=== PATIENT | male | born 1985 | race Caucasian/White ===

== ENCOUNTER 2018-08-09 16:21 | Inpatient (IN) | payer BC, SELFPAY ==
[~2018-08-09 16:21] MED LIST: Heparin 1,000 UNITS/ML VIAL ONE; ISOVUE-370 76%-LOCM 1 ML ONE; PHENYLEPHRINE-NS 100 MCG/ML 10 ML SYRINGE ONE; Rocuronium Bromide 10 MG/ML (10ML VIAL) ONE
[2018-08-09] MEDS ORDERED: Tranexamic Acid 1,000 MG/10 ML VIAL ONE (16:30)
[2018-08-09 16:33] LABS: #Basophils 0.1 thou/uL (0.0-0.2); #Eosinphils 0.6 thou/uL (0.0-0.7); #Lymphocytes 5.1 thou/uL (1.20-3.40); #Monocytes 0.7 thou/uL (0.11-0.59); #Neutrophils 6.8 thou/uL (1.40-6.50); %Basophils 0.9 % (0.0-1.0); %Eosinophils 4.5 % (0.0-10.0); %Lymphocytes 38.3 % (21.0-51.0); %Neutrophils 51.3 % (42.0-75.0); Hemoglobin 13.8 g/dL (14.0-18.0); Mean Corpuscular HGB CONC 31.4 g/dL (32.0-36.0); Mean Corpuscular Hemoglobin 30.9 pg (27.0-31.0); Mean Corpuscular Volume 98.4 fL (78.0-98.0); Mean Platelet Volume 7.3 fL (7.4-10.4); Platelet Count 401 thou/uL (130-400); RBC Distribution Width 11.9 % (11.5-14.5); Red Blood Cell (RBC) Count 4.46 mill/uL (4.70-6.10); White Blood Cell (WBC) Count 13.2 thou/uL (4.8-10.8)
[2018-08-09 16:37] LABS: Actual Bicarbonate (HCO3a) 11.6 mEq/L (22-28); Analyzer IN Cardio ER; Base Excess (BEa) -19.2 mEq/L (-2.0 to +3.0); CO2 Tension 45.8 mmHg (35.0-45.0); Calcium, Ionized 1.01 mmol/L (1.12-1.30); Carboxyhemoglobin (COHb) 1.5 gm% (0.0-3.0); Hemoglobin (Hb) 14.6 g/dL (14.0-18.0); O2 Tension (PaO2) 473.5 mmHg (80.0-100.0); Potassium - ABG Lab 4.29 mmol/L (3.70-5.30)
[2018-08-09 16:38] LABS: Puncture Site RRA; pH, Arterial 7.02 (7.35-7.45)
[2018-08-09] MEDS ORDERED: Adacel (T-DAP) 0.5 ML SYRINGE ONE (16:39)
[2018-08-09 16:46] LABS: INR-International Normal Ratio 1.3; PTT 34.3 SEC (22.9-36.1); Prothrombin Time 16.7 SEC (12.0-14.7)
[2018-08-09 16:47] LABS: ALT (SGPT) 121 U/L (8-55); AST (SGOT) 251 U/L (5-34); Alkaline Phosphatase 72 U/L (40-150); Anion Gap 22 mmol/L (10-20); BUN (Urea Nitrogen) 18 mg/dL (8.9-20.6); Bilirubin, Total 0.4 mg/dL (0.2-1.2); Calc. Creatinine Clearance 0 mL/min (70-130); Calcium 8.3 mg/dL (7.8-10.44); Carbon Dioxide 14 mmol/L (22-29); Chloride 109 mmol/L (98-107); Estimated GFR-MDRD 65; Globulin 2.3 g/dL (2.4-3.5); Glucose 128 mg/dL (70-105); Lipase 92 U/L (8-78); Potassium 4.2 mmol/L (3.5-5.1); Protein, Total 6.3 g/dL (6.0-8.3); Sodium 141 mmol/L (136-145)
[2018-08-09 16:50] LABS: Bilirubin Negative (Negative); Blood, Urine Negative (Negative); Clarity CLEAR (Clear); Glucose, Urine (Dipstick) Negative (Negative); Leukocyte Negative (Negative); Nitrite Negative (Negative); Protein, Urine (Dipstick) Negative (Neg-Trace); Specific Gravity, Urine 1.005 (1.002-1.036); Urobilinogen 0.2 mg/dL (0.2-1.0); pH, Urine 5.5 (5.0-9.0)
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
[2018-08-09] MEDS ORDERED: Tranexamic Acid 1,000 MG in Sodium Chloride 0.9% 250 ML 250 ML IVPB SCH (17:00)
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
[2018-08-09] MEDS ORDERED: manNITOL 20% 500 ML ONE ×2 (17:19→17:33)
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
[2018-08-09 17:36] LABS: Actual Bicarbonate (HCO3a) 15.7 mEq/L (22-28); Analyzer IN Cardio ER; Base Excess (BEa) -9.3 mEq/L (-2.0 to +3.0); CO2 Tension 31.9 mmHg (35.0-45.0); Calcium, Ionized 1.02 mmol/L (1.12-1.30); Carboxyhemoglobin (COHb) 0.6 gm% (0.0-3.0); Potassium - ABG Lab 4.08 mmol/L (3.70-5.30); pH, Arterial 7.31 (7.35-7.45)
[2018-08-09 17:38] LABS: Puncture Site RRA
[2018-08-09 17:39] LABS: ALV-art Gradient 397.125 (0-20)
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
[2018-08-09] MEDS ORDERED: manNITOL 20% 500 ML IVPB SCH (17:45)
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
[2018-08-09 18:29] LABS: Amphetamine Not Detected (NotDetected); Barbiturates Screen Not Detected (NotDetected); Benzodiazepine Screen Not Detected (NotDetected); Cocaine Metabolite Screen Not Detected (NotDetected); Medtox Control Line Valid? VALID (VALID); Medtox Reader # READER 4; Methadone Not Detected (NotDetected); Methamphetamine Not Detected (NotDetected); Opiate Screen Not Detected (NotDetected); Oxycodone Screen Not Detected (NotDetected); Phencyclidine (PCP) Not Detected (NotDetected); THC/Cannabinoid Screen Detected (NotDetected); Tricyclic Screen Not Detected (NotDetected)
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
[2018-08-09] MEDS ORDERED: PHENYLEPHRINE-NS 100 MCG/ML 10 ML SYRINGE ONE (20:13)
[2018-08-09] MEDS ORDERED: Phenylephrine HCL 10 MG/ML VIAL ONE (20:23)
[2018-08-09] MEDS ORDERED: Rocuronium Bromide 50 MG/5 ML VIAL ONE (20:24)
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
[2018-08-09] MEDS ORDERED: Ventilator Sedation Protocol 1 EACH FS SCH (22:03)
[2018-08-09] MEDS ORDERED: hydrALAZINE 20 MG/ML VIAL SLOW IVP PRN (22:03)
[2018-08-09] MEDS ORDERED: Ondansetron PF 4 MG/2 ML Vial IVP PRN (22:03)
[2018-08-09] MEDS ORDERED: Dextrose 50% Abboject 50 ML SYRINGE SLOW IVP PRN (22:03)
[2018-08-09] MEDS ORDERED: Dextrose 5% in Water 1,000 ML IV PRN (22:03)
[2018-08-09] MEDS ORDERED: Ondansetron ODT 4 MG TAB PO PRN (22:03)
[2018-08-09 22:18] LABS: Actual Bicarbonate (HCO3a) 17.4 mEq/L (22-28); Base Excess (BEa) -6.3 mEq/L (-2.0 to +3.0); CO2 Tension 29.4 mmHg (35.0-45.0); Calcium, Ionized 1.04 mmol/L (1.12-1.30); Carboxyhemoglobin (COHb) 0.8 gm% (0.0-3.0); Hemoglobin (Hb) 13.1 g/dL (14.0-18.0); O2 Tension (PaO2) 150.4 mmHg (80.0-100.0); Potassium - ABG Lab 4.14 mmol/L (3.70-5.30); pH, Arterial 7.39 (7.35-7.45)
--- NOTE | 2018-08-09 22:25 | RAD ---
RIGHT ANKLE ONE VIEW: 08/09/18 HISTORY: Post reduction. This is a single C-arm view which shows reduction of the ankle dislocation on this single lateral vie w. Appears to be a fairly satisfactory reduction. IMPRESSION: Apparent reduction of the ankle dislocation. POS: [facility]
[2018-08-09] MEDS ORDERED: DISCONTINUE PREVIOUS NARCOTIC PAIN MEDICATIONS AND BENZODIAZEPINES FS SCH (22:26)
[2018-08-09] MEDS ORDERED: fentaNYL Citrate/PF 2,000 MCG in Sodium Chloride 0.9% 60 ML IV SCH (22:26)
[2018-08-09] MEDS ORDERED: Lorazepam 2 MG/ML VIAL SLOW IVP PRN (22:26)
[2018-08-09] MEDS ORDERED: Fentanyl BOLUS 250 ML IVPB PRN (22:26)
[2018-08-09] MEDS ORDERED: Propofol BOLUS 1,000 MG/100 ML VIAL IV PRN (22:26)
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
[2018-08-09 22:37] LABS: Puncture Site RBA
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
[2018-08-09 22:44] LABS: Hemoglobin 12.9 g/dL (14.0-18.0)
[2018-08-09] MEDS: Acetaminophen 1,000 MG in Premix Bag 1 BAG IVPB SCH (23:43)
--- NOTE | 2018-08-10 | RAD ---
CERVICAL SPINE ONE VIEW: 08/09/18 HISTORY: C5-6 dislocation. COMPARISON: CT angiogram neck 08/09/18. FINDINGS: Marked improvement in the alignment of the C5-C6 vertebral region when compared to the prior study. IMPRESSION: Marked improvement in position and alignment of the cervical spine at C5-C6 when compared to prior CT angiogram. POS: [facility]
[2018-08-10 00:08] LABS: Anion Gap 13 mmol/L (10-20); BUN (Urea Nitrogen) 16 mg/dL (8.9-20.6); Calc. Creatinine Clearance 112 mL/min (70-130); Calcium 7.6 mg/dL (7.8-10.44); Carbon Dioxide 21 mmol/L (22-29); Chloride 109 mmol/L (98-107); Estimated GFR-MDRD 79; Glucose 147 mg/dL (70-105); Potassium 4.2 mmol/L (3.5-5.1); Sodium 139 mmol/L (136-145)
[2018-08-10] MEDS: Propofol 1,000 MG/100 ML VIAL IV PRN (00:14)
[2018-08-10] MEDS: Lactated Ringer's 1,000 ML IV SCH ×3 (01:00→22:38)
--- NOTE | 2018-08-10 01:29 | OP ---
DATE OF PROCEDURE: 08/09/2018 [employer] OPERATOR: Ro Pizarro PA-C. PREOPERATIVE INDICATION: Monitor intracranial pressure, potential for neurological deterioration. POSTOPERATIVE DIAGNOSIS: Monitor intracranial pressure, potential for neurological deterioration. OPERATIVE PROCEDURE: Placement of right frontal Bethune bolt ICP monitor. PREOPERATIVE MEDICATIONS: Ancef 2 g IV. DRAIN NUMBER: Zero. DRAIN TYPE: None. DESCRIPTION OF PROCEDURE: The patient was in the operating room under general anesthesia for his orthopedic surgery. Electric clippers were used to remove hair from the right side of the scalp. The scalp was sterilely prepped and draped. We made an incision in the midpupillary line anterior to the coronal suture. With a hand drill and the appropriately sized bit, we fashioned a craniotomy. With the drill bit, we pierced the inner cortex of the bone and gently opened the dura. We washed this with saline irrigation. We then brought the Bethune bolt itself into the field. This was threaded into the drill hole we had just created and we tightened it until it could not turn anymore. We connected the pressure transducer to the Bethune monitor and adjusted the pressure radio adjuster until it read zero. We advanced it through the Sarah bolt in a sterile fashion into the intracranial space and tightened down the cap. We had an initial pressure reading of 14-70 mmHg, in the normal range. We tacked down the cap, advanced the outer plastic sheath to engage with a cap and protect a fiberoptic probe, and placed a sterile dressing at the entry point. This was a clean case, no contamination. Job ID: [id number]
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
[2018-08-10 05:02] LABS: Anion Gap 20 mmol/L (10-20); BUN (Urea Nitrogen) 19 mg/dL (8.9-20.6); Calc. Creatinine Clearance 90 mL/min (70-130); Calcium 7.7 mg/dL (7.8-10.44); Carbon Dioxide 16 mmol/L (22-29); Chloride 110 mmol/L (98-107); Estimated GFR-MDRD 62; Glucose 143 mg/dL (70-105); Potassium 4.8 mmol/L (3.5-5.1); Sodium 141 mmol/L (136-145)
[2018-08-10 05:10] LABS: Band 21 % (5-11); Hemoglobin 13.6 g/dL (14.0-18.0); Lymphocytes 3 % (21-51); MDiff Complete? YES; Mean Corpuscular HGB CONC 34.1 g/dL (32.0-36.0); Mean Corpuscular Hemoglobin 32.1 pg (27.0-31.0); Monocytes 11 % (0-10); Neutrophil 65 % (42-75); Platelet Count 225 thou/uL (130-400); RBC Distribution Width 13.4 % (11.5-14.5); Red Blood Cell (RBC) Count 4.25 mill/uL (4.70-6.10); White Blood Cell (WBC) Count 14.1 thou/uL (4.8-10.8)
[2018-08-10] MEDS: CEFAZOLIN 2 GM in Premix Bag 1 BAG IVPB SCH ×3 (05:27→22:38)
[2018-08-10] MEDS: Acetaminophen 1,000 MG in Premix Bag 1 BAG IVPB SCH ×3 (05:28→18:16)
[2018-08-10 07:08] LABS: Actual Bicarbonate (HCO3a) 14.6 mEq/L (22-28); Base Excess (BEa) -8.5 mEq/L (-2.0 to +3.0); Calcium, Ionized 1.01 mmol/L (1.12-1.30); Carboxyhemoglobin (COHb) 0.5 gm% (0.0-3.0); Hemoglobin (Hb) 13.6 g/dL (14.0-18.0); O2 Tension (PaO2) 114.5 mmHg (80.0-100.0); Potassium - ABG Lab 4.54 mmol/L (3.70-5.30); pH, Arterial 7.39 (7.35-7.45)
[2018-08-10 07:10] LABS: CO2 Tension 24.8 mmHg (35.0-45.0); Puncture Site RRA
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
--- NOTE | 2018-08-10 08:43 | CT ---
Exam: CT brain without contrast HISTORY: Intracranial hemorrhage COMPARISON: 08/09/2018 TECHNIQUE: Multiple contiguous axial images were obtained and a CT of the brain without contrast. FINDINGS: There is been interval placement of an intracranial pressure monitor in the right frontal r egion. There is stable diffuse subarachnoid hemorrhage. There is stable subdural hemorrhage along the tentorium. There is stable interventricular hemorrhage without evidence of hydrocephalus. Subtle shift of the midline to the left is seen. No downward herniation is present at this time. Soft tissue swelling is seen in the right scalp. The visualized paranasal sinuses and mastoid air titus ls are well aerated. IMPRESSION: Stable intracranial hemorrhage
--- NOTE | 2018-08-10 08:58 | PRG ---
DATE OF SERVICE: 08/10/2018 Since our operation yesterday for placement of ICP monitor, Mr. Cross went for a CT angiography of the cervical spine. This showed more displacement of the C5-C6 dislocation and some evidence of vertebral artery dissection with a tiny area of potential intimal flap, especially on the left, but also on the right vertebral artery. This may be related to the misalignment at C5-C6, but if it is related to dissection, there is a risk of stroke. I did not see anything distally in those vertebral arteries. Following the CT angiography, we returned, properly positioned the head and realigned C5 and C6 as documented on the cross-bed radiograph. Collar is in position. Overnight, Mr. Cross is febrile. His temperature went up to 103.5. Pulse is tachycardic. His blood pressures have been in the 100s to 130s. He is not on any pressor agents. His propofol is running. I hold his eyes open. I see some very slow roving eye movements. The eyes come to midline or just to his right of midline and then slowly rolled to the left. He is not responsive to stimulus with his eye movements. We tried to gain his attention with voice with threat to the eyes or with noxious stimulus and nothing stops this slow progressive roving eye movement, suggestive of a brain injury. As I pinched high in the trapezius towards the neck, there is one slight grimace and head turn. The only improvement I see on his neurological examination compared yesterday is nailbed pressure in the left hand resulted in him lifting the left arm. The elbows were mobilized in a plaster splint, so I cannot tell if this is abnormal flexion or withdrawal. I do not get much response to stimulus on the other three extremities. I do not see a new CT examination of the brain. I had a long discussion Mr. Cross's mother. She is wondering how we should proceed next. I would like to give her the most information I can about his chances of a meaningful recovery. I would like to see what sort of brain function he has before making decisions. My first order of business would be an ACDF at C5-C6. I do not think this will provide 100% of the spinal stability he needs, but would make it much easier to care for him and give him a few more days of recovery. Eventually, I believe he needs an instrumented fusion at C5-C6 posteriorly as well as from T10 to T12 above and below his Chance fracture. I will communicate with the Trauma Service as to his overall health and tolerance for more surgical intervention. With more information about the status of his brain function and brain anatomy, I will be able to speak with his mother about prognosis. Thankfully, his ICP has remained low and we have not had to use any oncotic agents. Job ID: [id number] [facility]
--- NOTE | 2018-08-10 09:22 | RAD ---
EXAM: XR Cervical Spine 1 View PROVIDED CLINICAL HISTORY: C5 and C6 fracture. COMPARISON: CT angiogram neck on 08/09/2018 FINDINGS: Nasogastric tube and endotracheal tubes are noted in place. Multiple metallic skin clips overlie the skull. C1 to the C6-7 level is seen on this single provided lateral image. There is slight irregularity of the superior endplate of the C5 vertebral body. However, there is normal alignment of the C5 and C6 vertebral bodies with improvement in alignment at this level when compared to study on 08/09/2018. Retrolisthesis of C5 on C6 was seen on the prior exam which is not present on current s tudy. Alignment of the cervical spine is within normal limits on this single lateral projection IMPRESSION: Improved alignment at the C5-6 level. Normal alignment of the cervical spine is present on this singl e lateral view of the cervical spine. There is mild irregularity of the superior endplate of the C5 vertebral body.
[2018-08-10] MEDS: Insulin Regular 300 UNITS/3 ML VIAL SC PRN (09:47)
[2018-08-10 09:57] LABS: Hemoglobin 12.6 g/dL (14.0-18.0)
[2018-08-10] MEDS ORDERED: Thrombin 5000 UNITS/5 ML VIAL ONE (10:14)
[2018-08-10] MEDS ORDERED: Sodium Chloride 0.9% 10 ML ONE (10:14)
[2018-08-10] MEDS ORDERED: Fentanyl 100 MCG/2 ML VIAL ONE (10:19)
[2018-08-10] MEDS ORDERED: Iopamidol 300 61% 100 ML VIAL FS ONE (10:40)
[2018-08-10] MEDS ORDERED: Iopamidol 0 ML ONE (10:59)
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
[2018-08-10] MEDS ORDERED: HYDROmorphone 2 MG/ML VIAL ONE (11:55)
[2018-08-10] MEDS ORDERED: Rocuronium Bromide 50 MG/5 ML VIAL ONE ×2 (12:01→12:46)
[2018-08-10] MEDS ORDERED: Midazolam HCl 2 mg/2 ml Vial ONE (12:33)
--- NOTE | 2018-08-10 12:43 | RAD ---
EXAM: Chest 2 views: HISTORY: Pneumothorax from central line placement. Please ensure that the catheter is not within the lung/pleu ra. COMPARISON: Chest x-ray 08/10/2018 FINDINGS: Limited intraoperative fluoroscopic views were submitted for interpretation. Contrast was injected th rough the subclavian central venous catheter. This contrast extended down the superior vena cava. No contrast is seen within the right thoracic cavity. A right-sided chest tube is partially visualize d. IMPRESSION: The subclavian central venous catheter appears intravascular.
[2018-08-10] MEDS ORDERED: PHENYLEPHRINE-NS 100 MCG/ML 10 ML SYRINGE ONE ×3 (13:00→16:08)
[2018-08-10] MEDS ORDERED: Glycopyrrolate 0.2 MG/ML 5 ML SYRINGE ONE (13:00)
--- NOTE | 2018-08-10 14:19 | RAD ---
EXAM: Single view of the chest HISTORY: Right pneumothorax COMPARISON: 08/10/2018 FINDINGS: Single view of the chest shows a normal sized cardiomediastinal silhouette. A right-sided chest tube has been placed with evacuation of the right apical pneumothorax. However, air is seen just above the right hemidiaphragm which could represent a small anterior pneumothorax. The right sub clavian central venous catheter has been removed. The left subclavian central venous catheter is unchanged in position. Endotracheal tube and NG tube are unchanged in position. There is no evidence of consolidation, mass, or pleural effusion. The bones are unremarkable. IMPRESSION: Status post right chest tube placement with possible residual right anterior pneumothorax
--- NOTE | 2018-08-10 14:48 | RAD ---
EXAM: 3 views of the right foot HISTORY: Status post subtalar dislocation. COMPARISON: None FINDINGS: 3 views of the right foot shows fractures of the necks of the fourth and fifth metatarsals. There is amputation of the second toe through the proximal phalanx. There is a lucency seen on the lateral radiograph overlying the talus which could represent a talar fracture. IMPRESSION: 1. Right fourth and fifth metatarsal fractures 2. Possible talar fracture. Ankle views should be performed for better evaluation. 3. Amputation of the second toe
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
--- NOTE | 2018-08-10 16:03 | OP ---
DATE OF PROCEDURE: 08/10/2018 SHOE FOLDER: None. PREOPERATIVE INDICATION: Prevent neurological deterioration. PREOPERATIVE DIAGNOSIS: C5-C6 dislocation with complete facet and disk disruption. POSTOPERATIVE DIAGNOSIS: C5-C6 dislocation with complete facet and disk disruption. PROCEDURES PERFORMED: Anterior cervical diskectomy, intervertebral arthrodesis, placement of intervertebral biomechanical device, anterior cervical plating C5-C6 and C6-C7, local morselized autograft, morselized allograft, and operating microscope. PREOPERATIVE MEDICATION: Ancef 2 g IV. DRAIN NUMBER: Zero. DRAIN TYPE: None. DESCRIPTION OF PROCEDURE: The patient was brought to the operating room. General anesthesia was induced. The patient was came down, intubated from the ICU. A lateral fluoro radiograph was used to position the spine so that C5 and C6 were in good alignment and was then immobilized by taping into the bed. We planned our incision on the right side of the neck to give us access to C5-C6. Trauma surgery placed a chest tube and then we proceeded with our operation. Right side of the neck was sterilely prepped and draped. We opened with a 10 blade knife and controlled bleeding with bipolar cautery. We dissected sharply to the platysma and cut this muscle in line with our incision. We continued our dissection medial to the sternocleidomastoid and lateral to the trachea and esophagus. We arrived to the prevertebral space. The anterior longitudinal ligament and disk at C5-C6 were violently disrupted and there was ecchymosis and blood that was removed. There was not a significant amount of active bloody egress. We elevated the longus colli muscles carefully and placed self-retaining retractors beneath them. We carefully placed distraction pins at C5 and C6 and distracted across the interspace. There were no posterior ligaments keeping this in place. We placed 2 clicks of distraction. We then removed the intervertebral disk in a piecemeal fashion and prepared the endplates for grafting. We removed anterior osteophytes as well. The osteophytes were cleaned of soft tissue attachments, morcellized and added to demineralized bone matrix as our fusion substrate. The operative microscope was brought in the field. Under microscopic magnification and using microsurgical techniques, we brought a 9 mm PEEK intervertebral graft into the field and loaded this with demineralized bone matrix and morselized autograft. This was placed in the interspace under radiographic guidance. We then removed our distraction pins. the operating microscope was taken out of the field. An 18-mm anterior cervical plate was brought in. We drilled [place] pilot holes through the plate into the vertebral body at C5 and C6. We affixed the plate using 16 mm fixed angle screws, placing two screws at C5 and two screws at C6. We took AP and lateral fluoro radiographs confirming adequate positioning of our instrumentation and reasonable bony anatomic alignment. We engaged the locking mechanism over each of the 4 screws. During the right-sided portion of the diskectomy, we encountered some CSF leak from the dura in the corner just at the root sleeves of the C6 nerve root on the right. We reinforced this small leak with a pledget of Gelfoam and Tisseel. Once the plate was on, we filled the lateral recesses around the intervertebral graft with Tisseel as well. There was no further CSF egress that we could see. We had already irrigated copiously with bacitracin irrigation. We closed the wound in anatomical layers. We applied a sterile dressing. This was a clean case, no contamination. Job ID: [id number]
[2018-08-10 16:05] LABS: Hemoglobin 11.1 g/dL (14.0-18.0); Mean Corpuscular Hemoglobin 31.7 pg (27.0-31.0); Mean Corpuscular Volume 93.4 fL (78.0-98.0); Mean Platelet Volume 7.3 fL (7.4-10.4); Platelet Count 142 thou/uL (130-400); Red Blood Cell (RBC) Count 3.51 mill/uL (4.70-6.10)
[2018-08-10] MEDS ORDERED: Rocuronium Bromide 10 MG/ML (10ML VIAL) ONE (16:08)
[2018-08-10] MEDS ORDERED: ePHEDrine 50 MG/ML VIAL ONE (16:08)
[2018-08-10] MEDS ORDERED: Vecuronium 10 MG VIAL ONE (16:08)
[2018-08-10] MEDS ORDERED: Dexamethasone 20 MG/5 ML VIAL ONE (16:08)
[2018-08-10 16:25] LABS: Anion Gap 16 mmol/L (10-20); BUN (Urea Nitrogen) 19 mg/dL (8.9-20.6); Calc. Creatinine Clearance 118 mL/min (70-130); Calcium 7.4 mg/dL (7.8-10.44); Carbon Dioxide 19 mmol/L (22-29); Chloride 109 mmol/L (98-107); Estimated GFR-MDRD 85; Glucose 139 mg/dL (70-105); Potassium 4.8 mmol/L (3.5-5.1); Sodium 139 mmol/L (136-145)
[2018-08-10 16:36] LABS: Band 20 % (5-11); Lymphocytes 9 % (21-51); MDiff Complete? YES; Monocytes 6 % (0-10); Neutrophil 65 % (42-75); Platelet Morphology Comment Appears Adequate; Polychromasia SLIGHT = 2-3 cells (100X) (0-2/hpf)
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
[2018-08-10 22:43] LABS: Hemoglobin 10.2 g/dL (14.0-18.0)
[2018-08-11] MEDS: Acetaminophen 1,000 MG in Premix Bag 1 BAG IVPB SCH (00:09)
[2018-08-11 05:15] LABS: Anion Gap 11 mmol/L (10-20); BUN (Urea Nitrogen) 20 mg/dL (8.9-20.6); Calc. Creatinine Clearance 149 mL/min (70-130); Calcium 8.4 mg/dL (7.8-10.44); Carbon Dioxide 23 mmol/L (22-29); Chloride 108 mmol/L (98-107); Estimated GFR-MDRD Greater than 90; Glucose 139 mg/dL (70-105); Potassium 4.1 mmol/L (3.5-5.1); Sodium 138 mmol/L (136-145)
[2018-08-11 05:25] LABS: Band 21 % (5-11); Hemoglobin 9.8 g/dL (14.0-18.0); Lymphocytes 9 % (21-51); MDiff Complete? YES; Mean Corpuscular HGB CONC 34.8 g/dL (32.0-36.0); Mean Corpuscular Hemoglobin 32.5 pg (27.0-31.0); Mean Corpuscular Volume 93.3 fL (78.0-98.0); Mean Platelet Volume 7.8 fL (7.4-10.4); Monocytes 4 % (0-10); Neutrophil 66 % (42-75); Platelet Count 157 thou/uL (130-400); RBC Distribution Width 12.8 % (11.5-14.5); Red Blood Cell (RBC) Count 3.02 mill/uL (4.70-6.10); White Blood Cell (WBC) Count 12.8 thou/uL (4.8-10.8)
[2018-08-11] MEDS: Propofol 1,000 MG/100 ML VIAL IV PRN (05:28)
[2018-08-11] MEDS: CEFAZOLIN 2 GM in Premix Bag 1 BAG IVPB SCH ×2 (05:28→16:53)
--- NOTE | 2018-08-11 08:37 | RAD ---
PORTABLE CHEST: History: Right sided pneumothorax. Comparison: Prior day's exam. FINDINGS: Heart size is within normal limits. Endotracheal and NG tubes are in satisfactory position. Left subc lavian line is unchanged. Right chest tube is in place. There appears to be improvement to the right sided pneumothorax. Some increased density in the right base could indicate some right lower lobe ate lectasis. IMPRESSION: Resolving right sided pneumothorax. There may still be some small anteriorly loculated pneumothorax p resent. Atelectatic changes of the right lung base appear improved. POS: MARCELLE
[2018-08-11] MEDS: Famotidine/PF 20 mg/2ml Vial SLOW IVP SCH ×2 (08:54→21:31)
[2018-08-11] MEDS: Acetaminophen 650 MG/20.3 ML UDCUP PO SCH ×3 (08:54→21:31)
[2018-08-11] MEDS ORDERED: Fentanyl 100 MCG/2 ML VIAL SLOW IVP SCH (09:45)
[2018-08-11] MEDS ORDERED: Metoclopramide HCl 10 MG/2 ML VIAL ONE (10:24)
[2018-08-11] MEDS ORDERED: Vecuronium 10 MG VIAL ONE (10:24)
[2018-08-11] MEDS ORDERED: Rocuronium Bromide 10 MG/ML (10ML VIAL) ONE (10:24)
[2018-08-11] MEDS ORDERED: Dexamethasone 20 MG/5 ML VIAL ONE (10:24)
[2018-08-11 10:32] LABS: Hemoglobin 8.6 g/dL (14.0-18.0)
[2018-08-11] MEDS: Insulin Regular 300 UNITS/3 ML VIAL SC PRN ×2 (11:09→16:50)
--- NOTE | 2018-08-11 11:37 | PRG ---
DATE OF SERVICE: 08/11/2018 I saw Mr. Cross in the ICU this morning. He is on propofol. His ICP has never been elevated. Yesterday, we performed ACDF at C5-C6. We are going to further stabilize that dislocated segment of the cervical spine with a posterior operation when it can be done. Nursing reports no events overnight. Vital signs are relatively stable. Off propofol for few minutes. Mr. Cross opens his eyes to stimulus. Without stimulation, he has some roving eye movements from the midline to the left visual field on the back to the midline. These are not conscious movements. With stimulation, he fixates in the midline. He has a skew deviation with the left eye below the right. He moves the left side. Occasionally, I believe he is wiggling his toes to command, but it is intermittent. Plan for Mr. Cross is to have his external fixator removed from his femur today and have the femur rodded. On that side of the way, we can place him prone for surgery tomorrow to address C5-C6 posteriorly as well as T11 Chance fracture. Job ID: [id number] MTDD
[2018-08-11] MEDS ORDERED: Fentanyl 100 MCG/2 ML VIAL ONE ×3 (12:56→15:50)
[2018-08-11] MEDS ORDERED: Famotidine/PF 20 mg/2ml Vial ONE (12:57)
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
--- NOTE | 2018-08-11 16:30 | RAD ---
Left elbow 2 views intraoperative fluoroscopy HISTORY: Elbow injury. FINDINGS: Intraoperative fluoroscopy was provided for orthopedic procedure is performed by Dr. Sanchez os. 2 spot fluoroscopic images from overlying fiberglass splint. Alignment is anatomic. Fluoroscopy time 3.2 seconds.
--- NOTE | 2018-08-11 16:32 | RAD ---
XR Hand Lt 2 View HISTORY:Intraoperative film COMPARISON: None. FINDINGS: 2 C-arm views show pinning of a midshaft fifth metacarpal fracture. Bony alignment appears satisfactory. IMPRESSION: Pinning of fifth metacarpal fracture.
--- NOTE | 2018-08-11 16:33 | RAD ---
Right femur 2 views intraoperative fluoroscopy HISTORY: Femur fracture. FINDINGS: Intraoperative fluoroscopy was provided for internal fixation as performed by Dr. Camejo. Spot fluoroscopic images show long medullary krystyna transfixing the comminuted femoral shaft fracture. Alignment is anatomic. Fluoroscopy time 143 seconds.
--- NOTE | 2018-08-11 16:35 | RAD ---
XR Foot Lt 3 View STANDARD HISTORY:Trauma to foot. COMPARISON: None. FINDINGS: 3 C-arm projections of the forefoot were obtained. These show a fracture through the base o f the distal phalanx of the great toe. There is a probable fracture of the base of the proximal phalanx of the second toe. No additional findings. IMPRESSION: 1. Distal phalanx great toe fracture. Questionable fracture of the proximal phalanx of the second toe .
--- NOTE | 2018-08-11 16:45 | RAD ---
TWO VIEWS RIGHT ANKLE INTRAOPERATIVE: History: Patient with previous multiple right foot fractures. FINDINGS: AP and lateral views obtained. The right ankle joint demonstrates swelling along the lateral aspect. The talar fracture is difficult to visualize on plain film radiograph C-arm images. IMPRESSION: Two intraoperative radiographs of the right ankle. POS: C
[2018-08-11 16:53] LABS: Hemoglobin 8.3 g/dL (14.0-18.0)
[2018-08-11 17:15] LABS: Anion Gap 10 mmol/L (10-20); BUN (Urea Nitrogen) 15 mg/dL (8.9-20.6); Calc. Creatinine Clearance 173 mL/min (70-130); Calcium 7.8 mg/dL (7.8-10.44); Carbon Dioxide 23 mmol/L (22-29); Chloride 109 mmol/L (98-107); Estimated GFR-MDRD Greater than 90; Glucose 161 mg/dL (70-105); Potassium 3.9 mmol/L (3.5-5.1); Sodium 138 mmol/L (136-145)
[2018-08-11] MEDS: Lactated Ringer's 1,000 ML IV SCH ×2 (18:10→20:28)
[2018-08-11] MEDS: Piperacillin/Tazobactam 3.375 GM in Sodium Chloride 0.9% 100 ML IVPB SCH ×2 (20:28→23:53)
[2018-08-11] MEDS ORDERED: CEFAZOLIN 2 GM in Premix Bag 1 BAG IVPB SCH (22:00)
[2018-08-12] MEDS: Acetaminophen 650 MG/20.3 ML UDCUP PO SCH ×4 (03:39→20:20)
[2018-08-12] MEDS: Lactated Ringer's 1,000 ML IV SCH ×2 (03:43→16:00)
[2018-08-12 04:40] LABS: Anion Gap 10 mmol/L (10-20); BUN (Urea Nitrogen) 13 mg/dL (8.9-20.6); Calc. Creatinine Clearance 178 mL/min (70-130); Calcium 8.1 mg/dL (7.8-10.44); Carbon Dioxide 25 mmol/L (22-29); Chloride 107 mmol/L (98-107); Estimated GFR-MDRD Greater than 90; Glucose 119 mg/dL (70-105); Potassium 3.7 mmol/L (3.5-5.1); Sodium 138 mmol/L (136-145)
[2018-08-12 04:42] LABS: Band 8 % (5-11); Hemoglobin 7.3 g/dL (14.0-18.0); Hypochromia SLIGHT = 6-15 cells (100X) (0-5/hpf); Lymphocytes 5 % (21-51); MDiff Complete? YES; Mean Corpuscular HGB CONC 34.3 g/dL (32.0-36.0); Mean Corpuscular Hemoglobin 32.3 pg (27.0-31.0); Mean Corpuscular Volume 94.2 fL (78.0-98.0); Mean Platelet Volume 7.4 fL (7.4-10.4); Monocytes 3 % (0-10); Neutrophil 84 % (42-75); Platelet Count 135 thou/uL (130-400); Platelet Morphology Comment Appears Adequate; RBC Distribution Width 12.6 % (11.5-14.5); Red Blood Cell (RBC) Count 2.26 mill/uL (4.70-6.10); White Blood Cell (WBC) Count 6.4 thou/uL (4.8-10.8)
[2018-08-12] MEDS: Morphine 2 MG/ML SYRINGE SLOW IVP PRN (05:35)
[2018-08-12] MEDS: Piperacillin/Tazobactam 3.375 GM in Sodium Chloride 0.9% 100 ML IVPB SCH ×3 (05:36→17:51)
[2018-08-12] MEDS ORDERED: Bupivacaine HCl 0.5%/Epinephrine 1:200,000/PF 30 ml Vial ONE (06:04)
[2018-08-12] MEDS ORDERED: Sodium Chloride 0.9% 20 ML ONE (06:05)
[2018-08-12] MEDS ORDERED: Bacitracin Zinc Ointment 30 gm TUBE ONE (06:05)
[2018-08-12] MEDS ORDERED: Thrombin 5000 UNITS/5 ML VIAL ONE (06:05)
[2018-08-12 07:19] LABS: Actual Bicarbonate (HCO3a) 22.7 mEq/L (22-28); Base Excess (BEa) -0.2 mEq/L (-2.0 to +3.0); CO2 Tension 29.7 mmHg (35.0-45.0); Calcium, Ionized 1.06 mmol/L (1.12-1.30); Carboxyhemoglobin (COHb) 0.5 gm% (0.0-3.0); Hemoglobin (Hb) 7.6 g/dL (14.0-18.0); O2 Tension (PaO2) 61.1 mmHg (80.0-100.0); Potassium - ABG Lab 3.45 mmol/L (3.70-5.30)
--- NOTE | 2018-08-12 07:57 | PRG ---
DATE OF SERVICE: 08/12/2018 Mr. Cross had the femur rodded yesterday, he has ICP monitor in place and the ICP has never been abnormal. His recorded vital signs show a T-max of 100.2 degrees Fahrenheit, recorded blood pressures ranged in the 140s to 160s and he is tachycardic Mr. Cross remains on propofol to tolerate the ventilator support and his ICPs have been between 3 and 13. Current ICP is 7 mmHg. Our plan is to bring Mr. Cross to the operating room today and stabilize C5-C6 posteriorly. He has an anterior construct, which will be insufficient given the complete disruption of all ligamentous stability at C5-C6. In the same setting, we will stabilize Chance fracture at T11. Our management strategy was explained to his mother earlier in the week and she agreed that the benefits outweigh the risks. We will take him to the operating room today. Job ID: [id number] MTDD
[2018-08-12 08:14] LABS: ALV-art Gradient 115.675 (0-20); Puncture Site RRA
[2018-08-12] MEDS ORDERED: Fentanyl 100 MCG/2 ML VIAL ONE ×2 (08:26→12:30)
[2018-08-12] MEDS ORDERED: Midazolam HCl 2 mg/2 ml Vial ONE (08:26)
--- NOTE | 2018-08-12 09:20 | RAD ---
PORTABLE CHEST: HISTORY: Right chest tube evaluation. COMPARISON: Prior day's study. FINDINGS: The right chest tube is unchanged in position. There is increased opacification in the right base. This could indicate effusion or increasing atelectasis. IMPRESSION: Increasing parenchymal change in the right base; otherwise stable examination. POS: TPC
[2018-08-12] MEDS ORDERED: Rocuronium Bromide 50 MG/5 ML VIAL ONE ×2 (11:02→13:52)
[2018-08-12] MEDS ORDERED: Vecuronium 10 MG VIAL ONE ×2 (11:03→16:24)
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
[2018-08-12] MEDS ORDERED: HYDROmorphone 2 MG/ML VIAL ONE (13:59)
[2018-08-12 15:44] LABS: #Basophils 0.1 thou/uL (0.0-0.2); #Lymphocytes 0.3 thou/uL (1.20-3.40); #Monocytes 0.2 thou/uL (0.11-0.59); #Neutrophils 5.4 thou/uL (1.40-6.50); %Basophils 0.9 % (0.0-1.0); %Eosinophils 0.2 % (0.0-10.0); %Lymphocytes 5.3 % (21.0-51.0); %Neutrophils 89.7 % (42.0-75.0); Hemoglobin 8.7 g/dL (14.0-18.0); Mean Corpuscular HGB CONC 34.8 g/dL (32.0-36.0); Mean Corpuscular Hemoglobin 32.9 pg (27.0-31.0); Mean Corpuscular Volume 94.8 fL (78.0-98.0); Mean Platelet Volume 7.4 fL (7.4-10.4); Platelet Count 132 thou/uL (130-400); RBC Distribution Width 12.1 % (11.5-14.5); Red Blood Cell (RBC) Count 2.63 mill/uL (4.70-6.10); White Blood Cell (WBC) Count 6.1 thou/uL (4.8-10.8)
--- NOTE | 2018-08-12 15:56 | OP ---
DATE OF PROCEDURE: 08/12/2018 MENTAL RETARDATION NURSE: Ro Pizarro PA-C PREOPERATIVE INDICATION: Prevent neurological deterioration. PREOPERATIVE DIAGNOSES: 1. C5-C6 complete ligamentous disruption and dislocation, prior anterior cervical discectomy and fusion, need for stabilization. 2. T11 Chance fracture, unstable. 3. Column injury. POSTOPERATIVE DIAGNOSES: 1. C5-C6 complete ligamentous disruption and dislocation, prior anterior cervical discectomy and fusion, need for stabilization. 2. T11 Chance fracture, unstable. OPERATIVE PROCEDURES: 1. C5-C6 lateral mass screw placement, reduction and internal fixation of C5-6 dislocation, posteriolateral arthrodesis, and traumatic durotomy repair. 2. T10-T12 pedicle screw and krystyna instrumentation with open pedicle screw reduction of T11 Chance fracture, posterolateral arthrodesis T10-T12. PREOPERATIVE MEDICATION: Ancef 2 g IV. DRAIN NUMBER: Zero. DRAIN TYPE: None. DESCRIPTION OF PROCEDURE: The patient was brought to the operating room. He came down from the ICU, intubated. General anesthesia was induced. Carrillo pin and head swamper were attached to the patient's head, and we carefully positioned him prone on chest rolls. We were careful with the left arm due to his elbow dislocation and we had our colleagues in Orthopedic Surgery to help us to mobilize it for this operation. It was taped to the bed. Head was immobilized in a Carrillo attachment for the operating table. Multiple lacerations in the posterior scalp are cleaned. Large laceration with the ears attached to the scalp was noticed and irrigated copiously. The skin from the back of the skull all the way through the lumbar spine was sterilely prepped and draped. We started the operation number one by making a midline incision from C5-C7 posteriorly. We controlled bleeding with gentle bipolar cautery. We dissected to the ligamentum nuchae and incised the ligament in the midline. We reflected the paraspinal muscles off the spinous process and lamina of C5 and C6, as well as the inferior portion of C4 and superior portion of C7. Self-retaining retractors were placed. There was a large amount of CSF egress from the right side of the interlaminar space. The yellow ligament was disrupted enough that we could see the dura was macerated and unrepairable. The end could not be directly repaired. We elected to proceed with posterolateral arthrodesis and then close by adding tissue and DuraSeal tissue sealant at the end of our case. We carried our dissection over the facet joints and the lateral masses at C5 and C6. Using a lateral fluoro radiograph, we chose the entry points for lateral mass screws and we drilled out our entry point using a 12 mm drill. We drilled out our trajectory superiorly and laterally. At the same fashion, we chose entry points and trajectories for the C6 lateral mass screws. A 12 x 14 mm lateral mass screws were placed in the lateral masses at C5-C6 bilaterally. We irrigated copiously with bacitracin irrigation. We decorticated the remainder of the lamina of C5 and C6 and the lateral portion of the lateral masses. Over the decorticated bone, we left demineralized bone matrix as our posterolateral arthrodesis. We then incised the muscle posteriorly and used the pledget to muscle in between the laminae of C5 and C6 on the right side. This plugged all through which CSF egress was noted. We reinforced this closure with DuraSeal tissue sealant. We then brought the rods down into the screw heads and using caps, we tightened down over the rods. We used gentle compressive force to reduce the dislocation deformity and to keep the interbody graft (previously placed) in position anteriorly. Using a torque/counter-torque mechanism, we ensured adequate tightness of our caps. A lateral fluoro radiograph confirmed adequate position of our instrumentation. We treated the wound with vancomycin powder and we closed this wound in anatomical layers. We then turned our attention to operation number two. Operation number two: We made a midline incision from T10-T12. We controlled bleeding with gentle bipolar cautery. We used monopolar cautery to dissect to the thoracodorsal fascia. The fascia was disrupted completely at the level of T11. We reflected the paraspinal muscles off the spinous process and lamina from the top of T10 to the bottom of T12. We exposed the transverse processes from T10-T12 as well. Using bony anatomic landmarks, a lateral fluoro radiograph in the preoperative imaging as a guide, we chose the entry points for pedicle screws at T10, T11, and T12 bilaterally. We used a thoracic size bone awl to advance through the pedicles into the vertebral bodies. We widened this trajectory with a larger awl and then tapped it with a 4.75 mm tap. We placed 5.5 mm screws at the T10, T11 and T12. AP and lateral fluoro radiographs confirmed adequate position of our pedicle screw instrumentation. We irrigated copiously with bacitracin irrigation. We then brought straight rods into the field. We tightened caps over the rods and get some reduction of the kyphosis. We put a gentle lordotic curve in the top portion of each krystyna and then using a krystyna distance learning unit leader, we got even more reduction of the spinal deformity. We tightened caps down over the rods using a torque/counter-torque mechanism. We decorticated the lamina of T10, T11 and T12 and over the decorticated bone, we left demineralized bone matrix as our posterolateral fusion substrate. Fluoro radiographs confirmed adequate position of this instrumentation. We treated this wound with vancomycin powder and we closed in anatomical layers. This was a clean case, no contamination. Job ID: [id number] [facility]
[2018-08-12] MEDS: Famotidine/PF 20 mg/2ml Vial SLOW IVP SCH ×2 (16:01→20:21)
[2018-08-12] MEDS: CEFAZOLIN 2 GM in Premix Bag 1 BAG IVPB SCH ×2 (16:01→22:20)
[2018-08-12 16:04] LABS: Anion Gap 9 mmol/L (10-20); BUN (Urea Nitrogen) 13 mg/dL (8.9-20.6); Calc. Creatinine Clearance 164 mL/min (70-130); Calcium 7.7 mg/dL (7.8-10.44); Carbon Dioxide 26 mmol/L (22-29); Chloride 108 mmol/L (98-107); Estimated GFR-MDRD Greater than 90; Glucose 131 mg/dL (70-105); Potassium 4.1 mmol/L (3.5-5.1); Sodium 139 mmol/L (136-145)
[2018-08-12] MEDS ORDERED: Esmolol 100 MG/10 ML VIAL ONE (16:24)
[2018-08-12] MEDS ORDERED: PHENYLEPHRINE-NS 100 MCG/ML 10 ML SYRINGE ONE (16:24)
[2018-08-12] MEDS ORDERED: Dexamethasone 20 MG/5 ML VIAL ONE (16:24)
[2018-08-12] MEDS ORDERED: Rocuronium Bromide 10 MG/ML (10ML VIAL) ONE (16:24)
[2018-08-12] MEDS ORDERED: Ondansetron PF 4 MG/2 ML Vial ONE (16:24)
[2018-08-12] MEDS ORDERED: PROPOFOL 200 MG/20 ML VIAL ONE (16:24)
[2018-08-12] MEDS: Fentanyl 100 MCG/2 ML VIAL SLOW IVP PRN (16:39)
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
--- NOTE | 2018-08-12 20:58 | HP ---
PREOPERATIVE DIAGNOSIS: Complex ear laceration (5 cm in total length). POSTOPERATIVE DIAGNOSIS: Complex ear laceration (5 cm in total length). PROCEDURE PERFORMED: Complex ear laceration repair (5 cm) (63322). DESCRIPTION OF PROCEDURE: Following induction of adequate anesthesia, the patient was prepped and draped in usual sterile fashion in the prone position. The numerous traumatic flaps were sharply debrided. The remaining lacerations were closed as well as possible using a series of 5-0 chromic sutures. The suture was chosen due to the fact that the wound is several days and has undergone some delayed healing. After the flaps were debrided, the wound was closed in a single layer. The patient tolerated the procedure well. Job ID: [id number]
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
[2018-08-12] MEDS: Insulin Regular 300 UNITS/3 ML VIAL SC PRN (22:27)
[2018-08-13] MEDS: Piperacillin/Tazobactam 3.375 GM in Sodium Chloride 0.9% 100 ML IVPB SCH ×4 (00:49→17:32)
[2018-08-13] MEDS: Lactated Ringer's 1,000 ML IV SCH ×3 (00:49→21:16)
[2018-08-13] MEDS: Fentanyl 100 MCG/2 ML VIAL SLOW IVP PRN ×3 (02:10→08:55)
[2018-08-13] MEDS: Acetaminophen 650 MG/20.3 ML UDCUP PO SCH ×4 (02:22→21:16)
[2018-08-13 05:15] LABS: Anion Gap 9 mmol/L (10-20); BUN (Urea Nitrogen) 17 mg/dL (8.9-20.6); Calc. Creatinine Clearance 176 mL/min (70-130); Calcium 7.8 mg/dL (7.8-10.44); Carbon Dioxide 25 mmol/L (22-29); Chloride 108 mmol/L (98-107); Estimated GFR-MDRD Greater than 90; Glucose 119 mg/dL (70-105); Potassium 3.7 mmol/L (3.5-5.1); Sodium 138 mmol/L (136-145)
[2018-08-13 08:01] LABS: Actual Bicarbonate (HCO3a) 23.9 mEq/L (22-28); Base Excess (BEa) 0.9 mEq/L (-2.0 to +3.0); CO2 Tension 31.4 mmHg (35.0-45.0); Calcium, Ionized 1.06 mmol/L (1.12-1.30); Carboxyhemoglobin (COHb) 1.6 gm% (0.0-3.0); Hemoglobin (Hb) 7.9 g/dL (14.0-18.0); O2 Tension (PaO2) 87.1 mmHg (80.0-100.0); Potassium - ABG Lab 3.41 mmol/L (3.70-5.30)
[2018-08-13 08:04] LABS: Puncture Site RRA
[2018-08-13] MEDS: Famotidine/PF 20 mg/2ml Vial SLOW IVP SCH ×2 (08:11→21:17)
[2018-08-13] MEDS ORDERED: Midazolam HCl 2 mg/2 ml Vial SLOW IVP SCH (08:30)
[2018-08-13 09:31] LABS: #Lymphocytes 0.8 thou/uL (1.20-3.40); #Monocytes 0.4 thou/uL (0.11-0.59); #Neutrophils 4.8 thou/uL (1.40-6.50); %Basophils 0.1 % (0.0-1.0); %Eosinophils 0.4 % (0.0-10.0); %Lymphocytes 12.5 % (21.0-51.0); %Monocytes 7.4 % (0.0-10.0); %Neutrophils 79.6 % (42.0-75.0); Hemoglobin 7.6 g/dL (14.0-18.0); Mean Corpuscular HGB CONC 34.2 g/dL (32.0-36.0); Mean Corpuscular Hemoglobin 32.5 pg (27.0-31.0); Mean Corpuscular Volume 95.1 fL (78.0-98.0); Mean Platelet Volume 6.9 fL (7.4-10.4); Platelet Count 152 thou/uL (130-400); RBC Distribution Width 12.3 % (11.5-14.5); Red Blood Cell (RBC) Count 2.32 mill/uL (4.70-6.10)
--- NOTE | 2018-08-13 09:55 | RAD ---
EXAM: CHEST ONE VIEW HISTORY: Right-sided thoracostomy tube. Follow-up evaluation. COMPARISON: 08/12/2018 FINDINGS: Endotracheal tube, nasogastric tube, left subclavian central venous catheter, and right-sided thoraco stomy tube remain in place and unchanged in position. No pneumothorax is visualized. Increased density is again seen at the right lung base. There are 2 linear densities overlying the right midlun g zone which may represent overlying artifact. Patchy parenchymal density in the right upper lung zone is not seen on this exam. There is mild atelectasis at the medial left lung base. The left lung is otherwise clear. There is been interval postsurgical changes related to posterior fusion of the lower thoracic spine with pedicular screws and posterior rods transfixing the lower thoracic spine. S kin clips also overlie this region. IMPRESSION: 1. Interval postsurgical changes related to posterior fusion lower thoracic spine. 2. Lines and tubes remain in place, including right-sided thoracostomy tube. 3. No evidence of a pneumothorax. There is stable parenchymal density at the right lung base. 4. Linear densities overlying right midlung zone probably due to overlying artifact. Clinical correla tion is suggested.
[2018-08-13 10:05] LABS: Phosphorus 1.5 mg/dL (2.3-4.7)
--- NOTE | 2018-08-13 11:31 | PRG ---
DATE OF SERVICE: 08/13/2018 SUBJECTIVE: Mr. Cross is on the fourth day of his hospital stay. He has had multiple surgeries for spinal fixation, most recently yesterday for posterior cervical fusion and posterior thoracic fusion. His neurologic status has not been great in the entire admission that includes this morning at most, I believe he is withdrawing in the left lower extremity, but he does not open his eyes to deep pain stimulus. He does not open his eyes to voice. He does not open his eyes to really any stimuli whatsoever, noxious or otherwise. Nailbed pressure in all four extremities only he had to withdraw on the left. I am unable to test the right lower extremity given extensive gauze and splint from orthopedic injury central noxious stimuli. The patient does not localize, but does appear to turn or twists some, although very slightly in the bed. I would grade at this time, a GCS of M4 E1 V1T. The patient remains intubated on ventilation. He is not on any sedation in the room at this time. From neurosurgical perspective, there is no additional intervention planned. We will continue to follow and track his neurologic status. Job ID: [id number]
[2018-08-13] MEDS ORDERED: Sodium Phosphate 30 MMOL in Sodium Chloride 0.9% 250 ML 250 ML IVPB SCH (12:00)
[2018-08-13] MEDS ORDERED: Polyethylene Glycol 3350 17 GM Packet PO SCH (12:45)
[2018-08-13] MEDS ORDERED: Senokot S 8.6-50 MG TAB PO SCH (12:45)
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
[2018-08-13] MEDS: Vancomycin HCl 1.5 GM in Sodium Chloride 0.9% 250 ML 300 ML IVPB SCH ×2 (14:07→21:16)
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
[2018-08-13] MEDS: Senokot S 8.6-50 MG TAB PO SCH (21:17)
[2018-08-14] MEDS: Piperacillin/Tazobactam 3.375 GM in Sodium Chloride 0.9% 100 ML IVPB SCH ×5 (00:30→23:58)
[2018-08-14] MEDS: Acetaminophen 650 MG/20.3 ML UDCUP PO SCH ×4 (03:28→21:26)
[2018-08-14 04:27] LABS: #Eosinphils 0.2 thou/uL (0.0-0.7); #Lymphocytes 0.8 thou/uL (1.20-3.40); #Monocytes 0.4 thou/uL (0.11-0.59); %Basophils 0.1 % (0.0-1.0); %Eosinophils 3.1 % (0.0-10.0); %Lymphocytes 12.2 % (21.0-51.0); %Monocytes 6.2 % (0.0-10.0); %Neutrophils 78.3 % (42.0-75.0); Hemoglobin 6.9 g/dL (14.0-18.0); Mean Corpuscular HGB CONC 34.1 g/dL (32.0-36.0); Mean Corpuscular Hemoglobin 32.6 pg (27.0-31.0); Mean Corpuscular Volume 95.6 fL (78.0-98.0); Mean Platelet Volume 6.9 fL (7.4-10.4); Platelet Count 151 thou/uL (130-400); RBC Distribution Width 12.5 % (11.5-14.5); Red Blood Cell (RBC) Count 2.11 mill/uL (4.70-6.10); White Blood Cell (WBC) Count 6.4 thou/uL (4.8-10.8)
[2018-08-14 04:42] LABS: Anion Gap 10 mmol/L (10-20); BUN (Urea Nitrogen) 16 mg/dL (8.9-20.6); Calc. Creatinine Clearance 181 mL/min (70-130); Calcium 7.8 mg/dL (7.8-10.44); Carbon Dioxide 24 mmol/L (22-29); Chloride 110 mmol/L (98-107); Estimated GFR-MDRD Greater than 90; Glucose 117 mg/dL (70-105); Magnesium 1.9 mg/dL (1.6-2.6); Sodium 141 mmol/L (136-145)
[2018-08-14 04:52] LABS: Phosphorus 2.3 mg/dL (2.3-4.7)
[2018-08-14 06:45] LABS: Actual Bicarbonate (HCO3a) 24.1 mEq/L (22-28); Base Excess (BEa) 0.8 mEq/L (-2.0 to +3.0); CO2 Tension 32.3 mmHg (35.0-45.0); Calcium, Ionized 1.08 mmol/L (1.12-1.30); Carboxyhemoglobin (COHb) 1.7 gm% (0.0-3.0); O2 Tension (PaO2) 98.8 mmHg (80.0-100.0); Potassium - ABG Lab 2.87 mmol/L (3.70-5.30); pH, Arterial 7.49 (7.35-7.45)
[2018-08-14] MEDS: Vancomycin HCl 1.5 GM in Sodium Chloride 0.9% 250 ML 300 ML IVPB SCH ×3 (07:02→21:35)
[2018-08-14] MEDS: Lactated Ringer's 1,000 ML IV SCH ×3 (07:03→19:53)
[2018-08-14 07:08] LABS: ALV-art Gradient 74.725 (0-20); Puncture Site RRA
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
--- NOTE | 2018-08-14 09:40 | RAD ---
FRONTAL VIEW CHEST: INDICATION: ICU patient, followup. COMPARISON: Previous day. FINDINGS: Supportive lines and tubes remain. There is persistent hazy density at the inferior right chest. Po sttraumatic deformity of the superior right chest is noted. IMPRESSION: Grossly stable exam. POS: BREEZY
[2018-08-14] MEDS: Famotidine/PF 20 mg/2ml Vial SLOW IVP SCH ×2 (10:33→21:26)
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
[2018-08-14] MEDS: Senokot S 8.6-50 MG TAB PO SCH ×2 (10:36→21:26)
[2018-08-14] MEDS: Polyethylene Glycol 3350 17 GM Packet PO SCH (10:36)
[2018-08-14] MEDS ORDERED: Potassium Chloride 20 MEQ in Premix Bag 1 BAG IVPB SCH (12:30)
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
[2018-08-15] MEDS: Acetaminophen 650 MG/20.3 ML UDCUP PO SCH ×4 (02:51→20:01)
[2018-08-15] MEDS: MEROPENEM 1 GM/50 ML 1 GM in Premix Bag 1 BAG IVPB SCH ×3 (04:17→21:08)
[2018-08-15 05:24] LABS: Anion Gap 10 mmol/L (10-20); BUN (Urea Nitrogen) 14 mg/dL (8.9-20.6); Calc. Creatinine Clearance 193 mL/min (70-130); Calcium 8.1 mg/dL (7.8-10.44); Carbon Dioxide 24 mmol/L (22-29); Chloride 110 mmol/L (98-107); Estimated GFR-MDRD Greater than 90; Glucose 120 mg/dL (70-105); Potassium 3.3 mmol/L (3.5-5.1); Sodium 141 mmol/L (136-145)
--- NOTE | 2018-08-15 07:30 | RAD ---
CHEST 1 VIEW: INDICATION: Right-sided chest tube placement. COMPARISON: Prior exam dated 08/14/2018. IMPRESSION: The patient was intubated with gastric catheter placement. Left-sided subclavian central venous cath eter and right-sided thoracostomy tube are unchanged. Parenchymal opacities of the right lung are st able. No pneumothorax is evident. Subcutaneous emphysema persists. Osseous changes are stable. POS: BH
[2018-08-15] MEDS: Polyethylene Glycol 3350 17 GM Packet PO SCH (08:46)
[2018-08-15] MEDS: Senokot S 8.6-50 MG TAB PO SCH ×2 (08:47→20:01)
[2018-08-15 08:56] LABS: #Eosinphils 0.4 thou/uL (0.0-0.7); #Lymphocytes 0.7 thou/uL (1.20-3.40); #Monocytes 0.5 thou/uL (0.11-0.59); #Neutrophils 5.1 thou/uL (1.40-6.50); %Basophils 0.2 % (0.0-1.0); %Eosinophils 6.1 % (0.0-10.0); %Lymphocytes 10.6 % (21.0-51.0); %Monocytes 6.7 % (0.0-10.0); %Neutrophils 76.4 % (42.0-75.0); Hemoglobin 8.9 g/dL (14.0-18.0); Mean Corpuscular HGB CONC 33.8 g/dL (32.0-36.0); Mean Corpuscular Hemoglobin 31.5 pg (27.0-31.0); Mean Platelet Volume 7.4 fL (7.4-10.4); Platelet Count 221 thou/uL (130-400); RBC Distribution Width 13.5 % (11.5-14.5); Red Blood Cell (RBC) Count 2.81 mill/uL (4.70-6.10); White Blood Cell (WBC) Count 6.7 thou/uL (4.8-10.8)
--- NOTE | 2018-08-15 09:16 | PRG ---
DATE OF SERVICE: 08/15/2018 SUBJECTIVE: I saw Charli Cross in his ICU room this morning. He is off sedation. Nurses do not report any significant events. His cultures from his sputum has grown Staph aureus. OBJECTIVE: VITAL SIGNS: When I saw Mr. Cross, he is still tachycardic and blood pressure is around 130s and a fever overnight up to 100.2 Fahrenheit. On examination, Mr. Cross eventually opens his eyes after significant stimulation. I believe he did wiggle his toes for me to command. I did not see anything in the left arm except withdrawal. The right side does not move. I feel Mr. Cross's exam is the same as it was Wednesday. While he is lying flat in bed, I do not believe he needs a cervical orthosis or thoracic orthosis, but once he sits up for therapy or gets in another chair, he will need a cervical, thoracic spinal orthosis in place. Having those braces off in bed will help with wound healing from numerous abrasions on the back of his head and neck. Job ID: [id number]
[2018-08-15 09:32] LABS: Anion Gap 11 mmol/L (10-20); BUN (Urea Nitrogen) 14 mg/dL (8.9-20.6); Calc. Creatinine Clearance 222 mL/min (70-130); Calcium 8.5 mg/dL (7.8-10.44); Carbon Dioxide 24 mmol/L (22-29); Chloride 108 mmol/L (98-107); Estimated GFR-MDRD Greater than 90; Glucose 103 mg/dL (70-105); Magnesium 1.8 mg/dL (1.6-2.6); Phosphorus 3.5 mg/dL (2.3-4.7); Potassium 3.4 mmol/L (3.5-5.1); Sodium 140 mmol/L (136-145)
[2018-08-15] MEDS: Famotidine/PF 20 mg/2ml Vial SLOW IVP SCH ×2 (10:07→20:01)
[2018-08-15] MEDS: Lactated Ringer's 1,000 ML IV SCH ×2 (10:26→21:08)
[2018-08-15] MEDS: Insulin Regular 300 UNITS/3 ML VIAL SC PRN (10:58)
[2018-08-15] MEDS ORDERED: Magnesium 2 GM/50 ML 2 GM in Premix Bag 1 BAG IVPB SCH (11:00)
[2018-08-15] MEDS ORDERED: Vancomycin HCl 1.5 GM in Sodium Chloride 0.9% 250 ML 300 ML IVPB SCH ×2 (11:00→12:00)
[2018-08-15] MEDS ORDERED: Potassium Chloride 20 MEQ in Premix Bag 1 BAG IVPB SCH (11:00)
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
[2018-08-15] MEDS: Vancomycin HCl 1.5 GM in Sodium Chloride 0.9% 250 ML 300 ML IVPB SCH (19:59)
[2018-08-16] MEDS: Acetaminophen 650 MG/20.3 ML UDCUP PO SCH ×4 (03:16→19:52)
[2018-08-16] MEDS: Vancomycin HCl 1.5 GM in Sodium Chloride 0.9% 250 ML 300 ML IVPB SCH ×3 (03:50→19:51)
[2018-08-16 03:57] LABS: #Eosinphils 0.4 thou/uL (0.0-0.7); #Lymphocytes 0.8 thou/uL (1.20-3.40); #Monocytes 0.5 thou/uL (0.11-0.59); #Neutrophils 4.8 thou/uL (1.40-6.50); %Basophils 0.3 % (0.0-1.0); %Eosinophils 6.8 % (0.0-10.0); %Lymphocytes 11.8 % (21.0-51.0); %Monocytes 7.2 % (0.0-10.0); %Neutrophils 73.9 % (42.0-75.0); Hemoglobin 8.2 g/dL (14.0-18.0); Mean Corpuscular HGB CONC 33.9 g/dL (32.0-36.0); Mean Corpuscular Hemoglobin 32.1 pg (27.0-31.0); Mean Corpuscular Volume 94.6 fL (78.0-98.0); Mean Platelet Volume 7.3 fL (7.4-10.4); Platelet Count 215 thou/uL (130-400); RBC Distribution Width 13.3 % (11.5-14.5); Red Blood Cell (RBC) Count 2.56 mill/uL (4.70-6.10); White Blood Cell (WBC) Count 6.5 thou/uL (4.8-10.8)
[2018-08-16 04:09] LABS: Anion Gap 9 mmol/L (10-20); BUN (Urea Nitrogen) 14 mg/dL (8.9-20.6); Calc. Creatinine Clearance 237 mL/min (70-130); Calcium 8.2 mg/dL (7.8-10.44); Carbon Dioxide 25 mmol/L (22-29); Chloride 108 mmol/L (98-107); Estimated GFR-MDRD Greater than 90; Glucose 106 mg/dL (70-105); Potassium 3.4 mmol/L (3.5-5.1); Sodium 139 mmol/L (136-145)
[2018-08-16] MEDS: MEROPENEM 1 GM/50 ML 1 GM in Premix Bag 1 BAG IVPB SCH ×3 (06:12→22:44)
--- NOTE | 2018-08-16 06:54 | PRG ---
DATE OF SERVICE: I saw Charli Cross in his ICU room this morning. He is up in a MEDIchair. His T-max yesterday was 100 degrees Fahrenheit. His blood pressures have been in the 120s to 140s. He is tachycardic at 106. [place] is not opening his eyes to stimulus for me this morning and not wiggling his toes as he did yesterday. He does withdraw the left lower extremity. I see no motion on the right. Overall, the neurological examination waxes and wanes. This may be one of nadirs of his performance and I expect him to stay in this stage for some time until his metabolic health symptoms improves. Cultures from the lungs now have grown methicillin-resistant Staph aureus. I will speak with the Trauma Surgery Service about his ongoing care needs and placement and disposition. Job ID: [id number]
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
[2018-08-16 08:25] LABS: Magnesium 1.8 mg/dL (1.6-2.6); Phosphorus 3.8 mg/dL (2.3-4.7)
[2018-08-16] MEDS: Famotidine/PF 20 mg/2ml Vial SLOW IVP SCH ×2 (10:13→19:52)
[2018-08-16] MEDS: Aspirin 325 MG TAB PO SCH (10:13)
[2018-08-16] MEDS: Senokot S 8.6-50 MG TAB PO SCH ×2 (10:13→19:52)
[2018-08-16] MEDS: Polyethylene Glycol 3350 17 GM Packet PO SCH (10:14)
[2018-08-16] MEDS: Lactated Ringer's 1,000 ML IV SCH ×2 (10:14→19:51)
[2018-08-16] MEDS ORDERED: ISOVUE-370 76%-LOCM 1 ML ONE (10:30)
[2018-08-16] MEDS ORDERED: Potassium Phosphate 30 MMOL in Sodium Chloride 0.9% 500 ML IVPB SCH (10:45)
[2018-08-16] MEDS ORDERED: Magnesium 2 GM/50 ML 2 GM in Premix Bag 1 BAG IVPB SCH (10:45)
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
--- NOTE | 2018-08-16 16:13 | ULT ---
EXAM: Bilateral lower extremity venous duplex: Deep veins evaluated with color Doppler, spectral analysis, and compression. INDICATIONS: Bilateral lower extremity pain and edema. FINDINGS: Deep veins interrogated include common femoral vein, femoral vein, popliteal vein, and post erior tibial vein. These veins show normal compression and blood flow. No evidence of DVT. There is soft tissue edema. IMPRESSION: Negative Bilateral venous duplex exam.
[2018-08-17] MEDS: Lactated Ringer's 1,000 ML IV SCH ×3 (03:37→20:11)
[2018-08-17] MEDS: Vancomycin HCl 1.5 GM in Sodium Chloride 0.9% 250 ML 300 ML IVPB SCH ×3 (03:37→19:57)
[2018-08-17] MEDS: Acetaminophen 650 MG/20.3 ML UDCUP PO SCH ×4 (03:37→23:04)
[2018-08-17 04:24] LABS: Phosphorus 3.8 mg/dL (2.3-4.7)
[2018-08-17 04:30] LABS: Anion Gap 9 mmol/L (10-20); BUN (Urea Nitrogen) 13 mg/dL (8.9-20.6); Calc. Creatinine Clearance 226 mL/min (70-130); Calcium 8.2 mg/dL (7.8-10.44); Carbon Dioxide 27 mmol/L (22-29); Chloride 109 mmol/L (98-107); Estimated GFR-MDRD Greater than 90; Glucose 106 mg/dL (70-105); Magnesium 1.8 mg/dL (1.6-2.6); Sodium 141 mmol/L (136-145)
[2018-08-17] MEDS: MEROPENEM 1 GM/50 ML 1 GM in Premix Bag 1 BAG IVPB SCH ×3 (05:34→22:15)
[2018-08-17 06:03] LABS: Band 3 % (5-11); Eosinophils 6 % (0-10); Hemoglobin 8.1 g/dL (14.0-18.0); Lymphocytes 15 % (21-51); MDiff Complete? YES; Mean Corpuscular HGB CONC 32.2 g/dL (32.0-36.0); Mean Corpuscular Hemoglobin 30.4 pg (27.0-31.0); Mean Corpuscular Volume 94.4 fL (78.0-98.0); Mean Platelet Volume 7.2 fL (7.4-10.4); Metamyelocyte 1 % (0-0); Monocytes 7 % (0-10); Neutrophil 68 % (42-75); Platelet Count 289 thou/uL (130-400); Platelet Morphology Comment Appears Adequate; RBC Distribution Width 13.1 % (11.5-14.5); Red Blood Cell (RBC) Count 2.65 mill/uL (4.70-6.10); White Blood Cell (WBC) Count 6.6 thou/uL (4.8-10.8)
[2018-08-17] MEDS ORDERED: Sterile Water 10 ML ONE (07:35)
[2018-08-17] MEDS ORDERED: Vecuronium 10 MG VIAL ONE ×2 (07:36→08:20)
[2018-08-17] MEDS ORDERED: Fentanyl 100 MCG/2 ML VIAL ONE ×2 (07:52→08:18)
[2018-08-17] MEDS ORDERED: Magnesium 2 GM/50 ML 2 GM in Premix Bag 1 BAG IVPB SCH (08:00)
[2018-08-17] MEDS: Midazolam HCl 2 mg/2 ml Vial ONE ×2 (08:10→09:00)
[2018-08-17] MEDS ORDERED: Lidocaine 1% w/Epinephrine 1:100K 20 ML VIAL ONE (08:18)
[2018-08-17] MEDS ORDERED: Midazolam HCl 2 mg/2 ml Vial ONE ×3 (08:19→08:48)
[2018-08-17] MEDS: Fentanyl 100 MCG/2 ML VIAL SLOW IVP PRN ×2 (08:35→08:40)
--- NOTE | 2018-08-17 11:49 | RAD ---
SINGLE VIEW CHEST: 08/17/2018 4:20 p.m. HISTORY: Endotracheal tube placement. FINDINGS: A single view of the chest was performed. It was not made available for interpretation until 019, at 11:22 a.m. The heart is normal in size. The endotracheal tube is unchanged in position. There is fullness of t he upper mediastinum. There is no evidence of consolidation, mass, or pleural effusion. IMPRESSION: Stable examination. POS: [facility]
[2018-08-17 12:03] LABS: Vancomycin, Trough 16.5 ug/mL
[2018-08-17] MEDS: Famotidine/PF 20 mg/2ml Vial SLOW IVP SCH ×2 (12:07→20:02)
[2018-08-17] MEDS: Polyethylene Glycol 3350 17 GM Packet PO SCH (12:08)
[2018-08-17] MEDS: Senokot S 8.6-50 MG TAB PO SCH ×2 (12:08→20:02)
[2018-08-17] MEDS: Aspirin 325 MG TAB PO SCH (12:11)
[2018-08-17 16:29] LABS: Anion Gap 9 mmol/L (10-20); BUN (Urea Nitrogen) 12 mg/dL (8.9-20.6); Calc. Creatinine Clearance 212 mL/min (70-130); Calcium 8.5 mg/dL (7.8-10.44); Carbon Dioxide 27 mmol/L (22-29); Chloride 108 mmol/L (98-107); Estimated GFR-MDRD Greater than 90; Glucose 94 mg/dL (70-105); Potassium 4.1 mmol/L (3.5-5.1); Sodium 140 mmol/L (136-145)
[2018-08-17] MEDS: Amantadine HCl 100 mg Capsule PO SCH (20:02)
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
[2018-08-18] MEDS: Lactated Ringer's 1,000 ML IV SCH ×3 (00:31→09:50)
[2018-08-18] MEDS: Vancomycin HCl 1.5 GM in Sodium Chloride 0.9% 250 ML 300 ML IVPB SCH ×3 (03:05→20:17)
[2018-08-18 04:34] LABS: #Eosinphils 0.4 thou/uL (0.0-0.7); #Lymphocytes 0.9 thou/uL (1.20-3.40); #Monocytes 0.7 thou/uL (0.11-0.59); #Neutrophils 5.7 thou/uL (1.40-6.50); %Basophils 0.2 % (0.0-1.0); %Eosinophils 5.3 % (0.0-10.0); %Lymphocytes 11.5 % (21.0-51.0); %Monocytes 8.7 % (0.0-10.0); %Neutrophils 74.3 % (42.0-75.0); Hemoglobin 8.8 g/dL (14.0-18.0); Mean Corpuscular HGB CONC 33.8 g/dL (32.0-36.0); Mean Corpuscular Volume 94.5 fL (78.0-98.0); Mean Platelet Volume 6.7 fL (7.4-10.4); Platelet Count 336 thou/uL (130-400); RBC Distribution Width 13.1 % (11.5-14.5); Red Blood Cell (RBC) Count 2.75 mill/uL (4.70-6.10); White Blood Cell (WBC) Count 7.7 thou/uL (4.8-10.8)
[2018-08-18 04:43] LABS: Phosphorus 3.9 mg/dL (2.3-4.7)
[2018-08-18 04:45] LABS: Anion Gap 11 mmol/L (10-20); BUN (Urea Nitrogen) 12 mg/dL (8.9-20.6); Calc. Creatinine Clearance 205 mL/min (70-130); Calcium 8.7 mg/dL (7.8-10.44); Carbon Dioxide 26 mmol/L (22-29); Chloride 106 mmol/L (98-107); Estimated GFR-MDRD Greater than 90; Glucose 105 mg/dL (70-105); Magnesium 1.8 mg/dL (1.6-2.6); Potassium 4.2 mmol/L (3.5-5.1); Sodium 139 mmol/L (136-145)
[2018-08-18] MEDS: Acetaminophen 650 MG/20.3 ML UDCUP PO SCH ×3 (05:07→17:03)
[2018-08-18] MEDS: MEROPENEM 1 GM/50 ML 1 GM in Premix Bag 1 BAG IVPB SCH ×3 (05:08→22:10)
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
--- NOTE | 2018-08-18 08:03 | RAD ---
Chest AP view INDICATION: Right-sided chest tube removal COMPARISON: August 16, 2018 at 4:53 AM FINDINGS: Tubes and Lines: Right-sided thoracostomy tube has been removed. The patient has had interval placem ent of a tracheostomy tube. Gastric catheter has been removed. Left subclavian central venous catheter is unchanged. Lungs:Hazy bibasilar opacities persist.. Cardiac silhouette pulmonary vasculature:Normal.. Pleural spaces: No pneumothorax. Right chest wall subcutaneous emphysema has improved. Upper abdomen:No abnormality seen. Osseous structures: Instrumentation of the cervical and thoracic spine appear similar. IMPRESSION: 1. Tubes and line changes as above. 2. No pneumothorax 3. Hazy bibasilar opacities persist. This may be related to subsegmental volume loss; however, pneumo bridger is not excluded. Continued radiographic follow-up is recommended.
[2018-08-18] MEDS: Amantadine HCl 100 mg Capsule PO SCH ×2 (09:44→20:19)
[2018-08-18] MEDS: Aspirin 325 MG TAB PO SCH (09:48)
[2018-08-18] MEDS: Senokot S 8.6-50 MG TAB PO SCH ×2 (09:49→20:18)
[2018-08-18] MEDS: Polyethylene Glycol 3350 17 GM Packet PO SCH (09:49)
[2018-08-18] MEDS: Famotidine/PF 20 mg/2ml Vial SLOW IVP SCH ×2 (09:50→20:20)
[2018-08-18] MEDS: FLUoxetine HCl 20 MG/5 ML UDCUP PER TUBE SCH (10:32)
[2018-08-18] MEDS ORDERED: Furosemide 20 MG/2 ML VIAL SLOW IVP SCH (14:45)
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
[2018-08-18 15:54] LABS: Anion Gap 13 mmol/L (10-20); BUN (Urea Nitrogen) 14 mg/dL (8.9-20.6); Calc. Creatinine Clearance 186 mL/min (70-130); Calcium 9.2 mg/dL (7.8-10.44); Carbon Dioxide 27 mmol/L (22-29); Chloride 105 mmol/L (98-107); Estimated GFR-MDRD Greater than 90; Glucose 120 mg/dL (70-105); Potassium 4.3 mmol/L (3.5-5.1); Sodium 141 mmol/L (136-145)
[2018-08-18] MEDS: Morphine 2 MG/ML SYRINGE SLOW IVP PRN (20:18)
[2018-08-19 00:50] LABS: #Eosinphils 0.5 thou/uL (0.0-0.7); #Lymphocytes 0.9 thou/uL (1.20-3.40); #Monocytes 0.7 thou/uL (0.11-0.59); #Neutrophils 7.4 thou/uL (1.40-6.50); %Basophils 0.3 % (0.0-1.0); %Eosinophils 5.1 % (0.0-10.0); %Lymphocytes 9.7 % (21.0-51.0); %Monocytes 7.4 % (0.0-10.0); %Neutrophils 77.5 % (42.0-75.0); Hemoglobin 9.9 g/dL (14.0-18.0); Mean Corpuscular HGB CONC 33.6 g/dL (32.0-36.0); Mean Corpuscular Volume 95.3 fL (78.0-98.0); Mean Platelet Volume 6.7 fL (7.4-10.4); Platelet Count 428 thou/uL (130-400); RBC Distribution Width 13.1 % (11.5-14.5); Red Blood Cell (RBC) Count 3.09 mill/uL (4.70-6.10); White Blood Cell (WBC) Count 9.5 thou/uL (4.8-10.8)
[2018-08-19] MEDS: Acetaminophen 650 MG/20.3 ML UDCUP PO SCH ×4 (01:03→17:21)
[2018-08-19 01:05] LABS: Lactic Acid 1.1 mmol/L (0.5-2.2)
[2018-08-19 01:08] LABS: Bilirubin Negative (Negative); Blood, Urine Negative (Negative); Clarity TURBID (Clear); Glucose, Urine (Dipstick) Negative (Negative); Leukocyte Trace (Negative); Nitrite Negative (Negative); Protein, Urine (Dipstick) Trace mg/dL (Neg-Trace); Specific Gravity, Urine 1.018 (1.002-1.036)
[2018-08-19 01:10] LABS: Bacteria/HPF None Seen HPF (None Seen); Pathc Cast-AUWi Flag 2.44 (0-2.49); Squamous Epithelial 0-3 HPF (0-3)
[2018-08-19 01:11] LABS: Anion Gap 13 mmol/L (10-20); BUN (Urea Nitrogen) 18 mg/dL (8.9-20.6); Calc. Creatinine Clearance 195 mL/min (70-130); Calcium 8.8 mg/dL (7.8-10.44); Carbon Dioxide 27 mmol/L (22-29); Chloride 106 mmol/L (98-107); Estimated GFR-MDRD Greater than 90; Glucose 133 mg/dL (70-105); Magnesium 2.1 mg/dL (1.6-2.6); Phosphorus 4.1 mg/dL (2.3-4.7); Potassium 4.1 mmol/L (3.5-5.1); Sodium 142 mmol/L (136-145)
[2018-08-19 01:22] LABS: Crystals/HPF 3+ AMORPH PHOS HPF (Negative); Hyaline Casts/LPF 4-6 HYALINE CAST LPF (0-3 Hyaline); RBC/HPF 0-3 HPF (0-3)
[2018-08-19 01:23] LABS: Renal Epithelial None Seen HPF (0-3); Transitional Epithelial NONE SEEN HPF (0-3); Urine Culture Reflex Yes Yes
[2018-08-19] MEDS: Vancomycin HCl 1.5 GM in Sodium Chloride 0.9% 250 ML 300 ML IVPB SCH ×3 (04:51→21:35)
[2018-08-19] MEDS: MEROPENEM 1 GM/50 ML 1 GM in Premix Bag 1 BAG IVPB SCH ×3 (05:20→22:38)
--- NOTE | 2018-08-19 07:58 | PRG ---
DATE OF SERVICE: 08/19/2018 Charli Cross is still in our ICU. He is making very slow and minimal neurological recovery. His T-max yesterday was 99.0. Vital signs have been stable and his tachycardia remains. Mr. Cross opens his eyes to stimulation and to voice. Follows commands intermittently with the left toe. He has some intermittent spontaneous movement on the right side of his body, which I have not seen before few days ago. Mr. Cross can have his dressings and enrique removed from his surgical incisions 2 weeks after their respective operations. He will need long-term or inpatient rehabilitation placement. We do not expect a complete recovery from this, but he is young and he should be offered plenty of time. Neurosurgery Team will sign off for now, but will be available for questions. Job ID: [id number]
--- NOTE | 2018-08-19 07:58 | RAD ---
CHEST 1 VIEW: INDICATION: Distress. COMPARISON: Prior exam dated 08/18/2018. FINDINGS: There is some improved aeration of the right lower lobe. Persistent opacity remains within the right lung base. Pneumonia is not excluded. Tubes and lines are stable. Subcutaneous emphysema overlyin g the right chest wall has improved. No definite pneumothorax is noted. IMPRESSION: 1. Improving bibasilar opacities. Right medial lower lobe opacity remains suspicious for pneumonia. Continued followup is recommended. 2. Pneumothorax. POS: [facility]
[2018-08-19] MEDS ORDERED: Furosemide 20 MG/2 ML VIAL SLOW IVP SCH (08:15)
[2018-08-19] MEDS: Aspirin 325 MG TAB PO SCH (09:36)
[2018-08-19] MEDS: Senokot S 8.6-50 MG TAB PO SCH ×2 (09:36→22:38)
[2018-08-19] MEDS: Amantadine HCl 100 mg Capsule PO SCH ×2 (09:36→22:38)
[2018-08-19] MEDS: FLUoxetine HCl 20 MG/5 ML UDCUP PER TUBE SCH (09:36)
[2018-08-19] MEDS: Polyethylene Glycol 3350 17 GM Packet PO SCH (09:36)
[2018-08-19] MEDS: Famotidine/PF 20 mg/2ml Vial SLOW IVP SCH ×2 (09:37→22:38)
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
[2018-08-20] MEDS: Acetaminophen 650 MG/20.3 ML UDCUP PO SCH ×4 (00:05→20:27)
[2018-08-20] MEDS ORDERED: Morphine 2 MG/ML SYRINGE SLOW IVP PRN (05:14)
[2018-08-20] MEDS ORDERED: Sodium Chloride 0.9% 500 ML IVPB SCH (05:15)
[2018-08-20] MEDS: MEROPENEM 1 GM/50 ML 1 GM in Premix Bag 1 BAG IVPB SCH ×3 (05:24→22:27)
[2018-08-20] MEDS: Vancomycin HCl 1.5 GM in Sodium Chloride 0.9% 250 ML 300 ML IVPB SCH ×3 (05:24→20:27)
[2018-08-20] MEDS: Polyethylene Glycol 3350 17 GM Packet PO SCH (08:35)
[2018-08-20] MEDS: Aspirin 325 MG TAB PO SCH (08:35)
[2018-08-20] MEDS: FLUoxetine HCl 20 MG/5 ML UDCUP PER TUBE SCH (08:35)
[2018-08-20] MEDS: Amantadine HCl 100 mg Capsule PO SCH ×2 (08:36→20:29)
[2018-08-20] MEDS: Senokot S 8.6-50 MG TAB PO SCH ×2 (08:36→20:27)
[2018-08-20] MEDS: Famotidine/PF 20 mg/2ml Vial SLOW IVP SCH ×2 (08:36→20:27)
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
[2018-08-21] MEDS: Acetaminophen 650 MG/20.3 ML UDCUP PO SCH ×4 (01:15→19:42)
[2018-08-21] MEDS: Vancomycin HCl 1.5 GM in Sodium Chloride 0.9% 250 ML 300 ML IVPB SCH ×3 (03:19→20:17)
[2018-08-21] MEDS: MEROPENEM 1 GM/50 ML 1 GM in Premix Bag 1 BAG IVPB SCH ×3 (05:34→21:58)
[2018-08-21] MEDS: Aspirin 325 MG TAB PO SCH (08:46)
[2018-08-21] MEDS: Famotidine/PF 20 mg/2ml Vial SLOW IVP SCH ×2 (08:46→20:18)
[2018-08-21] MEDS: Amantadine HCl 100 mg Capsule PO SCH ×2 (08:47→20:18)
[2018-08-21] MEDS: Polyethylene Glycol 3350 17 GM Packet PO SCH (08:47)
[2018-08-21] MEDS: FLUoxetine HCl 20 MG/5 ML UDCUP PER TUBE SCH (08:47)
[2018-08-21] MEDS: Senokot S 8.6-50 MG TAB PO SCH ×2 (08:47→20:15)
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
--- NOTE | 2018-08-21 14:01 | EKG ---
Test Reason : Blood Pressure : / mmHG Vent. Rate : 112 BPM Atrial Rate : 112 BPM P-R Int : 136 ms QRS Dur : 094 ms QT Int : 326 ms P-R-T Axes : 080 084 061 degrees QTc Int : 444 ms Sinus tachycardia Otherwise normal ECG No previous ECGs available Confirmed by VERONICA STAPLES ([id number]) on 08/21/2018 2:01:14 PM Referred By: FARIHA Confirmed By:VERONICA STAPLES
[2018-08-22] MEDS: Acetaminophen 650 MG/20.3 ML UDCUP PO SCH ×4 (00:49→17:23)
[2018-08-22] MEDS: Vancomycin HCl 1.5 GM in Sodium Chloride 0.9% 250 ML 300 ML IVPB SCH ×3 (03:36→12:19)
[2018-08-22 04:09] LABS: #Eosinphils 0.5 thou/uL (0.0-0.7); #Lymphocytes 1.3 thou/uL (1.20-3.40); #Monocytes 0.7 thou/uL (0.11-0.59); #Neutrophils 8.4 thou/uL (1.40-6.50); %Basophils 0.2 % (0.0-1.0); %Eosinophils 4.3 % (0.0-10.0); %Lymphocytes 12.3 % (21.0-51.0); %Monocytes 6.1 % (0.0-10.0); %Neutrophils 77.2 % (42.0-75.0); Mean Corpuscular HGB CONC 33.4 g/dL (32.0-36.0); Mean Corpuscular Hemoglobin 31.8 pg (27.0-31.0); Mean Corpuscular Volume 95.3 fL (78.0-98.0); Mean Platelet Volume 6.8 fL (7.4-10.4); Platelet Count 512 thou/uL (130-400); RBC Distribution Width 12.6 % (11.5-14.5); Red Blood Cell (RBC) Count 3.15 mill/uL (4.70-6.10); White Blood Cell (WBC) Count 10.8 thou/uL (4.8-10.8)
[2018-08-22 04:20] LABS: Anion Gap 10 mmol/L (10-20); BUN (Urea Nitrogen) 22 mg/dL (8.9-20.6); Calc. Creatinine Clearance 174 mL/min (70-130); Calcium 9.4 mg/dL (7.8-10.44); Carbon Dioxide 29 mmol/L (22-29); Chloride 102 mmol/L (98-107); Estimated GFR-MDRD Greater than 90; Glucose 118 mg/dL (70-105); Magnesium 2.1 mg/dL (1.6-2.6); Phosphorus 4.4 mg/dL (2.3-4.7); Sodium 137 mmol/L (136-145)
[2018-08-22] MEDS: MEROPENEM 1 GM/50 ML 1 GM in Premix Bag 1 BAG IVPB SCH ×3 (05:37→21:33)
--- NOTE | 2018-08-22 07:33 | RAD ---
CHEST 1 VIEW: INDICATION: Followup exam. COMPARISON: Prior exam dated 08/19/2018. IMPRESSION: ET tube and left subclavian central venous catheter is stable. Lungs are clear. No pleural effusion or pneumothorax is evident. Instrumentation involving the thoracolumbar spine is stable. POS: BH
[2018-08-22] MEDS ORDERED: Morphine 4 MG/ML VIAL ONE (07:43)
[2018-08-22] MEDS ORDERED: Morphine 4 MG/ML VIAL SLOW IVP PRN (07:47)
[2018-08-22] MEDS ORDERED: Morphine 2 MG/ML SYRINGE SLOW IVP PRN (07:51)
[2018-08-22] MEDS ORDERED: Morphine 4 MG/ML VIAL SLOW IVP SCH (08:00)
[2018-08-22] MEDS: Polyethylene Glycol 3350 17 GM Packet PO SCH (08:02)
[2018-08-22] MEDS: Senokot S 8.6-50 MG TAB PO SCH ×2 (08:03→19:41)
[2018-08-22] MEDS: Aspirin 325 MG TAB PO SCH (08:06)
[2018-08-22] MEDS: Famotidine/PF 20 mg/2ml Vial SLOW IVP SCH (08:06)
[2018-08-22] MEDS: FLUoxetine HCl 20 MG/5 ML UDCUP PER TUBE SCH (08:06)
[2018-08-22] MEDS: Amantadine HCl 100 mg Capsule PO SCH ×2 (09:18→20:02)
[2018-08-22] MEDS ORDERED: Fentanyl 100 MCG/2 ML VIAL ONE (11:38)
[2018-08-22 11:58] LABS: Vancomycin, Trough 23.2 ug/mL
--- NOTE | 2018-08-22 12:07 | RAD ---
LEFT ELBOW 2 VIEWS:: Date: 08/22/18 HISTORY: Follow-up from films of a closed reduction. COMPARISON: Elbow films of 08/11/18. FINDINGS: Fiberglass cast material is present. There is an elbow dislocation noted. The humerus is dislocated a nteriorly. Multiple small bony fragments are seen, both adjacent to the medial and lateral epicondyle s. There is also a defect within the radial head. IMPRESSION: Elbow dislocation with multiple small bony fragments. POS: TPC
[2018-08-22] MEDS: Vancomycin HCl 1.25 GM in Sodium Chloride 0.9% 250 ML 250 ML IVPB SCH ×2 (14:59→21:34)
--- NOTE | 2018-08-22 15:38 | RAD ---
LEFT ELBOW 2 VIEWS: Date: 08/22/18 HISTORY: Intraoperative films. FINDINGS: These films show pin placement through the elbow. There appears to be anatomic alignment as seen on t hese views. IMPRESSION: Reduction of the dislocation with pin placement. POS: TPC
[2018-08-22] MEDS ORDERED: PROPOFOL 200 MG/20 ML VIAL ONE (16:50)
[2018-08-22] MEDS ORDERED: Rocuronium Bromide 10 MG/ML (10ML VIAL) ONE (16:50)
[2018-08-22] MEDS ORDERED: Lidocaine 1% PF 5 ML VIAL ONE (16:50)
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
[2018-08-23] MEDS: Acetaminophen 650 MG/20.3 ML UDCUP PO SCH ×4 (00:31→17:45)
[2018-08-23] MEDS: MEROPENEM 1 GM/50 ML 1 GM in Premix Bag 1 BAG IVPB SCH (05:20)
[2018-08-23] MEDS: Vancomycin HCl 1.25 GM in Sodium Chloride 0.9% 250 ML 250 ML IVPB SCH ×2 (05:34→14:15)
[2018-08-23] MEDS: FLUoxetine HCl 20 MG/5 ML UDCUP PER TUBE SCH (08:16)
[2018-08-23] MEDS: Amantadine HCl 100 mg Capsule PO SCH ×2 (08:16→21:27)
[2018-08-23] MEDS: Aspirin 325 MG TAB PO SCH (08:16)
[2018-08-23] MEDS: Senokot S 8.6-50 MG TAB PO SCH ×2 (08:17→21:22)
[2018-08-23] MEDS: Polyethylene Glycol 3350 17 GM Packet PO SCH (08:17)
[2018-08-23] MEDS: Ciprofloxacin 500 MG TAB PER TUBE SCH ×2 (08:37→21:21)
[2018-08-23 13:01] VITALS: TEMP 98.7
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
[2018-08-23 13:41] LABS: Vancomycin, Trough 16.9 ug/mL
--- NOTE | 2018-08-23 15:12 | SPC ---
SPC CVP LINE PICC INITIAL >5: 08/23/2018 12:00 AM PROCEDURE: Peripherally placed 45 cm dual lumen PICC line. PICC Line Placement: The right arm was prepped and draped in sterile fashion. One percent lidocaine was used for local anesthetic. Under fluoroscopic and ultrasound guidance, the right basilic vein was patent and accessed with a anay ropuncture needle. A guide wire was then advanced into the right basilic vein. A vascular sheath was then advanced over a guide wire, and a dual lumen PICC line was trimmed. The PICC line w as then advanced into the central venous system. A final placement film demonstrates the tip of the catheter terminated in the caval-atrial junction. After confirmation of the catheter position, the catheter was sutured in place at the skin entry site . There was no immediate complication. IMPRESSION: Peripheral placement of a double lumen power PICC line into the PICC line right basilic vein using fl uoroscopic and ultrasound guidance.
[2018-08-23 15:26] VITALS: BMI 22.8
[2018-08-24] MEDS: Acetaminophen 650 MG/20.3 ML UDCUP PO SCH ×3 (01:08→12:01)
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
[2018-08-24] MEDS: Senokot S 8.6-50 MG TAB PO SCH (10:56)
[2018-08-24] MEDS: Polyethylene Glycol 3350 17 GM Packet PO SCH (10:56)
[2018-08-24] MEDS: Ciprofloxacin 500 MG TAB PER TUBE SCH (10:57)
[2018-08-24] MEDS: FLUoxetine HCl 20 MG/5 ML UDCUP PER TUBE SCH (10:57)
[2018-08-24] MEDS: Aspirin 325 MG TAB PO SCH (10:57)
[2018-08-24] MEDS: Amantadine HCl 100 mg Capsule PO SCH (10:57)
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
[2018-08-24 11:17] VITALS: BP 163/95
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
== END 2018-08-24 16:38 | DRG 3 ==
LOC: ERS 16:21 → EDBD 16:21 → SDC/OP 19:09 → CCU 21:45 → IMCU/EMU 08-23 16:44
PROVIDERS: ADMIT Specialist; ATTEND Specialist
PROC: 00H632Z Insertion of Monitoring Device into Cerebral Ventricle, Percutaneous Approach (ICD-10-PCS; principal; 2018-08-09)
PROC: 30243L1 Transfusion of Nonautologous Fresh Plasma into Central Vein, Percutaneous Approach (ICD-10-PCS; 2018-08-09)
PROC: 30243N1 Transfusion of Nonautologous Red Blood Cells into Central Vein, Percutaneous Approach (ICD-10-PCS; 2018-08-09)
PROC: 05H533Z Insertion of Infusion Device into Right Subclavian Vein, Percutaneous Approach (ICD-10-PCS; 2018-08-09)
PROC: 5A1955Z Respiratory Ventilation, Greater than 96 Consecutive Hours (ICD-10-PCS; 2018-08-09)
PROC: 05H633Z Insertion of Infusion Device into Left Subclavian Vein, Percutaneous Approach (ICD-10-PCS; 2018-08-09)
PROC: 0SSFXZZ Reposition Right Ankle Joint, External Approach (ICD-10-PCS; 2018-08-09)
PROC: 0HQ0XZZ Repair Scalp Skin, External Approach (ICD-10-PCS; 2018-08-09)
PROC: 0RSMXZZ Reposition Left Elbow Joint, External Approach (ICD-10-PCS; 2018-08-09)
PROC: 0QS Lower Bones, Reposition (ICD-10-PCS; 2018-08-09)
PROC: 0Y6R0Z0 Detachment at Right 2nd Toe, Complete, Open Approach (ICD-10-PCS; 2018-08-09)
PROC: 0QSL0ZZ Reposition Right Tarsal, Open Approach (ICD-10-PCS; 2018-08-09)
PROC: 0HQEXZZ Repair Left Lower Arm Skin, External Approach (ICD-10-PCS; 2018-08-09)
PROC: 0RG10A0 Fusion of Cervical Vertebral Joint with Interbody Fusion Device, Anterior Approach, Anterior Column, Open Approach (ICD-10-PCS; 2018-08-10)
PROC: 0RB30ZZ Excision of Cervical Vertebral Disc, Open Approach (ICD-10-PCS; 2018-08-10)
PROC: 0W9930Z Drainage of Right Pleural Cavity with Drainage Device, Percutaneous Approach (ICD-10-PCS; 2018-08-10)
PROC: 0QS836Z Reposition Right Femoral Shaft with Intramedullary Internal Fixation Device, Percutaneous Approach (ICD-10-PCS; 2018-08-11)
PROC: 0PSQ34Z Reposition Left Metacarpal with Internal Fixation Device, Percutaneous Approach (ICD-10-PCS; 2018-08-11)
PROC: 0QP8X5Z Removal of External Fixation Device from Right Femoral Shaft, External Approach (ICD-10-PCS; 2018-08-11)
PROC: 0PS404Z Reposition Thoracic Vertebra with Internal Fixation Device, Open Approach (ICD-10-PCS; 2018-08-12)
PROC: 0RS104Z Reposition Cervical Vertebral Joint with Internal Fixation Device, Open Approach (ICD-10-PCS; 2018-08-12)
PROC: 00UT0JZ Supplement Spinal Meninges with Synthetic Substitute, Open Approach (ICD-10-PCS; 2018-08-12)
PROC: 09Q0XZZ Repair Right External Ear, External Approach (ICD-10-PCS; 2018-08-12)
PROC: 0B9M8ZX Drainage of Bilateral Lungs, Via Natural or Artificial Opening Endoscopic, Diagnostic (ICD-10-PCS; 2018-08-13)
PROC: 0B113F4 Bypass Trachea to Cutaneous with Tracheostomy Device, Percutaneous Approach (ICD-10-PCS; 2018-08-17)
PROC: 0DH63UZ Insertion of Feeding Device into Stomach, Percutaneous Approach (ICD-10-PCS; 2018-08-17)
PROC: 0RS Upper Joints, Reposition (ICD-10-PCS; 2018-08-22)
PROC: 02HV33Z Insertion of Infusion Device into Superior Vena Cava, Percutaneous Approach (ICD-10-PCS; 2018-08-23)
DX: S06.5X6A Traumatic subdural hemorrhage with loss of consciousness greater than 24 hours without return to pre-existing conscious level with patient surviving, initial encounter (principal); S72.391A Other fracture of shaft of right femur, initial encounter for closed fracture; T79.4XXA Traumatic shock, initial encounter; I77.79 Dissection of other specified artery; G93.5 Compression of brain; J96.01 Acute respiratory failure with hypoxia; J69.0 Pneumonitis due to inhalation of food and vomit; J15.212 Pneumonia due to Methicillin resistant Staphylococcus aureus; S52.512A Displaced fracture of left radial styloid process, initial encounter for closed fracture; S12.490A Other displaced fracture of fifth cervical vertebra, initial encounter for closed fracture; S13.161A Dislocation of C5/C6 cervical vertebrae, initial encounter; S22.088A Other fracture of T11-T12 vertebra, initial encounter for closed fracture; S22.41XA Multiple fractures of ribs, right side, initial encounter for closed fracture; S27.0XXA Traumatic pneumothorax, initial encounter; S27.329A Contusion of lung, unspecified, initial encounter; D62 Acute posthemorrhagic anemia; G97.41 Accidental puncture or laceration of dura during a procedure; G81.91 Hemiplegia, unspecified affecting right dominant side; R40.2433 Glasgow coma scale score 3-8, at hospital admission; S98.131A Complete traumatic amputation of one right lesser toe, initial encounter; F10.10 Alcohol abuse, uncomplicated; Y90.6 Blood alcohol level of 120-199 mg/100 ml; S92.341A Displaced fracture of fourth metatarsal bone, right foot, initial encounter for closed fracture; V49.49XA Driver injured in collision with other motor vehicles in traffic accident, initial encounter; Y92.410 Unspecified street and highway as the place of occurrence of the external cause; S01.01XA Laceration without foreign body of scalp, initial encounter; S93.04XA Dislocation of right ankle joint, initial encounter; S53.105A Unspecified dislocation of left ulnohumeral joint, initial encounter; S92.191A Other fracture of right talus, initial encounter for closed fracture; E87.6 Hypokalemia; E83.39 Other disorders of phosphorus metabolism; S01.311A Laceration without foreign body of right ear, initial encounter; S92.422A Displaced fracture of distal phalanx of left great toe, initial encounter for closed fracture; S92.251A Displaced fracture of navicular [scaphoid] of right foot, initial encounter for closed fracture; S62.307A Unspecified fracture of fifth metacarpal bone, left hand, initial encounter for closed fracture; S93.314A Dislocation of tarsal joint of right foot, initial encounter; S53.125A Posterior dislocation of left ulnohumeral joint, initial encounter; S63.592A Other specified sprain of left wrist, initial encounter; S61.512A Laceration without foreign body of left wrist, initial encounter
CPT/HCPCS: 12001; 24600; 27502; 27840; 36415; 36416; 36430; 36556; 36569; 51702; 70450; 70486; 70496; 70498; 71045; 71046; 71260; 72020; 72125; 72170; 74177; 76000; 80048; 80053; 80202; 80306; 80307; 81001; 81003; 82805; 83605; 83690; 83735; 84100; 84484; 85007; 85025; 85027; 85610; 85730; 86850; 86900; 86901; 87040; 87070; 87077; 87086; 87186; 87205; 90471; 90715; 93005; 93010; 93970; 94002; 94003; 94640; 94760; 96365; 96366; 96374; 96375; 99292; A4216; C1713; C1751; C1768; C1769; C1776; G0390; J0131; J0670; J0690; J1100; J1170; J1644; J1815; J1940; J2001; J2185; J2250; J2270; J2370; J2405; J2543; J2704; J2765; J3010; J3370; J3475; J3480; J3490; J7050; J7620; J7799; L0200; L0639; P9016; P9048; Q9966; Q9967; S0028

== ENCOUNTER 2019-03-26 20:58 | Inpatient (IN) | payer BC ==
[~2019-03-26 20:58] MED LIST changes: -Heparin 1,000 UNITS/ML VIAL ONE; -ISOVUE-370 76%-LOCM 1 ML ONE; +Iopamidol 370 76% 50 ML VIAL FS ONE; -PHENYLEPHRINE-NS 100 MCG/ML 10 ML SYRINGE ONE; -Rocuronium Bromide 10 MG/ML (10ML VIAL) ONE
[2019-03-26] MEDS ORDERED: Piperacillin/Tazobactam 4.5 GM VIAL ONE (21:24)
[2019-03-26] MEDS ORDERED: Lorazepam 2 MG/ML VIAL ONE (21:26)
--- NOTE | 2019-03-26 21:48 | RAD ---
RADIOGRAPH CHEST 1 VIEW: Supine DATE: 03/26/2019 HISTORY: 31-year-old male with dyspnea and fever FINDINGS: There is no airspace density or pulmonary edema. The lateral costophrenic angles are sharp. Supine po sitioning makes this study insensitive for the detection of pneumothorax. Furthermore, the image is overexposed with regard to the right lung. Tracheostomy tube. Pedicle screws with vertical interlocki ng rods at lower thoracic spine. IMPRESSION: No acute pulmonary findings.
[2019-03-26 22:01] LABS: Hemoglobin 11.3 g/dL (14.0-18.0); Mean Corpuscular HGB CONC 32.9 g/dL (32.0-36.0); Mean Corpuscular Hemoglobin 32.5 pg (27.0-31.0); Mean Corpuscular Volume 98.7 fL (78.0-98.0); Mean Platelet Volume 6.8 fL (7.4-10.4); Platelet Count 365 thou/uL (130-400); Red Blood Cell (RBC) Count 3.48 mill/uL (4.70-6.10); White Blood Cell (WBC) Count 20.9 thou/uL (4.8-10.8)
[2019-03-26 22:12] LABS: Band 3 % (5-11); Eosinophils 2 % (0-10); Lymphocytes 4 % (21-51); MDiff Complete? YES; Monocytes 4 % (0-10); Neutrophil 87 % (42-75); Platelet Morphology Comment Appears Adequate
[2019-03-26 22:20] LABS: ALT (SGPT) 50 U/L (8-55); AST (SGOT) 29 U/L (5-34); Albumin 4.3 g/dL (3.5-5.0); Alkaline Phosphatase 136 U/L (40-110); Anion Gap 19 mmol/L (10-20); BUN (Urea Nitrogen) 8 mg/dL (8.9-20.6); Bilirubin, Total 0.4 mg/dL (0.2-1.2); Calc. Creatinine Clearance 0 mL/min (70-130); Calcium 10.1 mg/dL (7.8-10.44); Carbon Dioxide 23 mmol/L (22-29); Chloride 103 mmol/L (98-107); Estimated GFR-MDRD Greater than 90; Globulin 3.2 g/dL (2.4-3.5); Glucose 103 mg/dL (70-105); Potassium 5.4 mmol/L (3.5-5.1); Protein, Total 7.5 g/dL (6.0-8.3); Sodium 140 mmol/L (136-145)
--- NOTE | 2019-03-26 22:35 | CT ---
CT BRAIN NONCONTRAST: DATE: 03/26/2019 10:06 PM HISTORY: 33-year-old male with altered mental status. Hydrocephalus. COMPARISON: 03/22/2019 from [facility] (formerly " [facility]") FINDINGS: AUCTION CLERK shunt catheter enters through right parietal deon hole, travels horizontally through the parietal lobe and upper trigone and body of right lateral ventricle, with distal tip at the splenium of corpus callosum. Moderate to severe dilation of lateral ventricles. Moderate dilation of third ventricle. Mild to mode rate dilation fourth ventricle. Confluent wide regions of low attenuation in the periventricular white matter abutting the frontal ho rns of the bilateral lateral ventricles, extending anteriorly into the subcortical frontal lobes. Similar low densities in the temporal tips and surrounding the temporal horns of the lateral ventricl es. These could represent old insults, transependymal migration of CSF, or combination of both. Diffusely low attenuation in the bilateral thalami, entire mid brain, and throughout the entire silvia. No acute intra-axial or extra-axial hemorrhage. No extra-axial fluid collection. No midline shift. Se somin partial opacification of left frontal, left anterior ethmoid, and left maxillary, sinuses. No acute calvarial fracture. No interval change overall. IMPRESSION: 1) right-sided ventriculoperitoneal shunt catheter. 2) hydrocephalus, including moderate to severe dilation of lateral ventricles. 3) diffusely confluent low attenuation in the bilateral thalami and the brainstem, more specifically entire mid brain and entire silvia. It is uncertain whether these represent cytotoxic edema of subacute brainstem infarctions, or vasogenic edema such as from infection. There is a smaller possibi lity that these could represent old infarctions, but lack of parenchymal volume loss makes old infarctions less likely than subacute infarctions. 4) confluence regions of white matter low attenuation around the frontal horns and temporal horns. Th thong could represent transependymal migration of cerebrospinal fluid due to obstructive hydrocephalus, old insults such as old trauma or old infarctions, or edema. 5) no significant interval change since 03/22/2019.
[2019-03-26 23:19] LABS: Bilirubin Negative (Negative); Blood, Urine Negative (Negative); Clarity Turbid (Clear); Glucose, Urine (Dipstick) Normal (Negative); Leukocyte Negative Leu/uL (Negative); Nitrite Negative (Negative); Protein, Urine (Dipstick) Negative (Neg-Trace); Urobilinogen Normal mg/dL (Less than 2)
[2019-03-26] MEDS ORDERED: levETIRAcetam In NaCl (Iso-Os) 1,500 MG in Premix Bag 1 BAG IVPB SCH (23:45)
--- NOTE | 2019-03-27 00:14 | CT ---
CT ABDOMEN WITH CONTRAST CT PELVIS WITH CONTRAST: DATE: 03/27/2019 HISTORY: 33-year-old male with fever, abdominal pain. COMPARISON: None FINDINGS: Small bilateral pleural effusions. Small to medium size region of consolidation at the posterior base of left lower lobe broadly abutting the pleural effusion. This could be pneumonia, aspiration, or passive atelectasis. PEG tube. DRUM MAKER shunt catheter pierces right upper quadrant rectus abdominis, and is curled in the right upper christiano drant and right mid peritoneal cavity. No gallbladder mural thickening or pericholecystic fluid. No gross abnormality identified involving k idneys, liver, spleen, pancreas, or abdominal aorta. Diffuse mural thickening of urinary bladder. There is enteric contrast material throughout most of the colon, including the rectum. Lack of visceral fat makes it difficult to identify the appendix. There is a structure in the right l ower quadrant that appears to be the proximal portion of a normal appendix. No small bowel dilation. No ascites or pneumoperitoneum. Intramedullary nail in right proximal femur. Edema in the subcutaneous fat around the pelvis. There is a focal very broad, 2 cm thick collection o f edema fluid posterior to the left upper gluteal muscles in the subcutaneous fat, and traveling medially across midline to the right side, and traveling superiorly to the midthoracic level. No pneu moperitoneum identified. Bilateral pedicle screws and vertical interlocking rods stabilizing old T11 compression fracture. Multiple small foci of subcutaneous emphysema in the subcutaneous fat anterior to the left lower quad rant anterior abdominal wall IMPRESSION: 1) bilateral small pleural effusions. 2) airspace density in left lower lobe abutting the left pleural effusion. Atelectasis versus pneumon ia versus aspiration. 3) percutaneous gastrostomy tube. 4) ventriculoperitoneal shunt catheter. 5) diffuse mural thickening of the urinary bladder suggestive of cystitis, either acute or chronic. 6) broad, wide fluid collection in the subcutaneous adipose tissues posterior to the pelvis and spine , with largest component posterior to the left pelvis. This could be hematoma or severe anasarca. This is unlikely to be an abscess. 7) multiple small foci of subcutaneous emphysema in the subcutaneous fat anterior to the left lower q uadrant anterior abdominal wall, suggestive of recent injections, such as with insulin needles. Recommend clinical correlation..
[2019-03-27] MEDS ORDERED: Ondansetron PF 4 MG/2 ML Vial IVP PRN (00:28)
[2019-03-27] MEDS ORDERED: Senokot S 8.6-50 MG TAB PO PRN (00:28)
[2019-03-27] MEDS ORDERED: Acetaminophen 650 MG Suppository PR PRN (00:28)
[2019-03-27] MEDS ORDERED: Lorazepam 2 MG/ML VIAL SLOW IVP PRN (00:32)
[2019-03-27] MEDS ORDERED: Lorazepam 2 MG/ML VIAL ONE (00:35)
[2019-03-27 01:14] LABS: Anion Gap 17 mmol/L (10-20); BUN (Urea Nitrogen) 8 mg/dL (8.9-20.6); Calc. Creatinine Clearance 0 mL/min (70-130); Calcium 8.9 mg/dL (7.8-10.44); Carbon Dioxide 21 mmol/L (22-29); Chloride 105 mmol/L (98-107); Estimated GFR-MDRD Greater than 90; Glucose 106 mg/dL (70-105); Sodium 139 mmol/L (136-145)
[2019-03-27 01:17] LABS: Lactic Acid 4.3 mmol/L (0.5-2.2)
[2019-03-27] MEDS: Sodium Chloride 0.9% 1,000 ML IV SCH ×3 (01:55→21:14)
[2019-03-27 04:18] LABS: #Eosinphils 0.1 thou/uL (0.0-0.7); #Lymphocytes 0.5 thou/uL (1.20-3.40); #Monocytes 0.5 thou/uL (0.11-0.59); #Neutrophils 8.2 thou/uL (1.40-6.50); %Eosinophils 0.7 % (0.0-10.0); %Lymphocytes 5.3 % (21.0-51.0); %Monocytes 5.1 % (0.0-10.0); %Neutrophils 88.9 % (42.0-75.0); Hemoglobin 9.5 g/dL (14.0-18.0); Mean Corpuscular HGB CONC 33.5 g/dL (32.0-36.0); Mean Corpuscular Hemoglobin 32.9 pg (27.0-31.0); Mean Corpuscular Volume 98.3 fL (78.0-98.0); Mean Platelet Volume 6.9 fL (7.4-10.4); Platelet Count 199 thou/uL (130-400); RBC Distribution Width 13.7 % (11.5-14.5); Red Blood Cell (RBC) Count 2.89 mill/uL (4.70-6.10); White Blood Cell (WBC) Count 9.2 thou/uL (4.8-10.8)
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
[2019-03-27 04:34] LABS: Anion Gap 12 mmol/L (10-20); BUN (Urea Nitrogen) 8 mg/dL (8.9-20.6); Calc. Creatinine Clearance 161 mL/min (70-130); Calcium 9.2 mg/dL (7.8-10.44); Carbon Dioxide 25 mmol/L (22-29); Chloride 106 mmol/L (98-107); Estimated GFR-MDRD Greater than 90; Glucose 80 mg/dL (70-105); Sodium 139 mmol/L (136-145)
[2019-03-27] MEDS: Piperacillin/Tazobactam 3.375 GM in Sodium Chloride 0.9% 100 ML IVPB SCH ×2 (05:38→11:13)
[2019-03-27] MEDS: Vancomycin HCl 1 GM in Premix Bag 1 BAG IVPB SCH ×3 (06:13→22:52)
[2019-03-27] MEDS: Enoxaparin Sodium 40 MG/0.4 ML SYRINGE SC SCH (10:34)
[2019-03-27] MEDS: FLUoxetine HCl 20 MG/5 ML UDCUP PER TUBE SCH (10:34)
[2019-03-27] MEDS: Famotidine/PF 20 mg/2ml Vial SLOW IVP SCH ×2 (10:36→21:19)
[2019-03-27] MEDS: Acetaminophen 325 MG TAB PO PRN ×2 (10:36→22:55)
[2019-03-27] MEDS: Cyanocobalamin (Vitamin B-12) 1,000 MCG TAB PER TUBE SCH (10:37)
[2019-03-27] MEDS: Pantoprazole 40 MG GRANULES PACKET PER TUBE SCH (10:37)
[2019-03-27] MEDS: Gabapentin 300 MG CAP FS SCH ×2 (10:37→21:20)
[2019-03-27] MEDS: Folic Acid 1 MG TAB PER TUBE SCH (10:37)
[2019-03-27] MEDS: Metoprolol Tartrate 25 MG TAB PER TUBE SCH ×2 (10:37→21:19)
[2019-03-27] MEDS: Ascorbic Acid 500 mg Chewable Tablet PER TUBE SCH (10:37)
[2019-03-27] MEDS: Multivitamin W/ Minerals 1 TAB PER TUBE SCH (10:37)
[2019-03-27] MEDS: Amantadine HCl 10 mg/ml Oral Solution PER TUBE SCH ×2 (10:38→21:18)
[2019-03-27] MEDS: Floranex Packet PER TUBE SCH ×2 (12:06→21:15)
[2019-03-27] MEDS: Modafinil 100 MG TAB PER TUBE SCH (12:06)
[2019-03-27] MEDS: Artificial Tear Sol 15 ML BOT EA EYE SCH ×3 (12:06→21:20)
--- NOTE | 2019-03-27 17:25 | CON ---
DATE OF CONSULTATION: 03/27/2019 SERVICE: Pulmonary Medicine. REASON FOR CONSULTATION: IMCU patient. HISTORY OF PRESENT ILLNESS: The patient is a 33-year-old white male with past medical history significant for traumatic brain injury. He is in a permanently debilitated state. At baseline, he does not attend, but is able to poorly respond to his environment. Apparently, he had increasing mentation issues. As such, EMS services were contacted. When they arrive, he was mildly hypoxemic and subsequently brought to the emergency department. Based on what a girlfriend is telling me, he has already returned to his usual state of health. He cannot provide me with any additional elements of the history. Recently, he was at the [facility] on an inpatient basis. He is treated for both urinary tract infection and pneumonia. Apparently, he had return to his usual state of health at the time of discharge. PAST MEDICAL HISTORY: Traumatic brain injury. PAST SURGICAL HISTORY: 1. Tracheostomy placement. 2. PEG tube placement. 3. Neck surgery. 4. Back surgery. 5. Right leg surgery with krystyna placement. 6. Left fifth digit surgery. 7. Left elbow surgery. SOCIAL HISTORY: Negative for alcohol, tobacco, or illicit drug use currently. He formally use methamphetamine. He has no exposure to chemicals, dust, asbestos, or tuberculosis. FAMILY HISTORY: Noncontributory. ALLERGIES: NO KNOWN DRUG ALLERGIES. MEDICATIONS: List of his inpatient medications was reviewed. No specific updates were made at this time. REVIEW OF SYSTEMS: This cannot be obtained because the patient has static encephalopathy. PHYSICAL EXAMINATION: VITAL SIGNS: Afebrile, pulse 90, blood pressure 116/70, respirations 28, and saturation 96% currently on trach collar with 28% FiO2. GENERAL: The patient is awake and alert. He does not attend. HEENT: Normocephalic and atraumatic. Sclerae white. Conjunctivae pink. Oral mucosa is moist without lesions. LUNGS: Decent air entry. Extensive rhonchi are present. No prolonged expiratory phase or wheezing is appreciated. HEART: Normal rate. Regular. ABDOMEN: Soft, nontender, and nondistended. Bowel sounds are positive. MUSCULOSKELETAL: No cyanosis or clubbing. There is no pitting in the bilateral lower extremities. LABORATORY DATA: WBC is improved to 9.2, hemoglobin 9.5, platelets 199,000. Band count was 3% on presentation. Basic metabolic profile is completely unremarkable. Lactate was 8.4, but beautifully downtrending. Anion gap is clear. Prolactin level is 19. Urinalysis is unremarkable. Respiratory cultures are growing extensive gram-positive cocci in pairs and clusters with few other organisms identified. Many white blood cells are noted. IMAGIN. CT of the abdomen and pelvis demonstrates no acute intraabdominal process. The lung has small bilateral pleural effusions present as well as a left lower lobe parenchymal infiltrate. PEG tube is noted, and diffuse thickening of the bladder is appreciated. 2. CT of the brain demonstrates right-sided TRAFFIC OPERATOR shunt with significant hydrocephalus with [id number] dilation of the lateral ventricles. There has been no significant interval change since February,. ASSESSMENT: 1. Acute hypoxic respiratory failure. 2. Healthcare-associated pneumonia in the left lower lobe. 3. Static encephalopathy. 4. Seizure disorder, possibly of new onset. 5. History of traumatic brain injury. 6. Hydrocephalus with TRAFFIC OPERATOR shunt in place. DISCUSSION AND PLAN: Neurosurgery consultation will be placed. I agree with antiepileptic drugs. Empiric antibiotics including vancomycin will be continued. The Zosyn will be discontinued in favor of meropenem as this has better penetration into the CSF. Critical Care will follow along while the patient remains in this location. 70 minutes have been devoted to this patient in various activities. I personally reviewed all imaging studies and laboratory data noted within this document. For fifty percent of this time, I was interacting with the patient at the bedside or coordinating care with the care team. For the remainder of the time I was immediately available to the patient in the hospital unit. Job ID: [id number] MTDD
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
[2019-03-27] MEDS ORDERED: Enoxaparin Sodium 40 MG/0.4 ML SYRINGE SC SCH (21:00)
[2019-03-27] MEDS: Senokot 8.6 MG TAB PER TUBE SCH (21:19)
[2019-03-27] MEDS: Gabapentin 300 MG CAP PO SCH (21:19)
[2019-03-27] MEDS: traZODone HCl 50 MG TAB PER TUBE SCH (21:19)
[2019-03-27] MEDS: Meropenem 2 GM, Admixture Fee 1 EACH in Sodium Chloride 0.9% 100 ML IVPB SCH (21:21)
[2019-03-27 22:01] LABS: Vancomycin, Trough 16.8 ug/mL
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
[2019-03-28 05:22] LABS: Anion Gap 5 mmol/L (10-20); BUN (Urea Nitrogen) 6 mg/dL (8.9-20.6); Calc. Creatinine Clearance 164 mL/min (70-130); Calcium 8.6 mg/dL (7.8-10.44); Carbon Dioxide 29 mmol/L (22-29); Chloride 107 mmol/L (98-107); Estimated GFR-MDRD Greater than 90; Glucose 108 mg/dL (70-105); Potassium 3.2 mmol/L (3.5-5.1); Sodium 138 mmol/L (136-145)
[2019-03-28 05:25] LABS: Band 4 % (5-11); Eosinophils 6 % (0-10); Hemoglobin 9.4 g/dL (14.0-18.0); Hypochromia SLIGHT = 6-15 cells (100X) (0-5/hpf); Lymphocytes 4 % (21-51); MDiff Complete? YES; Mean Corpuscular HGB CONC 33.2 g/dL (32.0-36.0); Mean Corpuscular Hemoglobin 32.6 pg (27.0-31.0); Mean Corpuscular Volume 98.2 fL (78.0-98.0); Mean Platelet Volume 6.8 fL (7.4-10.4); Monocytes 2 % (0-10); Neutrophil 84 % (42-75); Platelet Count 185 thou/uL (130-400); Platelet Morphology Comment Appears Adequate; RBC Distribution Width 13.7 % (11.5-14.5); Red Blood Cell (RBC) Count 2.88 mill/uL (4.70-6.10); White Blood Cell (WBC) Count 4.1 thou/uL (4.8-10.8)
[2019-03-28] MEDS: Meropenem 2 GM, Admixture Fee 1 EACH in Sodium Chloride 0.9% 100 ML IVPB SCH ×2 (06:02→14:57)
[2019-03-28] MEDS: Vancomycin HCl 1 GM in Premix Bag 1 BAG IVPB SCH ×4 (06:29→23:14)
[2019-03-28] MEDS: Famotidine/PF 20 mg/2ml Vial SLOW IVP SCH ×2 (09:10→21:36)
[2019-03-28] MEDS: Amantadine HCl 10 mg/ml Oral Solution PER TUBE SCH ×2 (09:10→21:33)
[2019-03-28] MEDS: FLUoxetine HCl 20 MG/5 ML UDCUP PER TUBE SCH (09:11)
[2019-03-28] MEDS: Floranex Packet PER TUBE SCH ×2 (09:11→21:33)
[2019-03-28] MEDS: Ascorbic Acid 500 mg Chewable Tablet PER TUBE SCH (09:13)
[2019-03-28] MEDS: Multivitamin W/ Minerals 1 TAB PER TUBE SCH (09:13)
[2019-03-28] MEDS: Folic Acid 1 MG TAB PER TUBE SCH (09:13)
[2019-03-28] MEDS: Gabapentin 300 MG CAP FS SCH ×2 (09:13→21:34)
[2019-03-28] MEDS: Enoxaparin Sodium 40 MG/0.4 ML SYRINGE SC SCH (09:14)
[2019-03-28] MEDS: Metoprolol Tartrate 25 MG TAB PER TUBE SCH ×2 (09:14→21:36)
[2019-03-28] MEDS: Pantoprazole 40 MG GRANULES PACKET PER TUBE SCH (09:14)
[2019-03-28] MEDS: Cyanocobalamin (Vitamin B-12) 1,000 MCG TAB PER TUBE SCH (09:15)
[2019-03-28] MEDS: Artificial Tear Sol 15 ML BOT EA EYE SCH ×3 (09:15→21:37)
[2019-03-28] MEDS: Modafinil 100 MG TAB PER TUBE SCH (09:27)
[2019-03-28] MEDS: Sodium Chloride 0.9% 1,000 ML IV SCH ×2 (13:07→14:56)
--- NOTE | 2019-03-28 13:47 | PRG ---
DATE OF SERVICE: 03/28/2019 SERVICE: Pulmonary Medicine. INTERVAL HISTORY: The patient is doing fine from respiratory standpoint. Breathing comfortably. He does not look to be in any distress. Otherwise, there has been no interval change to his condition. PHYSICAL EXAMINATION: VITAL SIGNS: Afebrile with a T-max of 99.3, pulse 87, blood pressure 109/78, respirations 17, and saturation 98% currently on T-collar. GENERAL: The patient is awake. He is alert. He does not attend. HEENT: Normocephalic and atraumatic. Sclerae white. Conjunctivae pink. Oral mucosa is moist without lesions. LUNGS: Rhonchi are present. No prolonged expiratory phase or wheezing is appreciated. HEART: Normal rate and regular. ABDOMEN: Soft, nontender, and nondistended. Bowel sounds are positive. MUSCULOSKELETAL: No cyanosis or clubbing. There is no pitting in the bilateral lower extremities. LABORATORY DATA: WBC 4.1, hemoglobin 9.4, and platelets 185,000. Neutrophil is 84% on top of 4% bands. Basic metabolic profile is unremarkable except for potassium of 3.2. Sputum is growing MRSA. ASSESSMENT: 1. Acute hypoxic respiratory failure. 2. Healthcare-associated pneumonia secondary to methicillin-resistant Staphylococcus aureus. 3. Static encephalopathy. 4. Seizure disorder, possibly of new onset. 5. Hydrocephalus with CENTER MEDICAL DIRECTOR shunt in place. 6. History of traumatic brain injury. DISCUSSION AND PLAN: Potassium will be replaced today. Neurosurgery consultation is currently pending. I will give him a laboratory holiday in the morning. Routine tracheostomy care will be provided. I will get an EEG to make certain he is not having any ongoing seizure activity, which is very unlikely. Empiric antiepileptic drugs have been initiated, which will be continued. Job ID: [id number]
--- NOTE | 2019-03-28 14:18 | EEG ---
Referring Physician: VIC EEG # [id number] TEST TYPE: ROUTINE PORTABLE INPATIENT REPORT: AN EEG USING THE INTERNATIONAL TEN-TWENTY SYSTEM OF ELECTRODE PLACEMENT WAS PERFORMED. The waking background is a low amplitude 12 hertz alpha frequency. The patient remained awake throughout the recording. Photic stimulation was unremarkable. No epileptiform features were present. IMPRESSION: THIS IS A NORMAL AWAKE EEG. Donor Relations Manager: CATHRYN Consulting Psychologist: [email or web address] FUENTES
[2019-03-28 14:58] VITALS: BMI 19.5
--- NOTE | 2019-03-28 17:48 | PDOC.HOSPP ---
- Subjective Encounter Date: 03/28/19 Encounter Time: 17:40 Subjective: f/u for sepsis, HCAP with likely MRSA colonization on current Meropenem/Vanc. Stool + for c. diff antigen/toxin. More awake per family/nursing report. - Objective Vital Signs & Weight: Vital Signs (12 hours) Temp Pulse Ox 03/28/19 16:01 98.2 F 03/28/19 10:59 99.0 F 03/28/19 07:54 99 03/28/19 07:26 98.8 F Weight Admit Weight 137 lb 8 oz Weight 140 lb Most Recent Monitor Data Heart Rate from ECG 84 NIBP 118/78 NIBP BP-Mean 91 Respiration from ECG 25 SpO2 97 I&O: 03/27/19 03/28/19 03/29/19 06:59 06:59 06:59 Intake Total 510 1881 90 Output Total 400 1075 Balance 110 806 90 Result Diagrams: 03/28/19 04:32 03/28/19 04:32 Additional Labs: Microbiology 03/28/19 14:15 Stool C. difficile GDH Antigen & Toxins - Final 03/26/19 21:35 Sputum - Pending Respiratory Culture - Preliminary Methicillin resistant S.aureus Gram Negative [facility] Laboratory Tests 03/26/19 03/26/19 03/26/19 21:48 21:48 21:48 WBC 20.9 H Hgb 11.3 L MCV Neutrophils % Neutrophils % (Manual) 87 H Potassium 5.4 H Lactic Acid 8.4 H* Prolactin Vancomycin Trough 03/26/19 03/27/19 03/27/19 21:51 00:48 00:48 WBC Hgb MCV Neutrophils % Neutrophils % (Manual) Potassium 4.0 Lactic Acid 4.3 H* Prolactin 19.79 H Vancomycin Trough 03/27/19 03/27/19 03/27/19 03:33 03:33 21:25 WBC 9.2 Hgb 9.5 L MCV 98.3 H Neutrophils % 88.9 H Neutrophils % (Manual) Potassium 4.0 Lactic Acid Prolactin Vancomycin Trough 16.8 03/28/19 04:32 WBC Hgb MCV Neutrophils % Neutrophils % (Manual) 84 H Potassium Lactic Acid Prolactin Vancomycin Trough EKG Reviewed by me: Yes (Tele - SR) Hospitalist ROS - Medication Medications: Active Medications Generic Name Dose Route Start Last Admin Trade Name Freq PRN Reason Stop Dose Admin Acetaminophen 650 mg 03/27/19 00:28 03/27/19 22:55 Tylenol PO 650 mg Q4H PRN Administration Headache/Fever/Mild Pain (1-3) Acidophilus 2 gm 03/27/19 09:00 03/28/19 09:11 Floranex PER TUBE 2 gm BID MAGO Administration Amantadine HCl 200 mg 03/27/19 09:00 03/28/19 09:10 Symmetrel PER TUBE 200 mg BID MAGO Administration Artificial Tears 1 drop 03/27/19 09:00 03/28/19 14:57 Liquitears 15ml Bottle EA EYE 1 drop TID MAGO Administration Ascorbic Acid 500 mg 03/27/19 09:00 03/28/19 09:13 Vitamin C PER TUBE 500 mg DAILY MAGO Administration Cholecalciferol 5,000 units 03/27/19 09:00 03/28/19 09:13 Vitamin D3 PER TUBE 5,000 units DAILY MAGO Administration Cyanocobalamin 1,000 mcg 03/27/19 09:00 03/28/19 09:15 Vitamin B-12 PER TUBE 1,000 mcg DAILY MAGO Administration Enoxaparin Sodium 40 mg 03/27/19 09:00 03/28/19 09:14 Lovenox SC 40 mg 0900 MAGO Administration Famotidine 20 mg 03/27/19 09:00 03/28/19 09:10 Pepcid SLOW IVP 20 mg Q12HR MAGO Administration Ferrous Sulfate 300 mg 03/27/19 09:00 03/28/19 09:11 Ferrous Sulfate PER TUBE 300 mg DAILY MAGO Administration Fluoxetine HCl 40 mg 03/27/19 09:00 03/28/19 09:11 Prozac Oral Soln PER TUBE 40 mg DAILY MAGO Administration Folic Acid 1 mg 03/27/19 09:00 03/28/19 09:13 Folvite PER TUBE 1 mg DAILY MAGO Administration Gabapentin 300 mg 03/27/19 09:00 03/28/19 09:13 Neurontin FS 300 mg BID MAGO Administration Gabapentin 600 mg 03/27/19 21:00 03/27/19 21:19 Neurontin PO 600 mg HS MAGO Administration Levetiracetam 500 mg/ Device 100 mls @ 200 mls/hr 03/27/19 09:00 03/28/19 09: 10 IVPB 100 mls BID MAGO Administration Vancomycin HCl 1 gm/ Device 200 mls @ 200 mls/hr 03/27/19 06:00 03/28/19 14: 57 IVPB 200 mls Q8HR MAGO Administration Meropenem 2 gm/ Miscellaneous 100 mls @ 200 mls/hr 03/27/19 22:00 03/28/19 14 :57 Medication 1 each/ Sodium IVPB 100 mls Chloride Q8HR MAGO Administration Sodium Chloride 1,000 mls @ 50 mls/hr 03/28/19 13:04 03/28/19 14:56 Normal Saline 0.9% IV 1,000 mls .Q20H MAGO Administration Iron/Minerals/Multivitamins 1 tab 03/27/19 09:00 03/28/19 09:13 Theragran M PER TUBE 1 tab DAILY MAGO Administration Metoprolol Tartrate 25 mg 03/27/19 09:00 03/28/19 09:14 Lopressor PER TUBE 25 mg BID MAGO Administration Modafinil 200 mg 03/27/19 09:00 03/28/19 09:27 Provigil PER TUBE 200 mg DAILY MAGO Administration Pantoprazole Sodium 40 mg 03/27/19 09:00 03/28/19 09:14 Protonix PER TUBE 40 mg DAILY MAGO Administration Senna 1 tab 03/27/19 21:00 03/27/19 21:19 Senokot PER TUBE 1 tab QPM MAGO Administration Sodium Chloride 10 ml 03/27/19 09:00 03/28/19 09:14 Flush - Normal Saline IVF 10 ml Q12HR MAGO Administration Trazodone HCl 100 mg 03/27/19 21:00 03/27/19 21:19 Desyrel PER TUBE 100 mg HS MAGO Administration - Exam General Appearance: awake alert General - other findings: does not follow commands Eye: PERRL, anicteric sclera ENT: normocephalic atraumatic, no oropharyngeal lesions ENT - other findings: increased mucus at trach site Neck: supple, symmetric, no JVD, no thyromegaly Neck - other findings: Trach in place with T-piece Heart: RRR, no gallops, no rubs, normal peripheral pulses Respiratory - other findings: coarse sounds bilaterall and transmitted from upper airway Gastrointestinal: soft, non-tender, non-distended, normal bowel sounds Gastrointestinal - other findings: PEG site intact Extremities - other findings: contractures of all extremities Skin: normal turgor Neurological: no new deficit Neurological - other findings: aphasic Musculoskeletal: generalized weakness, diffuse muscle atrophy Hosp A/P (1) Sepsis Code(s): A41.9 - SEPSIS, UNSPECIFIED ORGANISM Status: Acute Plan: Secondary to HCAP and MRSA(colonization), continue Meropenem/Vancomycin (2) Hydrocephalus Code(s): G91.9 - HYDROCEPHALUS, UNSPECIFIED Status: Chronic Plan: Await NS evaluation regarding shunt function (3) Healthcare associated bacterial pneumonia Code(s): J15.9 - UNSPECIFIED BACTERIAL PNEUMONIA Status: Acute Plan: Continue Meropenem/Vancomycin (4) Acute metabolic encephalopathy Code(s): G93.41 - METABOLIC ENCEPHALOPATHY Status: Acute Plan: Improved, continue current mgmt (5) Chronic respiratory failure Code(s): J96.10 - CHRONIC RESPIRATORY FAILURE, UNSP W HYPOXIA OR HYPERCAPNIA Status: Chronic Qualifiers: Respiratory failure complication: hypoxia Qualified Code(s): J96.11 - Chronic respiratory failure with hypoxia Plan: Add Scopolamine 1.5mg TD daily, Trach care with frequent suctioning (6) Lactic acidosis Code(s): E87.2 - ACIDOSIS Status: Acute - Plan continue antibiotics, social 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
[2019-03-28] MEDS: Scopolamine 1.5 mg/72 hour Patch TD SCH (18:11)
[2019-03-28] MEDS: traZODone HCl 50 MG TAB PER TUBE SCH (21:36)
[2019-03-28] MEDS: Gabapentin 300 MG CAP PO SCH (21:36)
[2019-03-28] MEDS: Senokot 8.6 MG TAB PER TUBE SCH (21:37)
[2019-03-28 21:43] LABS: Vancomycin, Trough 26.6 ug/mL
[2019-03-29] MEDS: Meropenem 2 GM, Admixture Fee 1 EACH in Sodium Chloride 0.9% 100 ML IVPB SCH ×4 (00:05→23:24)
[2019-03-29] MEDS: Vancomycin HCl 25 MG/ML Oral PER TUBE SCH ×4 (00:05→23:24)
[2019-03-29] MEDS: Floranex Packet PER TUBE SCH (13:11)
[2019-03-29] MEDS: Amantadine HCl 10 mg/ml Oral Solution PER TUBE SCH ×2 (13:11→23:24)
[2019-03-29] MEDS: Cyanocobalamin (Vitamin B-12) 1,000 MCG TAB PER TUBE SCH (13:12)
[2019-03-29] MEDS: Artificial Tear Sol 15 ML BOT EA EYE SCH ×3 (13:12→20:56)
[2019-03-29] MEDS: Enoxaparin Sodium 40 MG/0.4 ML SYRINGE SC SCH (13:12)
[2019-03-29] MEDS: Famotidine/PF 20 mg/2ml Vial SLOW IVP SCH ×2 (13:12→20:31)
[2019-03-29] MEDS: Ascorbic Acid 500 mg Chewable Tablet PER TUBE SCH (13:12)
[2019-03-29] MEDS: FLUoxetine HCl 20 MG/5 ML UDCUP PER TUBE SCH (13:13)
[2019-03-29] MEDS: Folic Acid 1 MG TAB PER TUBE SCH (13:13)
[2019-03-29] MEDS: Multivitamin W/ Minerals 1 TAB PER TUBE SCH (13:13)
[2019-03-29] MEDS: Pantoprazole 40 MG GRANULES PACKET PER TUBE SCH (13:13)
[2019-03-29] MEDS: Gabapentin 300 MG CAP FS SCH ×2 (13:13→20:33)
[2019-03-29] MEDS: Modafinil 100 MG TAB PER TUBE SCH (13:13)
[2019-03-29] MEDS: Metoprolol Tartrate 25 MG TAB PER TUBE SCH ×2 (13:13→20:31)
[2019-03-29] MEDS: Sodium Chloride 0.9% 1,000 ML IV SCH ×2 (13:14→20:52)
[2019-03-29] MEDS: Vancomycin HCl 1 GM in Premix Bag 1 BAG IVPB SCH (14:14)
--- NOTE | 2019-03-29 14:44 | PQF ---
WILLIAM HERRERA CATALINA SIDDIQUI DO [id number] CU- [id number] CLINICAL DOCUMENTATION IMPROVEMENT CLARIFICATION FORM: ICD-10 Updated PLEASE DO AN ADDENDUM TO THE PROGRESS NOTE WITH ANY DOCUMENTATION UPDATES OR ADDITIONS AND CARRY THROUGH TO DC SUMMARY. THANK YOU. DATE: 03/29/19 ATTN: Dr. Siddiqui Please exercise your independent, professional judgment in responding to the clarification form. 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 [ ] Functional Quadriplegia (specify underlying cause) [ ] Weakness (please specify anatomical area) due to [ ] Other diagnosis [ ] Unable to determine In addition, please specify: Present on Admission (POA): [ x ] Yes [ ] No [ ] Unable to determine CLINICAL INDICATORS - SIGNS / SYMPTOMS / LABS/ RESULTS AND LOCATION IN MR Total nursing assist with ADL--> 03/27 Hygiene assessment by BLM: "maximum assistance; total assistance" Weakness loss of function --> 03/28 ([facility]): "contractures all extremities" RISK FACTORS / RESULTS AND LOCATION IN MR 03/28 ([facility] "severe traumatic brain injury" 03/28 RD(): "PEG to LUQ, trach collar, stage II pressure ulcer L ring finger" "continuous tube feeding at home" TREATMENT / RESULTS AND LOCATION IN MR Tube feedings-Jevity 1.2 at 70/hr 03/28 per orders RN to assist with ADLs per hospital protocol 03/26 (This form is maintained as a part of the permanent medical record) 2014 [employer]. All Rights Reserved Nory Loza, RN, BSN, CCDS [email or web address] [phone] [facility]ITAL[facility]
[2019-03-29 14:49] LABS: Anion Gap 12 mmol/L (10-20); BUN (Urea Nitrogen) 6 mg/dL (8.9-20.6); Calc. Creatinine Clearance 156 mL/min (70-130); Calcium 8.9 mg/dL (7.8-10.44); Carbon Dioxide 25 mmol/L (22-29); Chloride 104 mmol/L (98-107); Estimated GFR-MDRD Greater than 90; Glucose 95 mg/dL (70-105); Potassium 4.7 mmol/L (3.5-5.1); Sodium 136 mmol/L (136-145)
--- NOTE | 2019-03-29 16:38 | PRG ---
DATE OF SERVICE: 03/29/2019 SERVICE: Pulmonary Medicine. INTERVAL HISTORY: The patient is doing fine from respiratory standpoint. There has been no interval change to his condition neurologically. He started some having loose stools. He ended up getting a C diff antigen and toxin, which were both abnormal. Otherwise, there has been no interval change to his condition. PHYSICAL EXAMINATION: VITAL SIGNS: Afebrile, pulse 96, blood pressure 130/83, respirations 38, and saturation 97% on 8 L via T-collar. GENERAL: The patient is awake and alert. He does not attend. He spontaneously opens and closes his eyes. HEENT: Normocephalic and atraumatic. Sclerae white. Conjunctivae pink. Oral mucosa is moist without lesions. LUNGS: Decent air entry. Rhonchi are extensive. No prolonged expiratory phase or wheezing is appreciated. HEART: Normal rate and regular. ABDOMEN: Soft, nontender, and nondistended. Bowel sounds are positive. MUSCULOSKELETAL: No cyanosis or clubbing. There is no pitting. LABORATORY DATA: Basic metabolic profile is completely unremarkable. Urinalysis is unremarkable. Vancomycin trough 26.6. MRSA as well as gram-negative krystyna is growing in the sputum aspirate. C diff antigen and toxin are both abnormal. ASSESSMENT: 1. Acute hypoxic respiratory failure. 2. Healthcare-associated pneumonia secondary to methicillin-resistant Staphylococcus aureus and possible gram-negative krystyna. 3. Clostridium difficile colitis. 4. Static encephalopathy. 5. Hydrocephalus with AGING BOX HAND shunt in place. 6. History of traumatic brain injury. DISCUSSION AND PLAN: The patient is doing fine from respiratory standpoint. At this point, he is stable for transition out of the ICU to the medical unit. The family is suggesting at this point it is at baseline. Antibiotics are appropriate directed at our identified organisms. Pulmonary/Critical Care will continue to follow along while the patient remains inhouse for the time being. Job ID: [id number] [facility]
--- NOTE | 2019-03-29 17:47 | PDOC.HOSPP ---
- Subjective Encounter Date: 03/29/19 Encounter Time: 17:45 Subjective: f/u for - Objective Vital Signs & Weight: Vital Signs (12 hours) Temp Pulse Resp BP Pulse Ox 03/29/19 15:23 98.3 F 03/29/19 12:00 99.0 F 86 32 H 112/74 94 L 03/29/19 08:00 98.1 F 76 24 H 120/81 97 03/29/19 07:09 100 Weight Admit Weight 137 lb 8 oz Weight 140 lb Most Recent Monitor Data Heart Rate from ECG 103 NIBP 132/90 NIBP BP-Mean 104 Respiration from ECG 24 SpO2 99 I&O: 03/28/19 03/29/19 03/30/19 06:59 06:59 06:59 Intake Total 1881 2110 30 Output Total 1075 1250 Balance 806 860 30 Result Diagrams: 03/28/19 04:32 03/29/19 03:45 Additional Labs: Microbiology 03/28/19 14:15 Stool C. difficile GDH Antigen & Toxins - Final 03/26/19 21:35 Sputum - Pending Respiratory Culture - Final Methicillin resistant S.aureus Stenotrophomonas maltophilia 03/26/19 21:35 Sputum - Pending Respiratory Culture - Preliminary Methicillin resistant S.aureus Gram Negative [facility] Laboratory Tests 03/26/19 03/26/19 03/26/19 21:48 21:48 21:48 WBC 20.9 H Hgb 11.3 L MCV Neutrophils % Neutrophils % (Manual) 87 H Potassium 5.4 H Lactic Acid 8.4 H* Prolactin Vancomycin Trough 03/26/19 03/27/19 03/27/19 21:51 00:48 00:48 WBC Hgb MCV Neutrophils % Neutrophils % (Manual) Potassium 4.0 Lactic Acid 4.3 H* Prolactin 19.79 H Vancomycin Trough 03/27/19 03/27/19 03/27/19 03:33 03:33 21:25 WBC 9.2 Hgb 9.5 L MCV 98.3 H Neutrophils % 88.9 H Neutrophils % (Manual) Potassium 4.0 Lactic Acid Prolactin Vancomycin Trough 16.8 03/28/19 04:32 WBC Hgb MCV Neutrophils % Neutrophils % (Manual) 84 H Potassium Lactic Acid Prolactin Vancomycin Trough EKG Reviewed by me: Yes (Tele - SR) Hospitalist ROS - Medication Medications: Active Medications Generic Name Dose Route Start Last Admin Trade Name Timo PRN Reason Stop Dose Admin Acetaminophen 650 mg 03/27/19 00:28 03/27/19 22:55 Tylenol PO 650 mg Q4H PRN Administration Headache/Fever/Mild Pain (1-3) Acidophilus 2 gm 03/27/19 09:00 03/29/19 13:11 Floranex PER TUBE Not Given BID [facility] Amantadine HCl 200 mg 03/27/19 09:00 03/29/19 13:11 Symmetrel PER TUBE Not Given BID [facility] Artificial Tears 1 drop 03/27/19 09:00 03/29/19 14:15 Liquitears 15ml Bottle EA EYE 1 drop TID [facility] Administration Ascorbic Acid 500 mg 03/27/19 09:00 03/29/19 13:12 Vitamin C PER TUBE Not Given DAILY [facility] Cholecalciferol 5,000 units 03/27/19 09:00 03/29/19 13:12 Vitamin D3 PER TUBE Not Given DAILY [facility] Cyanocobalamin 1,000 mcg 03/27/19 09:00 03/29/19 13:12 Vitamin B-12 PER TUBE Not Given DAILY [facility] Enoxaparin Sodium 40 mg 03/27/19 09:00 03/29/19 13:12 Lovenox SC Not Given 09 [facility] Famotidine 20 mg 03/27/19 09:00 03/29/19 13:12 Pepcid SLOW IVP Not Given Q12HR [facility] Ferrous Sulfate 300 mg 03/27/19 09:00 03/29/19 13:12 Ferrous Sulfate PER TUBE Not Given DAILY [facility] Fluoxetine HCl 40 mg 03/27/19 09:00 03/29/19 13:13 Prozac Oral Soln PER TUBE Not Given DAILY [facility] Folic Acid 1 mg 03/27/19 09:00 03/29/19 13:13 Folvite PER TUBE Not Given DAILY [facility] Gabapentin 300 mg 03/27/19 09:00 03/29/19 13:13 Neurontin FS Not Given BID [facility] Gabapentin 600 mg 03/27/19 21:00 03/28/19 21:36 Neurontin PO 600 mg HS [facility] Administration Levetiracetam 500 mg/ Device 100 mls @ 200 mls/hr 03/27/19 09:00 03/29/19 13: 13 IVPB Not Given BID [facility] Meropenem 2 gm/ Miscellaneous 100 mls @ 200 mls/hr 03/27/19 22:00 03/29/19 15 :45 Medication 1 each/ Sodium IVPB 100 mls Chloride Q8HR MAGO Administration Sodium Chloride 1,000 mls @ 50 mls/hr 03/28/19 13:04 03/29/19 13:14 Normal Saline 0.9% IV Not Given .Q20H MAGO Vancomycin HCl 1 gm/ Device 200 mls @ 200 mls/hr 03/29/19 14:00 03/29/19 14: 14 IVPB 200 mls 0200,1400 MAGO Administration Iron/Minerals/Multivitamins 1 tab 03/27/19 09:00 03/29/19 13:13 Theragran M PER TUBE Not Given DAILY MAGO Metoprolol Tartrate 25 mg 03/27/19 09:00 03/29/19 13:13 Lopressor PER TUBE Not Given BID MAGO Modafinil 200 mg 03/27/19 09:00 03/29/19 13:13 Provigil PER TUBE Not Given DAILY MAGO Ondansetron HCl 4 mg 03/27/19 00:28 03/29/19 15:45 Zofran IVP 4 mg Q6H PRN Administration Nausea/Vomiting Pantoprazole Sodium 40 mg 03/27/19 09:00 03/29/19 13:13 Protonix PER TUBE Not Given DAILY MAGO Scopolamine 1.5 mg 03/28/19 18:00 03/28/19 18:11 Transderm Scop TD 1.5 mg Q3D MAGO Administration Senna 1 tab 03/27/19 21:00 03/28/19 21:37 Senokot PER TUBE 1 tab QPM MAGO Administration Sodium Chloride 10 ml 03/27/19 09:00 03/29/19 13:14 Flush - Normal Saline IVF Not Given Q12HR MAGO Trazodone HCl 100 mg 03/27/19 21:00 03/28/19 21:36 Desyrel PER TUBE 100 mg HS MAGO Administration - Exam General Appearance: awake alert Eye: PERRL, anicteric sclera ENT: normocephalic atraumatic, no oropharyngeal lesions Neck: supple, no JVD Neck - other findings: Trach in place with T-piece Heart: RRR, no gallops, no rubs, normal peripheral pulses Respiratory - other findings: few scattered coarse sounds, upper airway transmitted sounds Gastrointestinal: soft, non-tender, non-distended, normal bowel sounds, no palpable masses Gastrointestinal - other findings: PEG in place Extremities: no cyanosis, no clubbing Extremities - other findings: contractures in all extremities Skin: normal turgor Neurological: no new deficit Musculoskeletal: diffuse muscle atrophy Psychiatric: not oriented Hosp A/P (1) Sepsis Code(s): A41.9 - SEPSIS, UNSPECIFIED ORGANISM Status: Acute Plan: Secondary to Staph spp, continue Meropenem/Vanc, de-escalate abx coverage in 24h likely Levaquin for d/c (2) Hydrocephalus Code(s): G91.9 - HYDROCEPHALUS, UNSPECIFIED Status: Chronic Plan: Chronic finding, shunt at maximal drainage capacity per Neurosurgery (3) Healthcare associated bacterial pneumonia Code(s): J15.9 - UNSPECIFIED BACTERIAL PNEUMONIA Status: Acute Plan: Continue IV Meropenem/Vanc another 24h then convert to Levaquin (4) Acute metabolic encephalopathy Code(s): G93.41 - METABOLIC ENCEPHALOPATHY Status: Acute Plan: Improved, baseline mental status currently (5) Chronic respiratory failure Code(s): J96.10 - CHRONIC RESPIRATORY FAILURE, UNSP W HYPOXIA OR HYPERCAPNIA Status: Chronic Qualifiers: Respiratory failure complication: hypoxia Qualified Code(s): J96.11 - Chronic respiratory failure with hypoxia (6) Clostridium difficile enteritis Code(s): A04.72 - ENTEROCOLITIS D/T CLOSTRIDIUM DIFFICILE, NOT SPCF RECUR Status: Acute Plan: Continue Vancomycin 125mg PT q6h (7) Lactic acidosis Code(s): E87.2 - ACIDOSIS Status: Acute (8) Functional quadriplegia Code(s): R53.2 - FUNCTIONAL QUADRIPLEGIA Status: Chronic Plan: Secondary to Traumatic Brain Injury - Plan continue antibiotics, social media director, speech therapy, respiratory therapy, DVT proph w/SCDs Continue supportive measures Continue Meropenem/Vancomycin another 24h then de-escalate Neurosurgical consult appreciated Continue Keppra IV Trach care, add Scopolamine patch Resume TF's with Jevity 1.5 continuous @ 70ml/h Continue Vancomycin 125mg PT q6h AM lab: BMP, CBC
[2019-03-29 18:01] LABS: White Blood Cell (WBC) Count 6.2 thou/uL (4.8-10.8)
[2019-03-29 18:02] LABS: %Basophils 0.3 % (0.0-1.0); %Eosinophils 5.1 % (0.0-10.0); %Lymphocytes 7.6 % (21.0-51.0); %Monocytes 9.5 % (0.0-10.0); %Neutrophils 77.5 % (42.0-75.0); Mean Corpuscular HGB CONC 32.8 g/dL (32.0-36.0); Mean Corpuscular Hemoglobin 32.5 pg (27.0-31.0); Mean Corpuscular Volume 99.1 fL (78.0-98.0); Mean Platelet Volume 7.4 fL (7.4-10.4); Platelet Count 206 thou/uL (130-400); RBC Distribution Width 13.5 % (11.5-14.5); Red Blood Cell (RBC) Count 3.13 mill/uL (4.70-6.10)
[2019-03-29 18:03] LABS: #Eosinphils 0.3 thou/uL (0.0-0.7); #Lymphocytes 0.5 thou/uL (1.20-3.40); #Monocytes 0.6 thou/uL (0.11-0.59); #Neutrophils 4.8 thou/uL (1.40-6.50)
[2019-03-29 18:04] LABS: Hemoglobin 10.2 g/dL (14.0-18.0)
[2019-03-29] MEDS: traZODone HCl 50 MG TAB PER TUBE SCH (20:31)
[2019-03-29] MEDS: Gabapentin 300 MG CAP PO SCH (20:32)
[2019-03-29] MEDS: Senokot 8.6 MG TAB PER TUBE SCH (20:33)
[2019-03-30] MEDS: Floranex Packet PER TUBE SCH ×3 (00:57→21:30)
[2019-03-30] MEDS: Vancomycin HCl 1 GM in Premix Bag 1 BAG IVPB SCH ×2 (02:37→14:10)
[2019-03-30] MEDS: Vancomycin HCl 25 MG/ML Oral PER TUBE SCH ×4 (02:37→21:30)
[2019-03-30] MEDS: Meropenem 2 GM, Admixture Fee 1 EACH in Sodium Chloride 0.9% 100 ML IVPB SCH ×2 (06:14→15:20)
[2019-03-30] MEDS: FLUoxetine HCl 20 MG/5 ML UDCUP PER TUBE SCH (09:59)
[2019-03-30] MEDS: Cyanocobalamin (Vitamin B-12) 1,000 MCG TAB PER TUBE SCH (09:59)
[2019-03-30] MEDS: Amantadine HCl 10 mg/ml Oral Solution PER TUBE SCH ×2 (10:00→21:27)
[2019-03-30] MEDS: Enoxaparin Sodium 40 MG/0.4 ML SYRINGE SC SCH (10:00)
[2019-03-30] MEDS: Famotidine/PF 20 mg/2ml Vial SLOW IVP SCH ×2 (10:00→21:30)
[2019-03-30] MEDS: Multivitamin W/ Minerals 1 TAB PER TUBE SCH (10:00)
[2019-03-30] MEDS: Artificial Tear Sol 15 ML BOT EA EYE SCH ×3 (10:01→21:30)
[2019-03-30] MEDS: Gabapentin 300 MG CAP FS SCH ×2 (10:01→21:31)
[2019-03-30] MEDS: Folic Acid 1 MG TAB PER TUBE SCH (10:01)
[2019-03-30] MEDS: Ascorbic Acid 500 mg Chewable Tablet PER TUBE SCH (10:01)
[2019-03-30] MEDS: Metoprolol Tartrate 25 MG TAB PER TUBE SCH ×2 (10:01→21:33)
[2019-03-30] MEDS: Pantoprazole 40 MG GRANULES PACKET PER TUBE SCH (10:01)
[2019-03-30] MEDS: Modafinil 100 MG TAB PER TUBE SCH (10:02)
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
--- NOTE | 2019-03-30 17:20 | PDOC.HOSPP ---
- Subjective Encounter Date: 03/30/19 Encounter Time: 17:20 Subjective: f/u for Sepsis/PNA and C. diff diarrhea. No diarrhea reported per nursing. Receiving Meropenem/Vancomycin for PNA. - Objective Vital Signs & Weight: Vital Signs (12 hours) Temp Pulse Resp BP Pulse Ox 03/30/19 15:10 98.9 F 84 18 114/74 94 L 03/30/19 11:13 98.5 F 87 16 111/74 96 03/30/19 08:05 98.9 F 104 H 20 124/77 93 L Weight Admit Weight 137 lb 8 oz Weight 140 lb Most Recent Monitor Data Heart Rate from ECG 81 NIBP 111/73 NIBP BP-Mean 85 Respiration from ECG 23 SpO2 100 I&O: 03/29/19 03/30/19 03/31/19 06:59 06:59 06:59 Intake Total 2110 2730 Output Total 1250 Balance 860 2730 Result Diagrams: 03/29/19 03:45 03/29/19 03:45 Additional Labs: Microbiology 03/28/19 14:15 Stool C. difficile GDH Antigen & Toxins - Final 03/26/19 21:35 Sputum - Pending Respiratory Culture - Final Methicillin resistant S.aureus Stenotrophomonas maltophilia 03/26/19 21:35 Sputum - Pending Respiratory Culture - Preliminary Methicillin resistant S.aureus Gram Negative [facility] Laboratory Tests 03/26/19 03/26/19 03/26/19 21:48 21:48 21:48 WBC 20.9 H Hgb 11.3 L MCV Neutrophils % Neutrophils % (Manual) 87 H Potassium 5.4 H Lactic Acid 8.4 H* Prolactin Vancomycin Trough 03/26/19 03/27/19 03/27/19 21:51 00:48 00:48 WBC Hgb MCV Neutrophils % Neutrophils % (Manual) Potassium 4.0 Lactic Acid 4.3 H* Prolactin 19.79 H Vancomycin Trough 03/27/19 03/27/19 03/27/19 03:33 03:33 21:25 WBC 9.2 Hgb 9.5 L MCV 98.3 H Neutrophils % 88.9 H Neutrophils % (Manual) Potassium 4.0 Lactic Acid Prolactin Vancomycin Trough 16.8 03/28/19 04:32 WBC Hgb MCV Neutrophils % Neutrophils % (Manual) 84 H Potassium Lactic Acid Prolactin Vancomycin Trough Hospitalist ROS - Medication Medications: Active Medications Generic Name Dose Route Start Last Admin Trade Name Timo PRN Reason Stop Dose Admin Acetaminophen 650 mg 03/27/19 00:28 03/27/19 22:55 Tylenol PO 650 mg Q4H PRN Administration Headache/Fever/Mild Pain (1-3) Acidophilus 2 gm 03/27/19 09:00 03/30/19 09:59 Floranex PER TUBE 2 gm BID MAGO Administration Amantadine HCl 200 mg 03/27/19 09:00 03/30/19 10:00 Symmetrel PER TUBE 200 mg BID MAGO Administration Artificial Tears 1 drop 03/27/19 09:00 03/30/19 15:20 Liquitears 15ml Bottle EA EYE 1 drop TID MAGO Administration Ascorbic Acid 500 mg 03/27/19 09:00 03/30/19 10:01 Vitamin C PER TUBE 500 mg DAILY MAGO Administration Cholecalciferol 5,000 units 03/27/19 09:00 03/30/19 10:00 Vitamin D3 PER TUBE 5,000 units DAILY MAGO Administration Cyanocobalamin 1,000 mcg 03/27/19 09:00 03/30/19 09:59 Vitamin B-12 PER TUBE 1,000 mcg DAILY MAGO Administration Enoxaparin Sodium 40 mg 03/27/19 09:00 03/30/19 10:00 Lovenox SC 40 mg 09 MAGO Administration Famotidine 20 mg 03/27/19 09:00 03/30/19 10:00 Pepcid SLOW IVP 20 mg Q12HR MAGO Administration Ferrous Sulfate 300 mg 03/27/19 09:00 03/30/19 10:00 Ferrous Sulfate PER TUBE 300 mg DAILY [facility]O Administration Fluoxetine HCl 40 mg 03/27/19 09:00 03/30/19 09:59 Prozac Oral Soln PER TUBE 40 mg DAILY MAGO Administration Folic Acid 1 mg 03/27/19 09:00 03/30/19 10:01 Folvite PER TUBE 1 mg DAILY MAGO Administration Gabapentin 300 mg 03/27/19 09:00 03/30/19 10:01 Neurontin FS 300 mg BID MAGO Administration Gabapentin 600 mg 03/27/19 21:00 03/29/19 20:32 Neurontin PO 600 mg HS MAGO Administration Levetiracetam 500 mg/ Device 100 mls @ 200 mls/hr 03/27/19 09:00 03/30/19 10: 02 IVPB 100 mls BID MAGO Administration Iron/Minerals/Multivitamins 1 tab 03/27/19 09:00 03/30/19 10:00 Theragran M PER TUBE 1 tab DAILY [facility]O Administration Lorazepam 1 mg 03/27/19 00:32 03/29/19 20:34 Ativan SLOW IVP 1 mg Q4H PRN Administration Anxiety/Agitation Metoprolol Tartrate 25 mg 03/27/19 09:00 03/30/19 10:01 Lopressor PER TUBE 25 mg BID MAGO Administration Modafinil 200 mg 03/27/19 09:00 03/30/19 10:02 Provigil PER TUBE 200 mg DAILY [facility]O Administration Ondansetron HCl 4 mg 03/27/19 00:28 03/29/19 15:45 Zofran IVP 4 mg Q6H PRN Administration Nausea/Vomiting Pantoprazole Sodium 40 mg 03/27/19 09:00 03/30/19 10:01 Protonix PER TUBE 40 mg DAILY [facility]O Administration Scopolamine 1.5 mg 03/28/19 18:00 03/28/19 18:11 Transderm Scop TD 1.5 mg Q3D MAGO Administration Senna 1 tab 03/27/19 21:00 03/29/19 20:33 Senokot PER TUBE Not Given QPM MAGO Sodium Chloride 10 ml 03/27/19 09:00 03/30/19 10:02 Flush - Normal Saline IVF Not Given Q12HR MAGO Trazodone HCl 100 mg 03/27/19 21:00 03/29/19 20:31 Desyrel PER TUBE 100 mg HS MAGO Administration Vancomycin HCl 125 mg 03/29/19 20:00 03/30/19 14:10 First Vancomycin PER TUBE 125 mg 0200,0800,1400,2000 [facility] Administration - Exam General Appearance: awake alert General - other findings: non-verbal, does not track Eye: PERRL, anicteric sclera ENT: normocephalic atraumatic, no oropharyngeal lesions Neck: supple, symmetric Neck - other findings: trach in place with increased secretions Heart: RRR, no gallops, no rubs Respiratory: rales Respiratory - other findings: coarse sounds bilat, thick secretions around trach site Gastrointestinal: soft, non-tender, non-distended, normal bowel sounds Gastrointestinal - other findings: PEG in place Extremities: no cyanosis Extremities - other findings: contractures noted Skin: normal turgor Neurological: no new deficit Neurological - other findings: aphasic, bed-bound Hosp A/P (1) Sepsis Code(s): A41.9 - SEPSIS, UNSPECIFIED ORGANISM Status: Acute Plan: Resolved, convert to Levaquin 750mg PT daily, d/c Meropenem/Vancomycin (2) Hydrocephalus Code(s): G91.9 - HYDROCEPHALUS, UNSPECIFIED Status: Chronic Plan: Continue VPS, no adjustment needed per NS (3) Healthcare associated bacterial pneumonia Code(s): J15.9 - UNSPECIFIED BACTERIAL PNEUMONIA Status: Acute Plan: See #1 above, frequent suctioning of trach site (4) Acute metabolic encephalopathy Code(s): G93.41 - METABOLIC ENCEPHALOPATHY Status: Acute (5) Chronic respiratory failure Code(s): J96.10 - CHRONIC RESPIRATORY FAILURE, UNSP W HYPOXIA OR HYPERCAPNIA Status: Chronic Qualifiers: Respiratory failure complication: hypoxia Qualified Code(s): J96.11 - Chronic respiratory failure with hypoxia (6) Clostridium difficile enteritis Code(s): A04.72 - ENTEROCOLITIS D/T CLOSTRIDIUM DIFFICILE, NOT SPCF RECUR Status: Acute Plan: Continue Vancomycin 125mg PT q6h (7) Lactic acidosis Code(s): E87.2 - ACIDOSIS Status: Acute (8) Functional quadriplegia Code(s): R53.2 - FUNCTIONAL QUADRIPLEGIA Status: Chronic Plan: SNF options pending - Plan continue antibiotics, PT/OT, social media project manager, speech therapy, respiratory therapy, DVT proph w/SCDs Continue supportive measures D/C Meropenem/Vancomycin Start Levaquin 750mg PT daily Neurosurgical consult appreciated Continue Keppra IV Trach care, add Scopolamine patch Resume TF's with Jevity 1.5 continuous @ 70ml/h Continue Vancomycin 125mg PT q6h CM for SNF options
--- NOTE | 2019-03-30 17:37 | PRG ---
DATE OF SERVICE: 03/30/2019 SERVICE: Pulmonary Medicine. INTERVAL HISTORY: The patient is doing really well from respiratory standpoint. Breathing comfortably. There has been no interval change to his condition. He cannot provide any additional elements of the history given his static encephalopathy. PHYSICAL EXAMINATION: VITAL SIGNS: Afebrile, pulse 84, blood pressure 114/74, respirations 18, and saturation 94% currently on room air. GENERAL: The patient is awake and alert, in no apparent distress. LUNGS: Decent air entry. No prolonged expiratory phase or wheezing is appreciated. There are significant rhonchi present. HEART: Normal rate and regular. ABDOMEN: Soft, nontender, and nondistended. Bowel sounds are positive. MUSCULOSKELETAL: No cyanosis or clubbing. No pitting in the bilateral lower extremities. ASSESSMENT: 1. Acute hypoxic respiratory failure, resolved. 2. Healthcare-associated pneumonia secondary to methicillin-resistant Staphylococcus aureus. 3. Clostridium difficile colitis. 4. Static encephalopathy. 5. Hydrocephalus with ventriculoperitoneal shunt placement. 6. History of traumatic brain injury. DISCUSSION AND PLAN: I will stop his IV fluids. We will increase his free water flushes to 50 mL q.2 hours. At this point, he has no further requirements for inpatient Pulmonary or Critical Care opinion, and I will sign off. Please call if there are any respiratory concerns through time. Job ID: [id number]
[2019-03-30] MEDS: Gabapentin 300 MG CAP PO SCH (21:29)
[2019-03-30] MEDS: Senokot 8.6 MG TAB PER TUBE SCH (21:29)
[2019-03-30] MEDS: traZODone HCl 50 MG TAB PER TUBE SCH (21:29)
[2019-03-31 01:25] LABS: Vancomycin, Trough 16.2 ug/mL
[2019-03-31] MEDS: Vancomycin HCl 25 MG/ML Oral PER TUBE SCH ×4 (02:44→21:21)
[2019-03-31] MEDS: FLUoxetine HCl 20 MG/5 ML UDCUP PER TUBE SCH (08:54)
[2019-03-31] MEDS: Floranex Packet PER TUBE SCH ×2 (08:54→21:21)
[2019-03-31] MEDS: Gabapentin 300 MG CAP FS SCH ×2 (08:55→21:23)
[2019-03-31] MEDS: Amantadine HCl 10 mg/ml Oral Solution PER TUBE SCH ×2 (08:55→21:21)
[2019-03-31] MEDS: Cyanocobalamin (Vitamin B-12) 1,000 MCG TAB PER TUBE SCH (08:55)
[2019-03-31] MEDS: Ascorbic Acid 500 mg Chewable Tablet PER TUBE SCH (08:55)
[2019-03-31] MEDS: Multivitamin W/ Minerals 1 TAB PER TUBE SCH (08:56)
[2019-03-31] MEDS: Famotidine/PF 20 mg/2ml Vial SLOW IVP SCH ×2 (08:56→21:21)
[2019-03-31] MEDS: Artificial Tear Sol 15 ML BOT EA EYE SCH ×3 (08:56→21:21)
[2019-03-31] MEDS: Folic Acid 1 MG TAB PER TUBE SCH (08:56)
[2019-03-31] MEDS: Enoxaparin Sodium 40 MG/0.4 ML SYRINGE SC SCH (08:56)
[2019-03-31] MEDS: Pantoprazole 40 MG GRANULES PACKET PER TUBE SCH (08:57)
[2019-03-31] MEDS: Metoprolol Tartrate 25 MG TAB PER TUBE SCH ×2 (08:57→21:24)
[2019-03-31] MEDS: Modafinil 100 MG TAB PER TUBE SCH ×2 (10:47→11:00)
--- NOTE | 2019-03-31 13:48 | PDOC.HOSPP ---
- Subjective Encounter Date: 03/31/19 Encounter Time: 13:35 Subjective: f/u for sepsis due to PNA and C. diff diarrhea on current Vancomycin PT. Converted to Levaquin after tx with Vanc/Meropenem for PNA. Family declining SNF placement. - Objective Vital Signs & Weight: Vital Signs (12 hours) Temp Pulse Resp BP Pulse Ox 03/31/19 11:55 98.5 F 88 16 109/73 94 L 03/31/19 07:52 98.0 F 92 18 104/72 95 03/31/19 03:39 97.7 F 84 16 109/74 97 03/31/19 03:28 99 Weight Admit Weight 137 lb 8 oz Weight 140 lb Most Recent Monitor Data Heart Rate from ECG 81 NIBP 111/73 NIBP BP-Mean 85 Respiration from ECG 23 SpO2 100 I&O: 03/30/19 03/31/19 04/01/19 06:59 06:59 06:59 Intake Total 2730 990 50 Balance 2730 990 50 Result Diagrams: 03/29/19 03:45 03/29/19 03:45 Additional Labs: Microbiology 03/28/19 14:15 Stool C. difficile GDH Antigen & Toxins - Final 03/26/19 21:35 Sputum - Pending Respiratory Culture - Final Methicillin resistant S.aureus Stenotrophomonas maltophilia 03/26/19 21:35 Sputum - Pending Respiratory Culture - Preliminary Methicillin resistant S.aureus Gram Negative [facility] Laboratory Tests 03/26/19 03/26/19 03/26/19 21:48 21:48 21:48 WBC 20.9 H Hgb 11.3 L MCV Neutrophils % Neutrophils % (Manual) 87 H Potassium 5.4 H Lactic Acid 8.4 H* Prolactin Vancomycin Trough 03/26/19 03/27/19 03/27/19 21:51 00:48 00:48 WBC Hgb MCV Neutrophils % Neutrophils % (Manual) Potassium 4.0 Lactic Acid 4.3 H* Prolactin 19.79 H Vancomycin Trough 03/27/19 03/27/19 03/27/19 03:33 03:33 21:25 WBC 9.2 Hgb 9.5 L MCV 98.3 H Neutrophils % 88.9 H Neutrophils % (Manual) Potassium 4.0 Lactic Acid Prolactin Vancomycin Trough 16.8 03/28/19 04:32 WBC Hgb MCV Neutrophils % Neutrophils % (Manual) 84 H Potassium Lactic Acid Prolactin Vancomycin Trough Hospitalist ROS - Medication Medications: Active Medications Generic Name Dose Route Start Last Admin Trade Name Freq PRN Reason Stop Dose Admin Acetaminophen 650 mg 03/27/19 00:28 03/27/19 22:55 Tylenol PO 650 mg Q4H PRN Administration Headache/Fever/Mild Pain (1-3) Acidophilus 2 gm 03/27/19 09:00 03/31/19 08:54 Floranex PER TUBE 2 gm BID MAGO Administration Amantadine HCl 200 mg 03/27/19 09:00 03/31/19 08:55 Symmetrel PER TUBE 200 mg BID MAGO Administration Artificial Tears 1 drop 03/27/19 09:00 03/31/19 08:56 Liquitears 15ml Bottle EA EYE 1 drop TID MAGO Administration Ascorbic Acid 500 mg 03/27/19 09:00 03/31/19 08:55 Vitamin C PER TUBE 500 mg DAILY MAGO Administration Cholecalciferol 5,000 units 03/27/19 09:00 03/31/19 08:56 Vitamin D3 PER TUBE 5,000 units DAILY MAGO Administration Cyanocobalamin 1,000 mcg 03/27/19 09:00 03/31/19 08:55 Vitamin B-12 PER TUBE 1,000 mcg DAILY MAGO Administration Enoxaparin Sodium 40 mg 03/27/19 09:00 03/31/19 08:56 Lovenox SC 40 mg 0900 MAGO Administration Famotidine 20 mg 03/27/19 09:00 03/31/19 08:56 Pepcid SLOW IVP 20 mg Q12HR MAGO Administration Ferrous Sulfate 300 mg 03/27/19 09:00 03/31/19 08:54 Ferrous Sulfate PER TUBE 300 mg DAILY MAGO Administration Fluoxetine HCl 40 mg 03/27/19 09:00 03/31/19 08:54 Prozac Oral Soln PER TUBE 40 mg DAILY MAGO Administration Folic Acid 1 mg 03/27/19 09:00 03/31/19 08:56 Folvite PER TUBE 1 mg DAILY MAGO Administration Gabapentin 300 mg 03/27/19 09:00 03/31/19 08:55 Neurontin FS 300 mg BID MAGO Administration Gabapentin 600 mg 03/27/19 21:00 03/30/19 21:29 Neurontin PO 600 mg HS MAGO Administration Levetiracetam 500 mg/ Device 100 mls @ 200 mls/hr 03/27/19 09:00 03/31/19 09: 04 IVPB 100 mls BID MAGO Administration Iron/Minerals/Multivitamins 1 tab 03/27/19 09:00 03/31/19 08:56 Theragran M PER TUBE 1 tab DAILY MAGO Administration Levofloxacin 750 mg 03/31/19 06:00 03/31/19 05:08 Levaquin PER TUBE 750 mg 0600 MAGO Administration Lorazepam 1 mg 03/27/19 00:32 03/29/19 20:34 Ativan SLOW IVP 1 mg Q4H PRN Administration Anxiety/Agitation Metoprolol Tartrate 25 mg 03/27/19 09:00 03/31/19 08:57 Lopressor PER TUBE 25 mg BID MAGO Administration Modafinil 200 mg 03/27/19 09:00 03/31/19 10:47 Provigil PER TUBE Not Given DAILY [facility] Ondansetron HCl 4 mg 03/27/19 00:28 03/29/19 15:45 Zofran IVP 4 mg Q6H PRN Administration Nausea/Vomiting Pantoprazole Sodium 40 mg 03/27/19 09:00 03/31/19 08:57 Protonix PER TUBE 40 mg DAILY [facility] Administration Scopolamine 1.5 mg 03/28/19 18:00 03/28/19 18:11 Transderm Scop TD 1.5 mg Q3D MAGO Administration Senna 1 tab 03/27/19 21:00 03/30/19 21:29 Senokot PER TUBE 1 tab QPM MAGO Administration Sodium Chloride 10 ml 03/27/19 09:00 03/31/19 09:05 Flush - Normal Saline IVF 10 ml Q12HR MAGO Administration Trazodone HCl 100 mg 03/27/19 21:00 03/30/19 21:29 Desyrel PER TUBE 100 mg HS MAGO Administration Vancomycin HCl 125 mg 03/29/19 20:00 03/31/19 08:55 First Vancomycin PER TUBE 125 mg 0200,0800,1400,2000 [facility] Administration - Exam General Appearance: awake alert General - other findings: non-verbal, does not track Eye: PERRL, anicteric sclera ENT: normocephalic atraumatic, no oropharyngeal lesions Neck: supple, symmetric, no JVD, no thyromegaly Neck - other findings: trach in place with secretions noted Heart: RRR, no gallops, no rubs, normal peripheral pulses Respiratory - other findings: coarse sounds bilat transmitted from upper airway Gastrointestinal: soft, non-tender, non-distended, normal bowel sounds, no palpable masses Gastrointestinal - other findings: PEG tube in place Extremities: no cyanosis, no clubbing Extremities - other findings: contractures of extremities Neurological: no new deficit Neurological - other findings: non-verbal, bedbound Hosp A/P (1) Sepsis Code(s): A41.9 - SEPSIS, UNSPECIFIED ORGANISM Status: Acute Plan: Resolving, continue Levaquin PT (2) Hydrocephalus Code(s): G91.9 - HYDROCEPHALUS, UNSPECIFIED Status: Chronic Plan: No surgical intervention recommended per Neurosurgery, normal functioning VPS (3) Healthcare associated bacterial pneumonia Code(s): J15.9 - UNSPECIFIED BACTERIAL PNEUMONIA Status: Acute Plan: Continue Levaquin (4) Acute metabolic encephalopathy Code(s): G93.41 - METABOLIC ENCEPHALOPATHY Status: Acute Plan: ? baseline, resolved (5) Chronic respiratory failure Code(s): J96.10 - CHRONIC RESPIRATORY FAILURE, UNSP W HYPOXIA OR HYPERCAPNIA Status: Chronic Qualifiers: Respiratory failure complication: hypoxia Qualified Code(s): J96.11 - Chronic respiratory failure with hypoxia Plan: Regular suctioning of trach, pulm supportive measures, Scopolamine patch (6) Clostridium difficile enteritis Code(s): A04.72 - ENTEROCOLITIS D/T CLOSTRIDIUM DIFFICILE, NOT SPCF RECUR Status: Acute Plan: Continue Vancomycin 125mg PT q6h, complete 10-day course (7) Lactic acidosis Code(s): E87.2 - ACIDOSIS Status: Acute (8) Functional quadriplegia Code(s): R53.2 - FUNCTIONAL QUADRIPLEGIA Status: Chronic - Plan continue antibiotics, PT/OT, social work administrator, speech therapy, respiratory therapy, DVT proph w/SCDs Continue supportive measures D/C Meropenem/Vancomycin Start Levaquin 750mg PT daily Neurosurgical consult appreciated Continue Keppra 500mg PT BID Trach care, add Scopolamine patch Resume TF's with Jevity 1.5 continuous @ 70ml/h Continue Vancomycin 125mg PT q6h to complete 10-day course Family declining SNF, prefer Home with HH Likely home in 24-48h
[2019-03-31] MEDS: Scopolamine 1.5 mg/72 hour Patch TD SCH (17:53)
[2019-03-31] MEDS: levETIRAcetam 500 mg/5 ml Oral Solution PER TUBE SCH (21:21)
[2019-03-31] MEDS: Senokot 8.6 MG TAB PER TUBE SCH (21:22)
[2019-03-31] MEDS: traZODone HCl 50 MG TAB PER TUBE SCH (21:22)
[2019-03-31] MEDS: Gabapentin 300 MG CAP PO SCH (21:22)
[2019-04-01] MEDS: Vancomycin HCl 25 MG/ML Oral PER TUBE SCH ×4 (01:27→21:02)
[2019-04-01] MEDS: Pantoprazole 40 MG GRANULES PACKET PER TUBE SCH (09:13)
[2019-04-01] MEDS: Floranex Packet PER TUBE SCH ×2 (09:13→21:02)
[2019-04-01] MEDS: Ascorbic Acid 500 mg Chewable Tablet PER TUBE SCH (09:15)
[2019-04-01] MEDS: Amantadine HCl 10 mg/ml Oral Solution PER TUBE SCH ×2 (09:15→21:02)
[2019-04-01] MEDS: Famotidine/PF 20 mg/2ml Vial SLOW IVP SCH ×2 (09:16→21:03)
[2019-04-01] MEDS: Metoprolol Tartrate 25 MG TAB PER TUBE SCH ×2 (09:16→21:04)
[2019-04-01] MEDS: Multivitamin W/ Minerals 1 TAB PER TUBE SCH (09:16)
[2019-04-01] MEDS: Cyanocobalamin (Vitamin B-12) 1,000 MCG TAB PER TUBE SCH (09:16)
[2019-04-01] MEDS: Modafinil 100 MG TAB PER TUBE SCH (09:16)
[2019-04-01] MEDS: FLUoxetine HCl 20 MG/5 ML UDCUP PER TUBE SCH (09:16)
[2019-04-01] MEDS: Folic Acid 1 MG TAB PER TUBE SCH (09:16)
[2019-04-01] MEDS: levETIRAcetam 500 mg/5 ml Oral Solution PER TUBE SCH ×2 (09:16→21:04)
[2019-04-01] MEDS: Gabapentin 300 MG CAP FS SCH ×2 (09:16→21:03)
[2019-04-01] MEDS: Enoxaparin Sodium 40 MG/0.4 ML SYRINGE SC SCH (09:17)
[2019-04-01] MEDS: Artificial Tear Sol 15 ML BOT EA EYE SCH ×3 (09:17→21:03)
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
[2019-04-01] MEDS: Gabapentin 300 MG CAP PO SCH (21:03)
[2019-04-01] MEDS: Senokot 8.6 MG TAB PER TUBE SCH (21:04)
[2019-04-01] MEDS: traZODone HCl 50 MG TAB PER TUBE SCH (21:04)
[2019-04-02] MEDS: Vancomycin HCl 25 MG/ML Oral PER TUBE SCH ×4 (02:59→21:17)
[2019-04-02] MEDS: Metoprolol Tartrate 25 MG TAB PER TUBE SCH ×2 (10:00→21:18)
[2019-04-02] MEDS: Cyanocobalamin (Vitamin B-12) 1,000 MCG TAB PER TUBE SCH (10:00)
[2019-04-02] MEDS: levETIRAcetam 500 mg/5 ml Oral Solution PER TUBE SCH ×2 (10:00→21:17)
[2019-04-02] MEDS: Artificial Tear Sol 15 ML BOT EA EYE SCH ×3 (10:00→21:19)
[2019-04-02] MEDS: Modafinil 100 MG TAB PER TUBE SCH (10:00)
[2019-04-02] MEDS: Floranex Packet PER TUBE SCH ×2 (10:00→21:18)
[2019-04-02] MEDS: Folic Acid 1 MG TAB PER TUBE SCH (10:00)
[2019-04-02] MEDS: Amantadine HCl 10 mg/ml Oral Solution PER TUBE SCH ×2 (10:00→21:19)
[2019-04-02] MEDS: Multivitamin W/ Minerals 1 TAB PER TUBE SCH (10:00)
[2019-04-02] MEDS: FLUoxetine HCl 20 MG/5 ML UDCUP PER TUBE SCH (10:00)
[2019-04-02] MEDS: Gabapentin 300 MG CAP FS SCH ×2 (10:00→21:20)
[2019-04-02] MEDS: Enoxaparin Sodium 40 MG/0.4 ML SYRINGE SC SCH (10:00)
[2019-04-02] MEDS: Pantoprazole 40 MG GRANULES PACKET PER TUBE SCH (10:00)
[2019-04-02] MEDS: Ascorbic Acid 500 mg Chewable Tablet PER TUBE SCH (10:00)
[2019-04-02] MEDS: Famotidine/PF 20 mg/2ml Vial SLOW IVP SCH ×2 (10:00→21:17)
--- NOTE | 2019-04-02 10:01 | PDOC.HOSPP ---
- Subjective Subjective: Seen and examined. Clinically unchanged. Laying in bed in no apparent distress. Trach in place with aerosol oxygen via simple mask near trach opening. Eyes open , and follows no commands. Does not track around the room. Flexion contractures in the upper extremities. Patient profoundly thin and cachectic. No family available bedside this a.m. Pending infectious disease consultation. - Objective Vital Signs & Weight: Vital Signs (12 hours) Temp Pulse Resp BP Pulse Ox 04/02/19 08:04 98 04/02/19 05:01 97.9 F 93 16 105/72 96 04/02/19 02:41 98 04/02/19 00:11 98.8 F 91 16 104/68 94 L Weight Admit Weight 137 lb 8 oz Weight 140 lb Most Recent Monitor Data Heart Rate from ECG 81 NIBP 111/73 NIBP BP-Mean 85 Respiration from ECG 23 SpO2 100 I&O: 04/01/19 04/02/19 04/03/19 06:59 06:59 06:59 Intake Total 1040 1660 Output Total 550 Balance 1040 1110 Result Diagrams: 03/29/19 03:45 03/29/19 03:45 Radiology Reviewed by me: Yes Hospitalist ROS - Review of Systems ROS unobtainable: due to mental status - Medication Medications: Active Medications Generic Name Dose Route Start Last Admin Trade Name Freq PRN Reason Stop Dose Admin Acetaminophen 650 mg 03/27/19 00:28 03/27/19 22:55 Tylenol PO 650 mg Q4H PRN Administration Headache/Fever/Mild Pain (1-3) Acidophilus 2 gm 03/27/19 09:00 04/01/19 21:02 Floranex PER TUBE 2 gm BID MAGO Administration Amantadine HCl 200 mg 03/27/19 09:00 04/01/19 21:02 Symmetrel PER TUBE 200 mg BID MAGO Administration Artificial Tears 1 drop 03/27/19 09:00 04/01/19 21:03 Liquitears 15ml Bottle EA EYE 1 drop TID MAGO Administration Ascorbic Acid 500 mg 03/27/19 09:00 04/01/19 09:15 Vitamin C PER TUBE 500 mg DAILY MAGO Administration Cholecalciferol 5,000 units 03/27/19 09:00 04/01/19 09:15 Vitamin D3 PER TUBE 5,000 units DAILY MAGO Administration Cyanocobalamin 1,000 mcg 03/27/19 09:00 04/01/19 09:16 Vitamin B-12 PER TUBE 1,000 mcg DAILY MAGO Administration Enoxaparin Sodium 40 mg 03/27/19 09:00 04/01/19 09:17 Lovenox SC 40 mg 0900 MAGO Administration Famotidine 20 mg 03/27/19 09:00 04/01/19 21:03 Pepcid SLOW IVP 20 mg Q12HR MAGO Administration Ferrous Sulfate 300 mg 03/27/19 09:00 04/01/19 09:21 Ferrous Sulfate PER TUBE 300 mg DAILY MAGO Administration Fluoxetine HCl 40 mg 03/27/19 09:00 04/01/19 09:16 Prozac Oral Soln PER TUBE 40 mg DAILY MAGO Administration Folic Acid 1 mg 03/27/19 09:00 04/01/19 09:16 Folvite PER TUBE 1 mg DAILY MAGO Administration Gabapentin 300 mg 03/27/19 09:00 04/01/19 21:03 Neurontin FS Not Given BID MAGO Gabapentin 600 mg 03/27/19 21:00 04/01/19 21:03 Neurontin PO 600 mg HS MAGO Administration Iron/Minerals/Multivitamins 1 tab 03/27/19 09:00 04/01/19 09:16 Theragran M PER TUBE 1 tab DAILY MAGO Administration Levetiracetam 500 mg 03/31/19 21:00 04/01/19 21:04 Keppra Oral Solution PER TUBE 500 mg BID MAGO Administration Levofloxacin 750 mg 03/31/19 06:00 04/02/19 06:14 Levaquin PER TUBE 750 mg 0600 MAGO Administration Lorazepam 1 mg 03/27/19 00:32 03/29/19 20:34 Ativan SLOW IVP 1 mg Q4H PRN Administration Anxiety/Agitation Metoprolol Tartrate 25 mg 03/27/19 09:00 04/01/19 21:04 Lopressor PER TUBE 25 mg BID MAGO Administration Modafinil 200 mg 03/27/19 09:00 04/01/19 09:16 Provigil PER TUBE 200 mg DAILY MAGO Administration Ondansetron HCl 4 mg 03/27/19 00:28 03/29/19 15:45 Zofran IVP 4 mg Q6H PRN Administration Nausea/Vomiting Pantoprazole Sodium 40 mg 03/27/19 09:00 04/01/19 09:13 Protonix PER TUBE 40 mg DAILY MAGO Administration Scopolamine 1.5 mg 03/28/19 18:00 03/31/19 17:53 Transderm Scop TD 1.5 mg Q3D MAGO Administration Senna 1 tab 03/27/19 21:00 04/01/19 21:04 Senokot PER TUBE 1 tab QPM MAGO Administration Sodium Chloride 10 ml 03/27/19 09:00 04/01/19 21:04 Flush - Normal Saline IVF 10 ml Q12HR MAGO Administration Trazodone HCl 100 mg 03/27/19 21:00 04/01/19 21:04 Desyrel PER TUBE 100 mg HS MAGO Administration Vancomycin HCl 125 mg 03/29/19 20:00 04/02/19 02:59 First Vancomycin PER TUBE 125 mg 0200,0800,1400,2000 MAGO Administration - Exam General Appearance: NAD. negative: awake alert Eye: PERRL ENT: normocephalic atraumatic, moist mucosa Neck: supple, symmetric, no lymphadenopathy Heart: no murmur, no gallops, no rubs Respiratory: no rales, normal chest expansion, no tachypnea, rhonchi (few scattered), wheezes (faint) Gastrointestinal: soft, non-tender, no rigidity Extremities: no edema Skin: no lesions, no rashes Neurological: cranial nerve grossly intact, no new deficit Neurological - other findings: Follows no comands. Eyes open, does not track around the room. Flexion cont Musculoskeletal: diffuse muscle atrophy Psychiatric: not oriented, flat affect Hosp A/P (1) Acute metabolic encephalopathy Code(s): G93.41 - METABOLIC ENCEPHALOPATHY Status: Acute (2) Clostridium difficile enteritis Code(s): A04.72 - ENTEROCOLITIS D/T CLOSTRIDIUM DIFFICILE, NOT SPCF RECUR Status: Acute (3) Healthcare associated bacterial pneumonia Code(s): J15.9 - UNSPECIFIED BACTERIAL PNEUMONIA Status: Acute (4) Lactic acidosis Code(s): E87.2 - ACIDOSIS Status: Acute (5) Sepsis Code(s): A41.9 - SEPSIS, UNSPECIFIED ORGANISM Status: Acute (6) Chronic respiratory failure Code(s): J96.10 - CHRONIC RESPIRATORY FAILURE, UNSP W HYPOXIA OR HYPERCAPNIA Status: Chronic Qualifiers: Respiratory failure complication: hypoxia Qualified Code(s): J96.11 - Chronic respiratory failure with hypoxia (7) Functional quadriplegia Code(s): R53.2 - FUNCTIONAL QUADRIPLEGIA Status: Chronic (8) Hydrocephalus Code(s): G91.9 - HYDROCEPHALUS, UNSPECIFIED Status: Chronic - Plan Plan: medical unit Infectious disease consultation, recommendations appreciated neurology consultation, recommendations appreciated neurosurgery consultation, recommendations appreciated patient has been on antibiotics for MRSA pneumonia and Clostridium difficile infection colitis second episode of Clostridium difficile colitis this year I am concerned that possibly vancomycin alone will not be adequate to treat both of these conditions Cultures noted patient has been evaluated by physical therapy and occupational therapy recommended placement nursing home facility, patient's family would like to take him home if at all possible antiepileptic drug to be continued Seizure precautions Enteral nutrition Pulm hygiene dietary eval and treat Disposition: unfortunately the long-term prognosis for this patient is quite poor. At this point it is unlikely he will ever have a significant improvement of functional status, patient's family remain hopeful and optimistic.
[2019-04-02] MEDS ORDERED: Iopamidol-370 76% 500 ML 1 ML ONE (12:33)
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
--- NOTE | 2019-04-02 15:19 | CT ---
EXAM: CTA of the chest HISTORY: Low oxygen saturation; quadriparesis COMPARISON: None TECHNIQUE: Multiple contiguous axial images were obtained a CTA of the chest with contrast per pulmon krystal embolism protocol. 3-D oblique MIP reformats and direct coronal reformats were performed. FINDINGS: HEART: Normal in size without focal cardiac abnormality. PULMONARY ARTERIES: Normal in caliber without filling defects to suggest pulmonary emboli. MEDIASTINUM: No hilar or mediastinal lymphadenopathy. A tracheostomy is seen in good position with it s tip in the trachea. LUNGS: A large mucous plug is seen in the left mainstem bronchus extending into the bronchus of the l eft lower lobe. No focal infiltrates or masses. Bibasilar atelectasis is seen. PLEURAL SPACE: No pleural effusion or pneumothorax. CHEST WALL SOFT TISSUES: A shunt catheter projects over the right chest wall. VISUALIZED OSSEOUS STRUCTURES: Hardware is seen in the spine. There is a remote anterior right rib fr acture. VISUALIZED SUBDIAPHRAGMATIC STRUCTURES: Unremarkable IMPRESSION: 1. No evidence of pulmonary thromboembolism 2. Large mucous plug in the left mainstem bronchus
[2019-04-02] MEDS: traZODone HCl 50 MG TAB PER TUBE SCH (21:17)
[2019-04-02] MEDS: Senokot 8.6 MG TAB PER TUBE SCH (21:18)
[2019-04-02] MEDS: Gabapentin 300 MG CAP PO SCH (21:18)
[2019-04-03] MEDS: Vancomycin HCl 25 MG/ML Oral PER TUBE SCH ×4 (02:28→21:04)
[2019-04-03] MEDS: Enoxaparin Sodium 40 MG/0.4 ML SYRINGE SC SCH (10:59)
[2019-04-03] MEDS: Floranex Packet PER TUBE SCH ×2 (10:59→21:05)
[2019-04-03] MEDS: levETIRAcetam 500 mg/5 ml Oral Solution PER TUBE SCH ×2 (11:01→21:04)
[2019-04-03] MEDS: FLUoxetine HCl 20 MG/5 ML UDCUP PER TUBE SCH (11:01)
[2019-04-03] MEDS: Amantadine HCl 10 mg/ml Oral Solution PER TUBE SCH ×2 (11:02→21:04)
[2019-04-03] MEDS: Pantoprazole 40 MG GRANULES PACKET PER TUBE SCH (11:03)
[2019-04-03] MEDS: Gabapentin 300 MG CAP FS SCH ×2 (11:03→21:05)
[2019-04-03] MEDS: Modafinil 100 MG TAB PER TUBE SCH (11:04)
[2019-04-03] MEDS: Famotidine/PF 20 mg/2ml Vial SLOW IVP SCH ×2 (11:04→21:05)
[2019-04-03] MEDS: Metoprolol Tartrate 25 MG TAB PER TUBE SCH ×2 (11:04→21:05)
[2019-04-03] MEDS: Ascorbic Acid 500 mg Chewable Tablet PER TUBE SCH (11:04)
[2019-04-03] MEDS: Folic Acid 1 MG TAB PER TUBE SCH (11:04)
[2019-04-03] MEDS: Cyanocobalamin (Vitamin B-12) 1,000 MCG TAB PER TUBE SCH (11:04)
[2019-04-03] MEDS: Multivitamin W/ Minerals 1 TAB PER TUBE SCH (11:04)
[2019-04-03] MEDS: Artificial Tear Sol 15 ML BOT EA EYE SCH ×3 (11:05→21:06)
[2019-04-03] MEDS: Scopolamine 1.5 mg/72 hour Patch TD SCH (17:47)
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
[2019-04-03] MEDS: Gabapentin 300 MG CAP PO SCH (21:04)
[2019-04-03] MEDS: traZODone HCl 50 MG TAB PER TUBE SCH (21:04)
[2019-04-03] MEDS: Senokot 8.6 MG TAB PER TUBE SCH (21:05)
[2019-04-04] MEDS: Vancomycin HCl 25 MG/ML Oral PER TUBE SCH ×4 (02:15→20:48)
[2019-04-04] MEDS: Floranex Packet PER TUBE SCH ×2 (08:52→20:48)
[2019-04-04] MEDS: Amantadine HCl 10 mg/ml Oral Solution PER TUBE SCH ×2 (08:52→20:48)
[2019-04-04] MEDS: FLUoxetine HCl 20 MG/5 ML UDCUP PER TUBE SCH (08:53)
[2019-04-04] MEDS: Enoxaparin Sodium 40 MG/0.4 ML SYRINGE SC SCH (08:53)
[2019-04-04] MEDS: Famotidine/PF 20 mg/2ml Vial SLOW IVP SCH ×2 (08:53→20:48)
[2019-04-04] MEDS: levETIRAcetam 500 mg/5 ml Oral Solution PER TUBE SCH ×2 (08:53→20:50)
[2019-04-04] MEDS: Gabapentin 300 MG CAP FS SCH ×2 (08:55→21:13)
[2019-04-04] MEDS: Pantoprazole 40 MG GRANULES PACKET PER TUBE SCH (08:55)
[2019-04-04] MEDS: Ascorbic Acid 500 mg Chewable Tablet PER TUBE SCH (08:56)
[2019-04-04] MEDS: Multivitamin W/ Minerals 1 TAB PER TUBE SCH (08:57)
[2019-04-04] MEDS: Folic Acid 1 MG TAB PER TUBE SCH (08:57)
[2019-04-04] MEDS: Cyanocobalamin (Vitamin B-12) 1,000 MCG TAB PER TUBE SCH (08:58)
[2019-04-04] MEDS: Modafinil 100 MG TAB PER TUBE SCH (08:58)
[2019-04-04] MEDS: Metoprolol Tartrate 25 MG TAB PER TUBE SCH ×2 (08:58→20:50)
[2019-04-04] MEDS: Artificial Tear Sol 15 ML BOT EA EYE SCH ×3 (09:00→21:14)
--- NOTE | 2019-04-04 12:43 | PDOC.HOSPP ---
- Subjective Subjective: mom reports that he is doing the same as yesterday. RN reports no BM since 2 days. yesterday he did vomit, but today has no residual. - Objective Vital Signs & Weight: Vital Signs (12 hours) Temp Pulse Resp BP Pulse Ox 04/04/19 12:30 99.4 F 93 18 109/77 97 04/04/19 08:00 98.5 F 101 H 20 114/80 95 04/04/19 02:54 98.3 F 85 16 108/77 97 Weight Admit Weight 137 lb 8 oz Weight 140 lb Most Recent Monitor Data Heart Rate from ECG 81 NIBP 111/73 NIBP BP-Mean 85 Respiration from ECG 23 SpO2 100 I&O: 04/03/19 04/04/19 04/05/19 06:59 06:59 06:59 Intake Total 1440 1410 50 Balance 1440 1410 50 Result Diagrams: 03/29/19 03:45 03/29/19 03:45 Hospitalist ROS - Medication Medications: Active Medications Generic Name Dose Route Start Last Admin Trade Name Freq PRN Reason Stop Dose Admin Acetaminophen 650 mg 03/27/19 00:28 03/27/19 22:55 Tylenol PO 650 mg Q4H PRN Administration Headache/Fever/Mild Pain (1-3) Acidophilus 2 gm 03/27/19 09:00 04/04/19 08:52 Floranex PER TUBE 2 gm BID MAGO Administration Amantadine HCl 200 mg 03/27/19 09:00 04/04/19 08:52 Symmetrel PER TUBE 200 mg BID MAGO Administration Artificial Tears 1 drop 03/27/19 09:00 04/04/19 09:00 Liquitears 15ml Bottle EA EYE 1 drop TID MAGO Administration Ascorbic Acid 500 mg 03/27/19 09:00 04/04/19 08:56 Vitamin C PER TUBE 500 mg DAILY MAGO Administration Cholecalciferol 5,000 units 03/27/19 09:00 04/04/19 08:56 Vitamin D3 PER TUBE 5,000 units DAILY MAGO Administration Cyanocobalamin 1,000 mcg 03/27/19 09:00 04/04/19 08:58 Vitamin B-12 PER TUBE 1,000 mcg DAILY AMGO Administration Enoxaparin Sodium 40 mg 03/27/19 09:00 04/04/19 08:53 Lovenox SC 40 mg 0900 MAGO Administration Famotidine 20 mg 03/27/19 09:00 04/04/19 08:53 Pepcid SLOW IVP 20 mg Q12HR MAGO Administration Ferrous Sulfate 300 mg 03/27/19 09:00 04/04/19 08:53 Ferrous Sulfate PER TUBE 300 mg DAILY MAGO Administration Fluoxetine HCl 40 mg 03/27/19 09:00 04/04/19 08:53 Prozac Oral Soln PER TUBE 40 mg DAILY MAGO Administration Folic Acid 1 mg 03/27/19 09:00 04/04/19 08:57 Folvite PER TUBE 1 mg DAILY MAGO Administration Gabapentin 300 mg 03/27/19 09:00 04/04/19 08:55 Neurontin FS 300 mg BID MAGO Administration Gabapentin 600 mg 03/27/19 21:00 04/03/19 21:04 Neurontin PO 600 mg HS MAGO Administration Iron/Minerals/Multivitamins 1 tab 03/27/19 09:00 04/04/19 08:57 Theragran M PER TUBE 1 tab DAILY MAGO Administration Levetiracetam 500 mg 03/31/19 21:00 04/04/19 08:53 Keppra Oral Solution PER TUBE 500 mg BID MAGO Administration Lorazepam 1 mg 03/27/19 00:32 03/29/19 20:34 Ativan SLOW IVP 1 mg Q4H PRN Administration Anxiety/Agitation Metoprolol Tartrate 25 mg 03/27/19 09:00 04/04/19 08:58 Lopressor PER TUBE 25 mg BID MAOG Administration Modafinil 200 mg 03/27/19 09:00 04/04/19 08:58 Provigil PER TUBE 200 mg DAILY MAGO Administration Ondansetron HCl 4 mg 03/27/19 00:28 03/29/19 15:45 Zofran IVP 4 mg Q6H PRN Administration Nausea/Vomiting Pantoprazole Sodium 40 mg 03/27/19 09:00 04/04/19 08:55 Protonix PER TUBE 40 mg DAILY MAGO Administration Scopolamine 1.5 mg 03/28/19 18:00 04/03/19 17:47 Transderm Scop TD 1.5 mg Q3D MAGO Administration Senna 1 tab 03/27/19 21:00 04/03/19 21:05 Senokot PER TUBE 1 tab QPM MAOG Administration Sodium Chloride 10 ml 03/27/19 09:00 04/04/19 09:30 Flush - Normal Saline IVF 10 ml Q12HR MAGO Administration Trazodone HCl 100 mg 03/27/19 21:00 04/03/19 21:04 Desyrel PER TUBE 100 mg HS MAGO Administration Vancomycin HCl 125 mg 03/29/19 20:00 04/04/19 08:52 First Vancomycin PER TUBE 125 mg 0200,0800,1400,2000 MAGO Administration - Exam General Appearance: awake alert Eye: PERRL ENT: normocephalic atraumatic Heart: RRR, no murmur Respiratory: CTAB (poor inspiratory effort) Gastrointestinal: soft, non-tender, non-distended Hosp A/P - Plan (1) Acute on chronic respiratory failure Code(s): J96.20 - ACUTE AND CHR RESP FAILURE, UNSP W HYPOXIA OR HYPERCAPNIA Status: Acute (2) Mucus plugging of bronchi Code(s): J98.09 - OTHER DISEASES OF BRONCHUS, NOT ELSEWHERE CLASSIFIED Status : Acute (3) Quadriplegia and quadriparesis Code(s): G82.50 - QUADRIPLEGIA, UNSPECIFIED Status: Acute (4) Acute metabolic encephalopathy Code(s): G93.41 - METABOLIC ENCEPHALOPATHY Status: Acute (5) Clostridium difficile enteritis Code(s): A04.72 - ENTEROCOLITIS D/T CLOSTRIDIUM DIFFICILE, NOT SPCF RECUR Status: Acute (6) Lactic acidosis Code(s): E87.2 - ACIDOSIS Status: Acute (7) Sepsis Code(s): A41.9 - SEPSIS, UNSPECIFIED ORGANISM Status: Acute (8) Hydrocephalus Code(s): G91.9 - HYDROCEPHALUS, UNSPECIFIED Status: Chronic (9) Clostridioides difficile infection Code(s): A49.8 - OTHER BACTERIAL INFECTIONS OF UNSPECIFIED SITE Status: Acute - Plan for 04/03 Start chest physiotherapy as reommended by Pulmonary. Wean oxygen as tolerated. Consult harvest worker field crop for change tubev feeding from continous to bolus Case mgt to help with discharge planning. Continue oral vancomycin. plan for 04/04 mother had multiple questions about a vest that compress chest and also being discharged with a humidifier. I will check with RT for the vest and with flow trader about wether he is better off with bolus feeds. will recheck labs in am.
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
[2019-04-04] MEDS: Gabapentin 300 MG CAP PO SCH (20:49)
[2019-04-04] MEDS: Senokot 8.6 MG TAB PER TUBE SCH (20:50)
[2019-04-04] MEDS: traZODone HCl 50 MG TAB PER TUBE SCH (20:50)
[2019-04-05] MEDS: Vancomycin HCl 25 MG/ML Oral PER TUBE SCH ×4 (03:45→20:27)
[2019-04-05 06:09] LABS: #Eosinphils 0.3 thou/uL (0.0-0.7); #Lymphocytes 0.7 thou/uL (1.20-3.40); #Monocytes 0.5 thou/uL (0.11-0.59); #Neutrophils 4.6 thou/uL (1.40-6.50); %Basophils 0.5 % (0.0-1.0); %Eosinophils 5.4 % (0.0-10.0); %Lymphocytes 11.2 % (21.0-51.0); %Monocytes 8.5 % (0.0-10.0); %Neutrophils 74.4 % (42.0-75.0); Hemoglobin 12.5 g/dL (14.0-18.0); Mean Corpuscular HGB CONC 32.8 g/dL (32.0-36.0); Mean Corpuscular Hemoglobin 31.9 pg (27.0-31.0); Mean Corpuscular Volume 97.3 fL (78.0-98.0); Mean Platelet Volume 6.9 fL (7.4-10.4); Platelet Count 332 thou/uL (130-400); RBC Distribution Width 12.8 % (11.5-14.5); Red Blood Cell (RBC) Count 3.92 mill/uL (4.70-6.10); White Blood Cell (WBC) Count 6.2 thou/uL (4.8-10.8)
[2019-04-05 06:21] LABS: Anion Gap 13 mmol/L (10-20); BUN (Urea Nitrogen) 15 mg/dL (8.9-20.6); Calc. Creatinine Clearance 137 mL/min (70-130); Calcium 9.8 mg/dL (7.8-10.44); Carbon Dioxide 28 mmol/L (22-29); Chloride 102 mmol/L (98-107); Estimated GFR-MDRD Greater than 90; Glucose 115 mg/dL (70-105); Potassium 3.9 mmol/L (3.5-5.1); Sodium 139 mmol/L (136-145)
[2019-04-05] MEDS: Famotidine/PF 20 mg/2ml Vial SLOW IVP SCH ×2 (08:48→20:30)
[2019-04-05] MEDS: levETIRAcetam 500 mg/5 ml Oral Solution PER TUBE SCH ×2 (08:48→20:50)
[2019-04-05] MEDS: Amantadine HCl 10 mg/ml Oral Solution PER TUBE SCH ×2 (08:48→20:50)
[2019-04-05] MEDS: Enoxaparin Sodium 40 MG/0.4 ML SYRINGE SC SCH (08:48)
[2019-04-05] MEDS: FLUoxetine HCl 20 MG/5 ML UDCUP PER TUBE SCH (08:48)
[2019-04-05] MEDS: Floranex Packet PER TUBE SCH ×2 (08:48→20:33)
[2019-04-05] MEDS: Multivitamin W/ Minerals 1 TAB PER TUBE SCH (08:49)
[2019-04-05] MEDS: Gabapentin 300 MG CAP FS SCH ×2 (08:49→20:37)
[2019-04-05] MEDS: Pantoprazole 40 MG GRANULES PACKET PER TUBE SCH (08:49)
[2019-04-05] MEDS: Ascorbic Acid 500 mg Chewable Tablet PER TUBE SCH (08:49)
[2019-04-05] MEDS: Folic Acid 1 MG TAB PER TUBE SCH (08:49)
[2019-04-05] MEDS: Metoprolol Tartrate 25 MG TAB PER TUBE SCH ×2 (08:49→20:48)
[2019-04-05] MEDS: Cyanocobalamin (Vitamin B-12) 1,000 MCG TAB PER TUBE SCH (08:50)
[2019-04-05] MEDS: Artificial Tear Sol 15 ML BOT EA EYE SCH ×3 (09:01→20:44)
[2019-04-05] MEDS: Modafinil 100 MG TAB PER TUBE SCH (09:08)
[2019-04-05] MEDS ORDERED: Docusate 100 MG CAP PO PRN (13:52)
[2019-04-05] MEDS ORDERED: Polyethylene Glycol 3350 17 GM Packet PO PRN (14:47)
[2019-04-05] MEDS ORDERED: Docusate Sodium 100 MG/10 ML UDCUP PO PRN (14:47)
[2019-04-05] MEDS ORDERED: Fleet Enema 133 ML BOT PR SCH (15:00)
--- NOTE | 2019-04-05 15:00 | PDOC.HOSPP ---
- Subjective Subjective: still did not move his bowels. - Objective Vital Signs & Weight: Vital Signs (12 hours) Temp Pulse Resp BP Pulse Ox 04/05/19 10:54 98.8 F 90 16 105/64 98 04/05/19 07:27 98.7 F 87 16 104/73 98 04/05/19 03:11 98.9 F 85 16 108/69 95 Weight Admit Weight 137 lb 8 oz Weight 140 lb Most Recent Monitor Data Heart Rate from ECG 81 NIBP 111/73 NIBP BP-Mean 85 Respiration from ECG 23 SpO2 100 I&O: 04/04/19 04/05/19 04/06/19 06:59 06:59 06:59 Intake Total 1410 2364 1990 Balance 1410 2364 1990 Result Diagrams: 04/05/19 05:23 04/05/19 05:23 Hospitalist ROS - Medication Medications: Active Medications Generic Name Dose Route Start Last Admin Trade Name Freq PRN Reason Stop Dose Admin Acetaminophen 650 mg 03/27/19 00:28 03/27/19 22:55 Tylenol PO 650 mg Q4H PRN Administration Headache/Fever/Mild Pain (1-3) Acidophilus 2 gm 03/27/19 09:00 04/05/19 08:48 Floranex PER TUBE 2 gm BID MAGO Administration Amantadine HCl 200 mg 03/27/19 09:00 04/05/19 08:48 Symmetrel PER TUBE 200 mg BID MAGO Administration Artificial Tears 1 drop 03/27/19 09:00 04/05/19 13:26 Liquitears 15ml Bottle EA EYE 1 drop TID MAGO Administration Ascorbic Acid 500 mg 03/27/19 09:00 04/05/19 08:49 Vitamin C PER TUBE 500 mg DAILY MAGO Administration Cholecalciferol 5,000 units 03/27/19 09:00 04/05/19 08:49 Vitamin D3 PER TUBE 5,000 units DAILY MAGO Administration Cyanocobalamin 1,000 mcg 03/27/19 09:00 04/05/19 08:50 Vitamin B-12 PER TUBE 1,000 mcg DAILY MAGO Administration Enoxaparin Sodium 40 mg 03/27/19 09:00 04/05/19 08:48 Lovenox SC 40 mg 0900 MAGO Administration Famotidine 20 mg 03/27/19 09:00 04/05/19 08:48 Pepcid SLOW IVP 20 mg Q12HR MAGO Administration Ferrous Sulfate 300 mg 03/27/19 09:00 04/05/19 08:48 Ferrous Sulfate PER TUBE 300 mg DAILY MAGO Administration Fluoxetine HCl 40 mg 03/27/19 09:00 04/05/19 08:48 Prozac Oral Soln PER TUBE 40 mg DAILY MAGO Administration Folic Acid 1 mg 03/27/19 09:00 04/05/19 08:49 Folvite PER TUBE 1 mg DAILY MAGO Administration Gabapentin 300 mg 03/27/19 09:00 04/05/19 08:49 Neurontin FS 300 mg BID MAGO Administration Gabapentin 600 mg 03/27/19 21:00 04/04/19 20:49 Neurontin PO 600 mg HS MAGO Administration Iron/Minerals/Multivitamins 1 tab 03/27/19 09:00 04/05/19 08:49 Theragran M PER TUBE 1 tab DAILY MAGO Administration Levetiracetam 500 mg 03/31/19 21:00 04/05/19 08:48 Keppra Oral Solution PER TUBE 500 mg BID MAGO Administration Lorazepam 1 mg 03/27/19 00:32 03/29/19 20:34 Ativan SLOW IVP 1 mg Q4H PRN Administration Anxiety/Agitation Metoprolol Tartrate 25 mg 03/27/19 09:00 04/05/19 08:49 Lopressor PER TUBE 25 mg BID MAGO Administration Modafinil 200 mg 03/27/19 09:00 04/05/19 09:08 Provigil PER TUBE 200 mg DAILY MAGO Administration Ondansetron HCl 4 mg 03/27/19 00:28 03/29/19 15:45 Zofran IVP 4 mg Q6H PRN Administration Nausea/Vomiting Pantoprazole Sodium 40 mg 03/27/19 09:00 04/05/19 08:49 Protonix PER TUBE 40 mg DAILY MAGO Administration Scopolamine 1.5 mg 03/28/19 18:00 04/03/19 17:47 Transderm Scop TD 1.5 mg Q3D MAGO Administration Senna 1 tab 03/27/19 21:00 04/04/19 20:50 Senokot PER TUBE 1 tab QPM MAGO Administration Sodium Chloride 10 ml 03/27/19 09:00 04/05/19 09:00 Flush - Normal Saline IVF 10 ml Q12HR MAGO Administration Trazodone HCl 100 mg 03/27/19 21:00 04/04/19 20:50 Desyrel PER TUBE 100 mg HS MAGO Administration Vancomycin HCl 125 mg 03/29/19 20:00 04/05/19 13:26 First Vancomycin PER TUBE 125 mg 0200,0800,1400,2000 MAGO Administration - Exam Eye: PERRL ENT: normocephalic atraumatic Neck: supple Heart: RRR Respiratory: CTAB Gastrointestinal: soft Hosp A/P - Plan (1) Acute on chronic respiratory failure Code(s): J96.20 - ACUTE AND CHR RESP FAILURE, UNSP W HYPOXIA OR HYPERCAPNIA Status: Acute (2) Mucus plugging of bronchi Code(s): J98.09 - OTHER DISEASES OF BRONCHUS, NOT ELSEWHERE CLASSIFIED Status : Acute (3) Quadriplegia and quadriparesis Code(s): G82.50 - QUADRIPLEGIA, UNSPECIFIED Status: Acute (4) Acute metabolic encephalopathy Code(s): G93.41 - METABOLIC ENCEPHALOPATHY Status: Acute (5) Clostridium difficile enteritis Code(s): A04.72 - ENTEROCOLITIS D/T CLOSTRIDIUM DIFFICILE, NOT SPCF RECUR Status: Acute (6) Lactic acidosis Code(s): E87.2 - ACIDOSIS Status: Acute (7) Sepsis Code(s): A41.9 - SEPSIS, UNSPECIFIED ORGANISM Status: Acute (8) Hydrocephalus Code(s): G91.9 - HYDROCEPHALUS, UNSPECIFIED Status: Chronic (9) Clostridioides difficile infection Code(s): A49.8 - OTHER BACTERIAL INFECTIONS OF UNSPECIFIED SITE Status: Acute - Plan for 04/03 Start chest physiotherapy as reommended by Pulmonary. Wean oxygen as tolerated. Consult legal summer intern for change tubev feeding from continous to bolus Case mgt to help with discharge planning. Continue oral vancomycin. plan for 04/04 mother had multiple questions about a vest that compress chest and also being discharged with a humidifier. I will check with RT for the vest and with training and development director about wether he is better off with bolus feeds. will recheck labs in am. plan for 04/05 He still did not move his bowels, as per his family members this was an issue on his last admission and he had to be given an enema I will start him on laxatives and add an enema. will do a UA as family did notice darker urine. we are arranging to set him up with his home oxygen.
[2019-04-05 17:30] LABS: Bacteria/HPF 2+ HPF (None Seen); Bilirubin Negative (Negative); Blood, Urine Negative (Negative); Clarity Turbid (Clear); Glucose, Urine (Dipstick) Normal (Negative); Leukocyte Negative Leu/uL (Negative); Nitrite Negative (Negative); Protein, Urine (Dipstick) 20 mg/dL (Neg-Trace); RBC/HPF 0-3 HPF (0-3); Squamous Epithelial None Seen HPF (0-3); Urobilinogen Normal mg/dL (Less than 2)
[2019-04-05 17:38] LABS: Urine Culture Reflex Yes Yes
[2019-04-05] MEDS: Scopolamine 1.5 mg/72 hour Patch TD SCH (18:05)
[2019-04-05] MEDS: Gabapentin 300 MG CAP PO SCH (20:32)
[2019-04-05] MEDS: traZODone HCl 50 MG TAB PER TUBE SCH (20:34)
[2019-04-05] MEDS: Senokot 8.6 MG TAB PER TUBE SCH (20:42)
[2019-04-06] MEDS: Vancomycin HCl 25 MG/ML Oral PER TUBE SCH ×4 (03:37→20:35)
[2019-04-06] MEDS: Enoxaparin Sodium 40 MG/0.4 ML SYRINGE SC SCH (08:37)
[2019-04-06] MEDS: Famotidine/PF 20 mg/2ml Vial SLOW IVP SCH ×2 (08:38→20:34)
[2019-04-06] MEDS: Gabapentin 300 MG CAP FS SCH ×2 (08:38→20:42)
[2019-04-06] MEDS: FLUoxetine HCl 20 MG/5 ML UDCUP PER TUBE SCH (08:38)
[2019-04-06] MEDS: levETIRAcetam 500 mg/5 ml Oral Solution PER TUBE SCH ×2 (08:38→20:35)
[2019-04-06] MEDS: Amantadine HCl 10 mg/ml Oral Solution PER TUBE SCH ×2 (08:38→20:35)
[2019-04-06] MEDS: Floranex Packet PER TUBE SCH ×2 (08:38→20:34)
[2019-04-06] MEDS: Artificial Tear Sol 15 ML BOT EA EYE SCH ×3 (08:39→20:35)
[2019-04-06] MEDS: Pantoprazole 40 MG GRANULES PACKET PER TUBE SCH (09:01)
[2019-04-06] MEDS: Folic Acid 1 MG TAB PER TUBE SCH (09:01)
[2019-04-06] MEDS: Metoprolol Tartrate 25 MG TAB PER TUBE SCH ×2 (09:01→20:35)
[2019-04-06] MEDS: Polyethylene Glycol 3350 17 GM Packet PER TUBE SCH (10:06)
[2019-04-06] MEDS: Cyanocobalamin (Vitamin B-12) 1,000 MCG TAB PER TUBE SCH (10:06)
[2019-04-06] MEDS: Multivitamin W/ Minerals 1 TAB PER TUBE SCH (10:06)
[2019-04-06] MEDS: Ascorbic Acid 500 mg Chewable Tablet PER TUBE SCH (10:17)
[2019-04-06] MEDS: Modafinil 100 MG TAB PER TUBE SCH ×2 (11:11→12:30)
--- NOTE | 2019-04-06 13:21 | PDOC.HOSPP ---
- Subjective Subjective: appears to be doing well. he had a bowel movement yesterday. - Objective Vital Signs & Weight: Vital Signs (12 hours) Temp Pulse Resp BP Pulse Ox 04/06/19 11:26 98.9 F 84 16 99/65 98 04/06/19 08:33 100 20 97 04/06/19 07:52 99.1 F 97 16 105/72 97 04/06/19 03:51 97.8 F 82 16 99/69 98 Weight Admit Weight 137 lb 8 oz Weight 140 lb Most Recent Monitor Data Heart Rate from ECG 81 NIBP 111/73 NIBP BP-Mean 85 Respiration from ECG 23 SpO2 100 I&O: 04/05/19 04/06/19 04/07/19 06:59 06:59 06:59 Intake Total 2450 5411 Balance 2450 5411 Result Diagrams: 04/05/19 05:23 04/05/19 05:23 Hospitalist ROS - Medication Medications: Active Medications Generic Name Dose Route Start Last Admin Trade Name Freq PRN Reason Stop Dose Admin Acetaminophen 650 mg 03/27/19 00:28 03/27/19 22:55 Tylenol PO 650 mg Q4H PRN Administration Headache/Fever/Mild Pain (1-3) Acidophilus 2 gm 03/27/19 09:00 04/06/19 08:38 Floranex PER TUBE 2 gm BID MAGO Administration Amantadine HCl 200 mg 03/27/19 09:00 04/06/19 08:38 Symmetrel PER TUBE 200 mg BID MAGO Administration Artificial Tears 1 drop 03/27/19 09:00 04/06/19 08:39 Liquitears 15ml Bottle EA EYE 1 drop TID MAGO Administration Ascorbic Acid 500 mg 03/27/19 09:00 04/06/19 10:17 Vitamin C PER TUBE 500 mg DAILY MAGO Administration Cholecalciferol 5,000 units 03/27/19 09:00 04/06/19 10:05 Vitamin D3 PER TUBE 5,000 units DAILY MAGO Administration Cyanocobalamin 1,000 mcg 03/27/19 09:00 04/06/19 10:06 Vitamin B-12 PER TUBE 1,000 mcg DAILY MAGO Administration Enoxaparin Sodium 40 mg 03/27/19 09:00 04/06/19 08:37 Lovenox SC 40 mg 09 MAGO Administration Famotidine 20 mg 03/27/19 09:00 04/06/19 08:38 Pepcid SLOW IVP 20 mg Q12HR MAGO Administration Ferrous Sulfate 300 mg 03/27/19 09:00 04/06/19 08:38 Ferrous Sulfate PER TUBE 300 mg DAILY MAGO Administration Fluoxetine HCl 40 mg 03/27/19 09:00 04/06/19 08:38 Prozac Oral Soln PER TUBE 40 mg DAILY MAGO Administration Folic Acid 1 mg 03/27/19 09:00 04/06/19 09:01 Folvite PER TUBE 1 mg DAILY MAGO Administration Gabapentin 300 mg 03/27/19 09:00 04/06/19 08:38 Neurontin FS 300 mg BID MAGO Administration Gabapentin 600 mg 03/27/19 21:00 04/05/19 20:32 Neurontin PO 600 mg HS MAGO Administration Iron/Minerals/Multivitamins 1 tab 03/27/19 09:00 04/06/19 10:06 Theragran M PER TUBE 1 tab DAILY MAGO Administration Levetiracetam 500 mg 03/31/19 21:00 04/06/19 08:38 Keppra Oral Solution PER TUBE 500 mg BID MAGO Administration Metoprolol Tartrate 25 mg 03/27/19 09:00 04/06/19 09:01 Lopressor PER TUBE 25 mg BID MAGO Administration Modafinil 200 mg 03/27/19 09:00 04/06/19 12:30 Provigil PER TUBE 200 mg DAILY MAGO Administration Ondansetron HCl 4 mg 03/27/19 00:28 03/29/19 15:45 Zofran IVP 4 mg Q6H PRN Administration Nausea/Vomiting Pantoprazole Sodium 40 mg 03/27/19 09:00 04/06/19 09:01 Protonix PER TUBE 40 mg DAILY MAGO Administration Polyethylene Glycol 17 gm 04/06/19 09:00 04/06/19 10:06 Miralax PER TUBE Not Given DAILY MAGO Scopolamine 1.5 mg 03/28/19 18:00 04/05/19 18:05 Transderm Scop TD 1.5 mg Q3D MAGO Administration Senna 1 tab 03/27/19 21:00 04/05/19 20:42 Senokot PER TUBE 1 tab QPM MAGO Administration Sodium Chloride 10 ml 03/27/19 09:00 04/06/19 10:06 Flush - Normal Saline IVF 10 ml Q12HR MAGO Administration Trazodone HCl 100 mg 03/27/19 21:00 04/05/19 20:34 Desyrel PER TUBE 100 mg HS MAGO Administration Vancomycin HCl 125 mg 03/29/19 20:00 04/06/19 10:05 First Vancomycin PER TUBE 125 mg 0200,0800,1400,2000 MAGO Administration - Exam General Appearance: NAD Eye: PERRL ENT: normocephalic atraumatic Neck: supple, symmetric Heart: RRR, no murmur, no gallops, no rubs Respiratory: no wheezes, no rales, no ronchi Gastrointestinal: soft, non-tender, non-distended, normal bowel sounds Extremities: no cyanosis, no clubbing, no edema Hosp A/P - Plan (1) Acute on chronic respiratory failure Code(s): J96.20 - ACUTE AND CHR RESP FAILURE, UNSP W HYPOXIA OR HYPERCAPNIA Status: Acute (2) Mucus plugging of bronchi Code(s): J98.09 - OTHER DISEASES OF BRONCHUS, NOT ELSEWHERE CLASSIFIED Status : Acute (3) Quadriplegia and quadriparesis Code(s): G82.50 - QUADRIPLEGIA, UNSPECIFIED Status: Acute (4) Acute metabolic encephalopathy Code(s): G93.41 - METABOLIC ENCEPHALOPATHY Status: Acute (5) Clostridium difficile enteritis Code(s): A04.72 - ENTEROCOLITIS D/T CLOSTRIDIUM DIFFICILE, NOT SPCF RECUR Status: Acute (6) Lactic acidosis Code(s): E87.2 - ACIDOSIS Status: Acute (7) Sepsis Code(s): A41.9 - SEPSIS, UNSPECIFIED ORGANISM Status: Acute (8) Hydrocephalus Code(s): G91.9 - HYDROCEPHALUS, UNSPECIFIED Status: Chronic (9) Clostridioides difficile infection Code(s): A49.8 - OTHER BACTERIAL INFECTIONS OF UNSPECIFIED SITE Status: Acute - Plan for 04/03 Start chest physiotherapy as reommended by Pulmonary. Wean oxygen as tolerated. Consult scruff worker for change tubev feeding from continous to bolus Case mgt to help with discharge planning. Continue oral vancomycin. plan for 04/04 mother had multiple questions about a vest that compress chest and also being discharged with a humidifier. I will check with RT for the vest and with plastics fabricator about wether he is better off with bolus feeds. will recheck labs in am. plan for 04/05 He still did not move his bowels, as per his family members this was an issue on his last admission and he had to be given an enema I will start him on laxatives and add an enema. will do a UA as family did notice darker urine. we are arranging to set him up with his home oxygen. plan for today 04/06 some issues arranging for his oxygen at home, we will wean him off oxygen here and see if he really needs it. His UA showed possible UTI, I will start ancef IV awaiting sensitivity. potential discharge tomorrow.
[2019-04-06] MEDS: CEFAZOLIN 1 GM in Sodium Chloride 0.9% 100 ML IVPB SCH ×2 (14:57→20:34)
[2019-04-06] MEDS: Senokot 8.6 MG TAB PER TUBE SCH (20:34)
[2019-04-06] MEDS: traZODone HCl 50 MG TAB PER TUBE SCH (20:34)
[2019-04-06] MEDS: Gabapentin 300 MG CAP PO SCH (20:34)
[2019-04-07] MEDS: Vancomycin HCl 25 MG/ML Oral PER TUBE SCH ×3 (02:31→13:48)
[2019-04-07] MEDS: CEFAZOLIN 1 GM in Sodium Chloride 0.9% 100 ML IVPB SCH ×2 (05:32→13:48)
[2019-04-07 05:52] LABS: #Eosinphils 0.4 thou/uL (0.0-0.7); #Lymphocytes 0.7 thou/uL (1.20-3.40); #Monocytes 0.6 thou/uL (0.11-0.59); #Neutrophils 5.2 thou/uL (1.40-6.50); %Basophils 0.3 % (0.0-1.0); %Eosinophils 5.2 % (0.0-10.0); %Lymphocytes 10.7 % (21.0-51.0); %Monocytes 8.7 % (0.0-10.0); Hemoglobin 11.8 g/dL (14.0-18.0); Mean Corpuscular HGB CONC 32.9 g/dL (32.0-36.0); Mean Corpuscular Hemoglobin 31.9 pg (27.0-31.0); Platelet Count 269 thou/uL (130-400); RBC Distribution Width 12.5 % (11.5-14.5); Red Blood Cell (RBC) Count 3.68 mill/uL (4.70-6.10); White Blood Cell (WBC) Count 6.9 thou/uL (4.8-10.8)
[2019-04-07 06:17] LABS: Anion Gap 11 mmol/L (10-20); BUN (Urea Nitrogen) 14 mg/dL (8.9-20.6); Calc. Creatinine Clearance 142 mL/min (70-130); Calcium 10.1 mg/dL (7.8-10.44); Carbon Dioxide 32 mmol/L (22-29); Chloride 101 mmol/L (98-107); Estimated GFR-MDRD Greater than 90; Glucose 92 mg/dL (70-105); Potassium 3.9 mmol/L (3.5-5.1); Sodium 140 mmol/L (136-145)
[2019-04-07] MEDS: Multivitamin W/ Minerals 1 TAB PER TUBE SCH (09:54)
[2019-04-07] MEDS: Cyanocobalamin (Vitamin B-12) 1,000 MCG TAB PER TUBE SCH (09:54)
[2019-04-07] MEDS: Ascorbic Acid 500 mg Chewable Tablet PER TUBE SCH (09:54)
[2019-04-07] MEDS: Metoprolol Tartrate 25 MG TAB PER TUBE SCH (09:55)
[2019-04-07] MEDS: levETIRAcetam 500 mg/5 ml Oral Solution PER TUBE SCH (09:55)
[2019-04-07] MEDS: Gabapentin 300 MG CAP FS SCH (09:55)
[2019-04-07] MEDS: FLUoxetine HCl 20 MG/5 ML UDCUP PER TUBE SCH (09:56)
[2019-04-07] MEDS: Folic Acid 1 MG TAB PER TUBE SCH (09:56)
[2019-04-07] MEDS: Modafinil 100 MG TAB PER TUBE SCH (09:57)
[2019-04-07] MEDS: Pantoprazole 40 MG GRANULES PACKET PER TUBE SCH (09:57)
[2019-04-07] MEDS: Floranex Packet PER TUBE SCH (09:57)
[2019-04-07] MEDS: Enoxaparin Sodium 40 MG/0.4 ML SYRINGE SC SCH (09:58)
[2019-04-07] MEDS: Famotidine/PF 20 mg/2ml Vial SLOW IVP SCH (09:59)
[2019-04-07] MEDS: Amantadine HCl 10 mg/ml Oral Solution PER TUBE SCH (09:59)
[2019-04-07] MEDS: Artificial Tear Sol 15 ML BOT EA EYE SCH ×2 (09:59→14:00)
[2019-04-07] MEDS: Polyethylene Glycol 3350 17 GM Packet PER TUBE SCH (10:00)
[2019-04-07 11:23] VITALS: TEMP 98.5
[2019-04-07 13:19] VITALS: BP 121/71
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
== END 2019-04-07 17:45 | disposition home health service (06) | DRG 871 ==
LOC: ERS 20:58 → IMCU/EMU 03-27 01:09 → SURG A 03-30 00:26
PROVIDERS: ADMIT Internal Medicine; ATTEND Internal Medicine
DX: A41.02 Sepsis due to Methicillin resistant Staphylococcus aureus (principal); G93.41 Metabolic encephalopathy; J96.21 Acute and chronic respiratory failure with hypoxia; J15.212 Pneumonia due to Methicillin resistant Staphylococcus aureus; R53.2 Functional quadriplegia; A04.72 Enterocolitis due to Clostridium difficile, not specified as recurrent; E87.2 Acidosis; G91.9 Hydrocephalus, unspecified; Y95 Nosocomial condition; G40.909 Epilepsy, unspecified, not intractable, without status epilepticus; Z87.891 Personal history of nicotine dependence; Z79.899 Other long term (current) drug therapy; Z74.01 Bed confinement status; Z87.820 Personal history of traumatic brain injury; Z93.1 Gastrostomy status
CPT/HCPCS: 36415; 36416; 51701; 70450; 71045; 71275; 74177; 80048; 80053; 80202; 81001; 81003; 83605; 83880; 84146; 84484; 85007; 85025; 85027; 87070; 87077; 87086; 87186; 87205; 87324; 87449; 93005; 94640; 94668; 94760; 95816; 95819; 96365; 96367; 96375; 96376; 99292; J0690; J1650; J1953; J2060; J2185; J2405; J2543; J3370; J3490; Q9967; S0028

== ENCOUNTER 2019-04-12 20:22 | Inpatient (IN) | payer BC ==
[~2019-04-12 20:22] MED LIST changes: -Iopamidol 370 76% 50 ML VIAL FS ONE; +Iopamidol-370 76% 500 ML 1 ML ONE
[2019-04-12] MEDS ORDERED: Morphine 4 MG/ML VIAL ONE (21:05)
[2019-04-12] MEDS ORDERED: Ondansetron PF 4 MG/2 ML Vial ONE (21:05)
[2019-04-12] MEDS ORDERED: Morphine 2 MG/ML SYRINGE ONE (21:06)
[2019-04-12 21:24] LABS: #Eosinphils 0.3 thou/uL (0.0-0.7); #Lymphocytes 0.6 thou/uL (1.20-3.40); #Monocytes 0.5 thou/uL (0.11-0.59); #Neutrophils 7.8 thou/uL (1.40-6.50); %Basophils 0.1 % (0.0-1.0); %Eosinophils 3.1 % (0.0-10.0); %Lymphocytes 6.8 % (21.0-51.0); %Monocytes 5.1 % (0.0-10.0); Hemoglobin 11.2 g/dL (14.0-18.0); Mean Corpuscular HGB CONC 33.6 g/dL (32.0-36.0); Mean Corpuscular Hemoglobin 32.6 pg (27.0-31.0); Mean Corpuscular Volume 97.2 fL (78.0-98.0); Mean Platelet Volume 7.7 fL (7.4-10.4); Platelet Count 196 thou/uL (130-400); RBC Distribution Width 12.2 % (11.5-14.5); Red Blood Cell (RBC) Count 3.43 mill/uL (4.70-6.10); White Blood Cell (WBC) Count 9.2 thou/uL (4.8-10.8)
--- NOTE | 2019-04-12 21:34 | RAD ---
PORTABLE CHEST: 04/12/19 HISTORY: Dyspnea. COMPARISON: 03/26/19. There is new focal infiltrate in the right mid lung field when compared to the prior exam. Tracheostomy device is noted. CLIENT SERVICES ADMINISTRATOR shunt catheter is again noted. IMPRESSION: New focal infiltrate in the right mid lung. POS: OFF
[2019-04-12 21:38] LABS: ALT (SGPT) 44 U/L (8-55); AST (SGOT) 20 U/L (5-34); Albumin 4.1 g/dL (3.5-5.0); Alkaline Phosphatase 132 U/L (40-110); Anion Gap 13 mmol/L (10-20); BUN (Urea Nitrogen) 17 mg/dL (8.9-20.6); Bilirubin, Total 0.3 mg/dL (0.2-1.2); Calc. Creatinine Clearance 0 mL/min (70-130); Carbon Dioxide 32 mmol/L (22-29); Chloride 100 mmol/L (98-107); Estimated GFR-MDRD Greater than 90; Globulin 3.1 g/dL (2.4-3.5); Glucose 80 mg/dL (70-105); Lipase 19 U/L (8-78); Potassium 4.8 mmol/L (3.5-5.1); Protein, Total 7.2 g/dL (6.0-8.3); Sodium 140 mmol/L (136-145)
[2019-04-12 21:49] LABS: Bilirubin Negative (Negative); Blood, Urine Negative (Negative); Clarity Extra Turbid (Clear); Glucose, Urine (Dipstick) Normal (Negative); Leukocyte Negative Leu/uL (Negative); Nitrite Negative (Negative); Protein, Urine (Dipstick) 30 mg/dL (Neg-Trace); RBC/HPF 0-3 HPF (0-3); WBC/HPF 0-3 HPF (0-3)
[2019-04-12 21:51] LABS: Bacteria/HPF 1+ HPF (None Seen)
[2019-04-12] MEDS ORDERED: cefTRIAXone\\ROCEPHIN 2 GM VIAL ONE (21:55)
[2019-04-12 21:59] LABS: Yeast-Budding 1+ HPF (None Seen)
[2019-04-12 22:00] LABS: Triple Phosphate Crystal Rare HPF (None Seen); Yeast-Hyphae 1+ HPF (None Seen)
--- NOTE | 2019-04-12 22:57 | CT ---
CT ABDOMEN AND PELVIS WITH IV CONTRAST: 04/12/19 Oral contrast was not given. INDICATIONS: Abdominal pain. Comparison made to recent CT abdomen and pelvis 03/26/19. Images through the lung bases show resolution of the small effusions noted previously. Atelectasis an d/or infiltrate in the region of the lingula and mild streaky atelectasis in the posterior lower lobe s. Liver, spleen and pancreas unremarkable. Kidneys unremarkable. Small bowel loops normal caliber. Babb n unremarkable. Peritoneal dialysis catheter enters via the right upper quadrant courses into the lef t abdomen and is coiled within the pelvis. Urinary bladder unremarkable. The subcutaneous fluid/edema seen posterior left flank region on prior exam is no longer present. IMPRESSION: No evidence of acute intra-abdominal process. No significant interval change in the abdomen or pelvis . POS: OFF
[2019-04-13] MEDS ORDERED: Morphine 2 MG/ML SYRINGE ONE (01:54)
[2019-04-13] MEDS: Acetaminophen 650 MG Suppository PR PRN ×2 (03:54→08:30)
[2019-04-13] MEDS: Lorazepam 2 MG/ML VIAL SLOW IVP PRN ×3 (03:54→21:21)
[2019-04-13 04:19] LABS: #Eosinphils 0.3 thou/uL (0.0-0.7); #Lymphocytes 0.7 thou/uL (1.20-3.40); #Monocytes 0.6 thou/uL (0.11-0.59); #Neutrophils 9.3 thou/uL (1.40-6.50); %Basophils 0.1 % (0.0-1.0); %Eosinophils 2.4 % (0.0-10.0); %Lymphocytes 6.4 % (21.0-51.0); %Monocytes 5.2 % (0.0-10.0); %Neutrophils 85.8 % (42.0-75.0); Hemoglobin 10.3 g/dL (14.0-18.0); Mean Corpuscular HGB CONC 32.5 g/dL (32.0-36.0); Mean Corpuscular Hemoglobin 31.6 pg (27.0-31.0); Mean Corpuscular Volume 97.3 fL (78.0-98.0); Platelet Count 210 thou/uL (130-400); RBC Distribution Width 12.2 % (11.5-14.5); Red Blood Cell (RBC) Count 3.25 mill/uL (4.70-6.10); White Blood Cell (WBC) Count 10.8 thou/uL (4.8-10.8)
[2019-04-13 04:21] LABS: Hemoglobin 10.3 g/dL (14.0-18.0); Mean Corpuscular HGB CONC 33.4 g/dL (32.0-36.0); Mean Corpuscular Hemoglobin 32.4 pg (27.0-31.0); Mean Corpuscular Volume 97.2 fL (78.0-98.0); Platelet Count 207 thou/uL (130-400); RBC Distribution Width 12.2 % (11.5-14.5); Red Blood Cell (RBC) Count 3.17 mill/uL (4.70-6.10); White Blood Cell (WBC) Count 10.6 thou/uL (4.8-10.8)
[2019-04-13 04:32] LABS: Band 3 % (5-11); Eosinophils 4 % (0-10); Lymphocytes 6 % (21-51); MDiff Complete? YES; Monocytes 6 % (0-10); Neutrophil 81 % (42-75); Platelet Morphology Comment Appears Adequate
[2019-04-13] MEDS: Vancomycin HCl 1 GM in Premix Bag 1 BAG IVPB SCH ×2 (05:42→14:40)
[2019-04-13] MEDS: Morphine 2 MG/ML SYRINGE SLOW IVP PRN (05:42)
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
--- NOTE | 2019-04-13 10:05 | PDOC.HOSPP ---
- Subjective Encounter Date: 04/13/19 Encounter Time: 09:40 Subjective: Called per nursing due to resp distress and ? seizure activity in context of chronic seizure disorder and concern for PNA/UTI/Sepsis. Initially admitted receiving IVF's/Rocephin/Vancomycin. Chronic trach/PEG and bedbound status admitted from home where family is primary care provider. - Objective Vital Signs & Weight: Vital Signs (12 hours) Temp Pulse Resp BP Pulse Ox 04/13/19 08:00 102.5 F H 142 H 20 129/73 92 L 04/13/19 05:55 97 04/13/19 03:14 98.7 F 104 H 22 H 105/53 L 100 04/13/19 03:13 98.7 F 104 H 22 H 105/53 L 100 Weight Weight 145 lb 9.6 oz Most Recent Monitor Data Heart Rate from ECG 131 NIBP 109/78 NIBP BP-Mean 88 Respiration from ECG 18 SpO2 99 Result Diagrams: 04/13/19 04:01 04/12/19 21:11 Additional Labs: Microbiology 03/28/19 14:15 Stool C. difficile GDH Antigen & Toxins - Final 03/26/19 21:35 Sputum - Pending Respiratory Culture - Final Methicillin resistant S.aureus Stenotrophomonas maltophilia 04/12/19 21:38 Venous blood - Right Hand Blood Culture - Preliminary Specimen has been received and culture in progress. No Growth to date. 04/12/19 21:29 Venous blood - Right Arm Blood Culture - Preliminary Specimen has been received and culture in progress. No Growth to date. 03/26/19 21:35 Sputum - Pending Respiratory Culture - Preliminary Methicillin resistant S.aureus Gram Negative [facility]ui Laboratory Tests 03/26/19 03/26/19 03/26/19 21:48 21:48 21:48 WBC 20.9 H Hgb 11.3 L MCV Neutrophils % (Manual) 87 H Neutrophils % Potassium 5.4 H Lactic Acid 8.4 H* Prolactin Vancomycin Trough 03/26/19 03/27/19 03/27/19 21:51 00:48 00:48 WBC Hgb MCV Neutrophils % (Manual) Neutrophils % Potassium 4.0 Lactic Acid 4.3 H* Prolactin 19.79 H Vancomycin Trough 03/27/19 03/27/19 03/27/19 03:33 03:33 21:25 WBC 9.2 Hgb 9.5 L MCV 98.3 H Neutrophils % (Manual) Neutrophils % 88.9 H Potassium 4.0 Lactic Acid Prolactin Vancomycin Trough 16.8 03/28/19 04/12/19 04/13/19 04:32 21:11 04:01 WBC Hgb MCV Neutrophils % (Manual) 84 H Neutrophils % 85.0 H 85.8 H Potassium Lactic Acid Prolactin Vancomycin Trough 04/13/19 04:01 WBC Hgb MCV Neutrophils % (Manual) 81 H Neutrophils % Potassium Lactic Acid Prolactin Vancomycin Trough Radiology Reviewed by me: Yes (PCXR - RML infiltrate) EKG Reviewed by me: Yes (Tele -Sinus tachycardia in 120's) Hospitalist ROS - Medication Medications: Active Medications Generic Name Dose Route Start Last Admin Trade Name Freq PRN Reason Stop Dose Admin Acetaminophen 650 mg 04/13/19 02:10 04/13/19 08:30 Tylenol MN 650 mg Q4H PRN Administration Headache/Fever/Mild Pain (1-3) Vancomycin HCl 1 gm/ Device 200 mls @ 200 mls/hr 04/13/19 06:00 04/13/19 05: 42 IVPB 200 mls Q8HR MAGO Administration Levofloxacin 750 mg 04/13/19 06:00 04/13/19 05:42 Levaquin PER TUBE 750 mg 0600 MAGO Administration Lorazepam 1 mg 04/13/19 01:54 04/13/19 08:30 Ativan SLOW IVP 1 mg Q4H PRN Administration Anxiety/Agitation Morphine Sulfate 1 mg 04/13/19 05:36 04/13/19 05:42 Morphine SLOW IVP 1 mg Q4H PRN Administration Severe Pain (7-10) - Exam General - other findings: agitated, thrashing in bed Eye: PERRL Eye - other findings: does not track ENT: normocephalic atraumatic, dry oral mucosa Neck: supple, symmetric, no JVD, no thyromegaly Neck - other findings: trach in place Heart: no murmur, no gallops, no rubs, normal peripheral pulses Heart - other findings: tachycardic Respiratory - other findings: diminished and coarse sounds bilat Gastrointestinal: soft, non-tender, normal bowel sounds, no palpable masses Gastrointestinal - other findings: PEG in place without drainage, Painter with cloudy urine Extremities: no cyanosis, no clubbing, no edema Extremities - other findings: contractures in all extremities Skin: normal turgor Neurological - other findings: non-verbal, bedbound, dysphagia Hosp A/P (1) Acute on chronic respiratory failure Code(s): J96.20 - ACUTE AND CHR RESP FAILURE, UNSP W HYPOXIA OR HYPERCAPNIA Status: Acute Qualifiers: Respiratory failure complication: hypoxia Qualified Code(s): J96.21 - Acute and chronic respiratory failure with hypoxia Plan: Suspected mucus plugging with component of RML PNA, continue O2 via Trach collar , suction prn, see mgmt below, consult Pulmonology service (2) Healthcare associated bacterial pneumonia Code(s): J15.9 - UNSPECIFIED BACTERIAL PNEUMONIA Status: Acute Plan: RML infiltrate, continue Vancomycin/Levaquin, add Clindamycin for suspicion of aspiration component, O2 (3) Acute metabolic encephalopathy Code(s): G93.41 - METABOLIC ENCEPHALOPATHY Status: Acute Plan: Secondary to infectious process and hypoxia, see above for mgmt (4) Sepsis Code(s): A41.9 - SEPSIS, UNSPECIFIED ORGANISM Status: Acute Plan: Suspected given multiple co-morbid status, continue IV abx, monitor cx results, sepsis protocol (5) Quadriplegia and quadriparesis Code(s): G82.50 - QUADRIPLEGIA, UNSPECIFIED Status: Chronic Plan: Chronic, turning protocol, low air-loss mattress (6) Hydrocephalus Code(s): G91.9 - HYDROCEPHALUS, UNSPECIFIED Status: Chronic Plan: Normal functioning shunt per NS - Plan continue antibiotics, vp digital marketing social media and crm, speech therapy, respiratory therapy, DVT proph w/SCDs Add Diflucan after concern for Candiduria Continue Levaquin/Vancomycin Add NS @ 125ml/h Resume home Keppra Protonix 40mg PT Daily Consult Pulmonary/Neurology service Ativan IV prn seizure activity Toradol 30mg IV q6h AM lab: CMP, CBC PCXR in am Total critical care time: 35min
[2019-04-13] MEDS ORDERED: Fluconazole In NaCl,Iso-Osm 200 MG in Premix Bag 1 BAG IVPB SCH (10:30)
[2019-04-13] MEDS: Sodium Chloride 0.9% 1,000 ML IV SCH ×2 (10:35→17:55)
[2019-04-13] MEDS: Saccharomyces boulardii 250 MG CAP PER TUBE SCH (10:44)
[2019-04-13] MEDS: Famotidine/PF 20 mg/2ml Vial SLOW IVP SCH ×2 (10:44→20:58)
[2019-04-13] MEDS ORDERED: methylPREDNISolone Sod Succ 40 MG VIAL IVP SCH (11:00)
[2019-04-13] MEDS ORDERED: Ketorolac Tromethamine 30 MG/ML VIAL IVP SCH (11:00)
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
[2019-04-13] MEDS: Scopolamine 1.5 mg/72 hour Patch TD SCH (11:36)
[2019-04-13] MEDS ORDERED: Clindamycin/D5W 600 MG in Premix Bag 1 BAG IVPB SCH (14:00)
[2019-04-13] MEDS ORDERED: Lorazepam 2 MG/ML VIAL SLOW IVP SCH ×2 (14:45)
--- NOTE | 2019-04-13 15:32 | CT ---
CT PULMONARY ANGIOGRAM WITH IV CONTRAST AND 3D POST PROCESSING: HISTORY: Hypoxia. Low saturations. COMPARISON: 04/02/2019 FINDINGS: No filling defects are seen in the contrast opacified pulmonary arterial vasculature to suggest pulmo nary embolism. The thoracic aorta is well opacified without aneurysm or dissection. No pleural or per icardial effusions are seen. There are patchy infiltrates in the lung jackson bilaterally, right greater than left. The tracheobron chial tree is patent. There are postop changes in the lower thoracic spine. IMPRESSION: 1. No CT evidence of pulmonary embolism. 2. Findings suspicious for pneumonia. POS: [facility]
[2019-04-13] MEDS: Polyethylene Glycol OPTH DROP 15 ML BOT EA EYE SCH ×2 (15:54→20:58)
[2019-04-13] MEDS: Ketorolac Tromethamine 30 MG/ML VIAL IVP SCH (17:55)
[2019-04-13] MEDS: Enoxaparin Sodium 40 MG/0.4 ML SYRINGE SC SCH (20:57)
[2019-04-13] MEDS: Metoprolol Tartrate 25 MG TAB PER TUBE SCH ×2 (20:57→21:20)
[2019-04-13] MEDS: traZODone HCl 50 MG TAB PER TUBE SCH (20:57)
[2019-04-13] MEDS: Floranex Packet PER TUBE SCH (20:57)
[2019-04-13] MEDS: Gabapentin 300 MG CAP PO SCH (20:57)
[2019-04-13] MEDS: levETIRAcetam 500 mg/5 ml Oral Solution PER TUBE SCH (20:57)
[2019-04-13] MEDS: methylPREDNISolone Sod Succ 40 MG VIAL IVP SCH (20:58)
[2019-04-13] MEDS: MEROPENEM 1 GM/50 ML 1 GM in Premix Bag 1 BAG IVPB SCH (20:59)
[2019-04-14] MEDS: Vancomycin HCl 1 GM in Premix Bag 1 BAG IVPB SCH ×2 (00:09→08:23)
[2019-04-14] MEDS: Ketorolac Tromethamine 30 MG/ML VIAL IVP SCH ×4 (00:09→18:23)
[2019-04-14] MEDS: Senokot 8.6 MG TAB PER TUBE SCH ×2 (00:10→21:02)
--- NOTE | 2019-04-14 00:39 | PRG ---
DATE OF SERVICE: 04/13/2019 Mr. Cross was admitted with a history of a questionable seizure based on the fact that he had some blood around his mouth. Since admission, he has run a fever and showed signs of an ongoing infection. He had a routine lab work done, which was unremarkable. He was discharged on Keppra last month. His EEG on readmission showed some generalized slowing, but no epileptiform features. At this time, exam is fairly stable compared to what I had seen on the past evaluation. He responds to touch. His eyes are conjugate. His pupils are equal and reactive. There are no abnormal movements present. He is quadriplegic. Given very questionable history of another seizure, I would just continue his current Keppra dose at 500 mg twice a day. His infectious process will be addressed. I will be available if there are any further questions. Job ID: [id number]
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
[2019-04-14 05:28] LABS: ALT (SGPT) 47 U/L (8-55); AST (SGOT) 32 U/L (5-34); Albumin 3.4 g/dL (3.5-5.0); Alkaline Phosphatase 100 U/L (40-110); Anion Gap 13 mmol/L (10-20); BUN (Urea Nitrogen) 26 mg/dL (8.9-20.6); Bilirubin, Total 0.3 mg/dL (0.2-1.2); Calc. Creatinine Clearance 147 mL/min (70-130); Calcium 9.7 mg/dL (7.8-10.44); Carbon Dioxide 25 mmol/L (22-29); Chloride 112 mmol/L (98-107); Estimated GFR-MDRD Greater than 90; Globulin 2.9 g/dL (2.4-3.5); Glucose 102 mg/dL (70-105); Potassium 4.2 mmol/L (3.5-5.1); Protein, Total 6.3 g/dL (6.0-8.3); Sodium 146 mmol/L (136-145)
[2019-04-14] MEDS: MEROPENEM 1 GM/50 ML 1 GM in Premix Bag 1 BAG IVPB SCH ×3 (06:23→21:07)
[2019-04-14] MEDS: Sodium Chloride 0.9% 1,000 ML IV SCH (06:26)
[2019-04-14] MEDS: Amantadine HCl 10 mg/ml Oral Solution PER TUBE SCH ×2 (06:27→12:57)
[2019-04-14 06:39] LABS: Band 5 % (5-11); Hemoglobin 9.8 g/dL (14.0-18.0); Lymphocytes 14 % (21-51); MDiff Complete? YES; Mean Corpuscular HGB CONC 32.6 g/dL (32.0-36.0); Mean Corpuscular Volume 98.1 fL (78.0-98.0); Mean Platelet Volume 8.4 fL (7.4-10.4); Monocytes 3 % (0-10); Neutrophil 78 % (42-75); Platelet Count 132 thou/uL (130-400); RBC Distribution Width 12.1 % (11.5-14.5); Red Blood Cell (RBC) Count 3.07 mill/uL (4.70-6.10); White Blood Cell (WBC) Count 3.1 thou/uL (4.8-10.8)
[2019-04-14] MEDS ORDERED: Dextrose 5% in Water 1,000 ML IV SCH (08:00)
--- NOTE | 2019-04-14 08:19 | PRG ---
DATE OF SERVICE: 04/14/2019 SUBJECTIVE: The patient is seen and examined at the bedside. There were no any unexpected events overnight. He was seen by Dr. Bowman yesterday and his antibiotic regimen was switched to meropenem and vancomycin. He did not have any fever. OBJECTIVE: VITAL SIGNS: His temperature is 98.1, pulse is 84, blood pressure is 99/68, respirations 19, and O2 saturation is 100%. He has tracheostomy tube in place. He is receiving O2 through T-collar. HEENT: His pupils are big and very mildly response to the light. He keeps his eyes opened. LUNGS: Clear. HEART: S1 and S2, normal. No S3. No S4. ABDOMEN: Soft, nondistended. PEG tube in place. Bowel sounds are present. EXTREMITIES: Contracted upper extremities. NEUROLOGIC: He does not follow my commands. LABORATORY DATA: White count of 3.1, hemoglobin 9.8, hematocrit 30.1, and platelet count is 132,000. Sodium of 146, potassium 4.2, chloride 112, creatinine 0.66, BUN 26, and glucose 102. Lactic acid 2.0. The rest of chemistry within normal limits except for albumin which is 3.4. Microbiology; 1/2 blood cultures came back positive for gram-positive cocci, sensitivity to follow, this could be contamination. Urine culture preliminary report shows 50,000 to 75,000 colonies of mixed skin kalen including yeast, which is most likely chronic colonization. Chest x-ray was done this morning, which showed some mild bilateral infiltrates, most likely pneumonia. IMPRESSION: 1. Acute on chronic respiratory failure. 2. Healthcare-associated bacterial pneumonia. 3. Acute metabolic encephalopathy. 4. Sepsis. 5. Quadriplegia. 6. Hydrocephalus, chronic. PLAN: The patient is switched to meropenem and vancomycin by Dr. Bowman, who saw the patient for ID evaluation last night. We are going to switch his fluids from normal saline to D5 water. Also, the patient was seen by Dr. Chadwick, who recommends to continue his Keppra 500 mg twice a day. We will continue DVT prophylaxis, tube feeding, and O2 supplementation. Job ID: [id number]
--- NOTE | 2019-04-14 08:51 | RAD ---
CHEST ONE VIEW: HISTORY: Pneumonia. COMPARISON: 04/12/2019 FINDINGS: The cardiac silhouette is magnified by projection. The patient is slightly rotated leftward. Infiltrate within the right upper lobe is less pronounced than on the prior study. Multiple vertical skin folds overly the right chest. Lung markings extend beyond the skin folds. Tracheostomy appliance and postoperative changes of the thoracolumbar spine again demonstrated. Cardi ac monitor leads overly the chest. IMPRESSION: 1. Partial clearing of right upper lobe infiltrate. 2. No new abnormalities. POS: [facility]
[2019-04-14 08:58] LABS: Base Excess-Venous 5.5 mmol/L (-2.0 to 3.0); Bicarbonate (HCO3v) 32.6 mmol/L (22.0-28.0); CO2 Tension (PvCO2) 59.1 mmHg (40.0-50.0); Hemoglobin - Calc 12.1 g/dL (14.0-18.0); vO2 Saturation-calc 94.1 % (60.0-85.0)
[2019-04-14 08:59] LABS: Calcium, Ionized 1.21 mmol/L (See Comments:); Chloride 101 mmol/L (98-107); Potassium 4.6 mmol/L (3.5-5.1); Sodium 155 mmol/L (138-145); T. Carbon Dioxide 34.5 mmol/L (22.0-28.0)
--- NOTE | 2019-04-14 10:00 | EEG ---
Referring Physician: Charo NUNEZ EEG # [id number] TEST TYPE: URGENT PORTABLE INPATIENT REPORT: AN EEG USING THE INTERNATIONAL TEN-TWENTY SYSTEM OF ELECTRODE PLACEMENT WAS PERFORMED. The background activity appears generally slow and suppressed. There is quite a bit of muscle and movement artifact present. No epileptiform activity was noted. Photic stimulation was unremarkable. IMPRESSION: THIS STUDY IS ONLY NOTABLE FOR SOME DIFFUSE SLOWING WITHOUT ANY EVIDENCE OF EPILEPTIFORM ACTIVITY. CLINICAL CORRELATION IS INDICATED. Ham Facer: CATHRYN Industrial Maintenance Repairer Helper: EEG.LETTY FUENTES
[2019-04-14] MEDS: Folic Acid 1 MG TAB PER TUBE SCH (10:41)
[2019-04-14] MEDS: FLUoxetine HCl 20 MG CAP PER TUBE SCH (10:41)
[2019-04-14] MEDS: Gabapentin 300 MG CAP PO SCH ×2 (10:41→21:02)
[2019-04-14] MEDS: Ascorbic Acid 500 mg Chewable Tablet PER TUBE SCH (10:41)
[2019-04-14] MEDS: Saccharomyces boulardii 250 MG CAP PER TUBE SCH (10:41)
[2019-04-14] MEDS: Cyanocobalamin (Vitamin B-12) 1,000 MCG TAB PER TUBE SCH (10:41)
[2019-04-14] MEDS: Floranex Packet PER TUBE SCH ×2 (10:42→21:02)
[2019-04-14] MEDS: Pantoprazole 40 MG GRANULES PACKET PER TUBE SCH (10:42)
[2019-04-14] MEDS: Metoprolol Tartrate 25 MG TAB PER TUBE SCH ×2 (10:42→21:03)
[2019-04-14] MEDS: Multivitamin W/ Minerals 1 TAB PER TUBE SCH (10:42)
[2019-04-14] MEDS: Famotidine/PF 20 mg/2ml Vial SLOW IVP SCH ×2 (10:43→20:59)
[2019-04-14] MEDS: levETIRAcetam 500 mg/5 ml Oral Solution PER TUBE SCH ×2 (10:43→21:55)
[2019-04-14] MEDS: Fluconazole In NaCl,Iso-Osm 100 MG in Admixture Fee 2 EACH IVPB SCH (10:43)
[2019-04-14] MEDS: Polyethylene Glycol OPTH DROP 15 ML BOT EA EYE SCH ×3 (10:44→21:04)
[2019-04-14] MEDS: methylPREDNISolone Sod Succ 40 MG VIAL IVP SCH ×2 (10:44→20:56)
[2019-04-14] MEDS: Modafinil 100 MG TAB PER TUBE SCH (10:56)
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
[2019-04-14] MEDS: Vancomycin HCl 750 MG in Sodium Chloride 0.9% 250 ML 250 ML IVPB SCH ×2 (15:07→21:17)
[2019-04-14] MEDS: Dextrose 5% in Water 1,000 ML IV SCH (15:30)
[2019-04-14] MEDS: Enoxaparin Sodium 40 MG/0.4 ML SYRINGE SC SCH (21:02)
[2019-04-14] MEDS: traZODone HCl 50 MG TAB PER TUBE SCH (21:03)
[2019-04-15] MEDS: Ketorolac Tromethamine 30 MG/ML VIAL IVP SCH ×5 (00:13→23:19)
[2019-04-15 03:47] LABS: #Lymphocytes 0.3 thou/uL (1.20-3.40); #Monocytes 0.2 thou/uL (0.11-0.59); #Neutrophils 2.8 thou/uL (1.40-6.50); %Basophils 0.2 % (0.0-1.0); %Eosinophils 0.5 % (0.0-10.0); %Lymphocytes 8.5 % (21.0-51.0); %Monocytes 5.8 % (0.0-10.0); Hemoglobin 10.2 g/dL (14.0-18.0); Mean Corpuscular HGB CONC 33.9 g/dL (32.0-36.0); Mean Corpuscular Hemoglobin 33.6 pg (27.0-31.0); Mean Corpuscular Volume 98.9 fL (78.0-98.0); Mean Platelet Volume 7.8 fL (7.4-10.4); Platelet Count 152 thou/uL (130-400); RBC Distribution Width 11.8 % (11.5-14.5); Red Blood Cell (RBC) Count 3.04 mill/uL (4.70-6.10); White Blood Cell (WBC) Count 3.2 thou/uL (4.8-10.8)
[2019-04-15 04:03] LABS: Anion Gap 12 mmol/L (10-20); BUN (Urea Nitrogen) 26 mg/dL (8.9-20.6); Calc. Creatinine Clearance 154 mL/min (70-130); Carbon Dioxide 27 mmol/L (22-29); Chloride 108 mmol/L (98-107); Estimated GFR-MDRD Greater than 90; Glucose 152 mg/dL (70-105); Potassium 4.2 mmol/L (3.5-5.1); Sodium 143 mmol/L (136-145)
[2019-04-15] MEDS: MEROPENEM 1 GM/50 ML 1 GM in Premix Bag 1 BAG IVPB SCH ×3 (05:15→21:59)
[2019-04-15] MEDS: Amantadine HCl 10 mg/ml Oral Solution PER TUBE SCH ×2 (05:15→13:47)
[2019-04-15] MEDS: Vancomycin HCl 750 MG in Sodium Chloride 0.9% 250 ML 250 ML IVPB SCH ×3 (05:15→21:59)
[2019-04-15] MEDS: FLUoxetine HCl 20 MG CAP PER TUBE SCH (09:40)
[2019-04-15] MEDS: Ascorbic Acid 500 mg Chewable Tablet PER TUBE SCH (09:40)
[2019-04-15] MEDS: Pantoprazole 40 MG GRANULES PACKET PER TUBE SCH (09:40)
[2019-04-15] MEDS: Multivitamin W/ Minerals 1 TAB PER TUBE SCH (09:41)
[2019-04-15] MEDS: Saccharomyces boulardii 250 MG CAP PER TUBE SCH (09:41)
[2019-04-15] MEDS: Folic Acid 1 MG TAB PER TUBE SCH (09:41)
[2019-04-15] MEDS: Modafinil 100 MG TAB PER TUBE SCH (09:41)
[2019-04-15] MEDS: Gabapentin 300 MG CAP PO SCH ×2 (09:41→20:26)
[2019-04-15] MEDS: Cyanocobalamin (Vitamin B-12) 1,000 MCG TAB PER TUBE SCH (09:41)
[2019-04-15] MEDS: Famotidine/PF 20 mg/2ml Vial SLOW IVP SCH ×2 (09:41→20:25)
[2019-04-15] MEDS: Floranex Packet PER TUBE SCH ×2 (09:42→20:25)
[2019-04-15] MEDS: Fluconazole In NaCl,Iso-Osm 100 MG in Admixture Fee 2 EACH IVPB SCH (09:43)
[2019-04-15] MEDS: levETIRAcetam 500 mg/5 ml Oral Solution PER TUBE SCH ×2 (09:43→20:26)
[2019-04-15] MEDS: methylPREDNISolone Sod Succ 40 MG VIAL IVP SCH ×2 (09:45→20:26)
[2019-04-15] MEDS: Metoprolol Tartrate 25 MG TAB PER TUBE SCH ×2 (09:46→20:26)
[2019-04-15] MEDS: Polyethylene Glycol OPTH DROP 15 ML BOT EA EYE SCH ×3 (09:47→20:26)
[2019-04-15] MEDS: Dextrose 5% in Water 1,000 ML IV SCH (09:47)
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
[2019-04-15] MEDS: Morphine 2 MG/ML SYRINGE SLOW IVP PRN (13:48)
--- NOTE | 2019-04-15 20:02 | PRG ---
DATE OF SERVICE: 04/15/2019 SUBJECTIVE: Charli Cross is in no distress. OBJECTIVE: GENERAL: His eyes are open. He is nonverbal. VITAL SIGNS: O2 saturations 99%. He is on trach collar. FiO2 is 28%. Heart rate is 98, blood pressure 126/57, respiratory rate is 19. LUNGS: Clear. HEART: Regular rhythm. ABDOMEN: Soft. IMPRESSION: 1. Traumatic brain injury, chronically bedridden and recessed at low functional state. 2. Pneumonia, likely aspiration mediated. 3. Probable noncardiogenic pulmonary edema. 4. History of Clostridium difficile colitis. 5. History of hydrocephalus with ventriculoperitoneal shunt placement. I cannot really see how family could in any conceivable way take care of him adequately unless they have significant financial resources and could pay for it one or two full-time care assistance at home. I saw him when he was at [facility] earlier after being discharged from long-term acute care and he looks exactly like he was then. I would not anticipate any meaningful improvement given that he is many months out from his injury. His Diflucan could be switched to his feeding tube. Dr. Bowman ordered meropenem, so I will defer to him regarding transition into p.o. antimicrobial therapy, but at this point. We will see him as needed in the future. Job ID: [id number]
[2019-04-15] MEDS: Enoxaparin Sodium 40 MG/0.4 ML SYRINGE SC SCH (20:25)
[2019-04-15] MEDS: Senokot 8.6 MG TAB PER TUBE SCH (20:27)
[2019-04-15] MEDS: traZODone HCl 50 MG TAB PER TUBE SCH (20:27)
[2019-04-15] MEDS: ALGAL OIL PER TUBE SCH (22:01)
[2019-04-15] MEDS: LEVOMEFOLATE PER TUBE SCH (22:01)
[2019-04-16] MEDS: MEROPENEM 1 GM/50 ML 1 GM in Premix Bag 1 BAG IVPB SCH ×3 (05:20→21:33)
[2019-04-16] MEDS: Ketorolac Tromethamine 30 MG/ML VIAL IVP SCH ×4 (05:20→23:22)
[2019-04-16] MEDS: Vancomycin HCl 750 MG in Sodium Chloride 0.9% 250 ML 250 ML IVPB SCH ×2 (05:20→15:16)
[2019-04-16] MEDS: Amantadine HCl 10 mg/ml Oral Solution PER TUBE SCH ×2 (05:21→10:00)
[2019-04-16] MEDS: Dextrose 5% in Water 1,000 ML IV SCH ×2 (05:23→20:52)
[2019-04-16] MEDS: levETIRAcetam 500 mg/5 ml Oral Solution PER TUBE SCH ×2 (09:04→21:33)
[2019-04-16] MEDS: Fluconazole In NaCl,Iso-Osm 100 MG in Admixture Fee 2 EACH IVPB SCH (09:04)
[2019-04-16] MEDS: Saccharomyces boulardii 250 MG CAP PER TUBE SCH (09:04)
[2019-04-16] MEDS: Folic Acid 1 MG TAB PER TUBE SCH (09:04)
[2019-04-16] MEDS: Famotidine/PF 20 mg/2ml Vial SLOW IVP SCH ×2 (09:04→20:50)
[2019-04-16] MEDS: Ascorbic Acid 500 mg Chewable Tablet PER TUBE SCH (09:05)
[2019-04-16] MEDS: Pantoprazole 40 MG GRANULES PACKET PER TUBE SCH (09:05)
[2019-04-16] MEDS: Multivitamin W/ Minerals 1 TAB PER TUBE SCH (09:05)
[2019-04-16] MEDS: Gabapentin 300 MG CAP PO SCH ×2 (09:05→20:51)
[2019-04-16] MEDS: Scopolamine 1.5 mg/72 hour Patch TD SCH (09:05)
[2019-04-16] MEDS: FLUoxetine HCl 20 MG CAP PER TUBE SCH (09:05)
[2019-04-16] MEDS: methylPREDNISolone Sod Succ 40 MG VIAL IVP SCH (09:06)
[2019-04-16] MEDS: Floranex Packet PER TUBE SCH ×2 (09:06→20:51)
[2019-04-16] MEDS: Metoprolol Tartrate 25 MG TAB PER TUBE SCH ×2 (09:06→20:53)
[2019-04-16] MEDS: Polyethylene Glycol OPTH DROP 15 ML BOT EA EYE SCH ×3 (09:06→20:53)
[2019-04-16] MEDS: Cyanocobalamin (Vitamin B-12) 1,000 MCG TAB PER TUBE SCH (09:06)
[2019-04-16] MEDS: Modafinil 100 MG TAB PER TUBE SCH (09:15)
--- NOTE | 2019-04-16 19:18 | PRG ---
DATE OF SERVICE: 04/16/2019 SUBJECTIVE: Mr. Cross's eyes are open. He is in no distress, breathing without difficulty. He is nonverbal. OBJECTIVE: VITAL SIGNS: He is afebrile. Heart rate is in the 70s, blood for pressure 123/77, respiratory rate in the 20s. LUNGS: Clear. HEART: Regular rhythm. ABDOMEN: Soft. LABORATORY DATA: He has no new lab. One blood culture was one. Blood culture grew vancomycin-resistant Enterococcus. His urinary catheter grew vancomycin-resistant Enterococcus and Kaity. IMPRESSION AND PLAN: Traumatic brain injury, now in a persistent vegetative state. The organisms in his urine normally would be considered colonizers, but with one positive blood culture, this is a concern. Infectious Disease should be consulted since one culture is positive and one is negative. The coag-negative Staph is likely a contaminant, but the vancomycin-resistant enterococcus I suppose could be a skin contaminant given his chronic indwelling catheter, but it is also worrisome for possibly being a pathogen. Probably needs to be isolated with this. I would suggest a consult with Infectious Disease to get an opinion on this. Hemodynamically, he is stable. He clinically certainly does not appear to have Enterococcus bacteremia or Enterococcus sepsis. Job ID: [id number]
--- NOTE | 2019-04-16 19:59 | PDOC.HOSPP ---
- Subjective Encounter Date: 04/16/19 Encounter Time: 19:40 Subjective: f/u for sepsis, aspiration PNA, VRE in 2/2 blood cx in context of TBI with trach /PEG and essentially vegetative state. Overall stable per nursing. - Objective Vital Signs & Weight: Vital Signs (12 hours) Temp 04/16/19 19:34 98.4 F 04/16/19 16:01 98.2 F 04/16/19 10:22 97.9 F Weight Admit Weight 145 lb 9.6 oz Weight 145 lb 9.6 oz Most Recent Monitor Data Heart Rate from ECG 85 NIBP 110/76 NIBP BP-Mean 87 Respiration from ECG 38 SpO2 100 I&O: 04/15/19 04/16/19 04/17/19 06:59 06:59 06:59 Intake Total 5107 4757 3063 Output Total 990 1050 750 Balance 4117 8867 4773 Result Diagrams: 04/15/19 03:17 04/15/19 03:17 Additional Labs: Microbiology 04/12/19 21:38 Venous blood - Right Hand Blood Culture - Final Coagulase Neg Staphylococcus Vanc-resistant Enterococcus 04/12/19 21:30 Urine hayes catheter Urine Culture - Final Vanc-resistant Enterococcus Presumptive Kaity albicans 03/28/19 14:15 Stool C. difficile GDH Antigen & Toxins - Final 03/26/19 21:35 Sputum - Pending Respiratory Culture - Final Methicillin resistant S.aureus Stenotrophomonas maltophilia 04/12/19 21:38 Venous blood - Right Hand Blood Culture - Preliminary Specimen has been received and culture in progress. No Growth to date. 04/12/19 21:29 Venous blood - Right Arm Blood Culture - Preliminary Specimen has been received and culture in progress. No Growth to date. 04/12/19 21:29 Venous blood - Right Arm Blood Culture - Preliminary NO GROWTH AT 48 HOURS 03/26/19 21:35 Sputum - Pending Respiratory Culture - Preliminary Methicillin resistant S.aureus Gram Negative Rui Laboratory Tests 03/26/19 03/26/19 03/26/19 21:48 21:48 21:48 WBC 20.9 H Hgb 11.3 L MCV Neutrophils % (Manual) 87 H Neutrophils % Potassium 5.4 H Lactic Acid 8.4 H* Prolactin Vancomycin Trough 03/26/19 03/27/19 03/27/19 21:51 00:48 00:48 WBC Hgb MCV Neutrophils % (Manual) Neutrophils % Potassium 4.0 Lactic Acid 4.3 H* Prolactin 19.79 H Vancomycin Trough 03/27/19 03/27/19 03/27/19 03:33 03:33 21:25 WBC 9.2 Hgb 9.5 L MCV 98.3 H Neutrophils % (Manual) Neutrophils % 88.9 H Potassium 4.0 Lactic Acid Prolactin Vancomycin Trough 16.8 03/28/19 04/12/19 04/13/19 04:32 21:11 04:01 WBC Hgb MCV Neutrophils % (Manual) 84 H Neutrophils % 85.0 H 85.8 H Potassium Lactic Acid Prolactin Vancomycin Trough 04/13/19 04/16/19 04:01 14:22 WBC Hgb MCV Neutrophils % (Manual) 81 H Neutrophils % Potassium Lactic Acid Prolactin Vancomycin Trough 17.0 EKG Reviewed by me: Yes (Tele - SR) Hospitalist ROS - Medication Medications: Active Medications Generic Name Dose Route Start Last Admin Trade Name Freq PRN Reason Stop Dose Admin Acetaminophen 650 mg 04/13/19 02:10 04/13/19 08:30 Tylenol ND 650 mg Q4H PRN Administration Headache/Fever/Mild Pain (1-3) Acidophilus 1 gm 04/13/19 21:00 04/16/19 09:06 Floranex PER TUBE 1 gm BID MAGO Administration Amantadine HCl 200 mg 04/14/19 06:00 04/16/19 10:00 Symmetrel PER TUBE 200 mg BID@0600,1100 MAGO Administration Ascorbic Acid 500 mg 04/14/19 09:00 04/16/19 09:05 Vitamin C PER TUBE 500 mg DAILY MAGO Administration Cholecalciferol 5,000 units 04/14/19 09:00 04/16/19 09:04 Vitamin D3 PER TUBE 5,000 units DAILY MAGO Administration Cyanocobalamin 1,000 mcg 04/14/19 09:00 04/16/19 09:06 Vitamin B-12 PER TUBE 1,000 mcg DAILY MAGO Administration Enoxaparin Sodium 40 mg 04/13/19 21:00 04/15/19 20:25 Lovenox SC 40 mg QPM MAGO Administration Famotidine 20 mg 04/13/19 09:00 04/16/19 09:04 Pepcid SLOW IVP 20 mg Q12HR MAGO Administration Ferrous Sulfate 300 mg 04/14/19 09:00 04/16/19 09:05 Ferrous Sulfate PER TUBE 300 mg DAILY MAGO Administration Fluoxetine HCl 40 mg 04/14/19 09:00 04/16/19 09:05 Prozac PER TUBE 40 mg DAILY MAGO Administration Folic Acid 1 mg 04/14/19 09:00 04/16/19 09:04 Folvite PER TUBE 1 mg DAILY MAGO Administration Gabapentin 300 mg 04/13/19 21:00 04/16/19 09:05 Neurontin PO 300 mg BID MAGO Administration Fluconazole/Sodium Chloride 50 mls @ 100 mls/hr 04/14/19 09:00 04/16/19 09:04 100 mg/ Miscellaneous IVPB 50 mls Medication DAILY MAGO Administration Meropenem 1 gm/ Device 50 mls @ 100 mls/hr 04/13/19 22:00 04/16/19 15:16 IVPB 50 mls Q8HR MAGO Administration Dextrose/Water 1,000 mls @ 50 mls/hr 04/14/19 14:32 04/16/19 05:23 D5w IV Not Given .Q20H [facility] Iron/Minerals/Multivitamins 1 tab 04/14/19 09:00 04/16/19 09:05 Theragran M PER TUBE 1 tab DAILY [facility] Administration Ketorolac Tromethamine 30 mg 04/13/19 18:00 04/16/19 18:57 Toradol IVP 04/18/19 18:01 30 mg Q6HR MAGO Administration Levetiracetam 500 mg 04/13/19 21:00 04/16/19 09:04 Keppra Oral Solution PER TUBE 500 mg BID [facility] Administration Lorazepam 1 mg 04/13/19 01:54 04/13/19 21:21 Ativan SLOW IVP 1 mg Q4H PRN Administration Anxiety/Agitation Metoprolol Tartrate 25 mg 04/13/19 21:00 04/16/19 09:06 Lopressor PER TUBE 25 mg BID MAGO Administration Modafinil 200 mg 04/14/19 09:00 04/16/19 09:15 Provigil PER TUBE 200 mg DAILY MAGO Administration Morphine Sulfate 1 mg 04/13/19 05:36 04/15/19 13:48 Morphine SLOW IVP 1 mg Q4H PRN Administration Severe Pain (7-10) Pantoprazole Sodium 40 mg 04/14/19 09:00 04/16/19 09:05 Protonix PER TUBE 40 mg DAILY MAGO Administration Propylene Glycol 1 drop 04/13/19 15:00 04/16/19 15:17 Systane Opth Drop 15ml Bot EA EYE 1 drop TID AMGO Administration Saccharomyces Bomaryanndii 250 mg 04/13/19 09:00 04/16/19 09:04 Florastor PER TUBE 250 mg DAILY MAGO Administration Scopolamine 1.5 mg 04/13/19 10:00 04/16/19 09:05 Transderm Scop TD 1.5 mg Q3D MAGO Administration Senna 1 tab 04/13/19 21:00 04/15/19 20:27 Senokot PER TUBE 1 tab QPM MAGO Administration Trazodone HCl 100 mg 04/13/19 21:00 04/15/19 20:27 Desyrel PER TUBE 100 mg HS MAGO Administration - Exam General Appearance: awake alert, ill appearing General - other findings: non-verbal Eye: PERRL, anicteric sclera ENT: normocephalic atraumatic, no oropharyngeal lesions Neck: supple, symmetric, no JVD, no thyromegaly Neck - other findings: trach in place Heart: RRR, no murmur, no gallops, no rubs, normal peripheral pulses Respiratory - other findings: coarse sounds bilat Gastrointestinal: soft, non-tender, non-distended, normal bowel sounds Gastrointestinal - other findings: PEG in place Extremities: no cyanosis, no clubbing Extremities - other findings: contractures in all extremities Skin: normal turgor, no lesions Neurological - other findings: vegetative state Musculoskeletal: generalized weakness Musculoskeletal - other findings: bed bound, non-verbal Psychiatric: flat affect Hosp A/P (1) Acute on chronic respiratory failure Code(s): J96.20 - ACUTE AND CHR RESP FAILURE, UNSP W HYPOXIA OR HYPERCAPNIA Status: Acute Qualifiers: Respiratory failure complication: hypoxia Qualified Code(s): J96.21 - Acute and chronic respiratory failure with hypoxia Plan: Continue pulmonary supportive mgmt, suctioning airway PRN, T-collar O2 supplementation (2) Healthcare associated bacterial pneumonia Code(s): J15.9 - UNSPECIFIED BACTERIAL PNEUMONIA Status: Acute Plan: Continue Meropenem, Fluconazole (3) Acute metabolic encephalopathy Code(s): G93.41 - METABOLIC ENCEPHALOPATHY Status: Acute (4) Sepsis Code(s): A41.9 - SEPSIS, UNSPECIFIED ORGANISM Status: Acute Plan: Resolving with abx tx (5) Quadriplegia and quadriparesis Code(s): G82.50 - QUADRIPLEGIA, UNSPECIFIED Status: Chronic Plan: chronic bed bound status, vegetative state (6) Hydrocephalus Code(s): G91.9 - HYDROCEPHALUS, UNSPECIFIED Status: Chronic Plan: s/p SENIOR ELECTRICAL ESTIMATOR shunt - Plan continue antibiotics, aids social worker, speech therapy, respiratory therapy, DVT proph w/SCDs Add Diflucan after concern for Kaity in urine/blood Continue Meropenem Resume home Keppra Protonix 40mg PT Daily Consult Pulmonary/Neurology service Ativan IV prn seizure activity Continue Keppra Toradol IV PRN
[2019-04-16] MEDS: Enoxaparin Sodium 40 MG/0.4 ML SYRINGE SC SCH (20:50)
[2019-04-16] MEDS: traZODone HCl 50 MG TAB PER TUBE SCH (20:51)
[2019-04-16] MEDS: Senokot 8.6 MG TAB PER TUBE SCH (20:51)
[2019-04-16] MEDS: Lorazepam 2 MG/ML VIAL SLOW IVP PRN (21:32)
[2019-04-17] MEDS: Ketorolac Tromethamine 30 MG/ML VIAL IVP SCH ×3 (06:23→18:14)
[2019-04-17] MEDS: MEROPENEM 1 GM/50 ML 1 GM in Premix Bag 1 BAG IVPB SCH ×3 (06:24→22:53)
[2019-04-17] MEDS: Amantadine HCl 10 mg/ml Oral Solution PER TUBE SCH ×2 (06:24→12:01)
--- NOTE | 2019-04-17 09:10 | PRG ---
DATE OF SERVICE: 04/17/2019 SUBJECTIVE: The patient is doing reasonably well, all things considered. OBJECTIVE: VITAL SIGNS: On exam, temperature 97.5, pulse 79, blood pressure 109/74, and saturations 100%. GENERAL: He will open his eyes to stimulation. HEENT: Pupils react. Oropharynx clear. NECK: Trach clean. LUNGS: Clear anteriorly. CARDIAC: S1 and S2. Regular. ABDOMEN: Soft. EXTREMITIES: Contracted. LABORATORY DATA: No labs were done today. ASSESSMENT: 1. Sepsis syndrome. 2. Traumatic brain injury. 3. Chronic indwelling tracheostomy. PLAN: The patient is probably near his baseline. Decisions need to be made about how long to treat him with the antibiotics. No further Pulmonary recommendations at this time. Job ID: [id number]
[2019-04-17] MEDS: Ascorbic Acid 500 mg Chewable Tablet PER TUBE SCH (09:37)
[2019-04-17] MEDS: Floranex Packet PER TUBE SCH ×2 (09:37→21:12)
[2019-04-17] MEDS: FLUoxetine HCl 20 MG CAP PER TUBE SCH (09:38)
[2019-04-17] MEDS: Gabapentin 300 MG CAP PO SCH ×2 (09:38→21:12)
[2019-04-17] MEDS: Multivitamin W/ Minerals 1 TAB PER TUBE SCH (09:38)
[2019-04-17] MEDS: levETIRAcetam 500 mg/5 ml Oral Solution PER TUBE SCH ×2 (09:38→21:11)
[2019-04-17] MEDS: Pantoprazole 40 MG GRANULES PACKET PER TUBE SCH (09:38)
[2019-04-17] MEDS: Cyanocobalamin (Vitamin B-12) 1,000 MCG TAB PER TUBE SCH (09:38)
[2019-04-17] MEDS: Saccharomyces boulardii 250 MG CAP PER TUBE SCH (09:39)
[2019-04-17] MEDS: Metoprolol Tartrate 25 MG TAB PER TUBE SCH ×2 (09:39→21:11)
[2019-04-17] MEDS: Folic Acid 1 MG TAB PER TUBE SCH (09:39)
[2019-04-17] MEDS: Modafinil 100 MG TAB PER TUBE SCH (09:39)
[2019-04-17] MEDS: Fluconazole In NaCl,Iso-Osm 100 MG in Admixture Fee 2 EACH IVPB SCH (09:40)
[2019-04-17] MEDS: Polyethylene Glycol OPTH DROP 15 ML BOT EA EYE SCH ×3 (09:40→21:10)
[2019-04-17] MEDS: Famotidine/PF 20 mg/2ml Vial SLOW IVP SCH ×2 (09:40→21:11)
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
--- NOTE | 2019-04-17 16:13 | PDOC.HOSPP ---
- Subjective Encounter Date: 04/17/19 Encounter Time: 16:00 Subjective: f/u for sepsis, aspiration PNA and ? UTI with bacteremia. Receiving Linezolid/ Meropenem/Fluconazole. Overall labs improved. Nursing reports no new events. - Objective Vital Signs & Weight: Vital Signs (12 hours) Temp Pulse Ox 04/17/19 15:20 98.0 F 04/17/19 11:06 98.0 F 04/17/19 08:18 100 04/17/19 08:00 98 04/17/19 07:12 97.5 F L Weight Admit Weight 145 lb 9.6 oz Weight 145 lb 9.6 oz Most Recent Monitor Data Heart Rate from ECG 74 NIBP 105/75 NIBP BP-Mean 85 Respiration from ECG 27 SpO2 99 I&O: 04/16/19 04/17/19 04/18/19 06:59 06:59 06:59 Intake Total 4757 3959 574 Output Total 1050 1700 Balance 3707 2259 574 Result Diagrams: 04/15/19 03:17 04/15/19 03:17 Additional Labs: Microbiology 04/12/19 21:38 Venous blood - Right Hand Blood Culture - Final Coagulase Neg Staphylococcus Vanc-resistant Enterococcus 04/12/19 21:30 Urine hayes catheter Urine Culture - Final Vanc-resistant Enterococcus Presumptive Kaity albicans 03/28/19 14:15 Stool C. difficile GDH Antigen & Toxins - Final 03/26/19 21:35 Sputum - Pending Respiratory Culture - Final Methicillin resistant S.aureus Stenotrophomonas maltophilia 04/12/19 21:38 Venous blood - Right Hand Blood Culture - Preliminary Specimen has been received and culture in progress. No Growth to date. 04/12/19 21:29 Venous blood - Right Arm Blood Culture - Preliminary Specimen has been received and culture in progress. No Growth to date. 04/12/19 21:29 Venous blood - Right Arm Blood Culture - Preliminary NO GROWTH AT 48 HOURS 03/26/19 21:35 Sputum - Pending Respiratory Culture - Preliminary Methicillin resistant S.aureus Gram Negative [facility] Laboratory Tests 03/26/19 03/26/19 03/26/19 21:48 21:48 21:48 WBC 20.9 H Hgb 11.3 L MCV Neutrophils % (Manual) 87 H Neutrophils % Potassium 5.4 H Lactic Acid 8.4 H* Prolactin Vancomycin Trough 03/26/19 03/27/19 03/27/19 21:51 00:48 00:48 WBC Hgb MCV Neutrophils % (Manual) Neutrophils % Potassium 4.0 Lactic Acid 4.3 H* Prolactin 19.79 H Vancomycin Trough 03/27/19 03/27/19 03/27/19 03:33 03:33 21:25 WBC 9.2 Hgb 9.5 L MCV 98.3 H Neutrophils % (Manual) Neutrophils % 88.9 H Potassium 4.0 Lactic Acid Prolactin Vancomycin Trough 16.8 03/28/19 04/12/19 04/13/19 04:32 21:11 04:01 WBC Hgb MCV Neutrophils % (Manual) 84 H Neutrophils % 85.0 H 85.8 H Potassium Lactic Acid Prolactin Vancomycin Trough 04/13/19 04/16/19 04:01 14:22 WBC Hgb MCV Neutrophils % (Manual) 81 H Neutrophils % Potassium Lactic Acid Prolactin Vancomycin Trough 17.0 EKG Reviewed by me: Yes (Tele - SR) Hospitalist ROS - Medication Medications: Active Medications Generic Name Dose Route Start Last Admin Trade Name Freq PRN Reason Stop Dose Admin Acetaminophen 650 mg 04/13/19 02:10 04/13/19 08:30 Tylenol NV 650 mg Q4H PRN Administration Headache/Fever/Mild Pain (1-3) Acidophilus 1 gm 04/13/19 21:00 04/17/19 09:37 Floranex PER TUBE 1 gm BID MAGO Administration Amantadine HCl 200 mg 04/14/19 06:00 04/17/19 12:01 Symmetrel PER TUBE 200 mg BID@0600,1100 MAGO Administration Ascorbic Acid 500 mg 04/14/19 09:00 04/17/19 09:37 Vitamin C PER TUBE 500 mg DAILY MAGO Administration Cholecalciferol 5,000 units 04/14/19 09:00 04/17/19 09:37 Vitamin D3 PER TUBE 5,000 units DAILY MAGO Administration Cyanocobalamin 1,000 mcg 04/14/19 09:00 04/17/19 09:38 Vitamin B-12 PER TUBE 1,000 mcg DAILY MAGO Administration Enoxaparin Sodium 40 mg 04/13/19 21:00 04/16/19 20:50 Lovenox SC 40 mg QPM MAGO Administration Famotidine 20 mg 04/13/19 09:00 04/17/19 09:40 Pepcid SLOW IVP 20 mg Q12HR MAGO Administration Ferrous Sulfate 300 mg 04/14/19 09:00 04/17/19 09:38 Ferrous Sulfate PER TUBE 300 mg DAILY MAGO Administration Fluoxetine HCl 40 mg 04/14/19 09:00 04/17/19 09:38 Prozac PER TUBE 40 mg DAILY MAGO Administration Folic Acid 1 mg 04/14/19 09:00 04/17/19 09:39 Folvite PER TUBE 1 mg DAILY MAGO Administration Gabapentin 300 mg 04/13/19 21:00 04/17/19 09:38 Neurontin PO 300 mg BID MAGO Administration Fluconazole/Sodium Chloride 50 mls @ 100 mls/hr 04/14/19 09:00 04/17/19 09:40 100 mg/ Miscellaneous IVPB 50 mls Medication DAILY MAGO Administration Meropenem 1 gm/ Device 50 mls @ 100 mls/hr 04/13/19 22:00 04/17/19 14:42 IVPB 50 mls Q8HR MAGO Administration Dextrose/Water 1,000 mls @ 50 mls/hr 04/14/19 14:32 04/16/19 20:52 D5w IV 1,000 mls .Q20H MAGO Administration Iron/Minerals/Multivitamins 1 tab 04/14/19 09:00 04/17/19 09:38 Theragran M PER TUBE 1 tab DAILY MAGO Administration Ketorolac Tromethamine 30 mg 04/13/19 18:00 04/17/19 12:01 Toradol IVP 04/18/19 18:01 30 mg Q6HR MAGO Administration Levetiracetam 500 mg 04/13/19 21:00 04/17/19 09:38 Keppra Oral Solution PER TUBE 500 mg BID MAGO Administration Lorazepam 1 mg 04/13/19 01:54 04/16/19 21:32 Ativan SLOW IVP 1 mg Q4H PRN Administration Anxiety/Agitation Metoprolol Tartrate 25 mg 04/13/19 21:00 04/17/19 09:39 Lopressor PER TUBE 25 mg BID MAGO Administration Modafinil 200 mg 04/14/19 09:00 04/17/19 09:39 Provigil PER TUBE 200 mg DAILY MAGO Administration Morphine Sulfate 1 mg 04/13/19 05:36 04/15/19 13:48 Morphine SLOW IVP 1 mg Q4H PRN Administration Severe Pain (7-10) Pantoprazole Sodium 40 mg 04/14/19 09:00 04/17/19 09:38 Protonix PER TUBE 40 mg DAILY MAGO Administration Propylene Glycol 1 drop 04/13/19 15:00 04/17/19 14:42 Systane Opth Drop 15ml Bot EA EYE 1 drop TID MAGO Administration Saccharomyces Boulardii 250 mg 04/13/19 09:00 04/17/19 09:39 Florastor PER TUBE 250 mg DAILY MAGO Administration Scopolamine 1.5 mg 04/13/19 10:00 04/16/19 09:05 Transderm Scop TD 1.5 mg Q3D MAGO Administration Senna 1 tab 04/13/19 21:00 04/16/19 20:51 Senokot PER TUBE 1 tab QPM MAGO Administration Trazodone HCl 100 mg 04/13/19 21:00 04/16/19 20:51 Desyrel PER TUBE 100 mg HS MAGO Administration - Exam General - other findings: non-verbal, awake, does not track or follow ENT: normocephalic atraumatic, no oropharyngeal lesions Neck: supple, symmetric, no JVD, no thyromegaly Neck - other findings: trach in place Heart: RRR, no murmur, no gallops, no rubs, normal peripheral pulses Respiratory - other findings: coarse sounds in bilat jackson Gastrointestinal: soft, non-tender, non-distended, normal bowel sounds Gastrointestinal - other findings: PEG in place Extremities: no cyanosis, no edema Extremities - other findings: contractures bilat Skin: normal turgor Neurological - other findings: non-verbal, bedbound Hosp A/P (1) Acute on chronic respiratory failure Code(s): J96.20 - ACUTE AND CHR RESP FAILURE, UNSP W HYPOXIA OR HYPERCAPNIA Status: Acute Qualifiers: Respiratory failure complication: hypoxia Qualified Code(s): J96.21 - Acute and chronic respiratory failure with hypoxia Plan: Continue pulmonary support, T-collar (2) Healthcare associated bacterial pneumonia Code(s): J15.9 - UNSPECIFIED BACTERIAL PNEUMONIA Status: Acute Plan: Likely recurrent aspiration, continue Meropenem/Linezolid/Fluconazole (3) Acute metabolic encephalopathy Code(s): G93.41 - METABOLIC ENCEPHALOPATHY Status: Acute Plan: Baseline (4) Sepsis Code(s): A41.9 - SEPSIS, UNSPECIFIED ORGANISM Status: Acute Plan: Resolved (5) Quadriplegia and quadriparesis Code(s): G82.50 - QUADRIPLEGIA, UNSPECIFIED Status: Chronic Plan: Turning protocol (6) Hydrocephalus Code(s): G91.9 - HYDROCEPHALUS, UNSPECIFIED Status: Chronic Plan: VPS in place - Plan continue antibiotics, director social service, respiratory therapy, DVT proph w/SCDs Add Diflucan after concern for Kaity in urine/blood Continue Meropenem/Linezolid Resume home Keppra Protonix 40mg PT Daily Consult Pulmonary/Neurology service Ativan IV prn seizure activity Toradol IV PRN
[2019-04-17] MEDS: Linezolid 600 MG in Premix Bag 1 BAG IVPB SCH (20:46)
[2019-04-17] MEDS: Enoxaparin Sodium 40 MG/0.4 ML SYRINGE SC SCH (21:11)
[2019-04-17] MEDS: traZODone HCl 50 MG TAB PER TUBE SCH (21:11)
[2019-04-17] MEDS: Senokot 8.6 MG TAB PER TUBE SCH (21:12)
[2019-04-17] MEDS: Dextrose 5% in Water 1,000 ML IV SCH (21:40)
[2019-04-18] MEDS: Ketorolac Tromethamine 30 MG/ML VIAL IVP SCH ×4 (00:19→18:42)
[2019-04-18] MEDS: MEROPENEM 1 GM/50 ML 1 GM in Premix Bag 1 BAG IVPB SCH ×3 (05:46→23:47)
[2019-04-18] MEDS: Amantadine HCl 10 mg/ml Oral Solution PER TUBE SCH ×2 (05:47→10:21)
[2019-04-18] MEDS: Saccharomyces boulardii 250 MG CAP PER TUBE SCH (10:17)
[2019-04-18] MEDS: Pantoprazole 40 MG GRANULES PACKET PER TUBE SCH (10:17)
[2019-04-18] MEDS: Gabapentin 300 MG CAP PO SCH ×2 (10:18→21:22)
[2019-04-18] MEDS: FLUoxetine HCl 20 MG CAP PER TUBE SCH (10:18)
[2019-04-18] MEDS: Metoprolol Tartrate 25 MG TAB PER TUBE SCH ×2 (10:18→21:22)
[2019-04-18] MEDS: Modafinil 100 MG TAB PER TUBE SCH (10:18)
[2019-04-18] MEDS: Folic Acid 1 MG TAB PER TUBE SCH (10:18)
[2019-04-18] MEDS: Ascorbic Acid 500 mg Chewable Tablet PER TUBE SCH (10:19)
[2019-04-18] MEDS: Cyanocobalamin (Vitamin B-12) 1,000 MCG TAB PER TUBE SCH (10:19)
[2019-04-18] MEDS: Multivitamin W/ Minerals 1 TAB PER TUBE SCH (10:19)
[2019-04-18] MEDS: levETIRAcetam 500 mg/5 ml Oral Solution PER TUBE SCH ×2 (10:20→21:21)
[2019-04-18] MEDS: Floranex Packet PER TUBE SCH ×2 (10:20→21:22)
[2019-04-18] MEDS: Linezolid 600 MG in Premix Bag 1 BAG IVPB SCH ×2 (10:20→21:16)
[2019-04-18] MEDS: Fluconazole In NaCl,Iso-Osm 100 MG in Admixture Fee 2 EACH IVPB SCH (10:21)
[2019-04-18] MEDS: Polyethylene Glycol OPTH DROP 15 ML BOT EA EYE SCH ×3 (10:21→21:20)
[2019-04-18] MEDS: Famotidine/PF 20 mg/2ml Vial SLOW IVP SCH ×2 (10:21→21:21)
--- NOTE | 2019-04-18 11:47 | PRG ---
DATE OF SERVICE: 04/18/2019 SUBJECTIVE: Mr. Cross is at his baseline clinically. OBJECTIVE: VITAL SIGNS: He is afebrile, heart rate is 71, blood pressure 110/77, his oximetry is 99% on trach collar. LUNGS: Remarkable for mild rhonchi. HEART: Regular rhythm. ABDOMEN: Soft. 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 Recommend placement is the next step. No acute pulmonary issues. PLAN: He had VRE grown out of his urine. In my opinion, he would probably be best served with a suprapubic catheter, but I would not consult Urology on [facility] for this procedure. This should be considered. We will see as needed. Job ID: [id number]
--- NOTE | 2019-04-18 15:42 | PDOC.HOSPP ---
- Subjective Encounter Date: 04/18/19 Encounter Time: 10:30 Subjective: f/u for sepsis, UTI with bacteremia on Linezolid/Meropenem/Fluconazole. Near baseline clinical status. - Objective Vital Signs & Weight: Vital Signs (12 hours) Temp Pulse Ox 04/18/19 15:30 98.2 F 04/18/19 07:40 99 04/18/19 07:18 97.7 F Weight Admit Weight 145 lb 9.6 oz Weight 145 lb 9.6 oz Most Recent Monitor Data Heart Rate from ECG 81 NIBP 111/75 NIBP BP-Mean 87 Respiration from ECG 28 SpO2 97 I&O: 04/17/19 04/18/19 04/19/19 06:59 06:59 06:59 Intake Total 3959 3056 629 Output Total 0110 4150 Balance 2259 -2817 629 Result Diagrams: 04/15/19 03:17 04/15/19 03:17 EKG Reviewed by me: Yes (Tele - SR) Hospitalist ROS - Medication Medications: Active Medications Generic Name Dose Route Start Last Admin Trade Name Freq PRN Reason Stop Dose Admin Acetaminophen 650 mg 04/13/19 02:10 04/13/19 08:30 Tylenol [place] 650 mg Q4H PRN Administration Headache/Fever/Mild Pain (1-3) Acidophilus 1 gm 04/13/19 21:00 04/18/19 10:20 Floranex PER TUBE 1 gm BID MAGO Administration Amantadine HCl 200 mg 04/14/19 06:00 04/18/19 10:21 Symmetrel PER TUBE 200 mg BID@0600,1100 MAGO Administration Ascorbic Acid 500 mg 04/14/19 09:00 04/18/19 10:19 Vitamin C PER TUBE 500 mg DAILY MAGO Administration Cholecalciferol 5,000 units 04/14/19 09:00 04/18/19 10:17 Vitamin D3 PER TUBE 5,000 units DAILY MAGO Administration Cyanocobalamin 1,000 mcg 04/14/19 09:00 04/18/19 10:19 Vitamin B-12 PER TUBE 1,000 mcg DAILY MAGO Administration Enoxaparin Sodium 40 mg 04/13/19 21:00 04/17/19 21:11 Lovenox SC 40 mg QPM MAGO Administration Famotidine 20 mg 04/13/19 09:00 04/18/19 10:21 Pepcid SLOW IVP 20 mg Q12HR MAGO Administration Ferrous Sulfate 300 mg 04/14/19 09:00 04/18/19 10:21 Ferrous Sulfate PER TUBE 300 mg DAILY MAGO Administration Fluoxetine HCl 40 mg 04/14/19 09:00 04/18/19 10:18 Prozac PER TUBE 40 mg DAILY MAGO Administration Folic Acid 1 mg 04/14/19 09:00 04/18/19 10:18 Folvite PER TUBE 1 mg DAILY MAGO Administration Gabapentin 300 mg 04/13/19 21:00 04/18/19 10:18 Neurontin PO 300 mg BID MAGO Administration Fluconazole/Sodium Chloride 50 mls @ 100 mls/hr 04/14/19 09:00 04/18/19 10:21 100 mg/ Miscellaneous IVPB 50 mls Medication DAILY MAGO Administration Meropenem 1 gm/ Device 50 mls @ 100 mls/hr 04/13/19 22:00 04/18/19 15:26 IVPB 50 mls Q8HR MAGO Administration Dextrose/Water 1,000 mls @ 50 mls/hr 04/14/19 14:32 04/17/19 21:40 D5w IV 1,000 mls .Q20H MAGO Administration Linezolid 600 mg/ Device 300 mls @ 150 mls/hr 04/17/19 21:00 04/18/19 10:20 IVPB 300 mls Q12HR MAGO Administration Iron/Minerals/Multivitamins 1 tab 04/14/19 09:00 04/18/19 10:19 Theragran M PER TUBE 1 tab DAILY MAGO Administration Ketorolac Tromethamine 30 mg 04/13/19 18:00 04/18/19 14:45 Toradol IVP 04/18/19 18:01 30 mg Q6HR MAGO Administration Levetiracetam 500 mg 04/13/19 21:00 04/18/19 10:20 Keppra Oral Solution PER TUBE 500 mg BID MAGO Administration Lorazepam 1 mg 04/13/19 01:54 04/16/19 21:32 Ativan SLOW IVP 1 mg Q4H PRN Administration Anxiety/Agitation Metoprolol Tartrate 25 mg 04/13/19 21:00 04/18/19 10:18 Lopressor PER TUBE Not Given BID MAGO Modafinil 200 mg 04/14/19 09:00 04/18/19 10:18 Provigil PER TUBE 200 mg DAILY MAGO Administration Morphine Sulfate 1 mg 04/13/19 05:36 04/15/19 13:48 Morphine SLOW IVP 1 mg Q4H PRN Administration Severe Pain (7-10) Pantoprazole Sodium 40 mg 04/14/19 09:00 04/18/19 10:17 Protonix PER TUBE 40 mg DAILY MAGO Administration Propylene Glycol 1 drop 04/13/19 15:00 04/18/19 15:26 Systane Opth Drop 15ml Bot EA EYE 1 drop TID MAGO Administration Saccharomyces Boulardii 250 mg 04/13/19 09:00 04/18/19 10:17 Florastor PER TUBE 250 mg DAILY MAGO Administration Scopolamine 1.5 mg 04/13/19 10:00 04/16/19 09:05 Transderm Scop TD 1.5 mg Q3D MAGO Administration Senna 1 tab 04/13/19 21:00 04/17/19 21:12 Senokot PER TUBE 1 tab QPM MAGO Administration Trazodone HCl 100 mg 04/13/19 21:00 04/17/19 21:11 Desyrel PER TUBE 100 mg HS MAGO Administration - Exam General - other findings: awake, stares at ceiling, does not track Eye: PERRL, anicteric sclera ENT: normocephalic atraumatic, no oropharyngeal lesions, dry oral mucosa Neck: supple, symmetric, no JVD, no thyromegaly Neck - other findings: Trach in place Heart: RRR, no gallops, no rubs, normal peripheral pulses Respiratory - other findings: scattered coarse sounds transmitted from upper airway Gastrointestinal: soft, non-tender, non-distended, normal bowel sounds, no palpable masses Gastrointestinal - other findings: PEG tube in place Extremities: no edema Extremities - other findings: Contractures in all extremities Skin: normal turgor, no lesions Neurological: no new deficit Neurological - other findings: bed bound, non-verbal Musculoskeletal: diffuse muscle atrophy Hosp A/P (1) Acute on chronic respiratory failure Code(s): J96.20 - ACUTE AND CHR RESP FAILURE, UNSP W HYPOXIA OR HYPERCAPNIA Status: Acute Qualifiers: Respiratory failure complication: hypoxia Qualified Code(s): J96.21 - Acute and chronic respiratory failure with hypoxia Plan: Continue O2 via T-collar, baseline currently (2) Healthcare associated bacterial pneumonia Code(s): J15.9 - UNSPECIFIED BACTERIAL PNEUMONIA Status: Acute Plan: Suspected, continue current Meropenem (3) Sepsis Code(s): A41.9 - SEPSIS, UNSPECIFIED ORGANISM Status: Acute Plan: Resolving, continue current abx regimen, high risk/likelihood for recurrence (4) Quadriplegia and quadriparesis Code(s): G82.50 - QUADRIPLEGIA, UNSPECIFIED Status: Chronic (5) Hydrocephalus Code(s): G91.9 - HYDROCEPHALUS, UNSPECIFIED Status: Chronic (6) Acute metabolic encephalopathy Code(s): G93.41 - METABOLIC ENCEPHALOPATHY Status: Acute - Plan continue antibiotics, social service worker, speech therapy, respiratory therapy, DVT proph w/SCDs Add Diflucan after concern for Kaity Continue Meropenem/Linezolid Resume home Keppra Protonix 40mg PT Daily Ativan IV prn seizure activity Toradol IV PRN Nutritional support with TF's CM for placement/HH options
[2019-04-18] MEDS: Dextrose 5% in Water 1,000 ML IV SCH (19:21)
[2019-04-18] MEDS: Enoxaparin Sodium 40 MG/0.4 ML SYRINGE SC SCH (21:20)
[2019-04-18] MEDS: traZODone HCl 50 MG TAB PER TUBE SCH (21:22)
[2019-04-18] MEDS: Senokot 8.6 MG TAB PER TUBE SCH (23:47)
[2019-04-19] MEDS: MEROPENEM 1 GM/50 ML 1 GM in Premix Bag 1 BAG IVPB SCH ×3 (05:51→22:36)
[2019-04-19] MEDS: Amantadine HCl 10 mg/ml Oral Solution PER TUBE SCH ×2 (05:51→09:42)
[2019-04-19] MEDS: Fluconazole In NaCl,Iso-Osm 100 MG in Admixture Fee 2 EACH IVPB SCH (09:10)
[2019-04-19] MEDS: Saccharomyces boulardii 250 MG CAP PER TUBE SCH (09:11)
[2019-04-19] MEDS: Linezolid 600 MG in Premix Bag 1 BAG IVPB SCH ×2 (09:11→20:29)
[2019-04-19] MEDS: Pantoprazole 40 MG GRANULES PACKET PER TUBE SCH (09:11)
[2019-04-19] MEDS: Modafinil 100 MG TAB PER TUBE SCH (09:11)
[2019-04-19] MEDS: FLUoxetine HCl 20 MG CAP PER TUBE SCH (09:11)
[2019-04-19] MEDS: Scopolamine 1.5 mg/72 hour Patch TD SCH (09:12)
[2019-04-19] MEDS: Multivitamin W/ Minerals 1 TAB PER TUBE SCH (09:12)
[2019-04-19] MEDS: Cyanocobalamin (Vitamin B-12) 1,000 MCG TAB PER TUBE SCH (09:13)
[2019-04-19] MEDS: Floranex Packet PER TUBE SCH ×2 (09:13→20:28)
[2019-04-19] MEDS: levETIRAcetam 500 mg/5 ml Oral Solution PER TUBE SCH ×2 (09:13→20:27)
[2019-04-19] MEDS: Metoprolol Tartrate 25 MG TAB PER TUBE SCH ×2 (09:13→20:29)
[2019-04-19] MEDS: Ascorbic Acid 500 mg Chewable Tablet PER TUBE SCH (09:13)
[2019-04-19] MEDS: Polyethylene Glycol OPTH DROP 15 ML BOT EA EYE SCH ×3 (09:13→20:28)
[2019-04-19] MEDS: Famotidine/PF 20 mg/2ml Vial SLOW IVP SCH ×2 (09:13→20:27)
[2019-04-19] MEDS: Folic Acid 1 MG TAB PER TUBE SCH (09:14)
[2019-04-19] MEDS: Gabapentin 300 MG CAP PO SCH ×2 (09:14→20:28)
[2019-04-19] MEDS: Dextrose 5% in Water 1,000 ML IV SCH (14:21)
--- NOTE | 2019-04-19 18:56 | PDOC.HOSPP ---
- Subjective Encounter Date: 04/19/19 Encounter Time: 12:00 Subjective: f/u for sepsis, UTI on Meropenem/Linezolid/Fluconazole. No new issues reported. - Objective Vital Signs & Weight: Vital Signs (12 hours) Temp Pulse Ox 04/19/19 15:00 98.6 F 04/19/19 11:07 98.2 F 04/19/19 07:44 100 04/19/19 07:13 98.2 F Weight Admit Weight 145 lb 9.6 oz Weight 145 lb 9.6 oz Most Recent Monitor Data Heart Rate from ECG 85 NIBP 109/74 NIBP BP-Mean 85 Respiration from ECG 16 SpO2 96 I&O: 04/18/19 04/19/19 04/20/19 06:59 06:59 06:59 Intake Total 3056 4832 2142 Output Total 4159 3825 2550 Balance -1094 1072 -408 Result Diagrams: 04/15/19 03:17 04/15/19 03:17 Additional Labs: Accuchecks 04/19/19 00:03 POC Glucose 140 H Microbiology 04/12/19 21:38 Venous blood - Right Hand Blood Culture - Final Coagulase Neg Staphylococcus Vanc-resistant Enterococcus 04/12/19 21:30 Urine hayes catheter Urine Culture - Final Vanc-resistant Enterococcus Presumptive Kaity albicans 03/28/19 14:15 Stool C. difficile GDH Antigen & Toxins - Final 03/26/19 21:35 Sputum - Pending Respiratory Culture - Final Methicillin resistant S.aureus Stenotrophomonas maltophilia 04/12/19 21:38 Venous blood - Right Hand Blood Culture - Preliminary Specimen has been received and culture in progress. No Growth to date. 04/12/19 21:29 Venous blood - Right Arm Blood Culture - Preliminary Specimen has been received and culture in progress. No Growth to date. 04/12/19 21:29 Venous blood - Right Arm Blood Culture - Preliminary NO GROWTH AT 48 HOURS 03/26/19 21:35 Sputum - Pending Respiratory Culture - Preliminary Methicillin resistant S.aureus Gram Negative [facility] Laboratory Tests 03/26/19 03/26/19 03/26/19 21:48 21:48 21:48 WBC 20.9 H Hgb 11.3 L MCV Neutrophils % (Manual) 87 H Neutrophils % Potassium 5.4 H Lactic Acid 8.4 H* Prolactin Vancomycin Trough 03/26/19 03/27/19 03/27/19 21:51 00:48 00:48 WBC Hgb MCV Neutrophils % (Manual) Neutrophils % Potassium 4.0 Lactic Acid 4.3 H* Prolactin 19.79 H Vancomycin Trough 03/27/19 03/27/19 03/27/19 03:33 03:33 21:25 WBC 9.2 Hgb 9.5 L MCV 98.3 H Neutrophils % (Manual) Neutrophils % 88.9 H Potassium 4.0 Lactic Acid Prolactin Vancomycin Trough 16.8 03/28/19 04/12/19 04/13/19 04:32 21:11 04:01 WBC Hgb MCV Neutrophils % (Manual) 84 H Neutrophils % 85.0 H 85.8 H Potassium Lactic Acid Prolactin Vancomycin Trough 04/13/19 04/16/19 04:01 14:22 WBC Hgb MCV Neutrophils % (Manual) 81 H Neutrophils % Potassium Lactic Acid Prolactin Vancomycin Trough 17.0 EKG Reviewed by me: Yes (Tele -SR) Hospitalist ROS - Medication Medications: Active Medications Generic Name Dose Route Start Last Admin Trade Name Freq PRN Reason Stop Dose Admin Acetaminophen 650 mg 04/13/19 02:10 04/13/19 08:30 Tylenol SC 650 mg Q4H PRN Administration Headache/Fever/Mild Pain (1-3) Acidophilus 1 gm 04/13/19 21:00 04/19/19 09:13 Floranex PER TUBE 1 gm BID MAGO Administration Amantadine HCl 200 mg 04/14/19 06:00 04/19/19 09:42 Symmetrel PER TUBE 200 mg BID@0600,1100 MAGO Administration Ascorbic Acid 500 mg 04/14/19 09:00 04/19/19 09:13 Vitamin C PER TUBE 500 mg DAILY MAGO Administration Cholecalciferol 5,000 units 04/14/19 09:00 04/19/19 09:12 Vitamin D3 PER TUBE 5,000 units DAILY MAGO Administration Cyanocobalamin 1,000 mcg 04/14/19 09:00 04/19/19 09:13 Vitamin B-12 PER TUBE 1,000 mcg DAILY MAGO Administration Enoxaparin Sodium 40 mg 04/13/19 21:00 04/18/19 21:20 Lovenox SC 40 mg QPM MAGO Administration Famotidine 20 mg 04/13/19 09:00 04/19/19 09:13 Pepcid SLOW IVP 20 mg Q12HR MAGO Administration Ferrous Sulfate 300 mg 04/14/19 09:00 04/19/19 09:13 Ferrous Sulfate PER TUBE 300 mg DAILY MAGO Administration Fluoxetine HCl 40 mg 04/14/19 09:00 04/19/19 09:11 Prozac PER TUBE 40 mg DAILY MAGO Administration Folic Acid 1 mg 04/14/19 09:00 04/19/19 09:14 Folvite PER TUBE 1 mg DAILY MAGO Administration Gabapentin 300 mg 04/13/19 21:00 04/19/19 09:14 Neurontin PO 300 mg BID MAGO Administration Fluconazole/Sodium Chloride 50 mls @ 100 mls/hr 04/14/19 09:00 04/19/19 09:10 100 mg/ Miscellaneous IVPB 50 mls Medication DAILY MAGO Administration Meropenem 1 gm/ Device 50 mls @ 100 mls/hr 04/13/19 22:00 04/19/19 14:21 IVPB 50 mls Q8HR MAGO Administration Dextrose/Water 1,000 mls @ 50 mls/hr 04/14/19 14:32 04/19/19 14:21 D5w IV 1,000 mls .Q20H MAGO Administration Linezolid 600 mg/ Device 300 mls @ 150 mls/hr 04/17/19 21:00 04/19/19 09:11 IVPB 300 mls Q12HR MAGO Administration Iron/Minerals/Multivitamins 1 tab 04/14/19 09:00 04/19/19 09:12 Theragran M PER TUBE 1 tab DAILY MAGO Administration Levetiracetam 500 mg 04/13/19 21:00 04/19/19 09:13 Keppra Oral Solution PER TUBE 500 mg BID MAGO Administration Lorazepam 1 mg 04/13/19 01:54 04/16/19 21:32 Ativan SLOW IVP 1 mg Q4H PRN Administration Anxiety/Agitation Metoprolol Tartrate 25 mg 04/13/19 21:00 04/19/19 09:13 Lopressor PER TUBE 25 mg BID MAGO Administration Modafinil 200 mg 04/14/19 09:00 04/19/19 09:11 Provigil PER TUBE 200 mg DAILY MAGO Administration Morphine Sulfate 1 mg 04/13/19 05:36 04/15/19 13:48 Morphine SLOW IVP 1 mg Q4H PRN Administration Severe Pain (7-10) Pantoprazole Sodium 40 mg 04/14/19 09:00 04/19/19 09:11 Protonix PER TUBE 40 mg DAILY MAGO Administration Propylene Glycol 1 drop 04/13/19 15:00 04/19/19 14:21 Systane Opth Drop 15ml Bot EA EYE 1 drop TID MAGO Administration Saccharomyces Boulardii 250 mg 04/13/19 09:00 04/19/19 09:11 Florastor PER TUBE 250 mg DAILY MAGO Administration Scopolamine 1.5 mg 04/13/19 10:00 04/19/19 09:12 Transderm Scop TD 1.5 mg Q3D MAGO Administration Senna 1 tab 04/13/19 21:00 04/18/19 23:47 Senokot PER TUBE 1 tab QPM MAGO Administration Trazodone HCl 100 mg 04/13/19 21:00 04/18/19 21:22 Desyrel PER TUBE 100 mg HS MAGO Administration - Exam General - other findings: sleeping, minimal response to name Eye: PERRL, anicteric sclera ENT: normocephalic atraumatic, no oropharyngeal lesions Neck: supple, symmetric, no JVD, no thyromegaly Neck - other findings: Trach in place Heart: RRR, no murmur, no gallops, no rubs Respiratory: no wheezes Respiratory - other findings: scattered rhonchi Gastrointestinal: soft, non-tender, non-distended, normal bowel sounds, no palpable masses Gastrointestinal - other findings: PEG in place Extremities: no cyanosis, no clubbing, no edema Extremities - other findings: Contractures of all extremities Skin: normal turgor Neurological - other findings: aphasic, bedbound Musculoskeletal: generalized weakness Hosp A/P (1) Acute on chronic respiratory failure Code(s): J96.20 - ACUTE AND CHR RESP FAILURE, UNSP W HYPOXIA OR HYPERCAPNIA Status: Acute Qualifiers: Respiratory failure complication: hypoxia Qualified Code(s): J96.21 - Acute and chronic respiratory failure with hypoxia Plan: T-collar for O2 supplementation, wean as clinically tolerated (2) Healthcare associated bacterial pneumonia Code(s): J15.9 - UNSPECIFIED BACTERIAL PNEUMONIA Status: Acute Plan: Continue Meropenem/Linezolid/Fluconazole (3) Sepsis Code(s): A41.9 - SEPSIS, UNSPECIFIED ORGANISM Status: Acute Plan: Resolved (4) Quadriplegia and quadriparesis Code(s): G82.50 - QUADRIPLEGIA, UNSPECIFIED Status: Chronic (5) Hydrocephalus Code(s): G91.9 - HYDROCEPHALUS, UNSPECIFIED Status: Chronic (6) Acute metabolic encephalopathy Code(s): G93.41 - METABOLIC ENCEPHALOPATHY Status: Acute - Plan continue antibiotics, psychiatric social worker supervisor, speech therapy, respiratory therapy, DVT proph w/SCDs Continue Diflucan after concern for Kaity Continue Meropenem/Linezolid Resume home Keppra Protonix 40mg PT Daily Ativan IV prn seizure activity Toradol IV PRN Nutritional support with TF's CM for placement/HH options
[2019-04-19] MEDS: Enoxaparin Sodium 40 MG/0.4 ML SYRINGE SC SCH (20:27)
[2019-04-19] MEDS: traZODone HCl 50 MG TAB PER TUBE SCH (20:28)
[2019-04-19] MEDS: Senokot 8.6 MG TAB PER TUBE SCH (20:28)
[2019-04-20] MEDS: MEROPENEM 1 GM/50 ML 1 GM in Premix Bag 1 BAG IVPB SCH ×3 (05:24→21:47)
[2019-04-20] MEDS: Amantadine HCl 10 mg/ml Oral Solution PER TUBE SCH ×2 (05:24→11:33)
[2019-04-20] MEDS: Linezolid 600 MG in Premix Bag 1 BAG IVPB SCH ×2 (08:30→21:47)
[2019-04-20] MEDS: Polyethylene Glycol OPTH DROP 15 ML BOT EA EYE SCH ×3 (08:31→21:49)
[2019-04-20] MEDS: Dextrose 5% in Water 1,000 ML IV SCH (08:31)
[2019-04-20] MEDS: Floranex Packet PER TUBE SCH ×2 (08:32→21:47)
[2019-04-20] MEDS: Famotidine/PF 20 mg/2ml Vial SLOW IVP SCH ×2 (08:32→21:48)
[2019-04-20] MEDS: Multivitamin W/ Minerals 1 TAB PER TUBE SCH (08:33)
[2019-04-20] MEDS: Saccharomyces boulardii 250 MG CAP PER TUBE SCH (08:33)
[2019-04-20] MEDS: Metoprolol Tartrate 25 MG TAB PER TUBE SCH ×2 (08:33→21:48)
[2019-04-20] MEDS: Gabapentin 300 MG CAP PO SCH ×2 (08:33→21:48)
[2019-04-20] MEDS: FLUoxetine HCl 20 MG CAP PER TUBE SCH (08:33)
[2019-04-20] MEDS: Ascorbic Acid 500 mg Chewable Tablet PER TUBE SCH (08:34)
[2019-04-20] MEDS: Cyanocobalamin (Vitamin B-12) 1,000 MCG TAB PER TUBE SCH (08:34)
[2019-04-20] MEDS: Folic Acid 1 MG TAB PER TUBE SCH (08:34)
[2019-04-20] MEDS: Fluconazole In NaCl,Iso-Osm 100 MG in Admixture Fee 2 EACH IVPB SCH (08:37)
[2019-04-20] MEDS: Modafinil 100 MG TAB PER TUBE SCH (08:38)
[2019-04-20] MEDS: levETIRAcetam 500 mg/5 ml Oral Solution PER TUBE SCH ×2 (08:38→21:47)
[2019-04-20] MEDS: Pantoprazole 40 MG GRANULES PACKET PER TUBE SCH (08:38)
--- NOTE | 2019-04-20 17:58 | PDOC.HOSPP ---
- Subjective Encounter Date: 04/20/19 Encounter Time: 17:15 Subjective: f/u for sepsis on Meropenem/Linezolid/Fluconazole. Tolerating TF's currently. Nursing noted increased urine output. - Objective Vital Signs & Weight: Vital Signs (12 hours) Temp Pulse Ox 04/20/19 15:08 97.6 F 04/20/19 10:23 98.2 F 04/20/19 08:56 99 04/20/19 07:57 97 04/20/19 07:16 98.3 F Weight Admit Weight 145 lb 9.6 oz Weight 145 lb 1.6 oz Most Recent Monitor Data Heart Rate from ECG 87 NIBP 111/79 NIBP BP-Mean 89 Respiration from ECG 17 SpO2 99 I&O: 04/19/19 04/20/19 04/21/19 06:59 06:59 06:59 Intake Total 4897 4176 1080 Output Total 3825 6125 Balance 1622 -7747 1080 Result Diagrams: 04/15/19 03:17 04/15/19 03:17 EKG Reviewed by me: Yes (Tele - SR) Hospitalist ROS - Medication Medications: Active Medications Generic Name Dose Route Start Last Admin Trade Name Freq PRN Reason Stop Dose Admin Acetaminophen 650 mg 04/13/19 02:10 04/13/19 08:30 Tylenol [place] 650 mg Q4H PRN Administration Headache/Fever/Mild Pain (1-3) Acidophilus 1 gm 04/13/19 21:00 04/20/19 08:32 Floranex PER TUBE 1 gm BID MAGO Administration Amantadine HCl 200 mg 04/14/19 06:00 04/20/19 11:33 Symmetrel PER TUBE 200 mg BID@0600,1100 MAGO Administration Ascorbic Acid 500 mg 04/14/19 09:00 04/20/19 08:34 Vitamin C PER TUBE 500 mg DAILY MAGO Administration Cholecalciferol 5,000 units 04/14/19 09:00 04/20/19 08:33 Vitamin D3 PER TUBE 5,000 units DAILY MAGO Administration Cyanocobalamin 1,000 mcg 04/14/19 09:00 04/20/19 08:34 Vitamin B-12 PER TUBE 1,000 mcg DAILY MAGO Administration Enoxaparin Sodium 40 mg 04/13/19 21:00 04/19/19 20:27 Lovenox SC 40 mg QPM MAGO Administration Famotidine 20 mg 04/13/19 09:00 04/20/19 08:32 Pepcid SLOW IVP 20 mg Q12HR MAGO Administration Ferrous Sulfate 300 mg 04/14/19 09:00 04/20/19 08:32 Ferrous Sulfate PER TUBE 300 mg DAILY MAGO Administration Fluoxetine HCl 40 mg 04/14/19 09:00 04/20/19 08:33 Prozac PER TUBE 40 mg DAILY MAGO Administration Folic Acid 1 mg 04/14/19 09:00 04/20/19 08:34 Folvite PER TUBE 1 mg DAILY MAGO Administration Gabapentin 300 mg 04/13/19 21:00 04/20/19 08:33 Neurontin PO 300 mg BID MAGO Administration Fluconazole/Sodium Chloride 50 mls @ 100 mls/hr 04/14/19 09:00 04/20/19 08:37 100 mg/ Miscellaneous IVPB 50 mls Medication DAILY MAGO Administration Meropenem 1 gm/ Device 50 mls @ 100 mls/hr 04/13/19 22:00 04/20/19 14:34 IVPB 50 mls Q8HR MAGO Administration Dextrose/Water 1,000 mls @ 50 mls/hr 04/14/19 14:32 04/20/19 08:31 D5w IV 1,000 mls .Q20H MAGO Administration Linezolid 600 mg/ Device 300 mls @ 150 mls/hr 04/17/19 21:00 04/20/19 08:30 IVPB 300 mls Q12HR MAGO Administration Iron/Minerals/Multivitamins 1 tab 04/14/19 09:00 04/20/19 08:33 Theragran M PER TUBE 1 tab DAILY MAGO Administration Levetiracetam 500 mg 04/13/19 21:00 04/20/19 08:38 Keppra Oral Solution PER TUBE 500 mg BID MAGO Administration Lorazepam 1 mg 04/13/19 01:54 04/16/19 21:32 Ativan SLOW IVP 1 mg Q4H PRN Administration Anxiety/Agitation Metoprolol Tartrate 25 mg 04/13/19 21:00 04/20/19 08:33 Lopressor PER TUBE 25 mg BID MAGO Administration Modafinil 200 mg 04/14/19 09:00 04/20/19 08:38 Provigil PER TUBE 200 mg DAILY MAGO Administration Morphine Sulfate 1 mg 04/13/19 05:36 04/15/19 13:48 Morphine SLOW IVP 1 mg Q4H PRN Administration Severe Pain (7-10) Pantoprazole Sodium 40 mg 04/14/19 09:00 04/20/19 08:38 Protonix PER TUBE 40 mg DAILY MAGO Administration Propylene Glycol 1 drop 04/13/19 15:00 04/20/19 15:34 Systane Opth Drop 15ml Bot EA EYE 1 drop TID MAGO Administration Saccharomyces Boulardii 250 mg 04/13/19 09:00 04/20/19 08:33 Florastor PER TUBE 250 mg DAILY MAGO Administration Scopolamine 1.5 mg 04/13/19 10:00 04/19/19 09:12 Transderm Scop TD 1.5 mg Q3D MAGO Administration Senna 1 tab 04/13/19 21:00 04/19/19 20:28 Senokot PER TUBE 1 tab QPM MAGO Administration Trazodone HCl 100 mg 04/13/19 21:00 04/19/19 20:28 Desyrel PER TUBE 100 mg HS MAGO Administration - Exam General Appearance: NAD, ill appearing General - other findings: stares at ceiling Eye: PERRL, anicteric sclera ENT: normocephalic atraumatic, no oropharyngeal lesions Neck: supple, symmetric, no JVD, no thyromegaly Neck - other findings: trach in place Heart: RRR, no gallops, no rubs, normal peripheral pulses Respiratory - other findings: scattered coarse sounds transmitted Gastrointestinal: soft, non-tender, non-distended, normal bowel sounds Gastrointestinal - other findings: PEG in place Extremities: no cyanosis, no clubbing, no edema Skin: normal turgor, no lesions Neurological - other findings: bedbound, aphasic Musculoskeletal - other findings: contractures of all extremities Hosp A/P (1) Acute on chronic respiratory failure Code(s): J96.20 - ACUTE AND CHR RESP FAILURE, UNSP W HYPOXIA OR HYPERCAPNIA Status: Acute Qualifiers: Respiratory failure complication: hypoxia Qualified Code(s): J96.21 - Acute and chronic respiratory failure with hypoxia Plan: Continue T-collar, suction trach PRN (2) Healthcare associated bacterial pneumonia Code(s): J15.9 - UNSPECIFIED BACTERIAL PNEUMONIA Status: Acute Plan: Continue Meropenem (3) Sepsis Code(s): A41.9 - SEPSIS, UNSPECIFIED ORGANISM Status: Acute Plan: Resolved (4) Quadriplegia and quadriparesis Code(s): G82.50 - QUADRIPLEGIA, UNSPECIFIED Status: Chronic (5) Hydrocephalus Code(s): G91.9 - HYDROCEPHALUS, UNSPECIFIED Status: Chronic Plan: chronic with VPS (6) Acute metabolic encephalopathy Code(s): G93.41 - METABOLIC ENCEPHALOPATHY Status: Acute - Plan continue antibiotics, PT/OT, social services coordinator, respiratory therapy, DVT proph w/ SCDs Continue Diflucan after concern for Kaity, likely d/c in 24h Continue Meropenem/Linezolid Resume home Keppra Protonix 40mg PT Daily Ativan IV prn seizure activity Toradol IV PRN Nutritional support with TF's, 6 cans bolus with 120ml H20 flushes/can CM for placement/HH options
[2019-04-20] MEDS: Senokot 8.6 MG TAB PER TUBE SCH (21:48)
[2019-04-20] MEDS: traZODone HCl 50 MG TAB PER TUBE SCH (21:48)
[2019-04-20] MEDS: Enoxaparin Sodium 40 MG/0.4 ML SYRINGE SC SCH (21:49)
[2019-04-21] MEDS: MEROPENEM 1 GM/50 ML 1 GM in Premix Bag 1 BAG IVPB SCH ×3 (05:36→21:42)
[2019-04-21] MEDS: Amantadine HCl 10 mg/ml Oral Solution PER TUBE SCH ×2 (05:36→11:12)
[2019-04-21] MEDS: Dextrose 5% in Water 1,000 ML IV SCH (05:37)
[2019-04-21] MEDS: Polyethylene Glycol OPTH DROP 15 ML BOT EA EYE SCH ×3 (09:13→21:41)
[2019-04-21] MEDS: Modafinil 100 MG TAB PER TUBE SCH (09:13)
[2019-04-21] MEDS: levETIRAcetam 500 mg/5 ml Oral Solution PER TUBE SCH ×2 (09:14→21:40)
[2019-04-21] MEDS: Fluconazole In NaCl,Iso-Osm 100 MG in Admixture Fee 2 EACH IVPB SCH (09:14)
[2019-04-21] MEDS: Linezolid 600 MG in Premix Bag 1 BAG IVPB SCH ×2 (09:14→22:54)
[2019-04-21] MEDS: Famotidine/PF 20 mg/2ml Vial SLOW IVP SCH ×2 (09:15→21:40)
[2019-04-21] MEDS: Folic Acid 1 MG TAB PER TUBE SCH (09:15)
[2019-04-21] MEDS: Pantoprazole 40 MG GRANULES PACKET PER TUBE SCH (09:15)
[2019-04-21] MEDS: Floranex Packet PER TUBE SCH ×2 (09:15→21:41)
[2019-04-21] MEDS: FLUoxetine HCl 20 MG CAP PER TUBE SCH (09:16)
[2019-04-21] MEDS: Cyanocobalamin (Vitamin B-12) 1,000 MCG TAB PER TUBE SCH (09:16)
[2019-04-21] MEDS: Gabapentin 300 MG CAP PO SCH ×2 (09:16→21:41)
[2019-04-21] MEDS: Multivitamin W/ Minerals 1 TAB PER TUBE SCH (09:16)
[2019-04-21] MEDS: Saccharomyces boulardii 250 MG CAP PER TUBE SCH (09:16)
[2019-04-21] MEDS: Ascorbic Acid 500 mg Chewable Tablet PER TUBE SCH (09:16)
[2019-04-21] MEDS: Metoprolol Tartrate 25 MG TAB PER TUBE SCH ×2 (09:16→21:41)
--- NOTE | 2019-04-21 13:05 | PDOC.HOSPP ---
- Subjective Encounter Date: 04/21/19 Encounter Time: 12:00 Subjective: Eyes open..Blinks to threats.. - Objective Vital Signs & Weight: Vital Signs (12 hours) Temp Pulse Ox 04/21/19 11:16 98.1 F 04/21/19 07:14 97.9 F 04/21/19 07:00 99 Weight Admit Weight 145 lb 9.6 oz Weight 140 lb 4.8 oz Most Recent Monitor Data Heart Rate from ECG 88 NIBP 108/66 NIBP BP-Mean 80 Respiration from ECG 29 SpO2 98 I&O: 04/20/19 04/21/19 04/22/19 06:59 06:59 06:59 Intake Total 4174 4607 360 Output Total 4280 1680 Balance -9902 -8988 360 Result Diagrams: 04/15/19 03:17 04/15/19 03:17 Hospitalist ROS - Medication Medications: Active Medications Generic Name Dose Route Start Last Admin Trade Name Freq PRN Reason Stop Dose Admin Acetaminophen 650 mg 04/13/19 02:10 04/13/19 08:30 Tylenol [place] 650 mg Q4H PRN Administration Headache/Fever/Mild Pain (1-3) Acidophilus 1 gm 04/13/19 21:00 04/21/19 09:15 Floranex PER TUBE 1 gm BID MAGO Administration Amantadine HCl 200 mg 04/14/19 06:00 04/21/19 05:36 Symmetrel PER TUBE 200 mg BID@0600,1100 MAGO Administration Ascorbic Acid 500 mg 04/14/19 09:00 04/21/19 09:16 Vitamin C PER TUBE 500 mg DAILY MAGO Administration Cholecalciferol 5,000 units 04/14/19 09:00 04/21/19 09:15 Vitamin D3 PER TUBE 5,000 units DAILY MAGO Administration Cyanocobalamin 1,000 mcg 04/14/19 09:00 04/21/19 09:16 Vitamin B-12 PER TUBE 1,000 mcg DAILY MAGO Administration Enoxaparin Sodium 40 mg 04/13/19 21:00 04/20/19 21:49 Lovenox SC 40 mg QPM MAGO Administration Famotidine 20 mg 04/13/19 09:00 04/21/19 09:15 Pepcid SLOW IVP 20 mg Q12HR MAGO Administration Ferrous Sulfate 300 mg 04/14/19 09:00 04/21/19 09:14 Ferrous Sulfate PER TUBE 300 mg DAILY MAGO Administration Fluoxetine HCl 40 mg 04/14/19 09:00 04/21/19 09:16 Prozac PER TUBE 40 mg DAILY MAGO Administration Folic Acid 1 mg 04/14/19 09:00 04/21/19 09:15 Folvite PER TUBE 1 mg DAILY MAGO Administration Gabapentin 300 mg 04/13/19 21:00 04/21/19 09:16 Neurontin PO 300 mg BID MAGO Administration Fluconazole/Sodium Chloride 50 mls @ 100 mls/hr 04/14/19 09:00 04/21/19 09:14 100 mg/ Miscellaneous IVPB 50 mls Medication DAILY MAGO Administration Meropenem 1 gm/ Device 50 mls @ 100 mls/hr 04/13/19 22:00 04/21/19 05:36 IVPB 50 mls Q8HR MAGO Administration Dextrose/Water 1,000 mls @ 50 mls/hr 04/14/19 14:32 04/21/19 05:37 D5w IV 1,000 mls .Q20H MAGO Administration Linezolid 600 mg/ Device 300 mls @ 150 mls/hr 04/17/19 21:00 04/21/19 09:14 IVPB 300 mls Q12HR MAGO Administration Iron/Minerals/Multivitamins 1 tab 04/14/19 09:00 04/21/19 09:16 Theragran M PER TUBE 1 tab DAILY MAGO Administration Levetiracetam 500 mg 04/13/19 21:00 04/21/19 09:14 Keppra Oral Solution PER TUBE 500 mg BID MAGO Administration Lorazepam 1 mg 04/13/19 01:54 04/16/19 21:32 Ativan SLOW IVP 1 mg Q4H PRN Administration Anxiety/Agitation Metoprolol Tartrate 25 mg 04/13/19 21:00 04/21/19 09:16 Lopressor PER TUBE 25 mg BID MAGO Administration Modafinil 200 mg 04/14/19 09:00 04/20/19 08:38 Provigil PER TUBE 200 mg DAILY MAGO Administration Morphine Sulfate 1 mg 04/13/19 05:36 04/15/19 13:48 Morphine SLOW IVP 1 mg Q4H PRN Administration Severe Pain (7-10) Pantoprazole Sodium 40 mg 04/14/19 09:00 04/21/19 09:15 Protonix PER TUBE 40 mg DAILY MAGO Administration Propylene Glycol 1 drop 04/13/19 15:00 04/21/19 09:13 Systane Opth Drop 15ml Bot EA EYE 1 drop TID MAGO Administration Saccharomyces Boulardii 250 mg 04/13/19 09:00 04/21/19 09:16 Florastor PER TUBE 250 mg DAILY MAGO Administration Scopolamine 1.5 mg 04/13/19 10:00 04/19/19 09:12 Transderm Scop TD 1.5 mg Q3D MAGO Administration Senna 1 tab 04/13/19 21:00 04/20/19 21:48 Senokot PER TUBE 1 tab QPM MAGO Administration Trazodone HCl 100 mg 04/13/19 21:00 04/20/19 21:48 Desyrel PER TUBE 100 mg HS MAGO Administration - Exam General Appearance: NAD Eye: anicteric sclera Neck: no JVD Heart: RRR Respiratory: CTAB Gastrointestinal: soft Extremities: no edema Neurological - other findings: +Quadriplegia Hosp A/P (1) Acute on chronic respiratory failure Code(s): J96.20 - ACUTE AND CHR RESP FAILURE, UNSP W HYPOXIA OR HYPERCAPNIA Status: Acute Qualifiers: Respiratory failure complication: hypoxia Qualified Code(s): J96.21 - Acute and chronic respiratory failure with hypoxia (2) Healthcare associated bacterial pneumonia Code(s): J15.9 - UNSPECIFIED BACTERIAL PNEUMONIA Status: Acute (3) Sepsis Code(s): A41.9 - SEPSIS, UNSPECIFIED ORGANISM Status: Acute (4) Hydrocephalus Code(s): G91.9 - HYDROCEPHALUS, UNSPECIFIED Status: Chronic (5) Quadriplegia and quadriparesis Code(s): G82.50 - QUADRIPLEGIA, UNSPECIFIED Status: Chronic - Plan Continue endotracheal succion, Meropenen..
[2019-04-21] MEDS: traZODone HCl 50 MG TAB PER TUBE SCH (21:40)
[2019-04-21] MEDS: Senokot 8.6 MG TAB PER TUBE SCH (21:41)
[2019-04-21] MEDS: Enoxaparin Sodium 40 MG/0.4 ML SYRINGE SC SCH (21:41)
[2019-04-21] MEDS: Lorazepam 2 MG/ML VIAL SLOW IVP PRN (22:54)
[2019-04-22] MEDS: Dextrose 5% in Water 1,000 ML IV SCH ×2 (02:28→21:14)
[2019-04-22] MEDS: MEROPENEM 1 GM/50 ML 1 GM in Premix Bag 1 BAG IVPB SCH ×3 (06:18→21:13)
[2019-04-22] MEDS: Amantadine HCl 10 mg/ml Oral Solution PER TUBE SCH ×2 (06:18→11:07)
[2019-04-22] MEDS: Linezolid 600 MG in Premix Bag 1 BAG IVPB SCH ×2 (08:51→22:20)
[2019-04-22] MEDS: Famotidine/PF 20 mg/2ml Vial SLOW IVP SCH ×2 (08:52→21:12)
[2019-04-22] MEDS: Saccharomyces boulardii 250 MG CAP PER TUBE SCH (08:52)
[2019-04-22] MEDS: Floranex Packet PER TUBE SCH ×2 (08:52→21:12)
[2019-04-22] MEDS: levETIRAcetam 500 mg/5 ml Oral Solution PER TUBE SCH ×2 (08:52→21:12)
[2019-04-22] MEDS: Pantoprazole 40 MG GRANULES PACKET PER TUBE SCH (08:53)
[2019-04-22] MEDS: Metoprolol Tartrate 25 MG TAB PER TUBE SCH ×2 (08:53→21:13)
[2019-04-22] MEDS: Cyanocobalamin (Vitamin B-12) 1,000 MCG TAB PER TUBE SCH (08:53)
[2019-04-22] MEDS: FLUoxetine HCl 20 MG CAP PER TUBE SCH (08:53)
[2019-04-22] MEDS: Folic Acid 1 MG TAB PER TUBE SCH (08:53)
[2019-04-22] MEDS: Multivitamin W/ Minerals 1 TAB PER TUBE SCH (08:53)
[2019-04-22] MEDS: Ascorbic Acid 500 mg Chewable Tablet PER TUBE SCH (08:53)
[2019-04-22] MEDS: Gabapentin 300 MG CAP PO SCH ×2 (08:54→21:12)
[2019-04-22] MEDS: Modafinil 100 MG TAB PER TUBE SCH (09:58)
[2019-04-22] MEDS: Fluconazole In NaCl,Iso-Osm 100 MG in Admixture Fee 2 EACH IVPB SCH (09:58)
[2019-04-22] MEDS: Polyethylene Glycol OPTH DROP 15 ML BOT EA EYE SCH ×3 (09:59→21:14)
[2019-04-22] MEDS: Scopolamine 1.5 mg/72 hour Patch TD SCH (10:00)
--- NOTE | 2019-04-22 13:01 | PDOC.HOSPP ---
- Subjective Encounter Date: 04/22/19 Encounter Time: 12:15 Subjective: Comfortable. Alert. - Objective Vital Signs & Weight: Vital Signs (12 hours) Temp Pulse Ox 04/22/19 10:21 97.7 F 04/22/19 07:55 100 04/22/19 07:43 99 04/22/19 07:15 97.8 F 04/22/19 04:01 98.0 F Weight Admit Weight 145 lb 9.6 oz Weight 140 lb 4.8 oz Most Recent Monitor Data Heart Rate from ECG 80 NIBP 106/72 NIBP BP-Mean 83 Respiration from ECG 25 SpO2 99 I&O: 04/21/19 04/22/19 04/23/19 06:59 06:59 06:59 Intake Total 4632 6474 720 Output Total 2910 2629 Balance -1660 -54 720 Result Diagrams: 04/15/19 03:17 04/15/19 03:17 Hospitalist ROS - Medication Medications: Active Medications Generic Name Dose Route Start Last Admin Trade Name Freq PRN Reason Stop Dose Admin Acetaminophen 650 mg 04/13/19 02:10 04/13/19 08:30 Tylenol [place] 650 mg Q4H PRN Administration Headache/Fever/Mild Pain (1-3) Acidophilus 1 gm 04/13/19 21:00 04/22/19 08:52 Floranex PER TUBE 1 gm BID MAGO Administration Amantadine HCl 200 mg 04/14/19 06:00 04/22/19 06:18 Symmetrel PER TUBE 200 mg BID@0600,1100 MAGO Administration Ascorbic Acid 500 mg 04/14/19 09:00 04/22/19 08:53 Vitamin C PER TUBE 500 mg DAILY MAGO Administration Cholecalciferol 5,000 units 04/14/19 09:00 04/22/19 08:53 Vitamin D3 PER TUBE 5,000 units DAILY MAGO Administration Cyanocobalamin 1,000 mcg 04/14/19 09:00 04/22/19 08:53 Vitamin B-12 PER TUBE 1,000 mcg DAILY MAGO Administration Enoxaparin Sodium 40 mg 04/13/19 21:00 04/21/19 21:41 Lovenox SC 40 mg QPM MAGO Administration Famotidine 20 mg 04/13/19 09:00 04/22/19 08:52 Pepcid SLOW IVP 20 mg Q12HR MAGO Administration Ferrous Sulfate 300 mg 04/14/19 09:00 04/22/19 08:52 Ferrous Sulfate PER TUBE 300 mg DAILY MAGO Administration Fluoxetine HCl 40 mg 04/14/19 09:00 04/22/19 08:53 Prozac PER TUBE 40 mg DAILY MAGO Administration Folic Acid 1 mg 04/14/19 09:00 04/22/19 08:53 Folvite PER TUBE 1 mg DAILY MAGO Administration Gabapentin 300 mg 04/13/19 21:00 04/22/19 08:54 Neurontin PO 300 mg BID MAGO Administration Fluconazole/Sodium Chloride 50 mls @ 100 mls/hr 04/14/19 09:00 04/22/19 09:58 100 mg/ Miscellaneous IVPB 50 mls Medication DAILY MAGO Administration Meropenem 1 gm/ Device 50 mls @ 100 mls/hr 04/13/19 22:00 04/22/19 06:18 IVPB 50 mls Q8HR MAGO Administration Dextrose/Water 1,000 mls @ 50 mls/hr 04/14/19 14:32 04/22/19 02:28 D5w IV 1,000 mls .Q20H MAGO Administration Linezolid 600 mg/ Device 300 mls @ 150 mls/hr 04/17/19 21:00 04/22/19 08:51 IVPB 300 mls Q12HR MAGO Administration Iron/Minerals/Multivitamins 1 tab 04/14/19 09:00 04/22/19 08:53 Theragran M PER TUBE 1 tab DAILY MAGO Administration Levetiracetam 500 mg 04/13/19 21:00 04/22/19 08:52 Keppra Oral Solution PER TUBE 500 mg BID MAGO Administration Lorazepam 1 mg 04/13/19 01:54 04/21/19 22:54 Ativan SLOW IVP 1 mg Q4H PRN Administration Anxiety/Agitation Metoprolol Tartrate 25 mg 04/13/19 21:00 04/22/19 08:53 Lopressor PER TUBE 25 mg BID MAGO Administration Modafinil 200 mg 04/14/19 09:00 04/22/19 09:58 Provigil PER TUBE 200 mg DAILY MAGO Administration Morphine Sulfate 1 mg 04/13/19 05:36 04/15/19 13:48 Morphine SLOW IVP 1 mg Q4H PRN Administration Severe Pain (7-10) Pantoprazole Sodium 40 mg 04/14/19 09:00 04/22/19 08:53 Protonix PER TUBE 40 mg DAILY MAGO Administration Propylene Glycol 1 drop 04/13/19 15:00 04/22/19 09:59 Systane Opth Drop 15ml Bot EA EYE 1 drop TID MAGO Administration Saccharomyces Boulardii 250 mg 04/13/19 09:00 04/22/19 08:52 Florastor PER TUBE 250 mg DAILY MAGO Administration Scopolamine 1.5 mg 04/13/19 10:00 04/22/19 10:00 Transderm Scop TD 1.5 mg Q3D MAGO Administration Senna 1 tab 04/13/19 21:00 04/21/19 21:41 Senokot PER TUBE 1 tab QPM MAGO Administration Trazodone HCl 100 mg 04/13/19 21:00 04/21/19 21:40 Desyrel PER TUBE 100 mg HS MAGO Administration - Exam General Appearance: NAD Neck: no JVD Heart: RRR Respiratory: CTAB Gastrointestinal: soft Extremities: no edema Neurological - other findings: +quadriplegia.. Hosp A/P (1) Acute on chronic respiratory failure Code(s): J96.20 - ACUTE AND CHR RESP FAILURE, UNSP W HYPOXIA OR HYPERCAPNIA Status: Acute Qualifiers: Respiratory failure complication: hypoxia Qualified Code(s): J96.21 - Acute and chronic respiratory failure with hypoxia (2) Healthcare associated bacterial pneumonia Code(s): J15.9 - UNSPECIFIED BACTERIAL PNEUMONIA Status: Acute (3) Sepsis Code(s): A41.9 - SEPSIS, UNSPECIFIED ORGANISM Status: Acute (4) Hydrocephalus Code(s): G91.9 - HYDROCEPHALUS, UNSPECIFIED Status: Chronic (5) Quadriplegia and quadriparesis Code(s): G82.50 - QUADRIPLEGIA, UNSPECIFIED Status: Chronic - Plan Continue endotracheal succion, Meropenen.. f/u with consultants...
[2019-04-22] MEDS: traZODone HCl 50 MG TAB PER TUBE SCH (21:12)
[2019-04-22] MEDS: Senokot 8.6 MG TAB PER TUBE SCH (21:12)
[2019-04-22] MEDS: Enoxaparin Sodium 40 MG/0.4 ML SYRINGE SC SCH (21:12)
[2019-04-23] MEDS: MEROPENEM 1 GM/50 ML 1 GM in Premix Bag 1 BAG IVPB SCH ×3 (06:00→22:15)
[2019-04-23] MEDS: Amantadine HCl 10 mg/ml Oral Solution PER TUBE SCH ×2 (06:00→10:51)
--- NOTE | 2019-04-23 10:38 | PDOC.HOSPP ---
- Subjective Encounter Date: 04/23/19 Encounter Time: 10:00 Subjective: Alert. - Objective Vital Signs & Weight: Vital Signs (12 hours) Temp Pulse Ox 04/23/19 08:00 98 04/23/19 07:28 97.6 F 04/23/19 03:39 97.7 F 04/22/19 23:39 98.8 F Weight Admit Weight 145 lb 9.6 oz Weight 140 lb 4.8 oz Most Recent Monitor Data Heart Rate from ECG 85 NIBP 118/79 NIBP BP-Mean 92 Respiration from ECG 21 SpO2 99 I&O: 04/22/19 04/23/19 04/24/19 06:59 06:59 06:59 Intake Total 2571 5293 Output Total 2628 5100 Balance -54 193 Result Diagrams: 04/15/19 03:17 04/15/19 03:17 Hospitalist ROS - Medication Medications: Active Medications Generic Name Dose Route Start Last Admin Trade Name Freq PRN Reason Stop Dose Admin Acetaminophen 650 mg 04/13/19 02:10 04/13/19 08:30 Tylenol [place] 650 mg Q4H PRN Administration Headache/Fever/Mild Pain (1-3) Acidophilus 1 gm 04/13/19 21:00 04/22/19 21:12 Floranex PER TUBE 1 gm BID MAGO Administration Amantadine HCl 200 mg 04/14/19 06:00 04/23/19 06:00 Symmetrel PER TUBE 200 mg BID@0600,1100 MAGO Administration Ascorbic Acid 500 mg 04/14/19 09:00 04/22/19 08:53 Vitamin C PER TUBE 500 mg DAILY MAGO Administration Cholecalciferol 5,000 units 04/14/19 09:00 04/22/19 08:53 Vitamin D3 PER TUBE 5,000 units DAILY MAGO Administration Cyanocobalamin 1,000 mcg 04/14/19 09:00 04/22/19 08:53 Vitamin B-12 PER TUBE 1,000 mcg DAILY MAGO Administration Enoxaparin Sodium 40 mg 04/13/19 21:00 04/22/19 21:12 Lovenox SC 40 mg QPM MAGO Administration Famotidine 20 mg 04/13/19 09:00 04/22/19 21:12 Pepcid SLOW IVP 20 mg Q12HR MAGO Administration Ferrous Sulfate 300 mg 04/14/19 09:00 04/22/19 08:52 Ferrous Sulfate PER TUBE 300 mg DAILY MAGO Administration Fluoxetine HCl 40 mg 04/14/19 09:00 04/22/19 08:53 Prozac PER TUBE 40 mg DAILY MAGO Administration Folic Acid 1 mg 04/14/19 09:00 04/22/19 08:53 Folvite PER TUBE 1 mg DAILY MAGO Administration Gabapentin 300 mg 04/13/19 21:00 04/22/19 21:12 Neurontin PO 300 mg BID MAGO Administration Fluconazole/Sodium Chloride 50 mls @ 100 mls/hr 04/14/19 09:00 04/22/19 09:58 100 mg/ Miscellaneous IVPB 50 mls Medication DAILY MAGO Administration Meropenem 1 gm/ Device 50 mls @ 100 mls/hr 04/13/19 22:00 04/23/19 06:00 IVPB 50 mls Q8HR MAGO Administration Dextrose/Water 1,000 mls @ 50 mls/hr 04/14/19 14:32 04/22/19 21:14 D5w IV 1,000 mls .Q20H MAGO Administration Linezolid 600 mg/ Device 300 mls @ 150 mls/hr 04/17/19 21:00 04/22/19 22:20 IVPB 300 mls Q12HR MAGO Administration Iron/Minerals/Multivitamins 1 tab 04/14/19 09:00 04/22/19 08:53 Theragran M PER TUBE 1 tab DAILY MAGO Administration Levetiracetam 500 mg 04/13/19 21:00 04/22/19 21:12 Keppra Oral Solution PER TUBE 500 mg BID MAGO Administration Metoprolol Tartrate 25 mg 04/13/19 21:00 04/22/19 21:13 Lopressor PER TUBE 25 mg BID MAGO Administration Modafinil 200 mg 04/14/19 09:00 04/22/19 09:58 Provigil PER TUBE 200 mg DAILY MAGO Administration Pantoprazole Sodium 40 mg 04/14/19 09:00 04/22/19 08:53 Protonix PER TUBE 40 mg DAILY MAGO Administration Propylene Glycol 1 drop 04/13/19 15:00 04/22/19 21:14 Systane Opth Drop 15ml Bot EA EYE 1 drop TID MAGO Administration Saccharomyces Boulardii 250 mg 04/13/19 09:00 04/22/19 08:52 Florastor PER TUBE 250 mg DAILY MAGO Administration Scopolamine 1.5 mg 04/13/19 10:00 04/22/19 10:00 Transderm Scop TD 1.5 mg Q3D MAGO Administration Senna 1 tab 04/13/19 21:00 04/22/19 21:12 Senokot PER TUBE 1 tab QPM MAGO Administration Trazodone HCl 100 mg 04/13/19 21:00 04/22/19 21:12 Desyrel PER TUBE 100 mg HS MAGO Administration - Exam General Appearance: NAD Neck: no JVD Heart: RRR Respiratory: rhonchi Gastrointestinal: soft Extremities: no edema Musculoskeletal - other findings: Quadriplegia Hosp A/P (1) Acute on chronic respiratory failure Code(s): J96.20 - ACUTE AND CHR RESP FAILURE, UNSP W HYPOXIA OR HYPERCAPNIA Status: Acute Qualifiers: Respiratory failure complication: hypoxia Qualified Code(s): J96.21 - Acute and chronic respiratory failure with hypoxia (2) Healthcare associated bacterial pneumonia Code(s): J15.9 - UNSPECIFIED BACTERIAL PNEUMONIA Status: Acute (3) Sepsis Code(s): A41.9 - SEPSIS, UNSPECIFIED ORGANISM Status: Acute (4) Hydrocephalus Code(s): G91.9 - HYDROCEPHALUS, UNSPECIFIED Status: Chronic (5) Quadriplegia and quadriparesis Code(s): G82.50 - QUADRIPLEGIA, UNSPECIFIED Status: Chronic - Plan Same management.. Continue endotracheal succion, Meropenen.. f/u with consultants...
[2019-04-23] MEDS: Floranex Packet PER TUBE SCH ×2 (10:52→22:13)
[2019-04-23] MEDS: Ascorbic Acid 500 mg Chewable Tablet PER TUBE SCH (10:53)
[2019-04-23] MEDS: Saccharomyces boulardii 250 MG CAP PER TUBE SCH (10:53)
[2019-04-23] MEDS: FLUoxetine HCl 20 MG CAP PER TUBE SCH (10:53)
[2019-04-23] MEDS: Pantoprazole 40 MG GRANULES PACKET PER TUBE SCH (10:54)
[2019-04-23] MEDS: Folic Acid 1 MG TAB PER TUBE SCH (10:54)
[2019-04-23] MEDS: Metoprolol Tartrate 25 MG TAB PER TUBE SCH ×2 (10:54→22:14)
[2019-04-23] MEDS: Cyanocobalamin (Vitamin B-12) 1,000 MCG TAB PER TUBE SCH (10:54)
[2019-04-23] MEDS: Famotidine/PF 20 mg/2ml Vial SLOW IVP SCH ×2 (10:54→22:14)
[2019-04-23] MEDS: Gabapentin 300 MG CAP PO SCH ×2 (10:54→22:14)
[2019-04-23] MEDS: Multivitamin W/ Minerals 1 TAB PER TUBE SCH (10:54)
[2019-04-23] MEDS: levETIRAcetam 500 mg/5 ml Oral Solution PER TUBE SCH ×2 (10:56→22:15)
[2019-04-23] MEDS: Linezolid 600 MG in Premix Bag 1 BAG IVPB SCH ×2 (10:56→22:10)
[2019-04-23] MEDS: Polyethylene Glycol OPTH DROP 15 ML BOT EA EYE SCH ×3 (10:58→22:15)
[2019-04-23] MEDS: Fluconazole In NaCl,Iso-Osm 100 MG in Admixture Fee 2 EACH IVPB SCH (11:09)
[2019-04-23] MEDS: Modafinil 100 MG TAB PER TUBE SCH (11:13)
[2019-04-23] MEDS: Dextrose 5% in Water 1,000 ML IV SCH (15:01)
[2019-04-23] MEDS: Enoxaparin Sodium 40 MG/0.4 ML SYRINGE SC SCH (22:13)
[2019-04-23] MEDS: traZODone HCl 50 MG TAB PER TUBE SCH (22:13)
[2019-04-23] MEDS: Senokot 8.6 MG TAB PER TUBE SCH (22:15)
[2019-04-24] MEDS: MEROPENEM 1 GM/50 ML 1 GM in Premix Bag 1 BAG IVPB SCH (05:09)
[2019-04-24] MEDS: Amantadine HCl 10 mg/ml Oral Solution PER TUBE SCH ×2 (05:09→10:00)
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
[2019-04-24 09:32] LABS: #Eosinphils 0.3 thou/uL (0.0-0.7); #Monocytes 0.8 thou/uL (0.11-0.59); #Neutrophils 5.6 thou/uL (1.40-6.50); %Basophils 0.1 % (0.0-1.0); %Eosinophils 4.4 % (0.0-10.0); %Lymphocytes 13.1 % (21.0-51.0); %Monocytes 10.7 % (0.0-10.0); %Neutrophils 71.7 % (42.0-75.0); Hemoglobin 13.4 g/dL (14.0-18.0); Mean Corpuscular HGB CONC 32.9 g/dL (32.0-36.0); Mean Corpuscular Hemoglobin 31.2 pg (27.0-31.0); Mean Corpuscular Volume 94.9 fL (78.0-98.0); Mean Platelet Volume 7.6 fL (7.4-10.4); Platelet Count 235 thou/uL (130-400); RBC Distribution Width 12.7 % (11.5-14.5); Red Blood Cell (RBC) Count 4.31 mill/uL (4.70-6.10); White Blood Cell (WBC) Count 7.8 thou/uL (4.8-10.8)
[2019-04-24 09:33] LABS: Anion Gap 14 mmol/L (10-20); BUN (Urea Nitrogen) 11 mg/dL (8.9-20.6); Calc. Creatinine Clearance 148 mL/min (70-130); Carbon Dioxide 29 mmol/L (22-29); Chloride 99 mmol/L (98-107); Estimated GFR-MDRD Greater than 90; Glucose 104 mg/dL (70-105); Potassium 4.8 mmol/L (3.5-5.1); Sodium 137 mmol/L (136-145)
[2019-04-24] MEDS: Saccharomyces boulardii 250 MG CAP PER TUBE SCH (09:58)
[2019-04-24] MEDS: Modafinil 100 MG TAB PER TUBE SCH (09:58)
[2019-04-24] MEDS: Cyanocobalamin (Vitamin B-12) 1,000 MCG TAB PER TUBE SCH (09:58)
[2019-04-24] MEDS: Folic Acid 1 MG TAB PER TUBE SCH (09:59)
[2019-04-24] MEDS: Multivitamin W/ Minerals 1 TAB PER TUBE SCH (09:59)
[2019-04-24] MEDS: Gabapentin 300 MG CAP PO SCH ×2 (09:59→21:23)
[2019-04-24] MEDS: levETIRAcetam 500 mg/5 ml Oral Solution PER TUBE SCH ×2 (09:59→21:23)
[2019-04-24] MEDS: Ascorbic Acid 500 mg Chewable Tablet PER TUBE SCH (09:59)
[2019-04-24] MEDS: Metoprolol Tartrate 25 MG TAB PER TUBE SCH ×2 (09:59→21:23)
[2019-04-24] MEDS: Floranex Packet PER TUBE SCH ×2 (09:59→21:23)
[2019-04-24] MEDS: FLUoxetine HCl 20 MG CAP PER TUBE SCH (09:59)
[2019-04-24] MEDS: Pantoprazole 40 MG GRANULES PACKET PER TUBE SCH (10:00)
[2019-04-24] MEDS: Polyethylene Glycol OPTH DROP 15 ML BOT EA EYE SCH ×3 (10:00→21:23)
[2019-04-24] MEDS: Famotidine/PF 20 mg/2ml Vial SLOW IVP SCH (10:01)
[2019-04-24 13:03] VITALS: BMI 19.1
[2019-04-24] MEDS: Dextrose 5% in Water 1,000 ML IV SCH (13:54)
[2019-04-24] MEDS ORDERED: Famotidine 40 MG/5 ML Oral Suspension PER TUBE SCH (21:00)
[2019-04-24] MEDS: Enoxaparin Sodium 40 MG/0.4 ML SYRINGE SC SCH (21:23)
[2019-04-24] MEDS: Senokot 8.6 MG TAB PER TUBE SCH (21:24)
[2019-04-24] MEDS: traZODone HCl 50 MG TAB PER TUBE SCH (21:24)
[2019-04-25] MEDS: Amantadine HCl 10 mg/ml Oral Solution PER TUBE SCH ×2 (05:31→10:03)
--- NOTE | 2019-04-25 09:07 | PDOC.HOSPP ---
- Subjective Encounter Date: 04/25/19 Encounter Time: 09:06 Subjective: Mr. Cross was seen today in follow-up of Pneumonia with sepsis. He seems a bit more alert this monring. He is looking through the room. He does not follow commands. - Objective Vital Signs & Weight: Vital Signs (12 hours) Temp Pulse Ox 04/25/19 08:00 98 04/25/19 07:30 97.8 F 04/25/19 03:26 97.6 F 04/25/19 00:02 97.8 F Weight Admit Weight 145 lb 9.6 oz Weight 137 lb 3 oz Most Recent Monitor Data Heart Rate from ECG 111 NIBP 113/75 NIBP BP-Mean 87 Respiration from ECG 26 SpO2 100 I&O: 04/24/19 04/25/19 04/26/19 06:59 06:59 06:59 Intake Total 4257 4813 357 Output Total 4075 3325 Balance 182 1488 357 Result Diagrams: 04/24/19 09:03 04/24/19 09:03 Hospitalist ROS - Medication Medications: Active Medications Generic Name Dose Route Start Last Admin Trade Name Freq PRN Reason Stop Dose Admin Acetaminophen 650 mg 04/13/19 02:10 04/13/19 08:30 Tylenol [place] 650 mg Q4H PRN Administration Headache/Fever/Mild Pain (1-3) Acidophilus 1 gm 04/13/19 21:00 04/24/19 21:23 Floranex PER TUBE 1 gm BID MAGO Administration Amantadine HCl 200 mg 04/14/19 06:00 04/25/19 05:31 Symmetrel PER TUBE 200 mg BID@0600,1100 MAGO Administration Ascorbic Acid 500 mg 04/14/19 09:00 04/24/19 09:59 Vitamin C PER TUBE 500 mg DAILY MAGO Administration Cholecalciferol 5,000 units 04/14/19 09:00 04/24/19 09:58 Vitamin D3 PER TUBE 5,000 units DAILY MAGO Administration Cyanocobalamin 1,000 mcg 04/14/19 09:00 04/24/19 09:58 Vitamin B-12 PER TUBE 1,000 mcg DAILY MAGO Administration Enoxaparin Sodium 40 mg 04/13/19 21:00 04/24/19 21:23 Lovenox SC 40 mg QPM MAGO Administration Ferrous Sulfate 300 mg 04/14/19 09:00 04/24/19 09:59 Ferrous Sulfate PER TUBE 300 mg DAILY MAGO Administration Fluoxetine HCl 40 mg 04/14/19 09:00 04/24/19 09:59 Prozac PER TUBE 40 mg DAILY MAGO Administration Folic Acid 1 mg 04/14/19 09:00 04/24/19 09:59 Folvite PER TUBE 1 mg DAILY MAGO Administration Gabapentin 300 mg 04/13/19 21:00 04/24/19 21:23 Neurontin PO 300 mg BID MAGO Administration Dextrose/Water 1,000 mls @ 50 mls/hr 04/14/19 14:32 04/24/19 13:54 D5w IV 1,000 mls .Q20H MAGO Administration Iron/Minerals/Multivitamins 1 tab 04/14/19 09:00 04/24/19 09:59 Theragran M PER TUBE 1 tab DAILY MAGO Administration Levetiracetam 500 mg 04/13/19 21:00 04/24/19 21:23 Keppra Oral Solution PER TUBE 500 mg BID MAGO Administration Metoprolol Tartrate 25 mg 04/13/19 21:00 04/24/19 21:23 Lopressor PER TUBE 25 mg BID MAGO Administration Modafinil 200 mg 04/14/19 09:00 04/24/19 09:58 Provigil PER TUBE 200 mg DAILY MAGO Administration Pantoprazole Sodium 40 mg 04/14/19 09:00 04/24/19 10:00 Protonix PER TUBE 40 mg DAILY MAGO Administration Propylene Glycol 1 drop 04/13/19 15:00 04/24/19 21:23 Systane Opth Drop 15ml Bot EA EYE 1 drop TID MAGO Administration Saccharomyces Boulardii 250 mg 04/13/19 09:00 04/24/19 09:58 Florastor PER TUBE 250 mg DAILY MAGO Administration Scopolamine 1.5 mg 04/13/19 10:00 04/22/19 10:00 Transderm Scop TD 1.5 mg Q3D MAGO Administration Senna 1 tab 04/13/19 21:00 04/24/19 21:24 Senokot PER TUBE 1 tab QPM MAGO Administration Sodium Chloride 10 ml 04/13/19 02:10 04/24/19 10:03 Flush - Normal Saline IVF 10 ml Q12HR PRN Administration Saline Flush Trazodone HCl 100 mg 04/13/19 21:00 04/24/19 21:24 Desyrel PER TUBE 100 mg HS MAGO Administration - Exam Eye: PERRL Heart: RRR, no murmur, no gallops, no rubs, normal peripheral pulses Respiratory: CTAB, no wheezes, no rales, no ronchi Gastrointestinal: soft, non-tender, non-distended, normal bowel sounds, no palpable masses, no hepatomegaly Extremities: no cyanosis, no clubbing, no edema Musculoskeletal: no muscle wasting Hosp A/P (1) Quadriplegic spinal paralysis Code(s): G82.50 - QUADRIPLEGIA, UNSPECIFIED Status: Acute (2) Healthcare associated bacterial pneumonia Code(s): J15.9 - UNSPECIFIED BACTERIAL PNEUMONIA Status: Acute (3) Hydrocephalus Code(s): G91.9 - HYDROCEPHALUS, UNSPECIFIED Status: Chronic - Plan * Pneumonia- resolved * UTI resolved * Quadreplegia s/p trach and PEG- continue supportive care * Awaiting Home Health arrangements
[2019-04-25] MEDS: Polyethylene Glycol OPTH DROP 15 ML BOT EA EYE SCH ×3 (09:58→22:38)
[2019-04-25] MEDS: Modafinil 100 MG TAB PER TUBE SCH (10:00)
[2019-04-25] MEDS: Gabapentin 300 MG CAP PO SCH ×2 (10:01→22:38)
[2019-04-25] MEDS: FLUoxetine HCl 20 MG CAP PER TUBE SCH (10:01)
[2019-04-25] MEDS: Pantoprazole 40 MG GRANULES PACKET PER TUBE SCH (10:01)
[2019-04-25] MEDS: levETIRAcetam 500 mg/5 ml Oral Solution PER TUBE SCH ×2 (10:01→22:39)
[2019-04-25] MEDS: Cyanocobalamin (Vitamin B-12) 1,000 MCG TAB PER TUBE SCH (10:02)
[2019-04-25] MEDS: Folic Acid 1 MG TAB PER TUBE SCH (10:02)
[2019-04-25] MEDS: Multivitamin W/ Minerals 1 TAB PER TUBE SCH (10:02)
[2019-04-25] MEDS: Ascorbic Acid 500 mg Chewable Tablet PER TUBE SCH (10:02)
[2019-04-25] MEDS: Saccharomyces boulardii 250 MG CAP PER TUBE SCH (10:02)
[2019-04-25] MEDS: Floranex Packet PER TUBE SCH ×2 (10:02→22:39)
[2019-04-25] MEDS: Metoprolol Tartrate 25 MG TAB PER TUBE SCH ×2 (10:03→22:38)
[2019-04-25] MEDS: Scopolamine 1.5 mg/72 hour Patch TD SCH (10:03)
[2019-04-25] MEDS: Dextrose 5% in Water 1,000 ML IV SCH (13:49)
[2019-04-25] MEDS: Enoxaparin Sodium 40 MG/0.4 ML SYRINGE SC SCH (22:37)
[2019-04-25] MEDS: Senokot 8.6 MG TAB PER TUBE SCH (22:38)
[2019-04-25] MEDS: traZODone HCl 50 MG TAB PER TUBE SCH (22:41)
[2019-04-26] MEDS: Amantadine HCl 10 mg/ml Oral Solution PER TUBE SCH ×2 (05:10→11:48)
[2019-04-26] MEDS: FLUoxetine HCl 20 MG CAP PER TUBE SCH (08:55)
[2019-04-26] MEDS: Ascorbic Acid 500 mg Chewable Tablet PER TUBE SCH (08:55)
[2019-04-26] MEDS: Multivitamin W/ Minerals 1 TAB PER TUBE SCH (08:55)
[2019-04-26] MEDS: Saccharomyces boulardii 250 MG CAP PER TUBE SCH (08:55)
[2019-04-26] MEDS: Metoprolol Tartrate 25 MG TAB PER TUBE SCH ×2 (08:55→21:20)
[2019-04-26] MEDS: Folic Acid 1 MG TAB PER TUBE SCH (08:56)
[2019-04-26] MEDS: levETIRAcetam 500 mg/5 ml Oral Solution PER TUBE SCH ×2 (08:56→21:21)
[2019-04-26] MEDS: Pantoprazole 40 MG GRANULES PACKET PER TUBE SCH (08:56)
[2019-04-26] MEDS: Modafinil 100 MG TAB PER TUBE SCH (08:56)
[2019-04-26] MEDS: Cyanocobalamin (Vitamin B-12) 1,000 MCG TAB PER TUBE SCH (08:56)
[2019-04-26] MEDS: Gabapentin 300 MG CAP PO SCH ×2 (08:56→21:20)
[2019-04-26] MEDS: Polyethylene Glycol OPTH DROP 15 ML BOT EA EYE SCH ×3 (08:57→21:21)
[2019-04-26] MEDS: Floranex Packet PER TUBE SCH ×2 (08:57→21:21)
[2019-04-26] MEDS: Dextrose 5% in Water 1,000 ML IV SCH (14:00)
--- NOTE | 2019-04-26 16:48 | PDOC.HOSPP ---
- Subjective Encounter Date: 04/26/19 Encounter Time: 16:47 Subjective: Mr. Cross was seen today in follow-up of sepsis. He appears comfortable. - Objective Vital Signs & Weight: Vital Signs (12 hours) Temp Pulse Resp BP Pulse Ox 04/26/19 15:46 98.2 F 101 H 18 108/66 92 L 04/26/19 12:12 98.4 F 98 18 102/68 99 04/26/19 08:03 98.5 F 111 H 20 110/76 98 04/26/19 05:09 98.6 F 105 H 20 96/63 97 Weight Admit Weight 145 lb 9.6 oz Weight 137 lb 3 oz Most Recent Monitor Data Heart Rate from ECG 99 NIBP 114/77 NIBP BP-Mean 89 Respiration from ECG 25 SpO2 97 I&O: 04/25/19 04/26/19 04/27/19 06:59 06:59 06:59 Intake Total 4813 3198 230 Output Total 3325 2825 Balance 1488 373 230 Result Diagrams: 04/24/19 09:03 04/24/19 09:03 Hospitalist ROS - Medication Medications: Active Medications Generic Name Dose Route Start Last Admin Trade Name Freq PRN Reason Stop Dose Admin Acetaminophen 650 mg 04/13/19 02:10 04/13/19 08:30 Tylenol [place] 650 mg Q4H PRN Administration Headache/Fever/Mild Pain (1-3) Acidophilus 1 gm 04/13/19 21:00 04/26/19 08:57 Floranex PER TUBE 1 gm BID MAGO Administration Amantadine HCl 200 mg 04/14/19 06:00 04/26/19 11:48 Symmetrel PER TUBE 200 mg BID@0600,1100 MAGO Administration Ascorbic Acid 500 mg 04/14/19 09:00 04/26/19 08:55 Vitamin C PER TUBE 500 mg DAILY MAGO Administration Cholecalciferol 5,000 units 04/14/19 09:00 04/26/19 08:55 Vitamin D3 PER TUBE 5,000 units DAILY MAGO Administration Cyanocobalamin 1,000 mcg 04/14/19 09:00 04/26/19 08:56 Vitamin B-12 PER TUBE 1,000 mcg DAILY MAGO Administration Enoxaparin Sodium 40 mg 04/13/19 21:00 04/25/19 22:37 Lovenox SC 40 mg QPM MAGO Administration Ferrous Sulfate 300 mg 04/14/19 09:00 04/26/19 08:56 Ferrous Sulfate PER TUBE 300 mg DAILY MAGO Administration Fluoxetine HCl 40 mg 04/14/19 09:00 04/26/19 08:55 Prozac PER TUBE 40 mg DAILY MAGO Administration Folic Acid 1 mg 04/14/19 09:00 04/26/19 08:56 Folvite PER TUBE 1 mg DAILY MAGO Administration Gabapentin 300 mg 04/13/19 21:00 04/26/19 08:56 Neurontin PO 300 mg BID MAGO Administration Dextrose/Water 1,000 mls @ 50 mls/hr 04/14/19 14:32 04/25/19 13:49 D5w IV 1,000 mls .Q20H MAGO Administration Iron/Minerals/Multivitamins 1 tab 04/14/19 09:00 04/26/19 08:55 Theragran M PER TUBE 1 tab DAILY MAGO Administration Levetiracetam 500 mg 04/13/19 21:00 04/26/19 08:56 Keppra Oral Solution PER TUBE 500 mg BID MAGO Administration Metoprolol Tartrate 25 mg 04/13/19 21:00 04/26/19 08:55 Lopressor PER TUBE 25 mg BID MAGO Administration Modafinil 200 mg 04/14/19 09:00 04/26/19 08:56 Provigil PER TUBE 200 mg DAILY MAGO Administration Pantoprazole Sodium 40 mg 04/14/19 09:00 04/26/19 08:56 Protonix PER TUBE 40 mg DAILY MAGO Administration Propylene Glycol 1 drop 04/13/19 15:00 04/26/19 08:57 Systane Opth Drop 15ml Bot EA EYE 1 drop TID MAGO Administration Saccharomyces Boulardii 250 mg 04/13/19 09:00 04/26/19 08:55 Florastor PER TUBE 250 mg DAILY MAGO Administration Scopolamine 1.5 mg 04/13/19 10:00 04/25/19 10:03 Transderm Scop TD 1.5 mg Q3D MAGO Administration Senna 1 tab 04/13/19 21:00 04/25/19 22:38 Senokot PER TUBE 1 tab QPM MAGO Administration Sodium Chloride 10 ml 04/13/19 02:10 04/24/19 10:03 Flush - Normal Saline IVF 10 ml Q12HR PRN Administration Saline Flush Trazodone HCl 100 mg 04/13/19 21:00 04/25/19 22:41 Desyrel PER TUBE 100 mg HS MAGO Administration - Exam Eye: PERRL Heart: RRR, no murmur, no gallops, no rubs, normal peripheral pulses Respiratory: CTAB, no wheezes, no rales, no ronchi, normal chest expansion, no tachypnea, normal percussion Gastrointestinal: soft, non-tender, non-distended, normal bowel sounds, no palpable masses, no hepatomegaly Extremities: no cyanosis, no edema Musculoskeletal: diffuse muscle atrophy (+ quadreplegia) Hosp A/P (1) Quadriplegic spinal paralysis Code(s): G82.50 - QUADRIPLEGIA, UNSPECIFIED Status: Acute (2) Healthcare associated bacterial pneumonia Code(s): J15.9 - UNSPECIFIED BACTERIAL PNEUMONIA Status: Acute (3) Hydrocephalus Code(s): G91.9 - HYDROCEPHALUS, UNSPECIFIED Status: Chronic - Plan * Patient admitted with sepsis from Pneumonia and UTI. These have resolved * Quadreplegia s/p trach and PEG- continue supportive care * Anticipate home on Wednesday with Home Health
[2019-04-26] MEDS: Enoxaparin Sodium 40 MG/0.4 ML SYRINGE SC SCH (21:20)
[2019-04-26] MEDS: traZODone HCl 50 MG TAB PER TUBE SCH (21:20)
[2019-04-26] MEDS: Senokot 8.6 MG TAB PER TUBE SCH (21:20)
[2019-04-27] MEDS: Amantadine HCl 10 mg/ml Oral Solution PER TUBE SCH ×2 (05:21→11:30)
[2019-04-27] MEDS: Dextrose 5% in Water 1,000 ML IV SCH (07:16)
[2019-04-27] MEDS: Multivitamin W/ Minerals 1 TAB PER TUBE SCH (09:32)
[2019-04-27] MEDS: Floranex Packet PER TUBE SCH ×2 (09:32→20:21)
[2019-04-27] MEDS: Saccharomyces boulardii 250 MG CAP PER TUBE SCH (09:32)
[2019-04-27] MEDS: Pantoprazole 40 MG GRANULES PACKET PER TUBE SCH (09:32)
[2019-04-27] MEDS: Cyanocobalamin (Vitamin B-12) 1,000 MCG TAB PER TUBE SCH (09:33)
[2019-04-27] MEDS: levETIRAcetam 500 mg/5 ml Oral Solution PER TUBE SCH ×2 (09:33→20:21)
[2019-04-27] MEDS: Folic Acid 1 MG TAB PER TUBE SCH (09:33)
[2019-04-27] MEDS: FLUoxetine HCl 20 MG CAP PER TUBE SCH (09:33)
[2019-04-27] MEDS: Gabapentin 300 MG CAP PO SCH ×2 (09:33→20:21)
[2019-04-27] MEDS: Ascorbic Acid 500 mg Chewable Tablet PER TUBE SCH (09:33)
[2019-04-27] MEDS: Metoprolol Tartrate 25 MG TAB PER TUBE SCH ×2 (09:34→20:21)
[2019-04-27] MEDS: Polyethylene Glycol OPTH DROP 15 ML BOT EA EYE SCH ×3 (09:34→20:20)
[2019-04-27] MEDS: Modafinil 100 MG TAB PER TUBE SCH (09:34)
--- NOTE | 2019-04-27 12:15 | PDOC.HOSPP ---
- Subjective Encounter Date: 04/27/19 Encounter Time: 12:14 Subjective: Mr. Cross was seen today in follow-up of pneumonia, uti, and sepsis. His mother is at the bedside, and he is responding well to her with gestures, and facial expressions. - Objective Vital Signs & Weight: Vital Signs (12 hours) Temp Pulse Resp BP Pulse Ox 04/27/19 08:15 98.1 F 89 20 99/65 100 04/27/19 03:38 97.7 F 90 18 110/71 100 Weight Admit Weight 145 lb 9.6 oz Weight 137 lb 3 oz Most Recent Monitor Data Heart Rate from ECG 99 NIBP 114/77 NIBP BP-Mean 89 Respiration from ECG 25 SpO2 97 I&O: 04/26/19 04/27/19 04/28/19 06:59 06:59 06:59 Intake Total 3198 3531 Output Total 2825 1875 Balance 373 1656 Result Diagrams: 04/24/19 09:03 04/24/19 09:03 Hospitalist ROS - Medication Medications: Active Medications Generic Name Dose Route Start Last Admin Trade Name Freq PRN Reason Stop Dose Admin Acetaminophen 650 mg 04/13/19 02:10 04/13/19 08:30 Tylenol [place] 650 mg Q4H PRN Administration Headache/Fever/Mild Pain (1-3) Acidophilus 1 gm 04/13/19 21:00 04/27/19 09:32 Floranex PER TUBE 1 gm BID MAGO Administration Amantadine HCl 200 mg 04/14/19 06:00 04/27/19 05:21 Symmetrel PER TUBE 200 mg BID@0600,1100 MAGO Administration Ascorbic Acid 500 mg 04/14/19 09:00 04/27/19 09:33 Vitamin C PER TUBE 500 mg DAILY MAGO Administration Cholecalciferol 5,000 units 04/14/19 09:00 04/27/19 09:33 Vitamin D3 PER TUBE 5,000 units DAILY MAGO Administration Cyanocobalamin 1,000 mcg 04/14/19 09:00 04/27/19 09:33 Vitamin B-12 PER TUBE 1,000 mcg DAILY MAGO Administration Enoxaparin Sodium 40 mg 04/13/19 21:00 04/26/19 21:20 Lovenox SC 40 mg QPM MAGO Administration Ferrous Sulfate 300 mg 04/14/19 09:00 04/27/19 09:33 Ferrous Sulfate PER TUBE 300 mg DAILY MAGO Administration Fluoxetine HCl 40 mg 04/14/19 09:00 04/27/19 09:33 Prozac PER TUBE 40 mg DAILY MAGO Administration Folic Acid 1 mg 04/14/19 09:00 04/27/19 09:33 Folvite PER TUBE 1 mg DAILY MAGO Administration Gabapentin 300 mg 04/13/19 21:00 04/27/19 09:33 Neurontin PO 300 mg BID MAGO Administration Dextrose/Water 1,000 mls @ 50 mls/hr 04/14/19 14:32 04/27/19 07:16 D5w IV Not Given .Q20H MAGO Iron/Minerals/Multivitamins 1 tab 04/14/19 09:00 04/27/19 09:32 Theragran M PER TUBE 1 tab DAILY MAGO Administration Levetiracetam 500 mg 04/13/19 21:00 04/27/19 09:33 Keppra Oral Solution PER TUBE 500 mg BID MAGO Administration Metoprolol Tartrate 25 mg 04/13/19 21:00 04/27/19 09:34 Lopressor PER TUBE 25 mg BID MAGO Administration Modafinil 200 mg 04/14/19 09:00 04/27/19 09:34 Provigil PER TUBE 200 mg DAILY MAGO Administration Pantoprazole Sodium 40 mg 04/14/19 09:00 04/27/19 09:32 Protonix PER TUBE 40 mg DAILY MAGO Administration Propylene Glycol 1 drop 04/13/19 15:00 04/27/19 09:34 Systane Opth Drop 15ml Bot EA EYE 1 drop TID MAGO Administration Saccharomyces Boulardii 250 mg 04/13/19 09:00 04/27/19 09:32 Florastor PER TUBE 250 mg DAILY MAGO Administration Scopolamine 1.5 mg 04/13/19 10:00 04/25/19 10:03 Transderm Scop TD 1.5 mg Q3D MAGO Administration Senna 1 tab 04/13/19 21:00 04/26/19 21:20 Senokot PER TUBE 1 tab QPM MAGO Administration Sodium Chloride 10 ml 04/13/19 02:10 04/24/19 10:03 Flush - Normal Saline IVF 10 ml Q12HR PRN Administration Saline Flush Trazodone HCl 100 mg 04/13/19 21:00 01/01/20 21:20 Desyrel PER TUBE 100 mg HS MAGO Administration - Exam Eye: PERRL Heart: RRR, no murmur, no gallops, no rubs, normal peripheral pulses Respiratory: CTAB (with the exception of course breath sounds), no wheezes, no rales, no ronchi, normal chest expansion Gastrointestinal: soft, non-tender, non-distended, normal bowel sounds Extremities: no cyanosis, no edema Neurological - other findings: + quadreplegia Musculoskeletal: diffuse muscle atrophy Hosp A/P (1) Quadriplegic spinal paralysis Code(s): G82.50 - QUADRIPLEGIA, UNSPECIFIED Status: Acute (2) Healthcare associated bacterial pneumonia Code(s): J15.9 - UNSPECIFIED BACTERIAL PNEUMONIA Status: Acute (3) Hydrocephalus Code(s): G91.9 - HYDROCEPHALUS, UNSPECIFIED Status: Chronic - Plan * Patient admitted with sepsis from Pneumonia and UTI. resolved * Quadreplegia s/p trach and PEG- continue supportive care * Anticipate home with Home Health Tomorrow
[2019-04-27] MEDS: Senokot 8.6 MG TAB PER TUBE SCH (20:19)
[2019-04-27] MEDS: Enoxaparin Sodium 40 MG/0.4 ML SYRINGE SC SCH (20:21)
[2019-04-27] MEDS: traZODone HCl 50 MG TAB PER TUBE SCH (20:21)
[2019-04-28] MEDS: Amantadine HCl 10 mg/ml Oral Solution PER TUBE SCH ×2 (05:36→11:22)
[2019-04-28] MEDS: Dextrose 5% in Water 1,000 ML IV SCH (05:36)
[2019-04-28] MEDS: levETIRAcetam 500 mg/5 ml Oral Solution PER TUBE SCH ×2 (09:14→20:52)
[2019-04-28] MEDS: Floranex Packet PER TUBE SCH ×2 (09:14→20:52)
[2019-04-28] MEDS: Modafinil 100 MG TAB PER TUBE SCH (09:14)
[2019-04-28] MEDS: Pantoprazole 40 MG GRANULES PACKET PER TUBE SCH (09:15)
[2019-04-28] MEDS: Metoprolol Tartrate 25 MG TAB PER TUBE SCH ×2 (09:15→20:52)
[2019-04-28] MEDS: Gabapentin 300 MG CAP PO SCH ×2 (09:15→20:52)
[2019-04-28] MEDS: Cyanocobalamin (Vitamin B-12) 1,000 MCG TAB PER TUBE SCH (09:15)
[2019-04-28] MEDS: Ascorbic Acid 500 mg Chewable Tablet PER TUBE SCH (09:15)
[2019-04-28] MEDS: Saccharomyces boulardii 250 MG CAP PER TUBE SCH (09:15)
[2019-04-28] MEDS: FLUoxetine HCl 20 MG CAP PER TUBE SCH (09:16)
[2019-04-28] MEDS: Multivitamin W/ Minerals 1 TAB PER TUBE SCH (09:16)
[2019-04-28] MEDS: Folic Acid 1 MG TAB PER TUBE SCH (09:16)
[2019-04-28] MEDS: Scopolamine 1.5 mg/72 hour Patch TD SCH (09:30)
[2019-04-28] MEDS: Polyethylene Glycol OPTH DROP 15 ML BOT EA EYE SCH ×3 (09:30→20:52)
--- NOTE | 2019-04-28 12:38 | PDOC.HOSPP ---
- Subjective Encounter Date: 04/28/19 Encounter Time: 12:36 Subjective: Mr. Cross was seen today in follow-up of pneumonia and UTI with sepsis. He appears comfortable. No complaints voiced by staff. - Objective Vital Signs & Weight: Vital Signs (12 hours) Temp Pulse Resp BP Pulse Ox 04/28/19 10:50 98.1 F 94 18 100/68 98 04/28/19 07:48 97.9 F 88 18 114/77 99 04/28/19 07:30 99 04/28/19 03:32 97.6 F 78 18 107/71 99 Weight Admit Weight 145 lb 9.6 oz Weight 137 lb 3 oz Most Recent Monitor Data Heart Rate from ECG 99 NIBP 114/77 NIBP BP-Mean 89 Respiration from ECG 25 SpO2 97 I&O: 04/27/19 04/28/19 04/29/19 06:59 06:59 06:59 Intake Total 3531 4293 Output Total 1875 Balance 1656 4293 Result Diagrams: 04/24/19 09:03 04/24/19 09:03 Hospitalist ROS - Medication Medications: Active Medications Generic Name Dose Route Start Last Admin Trade Name Freq PRN Reason Stop Dose Admin Acetaminophen 650 mg 04/13/19 02:10 04/13/19 08:30 Tylenol [place] 650 mg Q4H PRN Administration Headache/Fever/Mild Pain (1-3) Acidophilus 1 gm 04/13/19 21:00 04/28/19 09:14 Floranex PER TUBE 1 gm BID MAGO Administration Amantadine HCl 200 mg 04/14/19 06:00 04/28/19 11:22 Symmetrel PER TUBE 200 mg BID@0600,1100 MAGO Administration Ascorbic Acid 500 mg 04/14/19 09:00 04/28/19 09:15 Vitamin C PER TUBE 500 mg DAILY MAGO Administration Cholecalciferol 5,000 units 04/14/19 09:00 04/28/19 09:15 Vitamin D3 PER TUBE 5,000 units DAILY MAGO Administration Cyanocobalamin 1,000 mcg 04/14/19 09:00 04/28/19 09:15 Vitamin B-12 PER TUBE 1,000 mcg DAILY MAGO Administration Enoxaparin Sodium 40 mg 04/13/19 21:00 04/27/19 20:21 Lovenox SC 40 mg QPM MAGO Administration Ferrous Sulfate 300 mg 04/14/19 09:00 04/28/19 09:14 Ferrous Sulfate PER TUBE 300 mg DAILY MAGO Administration Fluoxetine HCl 40 mg 04/14/19 09:00 04/28/19 09:16 Prozac PER TUBE 40 mg DAILY MAGO Administration Folic Acid 1 mg 04/14/19 09:00 04/28/19 09:16 Folvite PER TUBE 1 mg DAILY MAGO Administration Gabapentin 300 mg 04/13/19 21:00 04/28/19 09:15 Neurontin PO 300 mg BID MAGO Administration Dextrose/Water 1,000 mls @ 50 mls/hr 04/14/19 14:32 04/28/19 05:36 D5w IV 1,000 mls .Q20H MAGO Administration Iron/Minerals/Multivitamins 1 tab 04/14/19 09:00 04/28/19 09:16 Theragran M PER TUBE 1 tab DAILY MAGO Administration Levetiracetam 500 mg 04/13/19 21:00 04/28/19 09:14 Keppra Oral Solution PER TUBE 500 mg BID MAGO Administration Metoprolol Tartrate 25 mg 04/13/19 21:00 04/28/19 09:15 Lopressor PER TUBE 25 mg BID MAGO Administration Modafinil 200 mg 04/14/19 09:00 04/28/19 09:14 Provigil PER TUBE 200 mg DAILY MAGO Administration Pantoprazole Sodium 40 mg 04/14/19 09:00 04/28/19 09:15 Protonix PER TUBE 40 mg DAILY MAGO Administration Propylene Glycol 1 drop 04/13/19 15:00 04/28/19 09:30 Systane Opth Drop 15ml Bot EA EYE 1 drop TID MAGO Administration Saccharomyces Boulardii 250 mg 04/13/19 09:00 04/28/19 09:15 Florastor PER TUBE 250 mg DAILY MAGO Administration Scopolamine 1.5 mg 04/13/19 10:00 04/28/19 09:30 Transderm Scop TD 1.5 mg Q3D MAGO Administration Senna 1 tab 04/13/19 21:00 04/27/19 20:19 Senokot PER TUBE Not Given QPM MAGO Sodium Chloride 10 ml 04/13/19 02:10 04/24/19 10:03 Flush - Normal Saline IVF 10 ml Q12HR PRN Administration Saline Flush Trazodone HCl 100 mg 04/13/19 21:00 04/27/19 20:21 Desyrel PER TUBE 100 mg HS MAGO Administration - Exam Eye: PERRL Heart: RRR, no murmur, no gallops, no rubs, normal peripheral pulses Respiratory: CTAB, no wheezes, no rales, no ronchi, normal chest expansion Gastrointestinal: soft Extremities: no cyanosis, no edema Neurological: no new deficit Musculoskeletal: diffuse muscle atrophy Hosp A/P (1) Quadriplegic spinal paralysis Code(s): G82.50 - QUADRIPLEGIA, UNSPECIFIED Status: Acute (2) Healthcare associated bacterial pneumonia Code(s): J15.9 - UNSPECIFIED BACTERIAL PNEUMONIA Status: Acute (3) Hydrocephalus Code(s): G91.9 - HYDROCEPHALUS, UNSPECIFIED Status: Chronic - Plan * Patient admitted with sepsis from Pneumonia and UTI. resolved * Quadreplegia s/p trach and PEG- continue supportive care * Awaiting outpatient arrangements
[2019-04-28] MEDS: Enoxaparin Sodium 40 MG/0.4 ML SYRINGE SC SCH (20:52)
[2019-04-28] MEDS: Senokot 8.6 MG TAB PER TUBE SCH (20:52)
[2019-04-28] MEDS: traZODone HCl 50 MG TAB PER TUBE SCH (20:52)
[2019-04-29] MEDS: Amantadine HCl 10 mg/ml Oral Solution PER TUBE SCH ×2 (06:08→10:56)
[2019-04-29] MEDS: Polyethylene Glycol OPTH DROP 15 ML BOT EA EYE SCH ×3 (08:05→20:38)
[2019-04-29] MEDS: Floranex Packet PER TUBE SCH ×2 (08:06→20:35)
[2019-04-29] MEDS: FLUoxetine HCl 20 MG CAP PER TUBE SCH (08:06)
[2019-04-29] MEDS: levETIRAcetam 500 mg/5 ml Oral Solution PER TUBE SCH ×2 (08:06→20:35)
[2019-04-29] MEDS: Ascorbic Acid 500 mg Chewable Tablet PER TUBE SCH (08:06)
[2019-04-29] MEDS: Multivitamin W/ Minerals 1 TAB PER TUBE SCH (08:07)
[2019-04-29] MEDS: Metoprolol Tartrate 25 MG TAB PER TUBE SCH ×2 (08:07→21:24)
[2019-04-29] MEDS: Saccharomyces boulardii 250 MG CAP PER TUBE SCH (08:07)
[2019-04-29] MEDS: Gabapentin 300 MG CAP PO SCH ×2 (08:07→20:38)
[2019-04-29] MEDS: Folic Acid 1 MG TAB PER TUBE SCH (08:07)
[2019-04-29] MEDS: Pantoprazole 40 MG GRANULES PACKET PER TUBE SCH (08:07)
[2019-04-29] MEDS: Cyanocobalamin (Vitamin B-12) 1,000 MCG TAB PER TUBE SCH (08:08)
[2019-04-29] MEDS: Modafinil 100 MG TAB PER TUBE SCH (09:04)
[2019-04-29] MEDS: Dextrose 5% in Water 1,000 ML IV SCH ×2 (20:33)
[2019-04-29] MEDS: traZODone HCl 50 MG TAB PER TUBE SCH (20:35)
[2019-04-29] MEDS: Senokot 8.6 MG TAB PER TUBE SCH (20:36)
[2019-04-29] MEDS: Enoxaparin Sodium 40 MG/0.4 ML SYRINGE SC SCH (20:38)
[2019-04-29] MEDS: Acetaminophen 650 MG/20.3 ML UDCUP PO PRN (20:45)
[2019-04-30] MEDS: Acetaminophen 650 MG/20.3 ML UDCUP PO PRN (05:22)
[2019-04-30] MEDS: Amantadine HCl 10 mg/ml Oral Solution PER TUBE SCH ×2 (05:30→12:17)
[2019-04-30] MEDS ORDERED: Lorazepam 2 MG/ML VIAL SLOW IVP SCH (05:45)
[2019-04-30] MEDS: Polyethylene Glycol OPTH DROP 15 ML BOT EA EYE SCH ×3 (09:05→19:57)
[2019-04-30] MEDS: Floranex Packet PER TUBE SCH ×2 (09:08→19:57)
[2019-04-30] MEDS: levETIRAcetam 500 mg/5 ml Oral Solution PER TUBE SCH ×2 (09:09→19:56)
[2019-04-30] MEDS: Metoprolol Tartrate 25 MG TAB PER TUBE SCH ×2 (09:10→21:54)
[2019-04-30] MEDS: Ascorbic Acid 500 mg Chewable Tablet PER TUBE SCH (09:10)
[2019-04-30] MEDS: FLUoxetine HCl 20 MG CAP PER TUBE SCH (09:10)
[2019-04-30] MEDS: Folic Acid 1 MG TAB PER TUBE SCH (09:10)
[2019-04-30] MEDS: Gabapentin 300 MG CAP PO SCH ×2 (09:10→19:56)
[2019-04-30] MEDS: Pantoprazole 40 MG GRANULES PACKET PER TUBE SCH (09:10)
[2019-04-30] MEDS: Multivitamin W/ Minerals 1 TAB PER TUBE SCH (09:10)
[2019-04-30] MEDS: Cyanocobalamin (Vitamin B-12) 1,000 MCG TAB PER TUBE SCH (09:11)
[2019-04-30] MEDS: Saccharomyces boulardii 250 MG CAP PER TUBE SCH (09:11)
--- NOTE | 2019-04-30 09:45 | PDOC.HOSPP ---
- Subjective Encounter Date: 04/30/19 Encounter Time: 09:30 Subjective: Alert, keeps his eyes open. - Objective Vital Signs & Weight: Vital Signs (12 hours) Temp Pulse Resp BP Pulse Ox 04/30/19 08:19 97.7 F 89 18 101/72 98 04/30/19 03:46 97.9 F 88 18 108/67 97 04/30/19 00:14 97.5 F L 91 18 101/70 96 Weight Admit Weight 145 lb 9.6 oz Weight 137 lb 3 oz Most Recent Monitor Data Heart Rate from ECG 99 NIBP 114/77 NIBP BP-Mean 89 Respiration from ECG 25 SpO2 97 I&O: 04/29/19 04/30/19 05/01/19 06:59 06:59 06:59 Intake Total 5622 3000 Output Total 1350 Balance 5622 1650 Result Diagrams: 04/24/19 09:03 04/24/19 09:03 Hospitalist ROS - Medication Medications: Active Medications Generic Name Dose Route Start Last Admin Trade Name Freq PRN Reason Stop Dose Admin Acetaminophen 650 mg 04/13/19 02:10 04/13/19 08:30 Tylenol OR 650 mg Q4H PRN Administration Headache/Fever/Mild Pain (1-3) Acetaminophen 650 mg 04/13/19 09:48 04/30/19 05:22 Tylenol Elixir PO 650 mg Q4HR PRN Administration Pain Acidophilus 1 gm 04/13/19 21:00 04/30/19 09:08 Floranex PER TUBE 1 gm BID MAGO Administration Amantadine HCl 200 mg 04/14/19 06:00 04/30/19 05:30 Symmetrel PER TUBE 200 mg BID@0600,1100 MAGO Administration Ascorbic Acid 500 mg 04/14/19 09:00 04/30/19 09:10 Vitamin C PER TUBE 500 mg DAILY MAGO Administration Cholecalciferol 5,000 units 04/14/19 09:00 04/30/19 09:09 Vitamin D3 PER TUBE 5,000 units DAILY MAGO Administration Cyanocobalamin 1,000 mcg 04/14/19 09:00 04/30/19 09:11 Vitamin B-12 PER TUBE 1,000 mcg DAILY MAGO Administration Enoxaparin Sodium 40 mg 04/13/19 21:00 04/29/19 20:38 Lovenox SC 40 mg QPM MAGO Administration Ferrous Sulfate 300 mg 04/14/19 09:00 04/30/19 09:09 Ferrous Sulfate PER TUBE 300 mg DAILY MAGO Administration Fluoxetine HCl 40 mg 04/14/19 09:00 04/30/19 09:10 Prozac PER TUBE 40 mg DAILY MAGO Administration Folic Acid 1 mg 04/14/19 09:00 04/30/19 09:10 Folvite PER TUBE 1 mg DAILY MAGO Administration Gabapentin 300 mg 04/13/19 21:00 04/30/19 09:10 Neurontin PO 300 mg BID MAGO Administration Dextrose/Water 1,000 mls @ 50 mls/hr 04/14/19 14:32 04/29/19 20:33 D5w IV 1,000 mls .Q20H MAGO Administration Iron/Minerals/Multivitamins 1 tab 04/14/19 09:00 04/30/19 09:10 Theragran M PER TUBE 1 tab DAILY MAGO Administration Levetiracetam 500 mg 04/13/19 21:00 04/30/19 09:09 Keppra Oral Solution PER TUBE 500 mg BID MAGO Administration Metoprolol Tartrate 25 mg 04/13/19 21:00 04/30/19 09:10 Lopressor PER TUBE 25 mg BID MAGO Administration Modafinil 200 mg 04/14/19 09:00 04/29/19 09:04 Provigil PER TUBE 200 mg DAILY MAGO Administration Pantoprazole Sodium 40 mg 04/14/19 09:00 04/30/19 09:10 Protonix PER TUBE 40 mg DAILY MAGO Administration Propylene Glycol 1 drop 04/13/19 15:00 04/30/19 09:05 Systane Opth Drop 15ml Bot EA EYE 1 drop TID MAGO Administration Saccharomyces Boulardii 250 mg 04/13/19 09:00 04/30/19 09:11 Florastor PER TUBE 250 mg DAILY MAGO Administration Scopolamine 1.5 mg 04/13/19 10:00 04/28/19 09:30 Transderm Scop TD 1.5 mg Q3D MAGO Administration Senna 1 tab 04/13/19 21:00 04/29/19 20:36 Senokot PER TUBE Not Given QPM MAGO Sodium Chloride 10 ml 04/13/19 02:10 04/28/19 20:56 Flush - Normal Saline IVF 10 ml Q12HR PRN Administration Saline Flush Trazodone HCl 100 mg 04/13/19 21:00 04/29/19 20:35 Desyrel PER TUBE 100 mg HS MAGO Administration - Exam Neck: no JVD (Tracheal mask in place.) Heart: RRR Respiratory: CTAB Gastrointestinal: soft Musculoskeletal: diffuse muscle atrophy (Quadriplegia.) Hosp A/P (1) Acute on chronic respiratory failure Code(s): J96.20 - ACUTE AND CHR RESP FAILURE, UNSP W HYPOXIA OR HYPERCAPNIA Status: Acute Qualifiers: Respiratory failure complication: hypoxia Qualified Code(s): J96.21 - Acute and chronic respiratory failure with hypoxia (2) Healthcare associated bacterial pneumonia Code(s): J15.9 - UNSPECIFIED BACTERIAL PNEUMONIA Status: Acute (3) Sepsis Code(s): A41.9 - SEPSIS, UNSPECIFIED ORGANISM Status: Acute (4) Hydrocephalus Code(s): G91.9 - HYDROCEPHALUS, UNSPECIFIED Status: Chronic (5) Quadriplegia and quadriparesis Code(s): G82.50 - QUADRIPLEGIA, UNSPECIFIED Status: Chronic - Plan Same supportive management.. Awaiting disposition..
[2019-04-30] MEDS: Modafinil 100 MG TAB PER TUBE SCH (12:17)
[2019-04-30] MEDS: Dextrose 5% in Water 1,000 ML IV SCH (16:32)
[2019-04-30] MEDS: Senokot 8.6 MG TAB PER TUBE SCH (19:56)
[2019-04-30] MEDS: traZODone HCl 50 MG TAB PER TUBE SCH (19:56)
[2019-04-30] MEDS: Enoxaparin Sodium 40 MG/0.4 ML SYRINGE SC SCH (20:15)
[2019-05-01] MEDS: Amantadine HCl 10 mg/ml Oral Solution PER TUBE SCH ×2 (04:55→10:54)
[2019-05-01] MEDS: Saccharomyces boulardii 250 MG CAP PER TUBE SCH (09:32)
[2019-05-01] MEDS: Pantoprazole 40 MG GRANULES PACKET PER TUBE SCH (09:32)
[2019-05-01] MEDS: Cyanocobalamin (Vitamin B-12) 1,000 MCG TAB PER TUBE SCH (09:33)
[2019-05-01] MEDS: FLUoxetine HCl 20 MG CAP PER TUBE SCH (09:33)
[2019-05-01] MEDS: Ascorbic Acid 500 mg Chewable Tablet PER TUBE SCH (09:33)
[2019-05-01] MEDS: Metoprolol Tartrate 25 MG TAB PER TUBE SCH ×2 (09:33→20:04)
[2019-05-01] MEDS: Folic Acid 1 MG TAB PER TUBE SCH (09:34)
[2019-05-01] MEDS: Multivitamin W/ Minerals 1 TAB PER TUBE SCH (09:34)
[2019-05-01] MEDS: Scopolamine 1.5 mg/72 hour Patch TD SCH (09:34)
[2019-05-01] MEDS: Gabapentin 300 MG CAP PO SCH ×2 (09:34→20:04)
[2019-05-01] MEDS: levETIRAcetam 500 mg/5 ml Oral Solution PER TUBE SCH ×2 (09:34→20:04)
[2019-05-01] MEDS: Floranex Packet PER TUBE SCH ×2 (09:35→20:04)
[2019-05-01] MEDS: Polyethylene Glycol OPTH DROP 15 ML BOT EA EYE SCH ×3 (09:36→20:05)
[2019-05-01] MEDS: Dextrose 5% in Water 1,000 ML IV SCH (11:02)
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
[2019-05-01] MEDS: Modafinil 100 MG TAB PER TUBE SCH (12:52)
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
[2019-05-01] MEDS: Enoxaparin Sodium 40 MG/0.4 ML SYRINGE SC SCH (20:04)
[2019-05-01] MEDS: Senokot 8.6 MG TAB PER TUBE SCH (20:04)
[2019-05-01] MEDS: traZODone HCl 50 MG TAB PER TUBE SCH (20:04)
[2019-05-02 05:21] LABS: Hemoglobin 11.3 g/dL (14.0-18.0); Mean Corpuscular HGB CONC 34.3 g/dL (32.0-36.0); Mean Corpuscular Hemoglobin 32.4 pg (27.0-31.0); Mean Corpuscular Volume 94.3 fL (78.0-98.0); Mean Platelet Volume 7.8 fL (7.4-10.4); Platelet Count 165 thou/uL (130-400); RBC Distribution Width 12.3 % (11.5-14.5); Red Blood Cell (RBC) Count 3.48 mill/uL (4.70-6.10); White Blood Cell (WBC) Count 4.5 thou/uL (4.8-10.8)
[2019-05-02] MEDS: Amantadine HCl 10 mg/ml Oral Solution PER TUBE SCH ×2 (05:29→10:22)
[2019-05-02 05:46] LABS: Anion Gap 13 mmol/L (10-20); BUN (Urea Nitrogen) 12 mg/dL (8.9-20.6); Calc. Creatinine Clearance 153 mL/min (70-130); Calcium 9.6 mg/dL (7.8-10.44); Carbon Dioxide 30 mmol/L (22-29); Chloride 99 mmol/L (98-107); Estimated GFR-MDRD Greater than 90; Glucose 121 mg/dL (70-105); Potassium 3.8 mmol/L (3.5-5.1); Sodium 138 mmol/L (136-145)
[2019-05-02] MEDS: Dextrose 5% in Water 1,000 ML IV SCH (06:42)
[2019-05-02] MEDS: Saccharomyces boulardii 250 MG CAP PER TUBE SCH (09:29)
[2019-05-02] MEDS: Multivitamin W/ Minerals 1 TAB PER TUBE SCH (09:29)
[2019-05-02] MEDS: FLUoxetine HCl 20 MG CAP PER TUBE SCH (09:29)
[2019-05-02] MEDS: Metoprolol Tartrate 25 MG TAB PER TUBE SCH (09:29)
[2019-05-02] MEDS: Ascorbic Acid 500 mg Chewable Tablet PER TUBE SCH (09:29)
[2019-05-02] MEDS: Cyanocobalamin (Vitamin B-12) 1,000 MCG TAB PER TUBE SCH (09:29)
[2019-05-02] MEDS: Folic Acid 1 MG TAB PER TUBE SCH (09:30)
[2019-05-02] MEDS: Gabapentin 300 MG CAP PO SCH (09:30)
[2019-05-02] MEDS: Floranex Packet PER TUBE SCH (09:31)
[2019-05-02] MEDS: Pantoprazole 40 MG GRANULES PACKET PER TUBE SCH (09:31)
[2019-05-02] MEDS: levETIRAcetam 500 mg/5 ml Oral Solution PER TUBE SCH (09:33)
[2019-05-02] MEDS: Polyethylene Glycol OPTH DROP 15 ML BOT EA EYE SCH ×2 (09:33→14:31)
[2019-05-02] MEDS: Modafinil 100 MG TAB PER TUBE SCH (14:31)
[2019-05-02 15:15] VITALS: BP 102/68; TEMP 97.6
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
== END 2019-05-02 16:15 | disposition home or self-care (01) | DRG 871 ==
LOC: ERS 20:22 → 2SE 23:50 → CCU 04-13 09:05 → IMCU/EMU 04-13 16:25 → SURG B 04-25 22:30
PROVIDERS: ADMIT Internal Medicine; ATTEND Internal Medicine
DX: A41.01 Sepsis due to Methicillin susceptible Staphylococcus aureus (principal); G82.50 Quadriplegia, unspecified; J96.21 Acute and chronic respiratory failure with hypoxia; G93.41 Metabolic encephalopathy; J69.0 Pneumonitis due to inhalation of food and vomit; G91.9 Hydrocephalus, unspecified; Z16.21 Resistance to vancomycin; E46 Unspecified protein-calorie malnutrition; Z68.1 Body mass index [BMI] 19.9 or less, adult; B37.49 Other urogenital candidiasis; E87.0 Hyperosmolality and hypernatremia; F32.9 Major depressive disorder, single episode, unspecified; G40.909 Epilepsy, unspecified, not intractable, without status epilepticus; B95.2 Enterococcus as the cause of diseases classified elsewhere; D72.819 Decreased white blood cell count, unspecified; F07.81 Postconcussional syndrome; Z79.899 Other long term (current) drug therapy; Z87.820 Personal history of traumatic brain injury; Z93.0 Tracheostomy status; Z98.890 Other specified postprocedural states; Z79.890 Hormone replacement therapy; Z87.891 Personal history of nicotine dependence; D64.9 Anemia, unspecified
CPT/HCPCS: 36415; 36416; 71045; 71275; 74177; 80048; 80053; 80202; 81003; 81015; 82330; 82803; 83605; 83690; 84484; 85007; 85025; 85027; 87040; 87077; 87086; 87149; 87186; 93005; 94640; 95816; 95819; 96361; 96365; 96367; 96375; J0696; J1450; J1650; J1885; J2020; J2060; J2185; J2270; J2405; J2920; J3370; J3490; J7050; Q2009; Q9967; S0028

== ENCOUNTER 2019-05-11 16:55 | Emergency (ER) | payer BC ==
[~2019-05-11 16:55] MED LIST changes: +GASTROGRAFIN 30 ML BOT ONE; -Iopamidol-370 76% 500 ML 1 ML ONE
--- NOTE | 2019-05-11 17:39 | RAD ---
Exam: Chest one view HISTORY:Cough Comparison: 04/14/2019 FINDINGS: Cardiac silhouette:Normal cardiac silhouette Lines and tubes: Stable partially visualized ventriculoperitoneal shunt catheter and tracheostomy. In completely evaluated cervical fusion hardware. Aorta: Unremarkable Pulmonary vessels: Normal Costophrenic angles: Clear LUNGS: Patchy interstitial and alveolar opacities predominantly in the right midlung. Additional inte rstitial opacities noted in the left lung. Correlate for edema or infiltrate. Pneumothorax: None Osseous abnormalities: Chronic deformity of the right ribs is noted. IMPRESSION: Patchy interstitial opacities of the lung parenchyma with more focal alveolar infiltrate in the right midlung. Correlate for edema or infiltrate. Continued surveillance. Transcribed Date/Time: 05/11/2019 5:40 PM
[2019-05-11 17:49] LABS: #Eosinphils 0.2 thou/uL (0.0-0.7); #Lymphocytes 0.5 thou/uL (1.20-3.40); #Monocytes 0.5 thou/uL (0.11-0.59); #Neutrophils 4.1 thou/uL (1.40-6.50); %Eosinophils 4.3 % (0.0-10.0); %Monocytes 9.2 % (0.0-10.0); %Neutrophils 77.5 % (42.0-75.0); Hemoglobin 10.5 g/dL (14.0-18.0); Mean Corpuscular HGB CONC 33.7 g/dL (32.0-36.0); Mean Corpuscular Hemoglobin 31.8 pg (27.0-31.0); Mean Corpuscular Volume 94.3 fL (78.0-98.0); Mean Platelet Volume 7.4 fL (7.4-10.4); Platelet Count 204 thou/uL (130-400); RBC Distribution Width 12.2 % (11.5-14.5); White Blood Cell (WBC) Count 5.3 thou/uL (4.8-10.8)
[2019-05-11 18:24] LABS: ALT (SGPT) 67 U/L (8-55); AST (SGOT) 35 U/L (5-34); Albumin 3.7 g/dL (3.5-5.0); Alkaline Phosphatase 125 U/L (40-110); Anion Gap 13 mmol/L (10-20); BUN (Urea Nitrogen) 16 mg/dL (8.9-20.6); Bilirubin, Total 0.3 mg/dL (0.2-1.2); Calc. Creatinine Clearance 0 mL/min (70-130); Calcium 9.6 mg/dL (7.8-10.44); Carbon Dioxide 31 mmol/L (22-29); Chloride 99 mmol/L (98-107); Estimated GFR-MDRD Greater than 90; Globulin 3.2 g/dL (2.4-3.5); Glucose 79 mg/dL (70-105); Potassium 4.5 mmol/L (3.5-5.1); Protein, Total 6.9 g/dL (6.0-8.3); Sodium 138 mmol/L (136-145)
[2019-05-11 18:53] LABS: Bilirubin Negative (Negative); Blood, Urine Negative (Negative); Clarity Turbid (Clear); Glucose, Urine (Dipstick) Normal (Negative); Leukocyte Negative Leu/uL (Negative); Nitrite Negative (Negative); Protein, Urine (Dipstick) 10 mg/dL (Neg-Trace)
[2019-05-11] MEDS ORDERED: Lorazepam 2 MG/ML VIAL ONE (20:14)
--- NOTE | 2019-05-11 20:43 | RAD ---
Abdomen one view HISTORY: PEG tube check. FINDINGS: Gas and stool throughout the bowel. Nonspecific pattern. Radiopaque tubing along the right side of the chest and abdomen having the appearance of ventriculoperitoneal shunt. Rounded lucency over the left upper quadrant likely represents the feeding catheter. There is contras t material within the duodenum. Faint contrast within the stomach and distal esophagus. No evidence of extraluminal contrast.
== END 2019-05-11 21:31 | disposition home or self-care (01) ==
LOC: ERS 16:55
DX: J18.9 Pneumonia, unspecified organism (principal); F32.9 Major depressive disorder, single episode, unspecified; Z87.891 Personal history of nicotine dependence; Z79.899 Other long term (current) drug therapy
CPT/HCPCS: 36415; 71045; 74018; 80053; 81003; 85025; 96372; J2060; Q9963

== ENCOUNTER 2019-05-12 15:46 | Inpatient (IN) | payer BC ==
[2019-05-12 16:28] LABS: #Eosinphils 0.3 thou/uL (0.0-0.7); #Lymphocytes 0.6 thou/uL (1.20-3.40); #Monocytes 0.6 thou/uL (0.11-0.59); #Neutrophils 4.4 thou/uL (1.40-6.50); %Basophils 0.4 % (0.0-1.0); %Eosinophils 4.9 % (0.0-10.0); %Lymphocytes 9.6 % (21.0-51.0); %Monocytes 9.9 % (0.0-10.0); %Neutrophils 75.3 % (42.0-75.0); Hemoglobin 10.5 g/dL (14.0-18.0); Mean Corpuscular Hemoglobin 32.4 pg (27.0-31.0); Mean Corpuscular Volume 95.1 fL (78.0-98.0); Mean Platelet Volume 8.1 fL (7.4-10.4); Platelet Count 241 thou/uL (130-400); RBC Distribution Width 12.3 % (11.5-14.5); Red Blood Cell (RBC) Count 3.24 mill/uL (4.70-6.10); White Blood Cell (WBC) Count 5.8 thou/uL (4.8-10.8)
[2019-05-12 16:33] LABS: ALT (SGPT) 74 U/L (8-55); AST (SGOT) 33 U/L (5-34); Albumin 3.9 g/dL (3.5-5.0); Alkaline Phosphatase 134 U/L (40-110); Anion Gap 16 mmol/L (10-20); BUN (Urea Nitrogen) 16 mg/dL (8.9-20.6); Bilirubin, Total 0.4 mg/dL (0.2-1.2); Calc. Creatinine Clearance 0 mL/min (70-130); Calcium 9.5 mg/dL (7.8-10.44); Carbon Dioxide 29 mmol/L (22-29); Chloride 101 mmol/L (98-107); Estimated GFR-MDRD Greater than 90; Glucose 78 mg/dL (70-105); Potassium 5.4 mmol/L (3.5-5.1); Protein, Total 6.9 g/dL (6.0-8.3); Sodium 141 mmol/L (136-145)
[2019-05-12 17:04] LABS: Base Excess-Venous 5.4 mmol/L (-2.0 to 3.0); Bicarbonate (HCO3v) 29.7 mmol/L (22.0-28.0); CO2 Tension (PvCO2) 41.5 mmHg (40.0-50.0); Calcium, Ionized 1.13 mmol/L (See Comments:); Chloride 100 mmol/L (98-107); Hemoglobin - Calc 11.2 g/dL (14.0-18.0); Potassium 4.4 mmol/L (3.5-5.1); Sodium 148 mmol/L (138-145); vO2 Saturation-calc 99.7 % (60.0-85.0)
--- NOTE | 2019-05-12 17:55 | RAD ---
PORTABLE CHEST 05/12/19 PROVIDED CLINICAL HISTORY: Altered mental status. FINDINGS: Comparison 05/11/2019. Cardiac and mediastinal silhouette is unchanged in appearance. Tracheostomy appliance is again seen. Partially visualized catheter tubing presumably [employer] shunting. Spinal postoperative changes are seen. T here are patchy parenchymal opacities again noted most conspicuously on the right perihilar region. A ssessment for pleural fluid and pneumothorax is limited given the supine nature of this study. IMPRESSION: Bilateral perihilar air space disease right greater than left, compatible with pneumonia in the appro priate clinical context. Follow-up is recommended. POS: MANJEET
[2019-05-12] MEDS ORDERED: Levofloxacin 500 mg/D5W 100 ml Premix Bag ONE (18:54)
[2019-05-12] MEDS ORDERED: Ketorolac Tromethamine 30 MG/ML VIAL ONE (18:54)
[2019-05-12] MEDS ORDERED: Lorazepam 2 MG/ML VIAL ONE (19:58)
[2019-05-12] MEDS ORDERED: Acetaminophen 650 MG Suppository ONE (20:34)
[2019-05-12 21:49] VITALS: BMI 18.9
[2019-05-13] MEDS ORDERED: Ondansetron ODT 4 MG TAB PER TUBE PRN (11:10)
[2019-05-13] MEDS ORDERED: Diabetic Tussin 200 MG/10 ML UDCUP PER TUBE PRN (11:10)
[2019-05-13] MEDS ORDERED: Ondansetron PF 4 MG/2 ML Vial IVP PRN (11:10)
[2019-05-13] MEDS ORDERED: Acetaminophen 650 MG/20.3 ML UDCUP PO PRN (11:10)
[2019-05-13] MEDS ORDERED: Labetalol HCl 100 MG/20 ML VIAL SLOW IVP PRN (11:10)
[2019-05-13] MEDS: Sodium Chloride 0.9% 1,000 ML IV SCH ×2 (11:38→22:10)
[2019-05-13] MEDS: Cefepime 2 GM in Sodium Chloride 0.9% 100 ML IVPB SCH (11:41)
[2019-05-13] MEDS: Acetaminophen 500 MG TAB PER TUBE PRN ×2 (11:44→20:16)
[2019-05-13] MEDS: Scopolamine 1.5 mg/72 hour Patch TD SCH (11:58)
--- NOTE | 2019-05-13 12:13 | HP ---
PRIMARY CARE PROVIDER: Dr. Dago Blakely. CHIEF COMPLAINT: Fever, agitation, and vomiting. HISTORY OF PRESENT ILLNESS: This is a 33-year-old male, who presents to [facility] Emergency Department from home with a history of fever, agitation, and vomiting in the last 24 hours. 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 The patient with a tracheostomy and PEG tube, receiving tube feeds at home. The history is obtained after review of electronic medical records as well as the ER reports as the patient is nonverbal and no family are present during the exam. The patient's girlfriend had reported fever, agitation, and vomiting that occurred in the pre planning advisor hours on 05/13/2019. The patient on chronic oxygen supplementation at home with a trach collar, apparently becoming increasingly agitated. The patient was recently admitted to [facility] from 04/12/2019 through 05/12/2019 for hypoxic respiratory failure due to suspected aspiration pneumonia. The patient was also noted with vancomycin-resistant Enterococcus urinary tract infection. The patient received antibiotic therapy to include linezolid and meropenem and was eventually stabilized and released back home after discussing possible longterm care with the family. Family wish to pursue ongoing home care and not placement in a skilled facility. In the emergency room, the patient underwent general evaluation including chest imaging showing evidence of bilateral perihilar infiltrates, right greater than left. The patient received Levaquin 500 mg IV x1 in addition to intravenous normal saline, Tylenol, DuoNeb, Ativan, and Toradol in the emergency room. The patient was treated for suspected pneumonia with associated hypoxic respiratory failure and transferred to the medical floor for further evaluation. PAST MEDICAL HISTORY: 1. Chronic hypoxic respiratory failure with tracheostomy and trach collar. 2. History of aspiration pneumonia. 3. Vancomycin-resistant enterococcal urinary tract infection. 4. Chronic vegetative state, status post traumatic brain injury in July 2018. 5. Seizure disorder. 6. Chronic malnutrition, on PEG tube feeds. 7. Chronic normocytic anemia. PAST SURGICAL HISTORY: 1. Status post tracheostomy. 2. Status post PEG tube placement. 3. Status post cervical spine surgery. 4. Status post back surgery. 5. Status post right leg surgery with krystyna placement. 6. Status post left elbow repair. 7. Status post shunt in the brain. CURRENT MEDICATIONS: 1. Tylenol Elixir 650 mg per PEG tube q.4 hours p.r.n. 2. Amantadine 200 mg per PEG tube b.i.d. 3. Vitamin C 500 mg per PEG tube daily. 4. Vitamin D3 of 500 units per PEG tube daily. 5. Vitamin D3 of 5000 units per PEG tube daily. 6. Vitamin B12 of 1000 mcg per PEG tube daily. 7. Lovenox 40 mg subcutaneously at bedtime. 8. Fluoxetine 40 mg per PEG tube daily. 9. Folic acid 1 mg per PEG tube daily. 10. Gabapentin 300 mg per PEG tube b.i.d. 11. Lactobacillus two tablets per PEG tube b.i.d. 12. Levomefolate/algal oil 7.5 mg per PEG tube daily. 13. Metoprolol tartrate 25 mg per PEG tube b.i.d. 14. Provigil 200 mg per PEG tube daily. 15. Protonix 40 mg per PEG tube daily. 16. Senna 8.8 mg per tube at bedtime. 17. Trazodone 100 mg per PEG tube at bedtime. 18. Keppra 500 mg per PEG tube b.i.d. 19. Scopolamine transdermal patch 1.5 mg transdermally q.72 hours. ALLERGIES: TO VANCOMYCIN. FAMILY HISTORY: No inheritable diseases per family report. SOCIAL HISTORY: Resides in [place], [place] with his mother. Complete care provided by the family. Nonambulatory and nonverbal at baseline. No current alcohol, tobacco, or illicit drug use. Previous alcohol and tobacco use. REVIEW OF SYSTEMS: Unobtainable as the patient is nonverbal. PHYSICAL EXAMINATION: VITAL SIGNS: On admission, blood pressure 120/54, pulse 100, respiratory rate 20, temperature is 100 degrees Fahrenheit, and O2 saturation 97% on trach collar at 5 L/minute. GENERAL APPEARANCE: This is a 33-year-old male, bed-bound, agitated, flailing left upper extremity randomly and not following commands. HEENT: Pupils are equal, round, and reactive to light and accommodation. Extraocular muscles are intact. Does not track to name or voice. No scleral icterus. No conjunctival injection. Nares patent. OP is clear. Oral mucosa dry. NECK: Supple. No cervical adenopathy. No thyromegaly. No carotid bruits. Positive trach in place with trach collar. No meningeal signs noted. CHEST: Coarse breath sounds bilaterally. CARDIOVASCULAR: S1 and S2 without noted murmur, rub, or gallop. ABDOMEN: Flat, soft, nontender, and nondistended. PEG tube in place. Bowel sounds are positive in all 4 quadrants. EXTREMITIES: Warm and dry with fair turgor. Generalized muscle atrophy noted. Pulses palpable distally at the dorsalis pedis, posterior tibial, and popliteal arteries bilaterally. Capillary refill less than 2 seconds. NEUROLOGIC: Persistent vegetative state with traumatic brain injury. Stares at the ceiling and does not track or follow commands. Flails extremities randomly. Nonambulatory and bed-bound status. GENITOURINARY: Painter catheter in place with clear denny urine. PERTINENT LABORATORY AND X-RAY FINDINGS: Sodium 141, potassium 5.4, chloride 101, CO2 of 29, BUN 16, creatinine 0.74, estimated GFR greater than 90, calcium 9.5, AST 33, ALT of 74, alkaline phosphatase 134, and albumin 3.9. CBC showed a white blood cell count of 5.8, hemoglobin 10.5, hematocrit 31, and platelet count 241 with 75% neutrophils. Venous blood gas dated 05/12/2019, showed pH of 7.46, pCO2 of 41.5, pO2 of 189, bicarb 29.7, and O2 saturation 99.7%. EKG dated 05/12/2019 by my interpretation shows sinus mechanism with heart rates in the 90s. Normal R-wave progression noted in the precordial leads. Normal axis. No acute ST-T wave changes appreciated. ASSESSMENT AND PLAN: 1. Acute on chronic hypoxic respiratory failure. We will continue general pulmonary supportive management. General trach care. Suspect multifactorial process including pneumonia with suspicion for aspiration component. Continue DuoNeb q.4 hours p.r.n. Oxygen by trach collar to maintain O2 saturations greater than or equal to 90%. See #2 below. 2. Bacterial pneumonia with suspected aspiration and gram-negative rods. Continue cefepime 2 g IV q.12 hours with additional Levaquin 750 mg IV q.24 hours. Respiratory culture pending. Initial blood cultures negative. Continue general aspiration risk assessment. 3. Traumatic brain injury with persistent vegetative state. Continue general supportive management. Family support at the bedside. 4. Moderate protein-calorie malnutrition. Resume tube feeds with Jevity 1.2 with continuous goal rate of 75 mL/h. Monitor for gastric residuals and aspiration. 5. Dehydration. Continue intravenous normal saline at 125 mL/h. Continue percutaneous endoscopic gastrostomy tube feed water flushes with 90 mL q.4 hours when IV fluids completed. 6. Seizures. Continue Keppra 500 mg b.i.d. General seizure precautions. 7. Prophylaxis. SCDs while in bed. Protonix 40 mg per percutaneous endoscopic gastrostomy tube daily. 8. Code status is full. Surrogate medical decision maker is the patient's mother. Job ID: [id number]
[2019-05-13] MEDS: Lorazepam 2 MG/ML VIAL SLOW IVP PRN (12:51)
[2019-05-13] MEDS: Polyethylene Glycol OPTH DROP 15 ML BOT EA EYE SCH ×2 (14:12→20:17)
[2019-05-13] MEDS: levETIRAcetam 500 mg/5 ml Oral Solution PER TUBE SCH (20:15)
[2019-05-13] MEDS: Amantadine HCl 10 mg/ml Oral Solution PER TUBE SCH (20:15)
[2019-05-13] MEDS: traZODone HCl 50 MG TAB PO SCH (20:16)
[2019-05-13] MEDS: Gabapentin 300 MG CAP PO SCH (20:16)
[2019-05-13] MEDS: Metoprolol Tartrate 25 MG TAB PER TUBE SCH (20:16)
[2019-05-13] MEDS: Senokot 8.6 MG TAB PER TUBE SCH (20:16)
[2019-05-13] MEDS: Lactinex Tablet PO SCH (20:16)
[2019-05-13] MEDS: Mupirocin 2% Ointment 22 GM Tube TOP SCH (20:17)
[2019-05-13] MEDS: Enoxaparin Sodium 40 MG/0.4 ML SYRINGE SC SCH (20:17)
[2019-05-13] MEDS ORDERED: Famotidine/PF 20 mg/2ml Vial SLOW IVP SCH (21:00)
[2019-05-14] MEDS: Cefepime 2 GM in Sodium Chloride 0.9% 100 ML IVPB SCH ×2 (00:05→11:04)
[2019-05-14] MEDS: Sodium Chloride 0.9% 1,000 ML IV SCH ×3 (05:00→21:05)
[2019-05-14 06:03] LABS: ALT (SGPT) 56 U/L (8-55); AST (SGOT) 21 U/L (5-34); Albumin 3.6 g/dL (3.5-5.0); Alkaline Phosphatase 108 U/L (40-110); Anion Gap 12 mmol/L (10-20); BUN (Urea Nitrogen) 21 mg/dL (8.9-20.6); Bilirubin, Total 0.3 mg/dL (0.2-1.2); Calc. Creatinine Clearance 131 mL/min (70-130); Calcium 9.4 mg/dL (7.8-10.44); Carbon Dioxide 26 mmol/L (22-29); Chloride 111 mmol/L (98-107); Estimated GFR-MDRD Greater than 90; Globulin 2.9 g/dL (2.4-3.5); Glucose 105 mg/dL (70-105); Potassium 4.3 mmol/L (3.5-5.1); Protein, Total 6.5 g/dL (6.0-8.3); Sodium 145 mmol/L (136-145)
[2019-05-14 06:36] LABS: Band 2 % (5-11); Eosinophils 3 % (0-10); Hemoglobin 9.3 g/dL (14.0-18.0); Lymphocytes 15 % (21-51); MDiff Complete? YES; Mean Corpuscular HGB CONC 32.2 g/dL (32.0-36.0); Mean Corpuscular Hemoglobin 30.7 pg (27.0-31.0); Mean Corpuscular Volume 95.3 fL (78.0-98.0); Mean Platelet Volume 7.7 fL (7.4-10.4); Monocytes 11 % (0-10); Neutrophil 68 % (42-75); Platelet Count 208 thou/uL (130-400); RBC Distribution Width 12.2 % (11.5-14.5); Red Blood Cell (RBC) Count 3.02 mill/uL (4.70-6.10); White Blood Cell (WBC) Count 3.1 thou/uL (4.8-10.8)
[2019-05-14] MEDS: Acetaminophen 500 MG TAB PER TUBE PRN ×3 (08:03→22:04)
[2019-05-14] MEDS: Pantoprazole 40 MG GRANULES PACKET PER TUBE SCH (08:04)
[2019-05-14] MEDS: Gabapentin 300 MG CAP PO SCH ×2 (08:05→22:05)
[2019-05-14] MEDS: Folic Acid 1 MG TAB PER TUBE SCH (08:07)
[2019-05-14] MEDS: FLUoxetine HCl 20 MG CAP PER TUBE SCH (08:08)
[2019-05-14] MEDS: Ascorbic Acid 500 mg Chewable Tablet PER TUBE SCH (08:09)
[2019-05-14] MEDS: Cyanocobalamin (Vitamin B-12) 1,000 MCG TAB PER TUBE SCH (08:10)
[2019-05-14] MEDS: Multivit, Therapeutic 1 TAB PER TUBE SCH (08:11)
[2019-05-14] MEDS: Lactinex Tablet PO SCH ×2 (08:12→22:04)
[2019-05-14] MEDS: Metoprolol Tartrate 25 MG TAB PER TUBE SCH ×2 (08:12→22:04)
[2019-05-14] MEDS: levETIRAcetam 500 mg/5 ml Oral Solution PER TUBE SCH ×2 (08:13→22:04)
[2019-05-14] MEDS: Mupirocin 2% Ointment 22 GM Tube TOP SCH ×3 (08:13→22:05)
[2019-05-14] MEDS: Polyethylene Glycol OPTH DROP 15 ML BOT EA EYE SCH ×3 (08:14→22:06)
[2019-05-14] MEDS: Amantadine HCl 10 mg/ml Oral Solution PER TUBE SCH ×2 (09:17→22:04)
[2019-05-14] MEDS: Modafinil 100 MG TAB PER TUBE SCH (09:18)
--- NOTE | 2019-05-14 13:11 | PDOC.HOSPP ---
- Subjective Encounter Date: 05/14/19 Encounter Time: 13:05 Subjective: f/u for resp failure, tracheostomy with suspected aspiration PNA on Cefepime/ Levaquin. Mother reports some recurrent fever but pt tolerating current TF's. Less agitated this am. - Objective Vital Signs & Weight: Vital Signs (12 hours) Temp Pulse Resp BP BP Pulse Ox 05/14/19 08:00 99 05/14/19 07:05 99.6 F 103 H 20 111/69 99 05/14/19 04:12 98.4 F 93 18 125/72 100 Weight Admit Weight 135 lb 12.8 oz Weight 135 lb 12.8 oz I&O: 05/13/19 05/14/19 05/15/19 06:59 06:59 06:59 Intake Total 2511 Output Total 400 Balance 2111 Result Diagrams: 05/14/19 05:22 05/14/19 05:22 Additional Labs: Microbiology 05/08/19 12:15 Abdomen Bacterial Culture - Final Methicillin resistant S.aureus Laboratory Tests 05/12/19 05/12/19 05/12/19 16:08 16:08 16:49 WBC 5.8 Neutrophils % 75.3 H Neutrophils % (Manual) POC Venous Sodium 148 H Sodium 141 05/14/19 05:22 WBC Neutrophils % Neutrophils % (Manual) 68 POC Venous Sodium Sodium Hospitalist ROS - Medication Medications: Active Medications Generic Name Dose Route Start Last Admin Trade Name Freq PRN Reason Stop Dose Admin Acetaminophen 1,000 mg 05/13/19 11:10 05/14/19 08:03 Tylenol PER TUBE 1,000 mg Q6H PRN Administration Mild Pain (1-3) Acidophilus 1 tab 05/13/19 21:00 05/14/19 08:12 Floranex PO 1 tab BID MAGO Administration Amantadine HCl 200 mg 05/13/19 21:00 05/14/19 09:17 Symmetrel PER TUBE 200 mg BID MAGO Administration Ascorbic Acid 500 mg 05/14/19 09:00 05/14/19 08:09 Vitamin C PER TUBE 500 mg DAILY MAGO Administration Cholecalciferol 5,000 units 05/14/19 09:00 05/14/19 08:00 Vitamin D3 PER TUBE 5,000 units DAILY MAGO Administration Cyanocobalamin 1,000 mcg 05/14/19 09:00 05/14/19 08:10 Vitamin B-12 PER TUBE 1,000 mcg DAILY MAGO Administration Enoxaparin Sodium 40 mg 05/13/19 21:00 05/13/19 20:17 Lovenox SC 40 mg QPM MAGO Administration Fluoxetine HCl 40 mg 05/14/19 09:00 05/14/19 08:08 Prozac PER TUBE 40 mg DAILY MAGO Administration Folic Acid 1 mg 05/14/19 09:00 05/14/19 08:07 Folvite PER TUBE 1 mg DAILY MAGO Administration Gabapentin 300 mg 05/13/19 21:00 05/14/19 08:05 Neurontin PO 300 mg BID MAGO Administration Cefepime HCl 2 gm/ Sodium 100 mls @ 200 mls/hr 05/13/19 12:00 05/14/19 11:04 Chloride IVPB 100 mls 1200,2359 MAGO Administration Levofloxacin 750 mg/ Device 150 mls @ 100 mls/hr 05/13/19 18:00 05/13/19 16: 16 IVPB 150 mls 1800 MAGO Administration Sodium Chloride 1,000 mls @ 125 mls/hr 05/13/19 11:10 05/14/19 07:59 Normal Saline 0.9% IV 1,000 mls .Q8H MAGO Administration Levetiracetam 500 mg 05/13/19 21:00 05/14/19 08:13 Keppra Oral Solution PER TUBE 500 mg BID MAGO Administration Lorazepam 1 mg 05/13/19 11:54 05/13/19 12:51 Ativan SLOW IVP 1 mg Q6H PRN Administration Anxiety/Agitation Metoprolol Tartrate 25 mg 05/13/19 21:00 05/14/19 08:12 Lopressor PER TUBE 25 mg BID MAGO Administration Modafinil 200 mg 05/14/19 09:00 05/14/19 09:18 Provigil PER TUBE 200 mg DAILY MAGO Administration Multivitamins 1 tab 05/14/19 09:00 05/14/19 08:11 Theragran PER TUBE 1 tab DAILY MAGO Administration Mupirocin 0 gm 05/13/19 21:00 05/14/19 08:13 Bactroban 2% Ointment TOP 1 applic TID MAGO Administration Pantoprazole Sodium 40 mg 05/14/19 09:00 05/14/19 08:04 Protonix PER TUBE 40 mg DAILY MAGO Administration Propylene Glycol 1 drop 05/13/19 15:00 05/14/19 08:14 Systane Opth Drop 15ml Bot EA EYE 1 drop TID MAGO Administration Scopolamine 1.5 mg 05/13/19 12:00 05/13/19 11:58 Transderm Scop TD 1.5 mg Q3D MAGO Administration Senna 1 tab 05/13/19 21:00 05/13/19 20:16 Senokot PER TUBE 1 tab HS MAGO Administration Trazodone HCl 100 mg 05/13/19 21:00 05/13/19 20:16 Desyrel PO 100 mg HS MAGO Administration - Exam General Appearance: awake alert, ill appearing Eye: PERRL Eye - other findings: does not track ENT: normocephalic atraumatic, no oropharyngeal lesions Neck: supple, symmetric, no JVD, no thyromegaly Neck - other findings: trach in place with T-collar Heart: RRR, no gallops, no rubs, normal peripheral pulses Respiratory - other findings: diminished in bases, occasional coarse sounds Gastrointestinal: soft, non-tender, non-distended, normal bowel sounds Gastrointestinal - other findings: PEG tube in place Extremities: no cyanosis, no clubbing, no edema Skin: normal turgor, no lesions Neurological - other findings: aphasic, chronic vegetative state, bed bound Musculoskeletal: generalized weakness Hosp A/P (1) Acute on chronic respiratory failure Code(s): J96.20 - ACUTE AND CHR RESP FAILURE, UNSP W HYPOXIA OR HYPERCAPNIA Status: Acute Qualifiers: Respiratory failure complication: hypoxia Qualified Code(s): J96.21 - Acute and chronic respiratory failure with hypoxia Plan: Continue T-collar and titrate to clinical response, may need home 02 supplementation (2) Healthcare associated bacterial pneumonia Code(s): J15.9 - UNSPECIFIED BACTERIAL PNEUMONIA Status: Acute Plan: ? Aspiration component, Add Linezolid 600mg IV BID, continue Cefepime/Levaquin, Duonebs (3) TBI (traumatic brain injury) Code(s): S06.9X9A - UNSP INTRACRANIAL INJURY W LOC OF UNSP DURATION, INIT Status: Chronic Plan: Supportive mgmt, total care pt (4) Moderate protein-calorie malnutrition Code(s): E44.0 - MODERATE PROTEIN-CALORIE MALNUTRITION Status: Chronic Plan: Continue TF's with Jevity 1.5 (5) Dehydration Code(s): E86.0 - DEHYDRATION Status: Acute Plan: Continue IVF's, monitor I/O's, free H2O replacement via PEG tube (6) Seizure Code(s): R56.9 - UNSPECIFIED CONVULSIONS Status: Acute Plan: Continue Keppra 500mg BID, Ativan IV prn (7) Functional quadriplegia Code(s): R53.2 - FUNCTIONAL QUADRIPLEGIA Status: Chronic Plan: Bed bound at baseline, total care patient - Plan old records reviewed/req, plan discussed w/ family, continue antibiotics, clinical social work aide, respiratory therapy, DVT proph w/SCDs Continue supportive mgmt Add Linezolid 600mg IV BID Continue Cefepime/Levaquin Add Toradol 30mg IV q6h TF's with Jevity 1.5 AM lab: BMP, CBC
[2019-05-14] MEDS ORDERED: Ketorolac Tromethamine 30 MG/ML VIAL IVP SCH (13:15)
[2019-05-14] MEDS: Linezolid 600 MG in Premix Bag 1 BAG IVPB SCH (14:20)
[2019-05-14] MEDS: Ketorolac Tromethamine 30 MG/ML VIAL IVP SCH (17:51)
[2019-05-14] MEDS: Lorazepam 2 MG/ML VIAL SLOW IVP PRN (20:29)
[2019-05-14] MEDS: traZODone HCl 50 MG TAB PO SCH (22:04)
[2019-05-14] MEDS: Senokot 8.6 MG TAB PER TUBE SCH (22:05)
[2019-05-14] MEDS: Enoxaparin Sodium 40 MG/0.4 ML SYRINGE SC SCH (22:05)
[2019-05-15] MEDS: Ketorolac Tromethamine 30 MG/ML VIAL IVP SCH ×4 (01:06→17:26)
[2019-05-15] MEDS: Cefepime 2 GM in Sodium Chloride 0.9% 100 ML IVPB SCH ×2 (01:07→13:01)
[2019-05-15] MEDS: Linezolid 600 MG in Premix Bag 1 BAG IVPB SCH ×2 (02:45→14:09)
[2019-05-15] MEDS: Sodium Chloride 0.9% 1,000 ML IV SCH ×4 (02:49→14:27)
[2019-05-15 05:40] LABS: Eosinophils 7 % (0-10); Hemoglobin 9.8 g/dL (14.0-18.0); Lymphocytes 12 % (21-51); MDiff Complete? YES; Mean Corpuscular HGB CONC 31.9 g/dL (32.0-36.0); Mean Corpuscular Hemoglobin 30.6 pg (27.0-31.0); Mean Platelet Volume 7.4 fL (7.4-10.4); Monocytes 8 % (0-10); Neutrophil 73 % (42-75); Platelet Count 194 thou/uL (130-400); RBC Distribution Width 12.3 % (11.5-14.5); Red Blood Cell (RBC) Count 3.19 mill/uL (4.70-6.10); White Blood Cell (WBC) Count 2.9 thou/uL (4.8-10.8)
[2019-05-15 05:41] LABS: Anion Gap 12 mmol/L (10-20); BUN (Urea Nitrogen) 24 mg/dL (8.9-20.6); Calc. Creatinine Clearance 135 mL/min (70-130); Calcium 9.3 mg/dL (7.8-10.44); Carbon Dioxide 24 mmol/L (22-29); Chloride 110 mmol/L (98-107); Estimated GFR-MDRD Greater than 90; Glucose 100 mg/dL (70-105); Potassium 3.7 mmol/L (3.5-5.1); Sodium 142 mmol/L (136-145)
[2019-05-15] MEDS: Folic Acid 1 MG TAB PER TUBE SCH (09:48)
[2019-05-15] MEDS: Pantoprazole 40 MG GRANULES PACKET PER TUBE SCH (09:48)
[2019-05-15] MEDS: Metoprolol Tartrate 25 MG TAB PER TUBE SCH ×2 (09:48→21:11)
[2019-05-15] MEDS: Lactinex Tablet PO SCH ×2 (09:48→21:11)
[2019-05-15] MEDS: Cyanocobalamin (Vitamin B-12) 1,000 MCG TAB PER TUBE SCH (09:48)
[2019-05-15] MEDS: Ascorbic Acid 500 mg Chewable Tablet PER TUBE SCH (09:48)
[2019-05-15] MEDS: FLUoxetine HCl 20 MG CAP PER TUBE SCH (09:48)
[2019-05-15] MEDS: Multivit, Therapeutic 1 TAB PER TUBE SCH (09:48)
[2019-05-15] MEDS: Gabapentin 300 MG CAP PO SCH ×2 (09:48→21:11)
[2019-05-15] MEDS: levETIRAcetam 500 mg/5 ml Oral Solution PER TUBE SCH ×2 (09:49→21:09)
[2019-05-15] MEDS: Amantadine HCl 10 mg/ml Oral Solution PER TUBE SCH ×2 (09:49→21:29)
[2019-05-15] MEDS: Polyethylene Glycol OPTH DROP 15 ML BOT EA EYE SCH ×3 (09:50→21:10)
[2019-05-15] MEDS: Mupirocin 2% Ointment 22 GM Tube TOP SCH ×3 (09:50→21:11)
[2019-05-15] MEDS: Modafinil 100 MG TAB PER TUBE SCH (10:43)
--- NOTE | 2019-05-15 14:10 | PDOC.HOSPP ---
- Subjective Encounter Date: 05/15/19 Encounter Time: 14:10 Subjective: f/u for resp failure, tracheostomy and HCAP with component of aspiration. No fever reported and pt near baseline functional status. Tolerating current TF's. - Objective Vital Signs & Weight: Vital Signs (12 hours) Temp Pulse Resp BP Pulse Ox 05/15/19 12:08 99.3 F 92 18 130/68 92 L 05/15/19 09:50 98 05/15/19 07:30 98.2 F 81 20 130/68 98 05/15/19 07:01 98 05/15/19 06:00 98.5 F 05/15/19 04:03 98.5 F 76 18 124/82 99 Weight Admit Weight 135 lb 12.8 oz Weight 135 lb 12.8 oz I&O: 05/14/19 05/15/19 05/16/19 06:59 06:59 06:59 Intake Total 2511 2114 Output Total 400 400 Balance 2111 1714 Result Diagrams: 05/15/19 05:01 05/15/19 05:01 Additional Labs: Microbiology 05/08/19 12:15 Abdomen Bacterial Culture - Final Methicillin resistant S.aureus Laboratory Tests 05/12/19 05/12/19 05/12/19 16:08 16:08 16:49 WBC 5.8 Neutrophils % 75.3 H Neutrophils % (Manual) POC Venous Sodium 148 H Sodium 141 05/14/19 05:22 WBC Neutrophils % Neutrophils % (Manual) 68 POC Venous Sodium Sodium Hospitalist ROS - Medication Medications: Active Medications Generic Name Dose Route Start Last Admin Trade Name Freq PRN Reason Stop Dose Admin Acetaminophen 1,000 mg 05/13/19 11:10 05/14/19 22:04 Tylenol PER TUBE 1,000 mg Q6H PRN Administration Mild Pain (1-3) Acidophilus 1 tab 05/13/19 21:00 05/15/19 09:48 Floranex PO 1 tab BID MAGO Administration Amantadine HCl 200 mg 05/13/19 21:00 05/15/19 09:49 Symmetrel PER TUBE 200 mg BID MAGO Administration Ascorbic Acid 500 mg 05/14/19 09:00 05/15/19 09:48 Vitamin C PER TUBE 500 mg DAILY MAGO Administration Cholecalciferol 5,000 units 05/14/19 09:00 05/15/19 09:47 Vitamin D3 PER TUBE 5,000 units DAILY MAGO Administration Cyanocobalamin 1,000 mcg 05/14/19 09:00 05/15/19 09:48 Vitamin B-12 PER TUBE 1,000 mcg DAILY MAGO Administration Enoxaparin Sodium 40 mg 05/13/19 21:00 05/14/19 22:05 Lovenox SC 40 mg QPM MAGO Administration Fluoxetine HCl 40 mg 05/14/19 09:00 05/15/19 09:48 Prozac PER TUBE 40 mg DAILY MAGO Administration Folic Acid 1 mg 05/14/19 09:00 05/15/19 09:48 Folvite PER TUBE 1 mg DAILY MAGO Administration Gabapentin 300 mg 05/13/19 21:00 05/15/19 09:48 Neurontin PO 300 mg BID MAGO Administration Cefepime HCl 2 gm/ Sodium 100 mls @ 200 mls/hr 05/13/19 12:00 05/15/19 13:01 Chloride IVPB 100 mls 1200,2359 MAGO Administration Levofloxacin 750 mg/ Device 150 mls @ 100 mls/hr 05/13/19 18:00 05/14/19 17: 54 IVPB 150 mls 1800 MAGO Administration Sodium Chloride 1,000 mls @ 125 mls/hr 05/13/19 11:10 05/15/19 11:16 Normal Saline 0.9% IV Not Given .Q8H MAGO Linezolid 600 mg/ Device 300 mls @ 150 mls/hr 05/14/19 14:00 05/15/19 02:45 IVPB 300 mls 0200,1400 MAGO Administration Ketorolac Tromethamine 30 mg 05/14/19 18:00 05/15/19 13:01 Toradol IVP 05/19/19 18:01 30 mg Q6HR MAGO Administration Levetiracetam 500 mg 05/13/19 21:00 05/15/19 09:49 Keppra Oral Solution PER TUBE 500 mg BID MAGO Administration Lorazepam 1 mg 05/13/19 11:54 05/14/19 20:29 Ativan SLOW IVP 1 mg Q6H PRN Administration Anxiety/Agitation Metoprolol Tartrate 25 mg 05/13/19 21:00 05/15/19 09:48 Lopressor PER TUBE 25 mg BID MAGO Administration Modafinil 200 mg 05/14/19 09:00 05/15/19 10:43 Provigil PER TUBE 200 mg DAILY MAGO Administration Multivitamins 1 tab 05/14/19 09:00 05/15/19 09:48 Theragran PER TUBE 1 tab DAILY MAGO Administration Mupirocin 0 gm 05/13/19 21:00 05/15/19 09:50 Bactroban 2% Ointment TOP 1 applic TID MAGO Administration Pantoprazole Sodium 40 mg 05/14/19 09:00 05/15/19 09:48 Protonix PER TUBE 40 mg DAILY MAGO Administration Propylene Glycol 1 drop 05/13/19 15:00 05/15/19 09:50 Systane Opth Drop 15ml Bot EA EYE 1 drop TID MAGO Administration Scopolamine 1.5 mg 05/13/19 12:00 05/13/19 11:58 Transderm Scop TD 1.5 mg Q3D MAGO Administration Senna 1 tab 05/13/19 21:00 05/14/19 22:05 Senokot PER TUBE 1 tab HS MAGO Administration Trazodone HCl 100 mg 05/13/19 21:00 05/14/19 22:04 Desyrel PO 100 mg HS MAGO Administration - Exam General Appearance: NAD, awake alert Eye: PERRL, anicteric sclera Eye - other findings: does not track ENT: normocephalic atraumatic Neck: supple, symmetric, no JVD, no thyromegaly Neck - other findings: trach in place Heart: RRR, no murmur, no gallops, no rubs, normal peripheral pulses Respiratory: normal chest expansion Respiratory - other findings: diminished bilat with occasional rhonchi Gastrointestinal: soft, non-tender, non-distended, normal bowel sounds, no palpable masses Gastrointestinal - other findings: PEG in place Extremities: no cyanosis, no clubbing Skin: normal turgor, no lesions Neurological: no new deficit Neurological - other findings: non-verbal in persistent vegetative state Musculoskeletal: diffuse muscle atrophy Psychiatric: flat affect, lethargic Hosp A/P (1) Acute on chronic respiratory failure Code(s): J96.20 - ACUTE AND CHR RESP FAILURE, UNSP W HYPOXIA OR HYPERCAPNIA Status: Acute Qualifiers: Respiratory failure complication: hypoxia Qualified Code(s): J96.21 - Acute and chronic respiratory failure with hypoxia Plan: Continue pulmonary support, general trach care, near baseline (2) Healthcare associated bacterial pneumonia Code(s): J15.9 - UNSPECIFIED BACTERIAL PNEUMONIA Status: Acute Plan: Suspected, continue Linezolid/Cefepime/Levaquin another 24h then de-escalate (3) TBI (traumatic brain injury) Code(s): S06.9X9A - UNSP INTRACRANIAL INJURY W LOC OF UNSP DURATION, INIT Status: Chronic Plan: Supportive mgmt, bed bound status, total care (4) Moderate protein-calorie malnutrition Code(s): E44.0 - MODERATE PROTEIN-CALORIE MALNUTRITION Status: Chronic Plan: TF's with Jevity 1.5 (5) Dehydration Code(s): E86.0 - DEHYDRATION Status: Acute Plan: Resolving (6) Seizure Code(s): R56.9 - UNSPECIFIED CONVULSIONS Status: Acute (7) Functional quadriplegia Code(s): R53.2 - FUNCTIONAL QUADRIPLEGIA Status: Chronic Plan: Resume home Baclofen - Plan old records reviewed/req, plan discussed w/ family, continue antibiotics, social sciences lecturer, speech therapy, respiratory therapy, DVT proph w/SCDs Continue supportive mgmt Linezolid 600mg IV BID Continue Cefepime/Levaquin another 24h then de-escalate coverage Add Toradol 30mg IV q6h TF's with Jevity 1.5 General trach care AM lab: BMP
[2019-05-15] MEDS: Lorazepam 2 MG/ML VIAL SLOW IVP PRN (18:49)
[2019-05-15 18:58] LABS: #Eosinphils 0.4 thou/uL (0.0-0.7); #Lymphocytes 1.8 thou/uL (1.20-3.40); #Monocytes 0.7 thou/uL (0.11-0.59); #Neutrophils 5.5 thou/uL (1.40-6.50); %Basophils 0.5 % (0.0-1.0); %Eosinophils 5.3 % (0.0-10.0); %Lymphocytes 21.7 % (21.0-51.0); %Monocytes 8.1 % (0.0-10.0); %Neutrophils 64.4 % (42.0-75.0); Hemoglobin 9.9 g/dL (14.0-18.0); Mean Corpuscular HGB CONC 32.2 g/dL (32.0-36.0); Mean Corpuscular Hemoglobin 30.9 pg (27.0-31.0); Mean Platelet Volume 7.2 fL (7.4-10.4); Platelet Count 394 thou/uL (130-400); RBC Distribution Width 12.3 % (11.5-14.5); Red Blood Cell (RBC) Count 3.21 mill/uL (4.70-6.10); White Blood Cell (WBC) Count 8.5 thou/uL (4.8-10.8)
[2019-05-15 19:16] LABS: Anion Gap 20 mmol/L (10-20); BUN (Urea Nitrogen) 26 mg/dL (8.9-20.6); Calc. Creatinine Clearance 111 mL/min (70-130); Calcium 9.2 mg/dL (7.8-10.44); Carbon Dioxide 20 mmol/L (22-29); Chloride 107 mmol/L (98-107); Estimated GFR-MDRD Greater than 90; Glucose 214 mg/dL (70-105); Potassium 4.1 mmol/L (3.5-5.1); Sodium 143 mmol/L (136-145)
[2019-05-15] MEDS: Acetaminophen 500 MG TAB PER TUBE PRN (19:19)
--- NOTE | 2019-05-15 20:11 | RAD ---
Exam: Chest one view HISTORY:Fever. Aspiration. Comparison: 05/12/2019 FINDINGS: Cardiac silhouette:Upper normal cardiac silhouette. Aorta: Unremarkable. Tracheostomy is noted. Cervical fusion hardware and distal thoracic fusion hardware is identified. Pulmonary vessels: Normal Costophrenic angles: Clear LUNGS: Patchy interstitial and alveolar opacities. Pneumothorax: Questionable right-sided pneumothorax versus skinfold. Repeat upright chest radiograph is recommended. Osseous abnormalities: None IMPRESSION: 1. Questionable skinfold versus right-sided pneumothorax. Repeat upright chest radiograph is recommen ded. 2. Patchy interstitial and alveolar opacities along parenchyma. CODE T Transcribed Date/Time: 05/15/2019 8:32 PM
--- NOTE | 2019-05-15 20:32 | RAD ---
Exam: Chest one view HISTORY:Possible right-sided pneumothorax versus skinfold Comparison: 05/15/2019 at 7:38 PM FINDINGS: Previously noted lucency in the right hemithorax is no longer evident and is compatible with a skinfo ld. Persistent interstitial and alveolar opacities. IMPRESSION: Persistent interstitial and alveolar opacities. No evidence of a right-sided pneumothorax. Transcribed Date/Time: 05/15/2019 8:33 PM
--- NOTE | 2019-05-15 20:53 | PDOC.EVN ---
Event Note - Event Note Event Note: Marlyn sheriff called for patient desating to the 60s, agitated, shaking, temp to 100.1, eventually up to 100.9. O2 sats came up with high flow O2. Patient debilitated at baseline. Noted to have some bleeding of lip. Mother states he bites on them regularly. Patient with a few coughing fits while I was in the room as well as some shaking concerning for seizure activity. Ativan given. Improved, so loaded with Dilantin. Patient already on very broad spectrum abx for PNA. Cultures drawn. Transfer to the [facility] for closer observation. Patient is still full code per the family. Neuro consult put in for the morning.
[2019-05-15] MEDS: Enoxaparin Sodium 40 MG/0.4 ML SYRINGE SC SCH (21:11)
[2019-05-15] MEDS: traZODone HCl 50 MG TAB PO SCH (21:11)
[2019-05-15] MEDS: Baclofen 10 MG TAB PER TUBE SCH (21:12)
[2019-05-15] MEDS: Senokot 8.6 MG TAB PER TUBE SCH (21:12)
[2019-05-15 22:05] LABS: Lactic Acid 1.2 mmol/L (0.5-2.2)
[2019-05-16] MEDS: Cefepime 2 GM in Sodium Chloride 0.9% 100 ML IVPB SCH ×2 (01:03→11:24)
[2019-05-16] MEDS: Ketorolac Tromethamine 30 MG/ML VIAL IVP SCH ×5 (01:04→23:08)
[2019-05-16] MEDS: Sodium Chloride 0.9% 1,000 ML IV SCH ×3 (01:16→19:41)
[2019-05-16 01:49] VITALS: BP 110/69
[2019-05-16] MEDS: Linezolid 600 MG in Premix Bag 1 BAG IVPB SCH ×2 (03:03→14:32)
[2019-05-16 03:59] LABS: Anion Gap 10 mmol/L (10-20); BUN (Urea Nitrogen) 25 mg/dL (8.9-20.6); Calc. Creatinine Clearance 149 mL/min (70-130); Carbon Dioxide 29 mmol/L (22-29); Chloride 109 mmol/L (98-107); Estimated GFR-MDRD Greater than 90; Glucose 95 mg/dL (70-105); Potassium 3.8 mmol/L (3.5-5.1); Sodium 144 mmol/L (136-145)
[2019-05-16] MEDS: Baclofen 10 MG TAB PER TUBE SCH ×3 (05:51→21:07)
[2019-05-16] MEDS: Amantadine HCl 10 mg/ml Oral Solution PER TUBE SCH ×2 (07:31→21:07)
[2019-05-16] MEDS: Ascorbic Acid 500 mg Chewable Tablet PER TUBE SCH (07:32)
[2019-05-16] MEDS: Cyanocobalamin (Vitamin B-12) 1,000 MCG TAB PER TUBE SCH (07:32)
[2019-05-16] MEDS: Lactinex Tablet PO SCH ×2 (07:33→21:07)
[2019-05-16] MEDS: Gabapentin 300 MG CAP PO SCH ×2 (07:33→21:07)
[2019-05-16] MEDS: Folic Acid 1 MG TAB PER TUBE SCH (07:33)
[2019-05-16] MEDS: FLUoxetine HCl 20 MG CAP PER TUBE SCH (07:33)
[2019-05-16] MEDS: Multivit, Therapeutic 1 TAB PER TUBE SCH (07:34)
[2019-05-16] MEDS: Metoprolol Tartrate 25 MG TAB PER TUBE SCH ×2 (07:34→21:07)
[2019-05-16] MEDS: Modafinil 100 MG TAB PER TUBE SCH (07:34)
[2019-05-16] MEDS: Pantoprazole 40 MG GRANULES PACKET PER TUBE SCH (07:34)
[2019-05-16] MEDS: levETIRAcetam 500 mg/5 ml Oral Solution PER TUBE SCH (07:34)
[2019-05-16 09:05] LABS: #Eosinphils 0.2 thou/uL (0.0-0.7); #Lymphocytes 0.4 thou/uL (1.20-3.40); #Monocytes 0.5 thou/uL (0.11-0.59); #Neutrophils 4.4 thou/uL (1.40-6.50); %Basophils 0.1 % (0.0-1.0); %Eosinophils 3.3 % (0.0-10.0); %Lymphocytes 6.5 % (21.0-51.0); %Monocytes 9.7 % (0.0-10.0); %Neutrophils 80.5 % (42.0-75.0); Hemoglobin 9.3 g/dL (14.0-18.0); Mean Corpuscular HGB CONC 32.1 g/dL (32.0-36.0); Mean Corpuscular Hemoglobin 30.9 pg (27.0-31.0); Mean Corpuscular Volume 96.3 fL (78.0-98.0); Mean Platelet Volume 7.4 fL (7.4-10.4); Platelet Count 215 thou/uL (130-400); RBC Distribution Width 12.2 % (11.5-14.5); White Blood Cell (WBC) Count 5.5 thou/uL (4.8-10.8)
--- NOTE | 2019-05-16 09:35 | PDOC.HOSPP ---
- Subjective Encounter Date: 05/16/19 Encounter Time: 12:30 Subjective: Patient unchanged overnight. Still with some of the coughing fits and occ desaturation. Less irritable than yesterday. - Objective Vital Signs & Weight: Vital Signs (12 hours) Temp Pulse Resp BP Pulse Ox 05/16/19 08:00 95 05/16/19 07:57 97 05/16/19 07:24 100.3 F H 05/16/19 03:48 98.6 F 05/16/19 01:00 77 20 110/69 98 05/16/19 00:00 81 20 90/63 100 05/15/19 23:57 98.6 F 05/15/19 23:00 96 20 117/58 L 100 05/15/19 22:00 106 H 21 H 152/91 H 94 L Weight Admit Weight 135 lb 12.8 oz Weight 135 lb 12.8 oz Most Recent Monitor Data Heart Rate from ECG 97 NIBP 109/78 NIBP BP-Mean 88 Respiration from ECG 20 SpO2 96 I&O: 05/15/19 05/16/19 05/17/19 06:59 06:59 06:59 Intake Total 2511 5414 Output Total 400 1280 Balance 2111 4134 Result Diagrams: 05/16/19 08:13 05/16/19 03:13 Additional Labs: Accuchecks 05/15/19 18:39 POC Glucose 249 H Hospitalist ROS - Review of Systems ROS unobtainable: due to mental status - Medication Medications: Active Medications Generic Name Dose Route Start Last Admin Trade Name Freq PRN Reason Stop Dose Admin Acetaminophen 1,000 mg 05/13/19 11:10 05/15/19 19:19 Tylenol PER TUBE 1,000 mg Q6H PRN Administration Mild Pain (1-3) Acidophilus 1 tab 05/13/19 21:00 05/16/19 07:33 Floranex PO Not Given BID [facility] Amantadine HCl 200 mg 05/13/19 21:00 05/16/19 07:31 Symmetrel PER TUBE Not Given BID [facility] Ascorbic Acid 500 mg 05/14/19 09:00 05/16/19 07:32 Vitamin C PER TUBE Not Given DAILY [facility] Baclofen 5 mg 05/15/19 22:00 05/16/19 05:51 Lioresal PER TUBE 5 mg Q8HR MAGO Administration Cholecalciferol 5,000 units 05/14/19 09:00 05/16/19 07:32 Vitamin D3 PER TUBE Not Given DAILY [facility] Cyanocobalamin 1,000 mcg 05/14/19 09:00 05/16/19 07:32 Vitamin B-12 PER TUBE Not Given DAILY [facility] Enoxaparin Sodium 40 mg 05/13/19 21:00 05/15/19 21:11 Lovenox SC 40 mg QPM MAGO Administration Fluoxetine HCl 40 mg 05/14/19 09:00 05/16/19 07:33 Prozac PER TUBE Not Given DAILY [facility] Folic Acid 1 mg 05/14/19 09:00 05/16/19 07:33 Folvite PER TUBE Not Given DAILY [facility] Gabapentin 300 mg 05/13/19 21:00 05/16/19 07:33 Neurontin PO Not Given BID [facility] Cefepime HCl 2 gm/ Sodium 100 mls @ 200 mls/hr 05/13/19 12:00 05/16/19 01:03 Chloride IVPB 100 mls 1200,2359 MAGO Administration Levofloxacin 750 mg/ Device 150 mls @ 100 mls/hr 05/13/19 18:00 05/15/19 17: 27 IVPB 150 mls 1800 MAGO Administration Linezolid 600 mg/ Device 300 mls @ 150 mls/hr 05/14/19 14:00 05/16/19 03:03 IVPB 300 mls 0200,1400 MAGO Administration Sodium Chloride 1,000 mls @ 100 mls/hr 05/15/19 14:17 05/16/19 01:16 Normal Saline 0.9% IV 1,000 mls .Q10H MAGO Administration Ketorolac Tromethamine 30 mg 05/14/19 18:00 05/16/19 05:51 Toradol IVP 05/19/19 18:01 30 mg Q6HR MAGO Administration Levetiracetam 500 mg 05/13/19 21:00 05/16/19 07:34 Keppra Oral Solution PER TUBE Not Given BID [facility] Lorazepam 1 mg 05/13/19 11:54 05/15/19 18:49 Ativan SLOW IVP 1 mg Q6H PRN Administration Anxiety/Agitation Metoprolol Tartrate 25 mg 05/13/19 21:00 05/16/19 07:34 Lopressor PER TUBE Not Given BID [facility] Modafinil 200 mg 05/14/19 09:00 05/16/19 07:34 Provigil PER TUBE Not Given DAILY [facility] Multivitamins 1 tab 05/14/19 09:00 05/16/19 07:34 Theragran PER TUBE Not Given DAILY [facility] Mupirocin 0 gm 05/13/19 21:00 05/15/19 21:11 Bactroban 2% Ointment TOP 1 applic TID MAGO Administration Pantoprazole Sodium 40 mg 05/14/19 09:00 05/16/19 07:34 Protonix PER TUBE Not Given DAILY [facility] Propylene Glycol 1 drop 05/13/19 15:00 05/15/19 21:10 Systane Opth Drop 15ml Bot EA EYE 1 drop TID MAGO Administration Scopolamine 1.5 mg 05/13/19 12:00 05/13/19 11:58 Transderm Scop TD 1.5 mg Q3D [facility]O Administration Senna 1 tab 05/13/19 21:00 05/15/19 21:12 Senokot PER TUBE 1 tab HS MAGO Administration Trazodone HCl 100 mg 05/13/19 21:00 05/15/19 21:11 Desyrel PO 100 mg HS MAGO Administration - Exam General - other findings: eyes open, not reponsive as is typical for him, occ coughing fit Neck - other findings: trach in place Respiratory: CTAB, no wheezes, no rales, no ronchi Gastrointestinal: soft, non-tender, non-distended, normal bowel sounds Gastrointestinal - other findings: PEG in place Neurological - other findings: still with fits of raising up left arm, no more rapid movements of eyes Psychiatric - other findings: not communicative Hosp A/P (1) Acute on chronic respiratory failure Code(s): J96.20 - ACUTE AND CHR RESP FAILURE, UNSP W HYPOXIA OR HYPERCAPNIA Status: Acute Qualifiers: Respiratory failure complication: hypoxia Qualified Code(s): J96.21 - Acute and chronic respiratory failure with hypoxia (2) Healthcare associated bacterial pneumonia Code(s): J15.9 - UNSPECIFIED BACTERIAL PNEUMONIA Status: Acute (3) Seizure Code(s): R56.9 - UNSPECIFIED CONVULSIONS Status: Acute (4) Dehydration Code(s): E86.0 - DEHYDRATION Status: Acute (5) Moderate protein-calorie malnutrition Code(s): E44.0 - MODERATE PROTEIN-CALORIE MALNUTRITION Status: Chronic (6) Acute on chronic respiratory failure with hypoxemia Code(s): J96.21 - ACUTE AND CHRONIC RESPIRATORY FAILURE WITH HYPOXIA Status: Acute (7) Functional quadriplegia Code(s): R53.2 - FUNCTIONAL QUADRIPLEGIA Status: Chronic - Plan Patient desating with tube feeds per nurse this AM. She stated that previous nurses have reported the same problem though only intermittently. Also with episodes of reflux of food out tube at home. Holding feeds for now and will have GI evaluate. Patient with likely seizure activity yesterday. Given Ativan and loaded with Dilantin. Neuro consult pending. On broad spectrum antibiotics for recurrent pneumonia. Will have pulmonology evaluate. Quadriplegia and non-communicative. Poor prognosis.
[2019-05-16] MEDS: Mupirocin 2% Ointment 22 GM Tube TOP SCH ×3 (11:02→21:40)
[2019-05-16] MEDS: Polyethylene Glycol OPTH DROP 15 ML BOT EA EYE SCH ×3 (11:02→21:40)
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
[2019-05-16] MEDS: Scopolamine 1.5 mg/72 hour Patch TD SCH (11:23)
--- NOTE | 2019-05-16 11:37 | PDOC.PULCN ---
Pulmonology Consult: HPI - Date of Consult Date: 05/16/19 Time: 08:00 - Consult Details Reason for Consult: Acute hypoxic respiratory failure Requesting Physician: Dr. Siddiqui - History of Present Illness HPI: 33 yo M with TBI, trach collar and peg tube admitted on 05/12 for sepsis 2/2 aspiration pneumonia. He has been receiving IV antibiotics but last night had a code green called due to desaturation down to 705 with fever and started on high flow cannula to his trach collar. He has been admitted here 2 other times due to pneumonia in the past few months. Patient is currenly on 40L and at 94%. Nursing reports he has had tube felds held because every time he is fed his oxygen drops to low 80%. Mother of patient (who is the caretake and present in room) is concerned for aspiration since she reports a few witnessed events. Patient is non verbal, sedentary due to TBI which is his baseline per mother. 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 Trach placement 2. PEG tube 3. Neck surgery 4. back surgery 5. Right leg surgery with krystyna placement 6. Left 5th digit surgery 7. Left elbow surgery - Social History Smoking Status: Former smoker Alcohol Use: other (previous alcohol use) Drug Use History: none Living Situation: with family/parents Pulmonology Consult: Meds - Medications MAR Reviewed: Yes Medications: Current Medications Acetaminophen (Tylenol) 1,000 mg PER TUBE Q6H PRN PRN Reason: Mild Pain (1-3) Last Admin: 05/15/19 19:19 Dose: 1,000 mg Acetaminophen (Tylenol Elixir) 650 mg PO Q4H PRN PRN Reason: Mild Pain (1-3) Acidophilus (Floranex) 1 tab PO BID [facility] Last Admin: 05/16/19 07:33 Dose: Not Given Amantadine HCl (Symmetrel) 200 mg PER TUBE BID [facility] Last Admin: 05/16/19 07:31 Dose: Not Given Ascorbic Acid (Vitamin C) 500 mg PER TUBE DAILY [facility] Last Admin: 05/16/19 07:32 Dose: Not Given Baclofen (Lioresal) 5 mg PER TUBE Q8HR [facility] Last Admin: 05/16/19 05:51 Dose: 5 mg Cholecalciferol (Vitamin D3) 5,000 units PER TUBE DAILY [facility] Last Admin: 05/16/19 07:32 Dose: Not Given Cyanocobalamin (Vitamin B-12) 1,000 mcg PER TUBE DAILY [facility] Last Admin: 05/16/19 07:32 Dose: Not Given Enoxaparin Sodium (Lovenox) 40 mg SC QPM [facility] Last Admin: 05/15/19 21:11 Dose: 40 mg Fluoxetine HCl (Prozac) 40 mg PER TUBE DAILY [facility] Last Admin: 05/16/19 07:33 Dose: Not Given Folic Acid (Folvite) 1 mg PER TUBE DAILY [facility] Last Admin: 05/16/19 07:33 Dose: Not Given Gabapentin (Neurontin) 300 mg PO BID [facility] Last Admin: 05/16/19 07:33 Dose: Not Given Guaifenesin (Robitussin Sf) 200 mg PER TUBE Q4H PRN PRN Reason: Cough Cefepime HCl 2 gm/ Sodium (Chloride) 100 mls @ 200 mls/hr IVPB 1200,2359 [facility] Last Admin: 05/16/19 01:03 Dose: 100 mls Levofloxacin 750 mg/ Device 150 mls @ 100 mls/hr IVPB 1800 [facility] Last Admin: 05/15/19 17:27 Dose: 150 mls Linezolid 600 mg/ Device 300 mls @ 150 mls/hr IVPB 0200,1400 [facility] Last Admin: 05/16/19 03:03 Dose: 300 mls Sodium Chloride (Normal Saline 0.9%) 1,000 mls @ 100 mls/hr IV .Q10H [facility] Last Admin: 05/16/19 10:59 Dose: 1,000 mls Fosphenytoin Sodium 100 mg/ (Sodium Chloride) 52 mls @ 100 mls/hr IVPB Q8HR [facility] Ketorolac Tromethamine (Toradol) 30 mg IVP Q6HR [facility] Stop: 05/19/19 18:01 Last Admin: 05/16/19 05:51 Dose: 30 mg Labetalol HCl (Normodyne) 20 mg SLOW IVP Q4H PRN PRN Reason: SBP > 180 and HR >/= 70 Levetiracetam (Keppra Oral Solution) 500 mg PER TUBE BID [facility] Last Admin: 05/16/19 07:34 Dose: Not Given Lorazepam (Ativan) 1 mg SLOW IVP Q6H PRN PRN Reason: Anxiety/Agitation Last Admin: 05/15/19 18:49 Dose: 1 mg Metoprolol Tartrate (Lopressor) 25 mg PER TUBE BID [facility] Last Admin: 05/16/19 07:34 Dose: Not Given Modafinil (Provigil) 200 mg PER TUBE DAILY [facility] Last Admin: 05/16/19 07:34 Dose: Not Given Multivitamins (Theragran) 1 tab PER TUBE DAILY [facility] Last Admin: 05/16/19 07:34 Dose: Not Given Mupirocin (Bactroban 2% Ointment) 0 gm TOP TID [facility] Last Admin: 05/16/19 11:02 Dose: 1 applic Ondansetron HCl (Zofran Odt) 4 mg PER TUBE Q6H PRN PRN Reason: Nausea/Vomiting Ondansetron HCl (Zofran) 4 mg IVP Q6H PRN PRN Reason: Nausea/Vomiting Pantoprazole Sodium (Protonix) 40 mg PER TUBE DAILY [facility] Last Admin: 05/16/19 07:34 Dose: Not Given Levomefolate/Algal Oil [Deplin-Algal Oil] 7.5 Mg 0 each PER TUBE DAILY [facility] Propylene Glycol (Systane Opth Drop 15ml Bot) 1 drop EA EYE TID [facility] Last Admin: 05/16/19 11:02 Dose: 1 drop Scopolamine (Transderm Scop) 1.5 mg TD Q3D [facility] Last Admin: 05/13/19 11:58 Dose: 1.5 mg Senna (Senokot) 1 tab PER TUBE [facility] Last Admin: 05/15/19 21:12 Dose: 1 tab Trazodone HCl (Desyrel) 100 mg PO HS [facility] Last Admin: 05/15/19 21:11 Dose: 100 mg - Allergies Allergies/Adverse Reactions: Allergies Allergy/AdvReac Type Severity Reaction Status Date / Time vancomycin Allergy Emesis Verified 05/12/19 21:53 Pulmonology Consult: PE - Physical Exam Constitutional: NAD Deviation from normal: trach collar in place HEENT: PERRLA, sclera anicteric Neck: no JVD Cardiovascular: RRR, no significant murmur Respiratory: negative: accessory muscle use, prolonged expiratory phase Focused Respiratory Location: decreased breath sounds: Right, Left Gastrointestinal: soft, no distention, positive bowel sounds Deviation from normal: PEG tube in place, no signs of infection or drainage Musculoskeletal: no edema Deviation from normal: rigid upper body Deviation from normal: non verbal Deviation from normal: tattoos present Pulmonology Consult: Results - Labs Result Diagrams: 05/16/19 08:13 05/16/19 03:13 - ABG Interpretation ABG Results: POC Bicarbonate Calc 29.7 mmol/L (22.0-28.0) H 05/12/19 16:49 - EKG Data Rate: normal Pulmonology Consult: A/P - Problem (1) Acute on chronic respiratory failure with hypoxemia Code(s): J96.21 - ACUTE AND CHRONIC RESPIRATORY FAILURE WITH HYPOXIA Status: Acute (2) Seizure Code(s): R56.9 - UNSPECIFIED CONVULSIONS Status: Acute (3) Moderate protein-calorie malnutrition Code(s): E44.0 - MODERATE PROTEIN-CALORIE MALNUTRITION Status: Chronic (4) TBI (traumatic brain injury) Code(s): S06.9X9A - UNSP INTRACRANIAL INJURY W LOC OF UNSP DURATION, INIT Status: Chronic (5) Acute on chronic respiratory failure Code(s): J96.20 - ACUTE AND CHR RESP FAILURE, UNSP W HYPOXIA OR HYPERCAPNIA Status: Acute Qualifiers: Respiratory failure complication: hypoxia Qualified Code(s): J96.21 - Acute and chronic respiratory failure with hypoxia - Time Time: 50% of the time was spent in coordination of care (as documented) at patient's floor/unit and/or counseling patient. Time with Patient: greater than 70 minutes - Plan Plan: 33 yo M with history of TBI with chronic encephalopathy admitted for aspiration pneumonia and transferred to [facility] due to acute hypoxic respiratory failure. 1. Acute on chronic hypoxic respiratory failure: On 40L of high flow with trach collar in place. Respiratory sputum gram culture pending but gram stain unremarkable for infectious cause. It is likely patient is aspirating in light of high gastric residuals. NPO for now. Gastroenterology consulted, pending gastrograffin study. Patient may need J tube. Continue trach care, wean O2 as tolerated. 2. Aspiration pneumonia: Continue Linezolid since MRSA colonizer and meets MRSA risk factor criteria. Recommend substituting zosyn in lieu of cefepime and levaquin and to also cover anaerobes. Pending blood cultures. 3. Seizure disorder: Reported seizure last night. Continue phosphenytoin while holding PEG tube feeds. Neurology consulted. If seizures uncontrolled this could contribute to aspiration events. 4. History of TBI with static encephalopathy Prognosis is guarded. Palliative care consulted. Addendum - Attending - Attending Attestation Date/Time: 05/19/19 [id number] I personally evaluated the patient and discussed the management with Dr. Salomon. I agree with the History, Examination, Assessment and Plan documented above with any addition or exceptions noted below. 70 minutes have been devoted to this patient in various activities. I personally reviewed all imaging studies and laboratory data noted within this document. For fifty percent of this time, I was interacting with the patient at the bedside or coordinating care with the care team. For the remainder of the time I was immediately available to the patient in the hospital unit.
[2019-05-16] MEDS: Fosphenytoin Sodium 100 MG in Sodium Chloride 0.9% 50 ML IVPB SCH ×2 (13:08→22:55)
[2019-05-16] MEDS: Lorazepam 2 MG/ML VIAL SLOW IVP PRN ×2 (13:15→20:09)
--- NOTE | 2019-05-16 14:00 | RAD ---
EXAM: Single view of the abdomen HISTORY: Aspiration. Evaluate for gastric outlet obstruction. COMPARISON: 05/11/2019 FINDINGS: Single view of the abdomen shows a nonspecific, nonobstructive bowel gas pattern. Contrast is seen in the stomach. Contrast is also seen within the colon. A catheter projecting over the abdomen likely represents a LABELER shunt. Hardware is seen in the thoracic spine. IMPRESSION: No evidence of significant gastric distention.
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
--- NOTE | 2019-05-16 15:20 | RAD ---
KUB: 05/16/2019 at 2:48 PM COMPARISON: 05/16/2019 at 1:27 PM HISTORY: Evaluate following Gastrografin administration FINDINGS: The contrast media seen within the stomach on the prior study is no longer visualized. Cont rast media is now seen within the colon. Incompletely imaged spinal hardware noted overlying the lower thoracic region. Catheter tubing overlies the abdomen/pelvis suggesting ventriculoperitoneal sh unt catheter tubing. IMPRESSION: Contrast media now seen within the colon. Previously noted gastric contrast media has pro gressed.
[2019-05-16] MEDS ORDERED: Piperacillin/Tazobactam 3.375 GM in Sodium Chloride 0.9% 100 ML IVPB SCH (19:00)
[2019-05-16] MEDS: levETIRAcetam In NaCl (Iso-Os) 1,000 MG in Premix Bag 1 BAG IVPB SCH (20:09)
[2019-05-16] MEDS: Enoxaparin Sodium 40 MG/0.4 ML SYRINGE SC SCH (20:13)
--- NOTE | 2019-05-16 20:27 | PRG ---
DATE OF SERVICE: 05/16/2019 This is a young man with a history of chronic encephalopathy. He was seen earlier with seizure-like episode. He was started on Keppra recently. His family witnessed generalized tonic-clonic seizure. This occurred in the midst of problems with his feedings refluxing. His level was 3.7. Upon arrival at this juncture, he is not having any further seizure activity. I would suggest increasing his daily dose to 1000 mg twice a day. Job ID: [id number]
[2019-05-16] MEDS: traZODone HCl 50 MG TAB PO SCH (21:06)
[2019-05-16] MEDS: Senokot 8.6 MG TAB PER TUBE SCH (21:06)
[2019-05-16] MEDS: Acetaminophen 650 MG Suppository PR PRN (22:55)
[2019-05-17] MEDS: Lorazepam 2 MG/ML VIAL SLOW IVP PRN ×5 (01:59→23:41)
[2019-05-17] MEDS: Linezolid 600 MG in Premix Bag 1 BAG IVPB SCH ×2 (01:59→14:17)
[2019-05-17] MEDS: Piperacillin/Tazobactam 3.375 GM in Sodium Chloride 0.9% 100 ML IVPB SCH ×4 (03:36→20:36)
[2019-05-17] MEDS: Acetaminophen 650 MG Suppository PR PRN ×3 (04:21→20:35)
[2019-05-17] MEDS: Ketorolac Tromethamine 30 MG/ML VIAL IVP SCH ×4 (05:51→23:41)
[2019-05-17] MEDS: Fosphenytoin Sodium 100 MG in Sodium Chloride 0.9% 50 ML IVPB SCH ×3 (05:51→21:40)
[2019-05-17] MEDS: Sodium Chloride 0.9% 1,000 ML IV SCH ×2 (05:52→19:53)
[2019-05-17] MEDS: Baclofen 10 MG TAB PER TUBE SCH ×3 (06:20→21:42)
[2019-05-17] MEDS: Ascorbic Acid 500 mg Chewable Tablet PER TUBE SCH (07:14)
[2019-05-17] MEDS: Amantadine HCl 10 mg/ml Oral Solution PER TUBE SCH ×2 (07:14→21:00)
[2019-05-17] MEDS: Gabapentin 300 MG CAP PO SCH ×2 (07:15→21:00)
[2019-05-17] MEDS: Cyanocobalamin (Vitamin B-12) 1,000 MCG TAB PER TUBE SCH (07:15)
[2019-05-17] MEDS: Lactinex Tablet PO SCH ×2 (07:15→21:00)
[2019-05-17] MEDS: FLUoxetine HCl 20 MG CAP PER TUBE SCH (07:15)
[2019-05-17] MEDS: Folic Acid 1 MG TAB PER TUBE SCH (07:15)
[2019-05-17] MEDS: Modafinil 100 MG TAB PER TUBE SCH (07:16)
[2019-05-17] MEDS: Multivit, Therapeutic 1 TAB PER TUBE SCH (07:16)
[2019-05-17] MEDS: Pantoprazole 40 MG GRANULES PACKET PER TUBE SCH (07:16)
[2019-05-17] MEDS: Metoprolol Tartrate 25 MG TAB PER TUBE SCH ×2 (07:16→21:00)
[2019-05-17] MEDS: levETIRAcetam In NaCl (Iso-Os) 1,000 MG in Premix Bag 1 BAG IVPB SCH ×2 (07:37→21:40)
[2019-05-17] MEDS: Polyethylene Glycol OPTH DROP 15 ML BOT EA EYE SCH ×3 (07:38→21:41)
[2019-05-17] MEDS: Mupirocin 2% Ointment 22 GM Tube TOP SCH ×3 (07:38→21:42)
--- NOTE | 2019-05-17 09:47 | PDOC.HOSPP ---
- Subjective Encounter Date: 05/17/19 Encounter Time: 11:30 Subjective: Patient unchanged. Still quite agitated. Increasing Ativan frequency. Spiking fever to 101 right now. - Objective Vital Signs & Weight: Vital Signs (12 hours) Temp 05/17/19 07:26 99.3 F 05/17/19 04:25 102.2 F H 05/16/19 23:00 99.5 F Weight Admit Weight 135 lb 12.8 oz Weight 139 lb 6.4 oz Most Recent Monitor Data Heart Rate from ECG 101 NIBP 127/64 NIBP BP-Mean 85 Respiration from ECG 34 SpO2 93 I&O: 05/16/19 05/17/19 05/18/19 06:59 06:59 06:59 Intake Total 5477 3445 Output Total 1280 4710 Balance 5450 3798 Result Diagrams: 05/16/19 08:13 05/16/19 03:13 Hospitalist ROS - Review of Systems ROS unobtainable: due to mental status - Medication Medications: Active Medications Generic Name Dose Route Start Last Admin Trade Name Freq PRN Reason Stop Dose Admin Acetaminophen 1,000 mg 05/13/19 11:10 05/15/19 19:19 Tylenol PER TUBE 1,000 mg Q6H PRN Administration Mild Pain (1-3) Acetaminophen 650 mg 05/16/19 20:54 05/17/19 08:10 Tylenol MS 650 mg Q4H PRN Administration Headache/Fever or Pain Acidophilus 1 tab 05/13/19 21:00 05/17/19 07:15 Floranex PO Not Given BID [facility] Amantadine HCl 200 mg 05/13/19 21:00 05/17/19 07:14 Symmetrel PER TUBE Not Given BID [facility] Ascorbic Acid 500 mg 05/14/19 09:00 05/17/19 07:14 Vitamin C PER TUBE Not Given DAILY [facility] Baclofen 5 mg 05/15/19 22:00 05/17/19 06:20 Lioresal PER TUBE Not Given Q8HR [facility] Cholecalciferol 5,000 units 05/14/19 09:00 05/17/19 07:14 Vitamin D3 PER TUBE Not Given DAILY [facility] Cyanocobalamin 1,000 mcg 05/14/19 09:00 05/17/19 07:15 Vitamin B-12 PER TUBE Not Given DAILY [facility] Enoxaparin Sodium 40 mg 05/13/19 21:00 05/16/19 20:13 Lovenox SC 40 mg QPM MAGO Administration Fluoxetine HCl 40 mg 05/14/19 09:00 05/17/19 07:15 Prozac PER TUBE Not Given DAILY [facility] Folic Acid 1 mg 05/14/19 09:00 05/17/19 07:15 Folvite PER TUBE Not Given DAILY [facility] Gabapentin 300 mg 05/13/19 21:00 05/17/19 07:15 Neurontin PO Not Given BID [facility] Linezolid 600 mg/ Device 300 mls @ 150 mls/hr 05/14/19 14:00 05/17/19 01:59 IVPB 300 mls 0200,1400 [facility]O Administration Sodium Chloride 1,000 mls @ 100 mls/hr 05/15/19 14:17 05/17/19 05:52 Normal Saline 0.9% IV 1,000 mls .Q10H [facility]O Administration Fosphenytoin Sodium 100 mg/ 52 mls @ 100 mls/hr 05/16/19 14:00 05/17/19 05:51 Sodium Chloride IVPB 52 mls Q8HR [facility]O Administration Levetiracetam 1,000 mg/ Device 100 mls @ 200 mls/hr 05/16/19 21:00 05/17/19 07:37 IVPB 100 mls BID [facility] Administration Piperacillin Sod/Tazobactam 100 mls @ 200 mls/hr 05/17/19 03:00 05/17/19 07: 37 Sod 3.375 gm/ Sodium Chloride IVPB 100 mls 0300,0900,1500,2100 [facility] Administration Ketorolac Tromethamine 30 mg 05/14/19 18:00 05/17/19 05:51 Toradol IVP 05/19/19 18:01 30 mg Q6HR [facility]O Administration Metoprolol Tartrate 25 mg 05/13/19 21:00 05/17/19 07:16 Lopressor PER TUBE Not Given BID [facility] Modafinil 200 mg 05/14/19 09:00 05/17/19 07:16 Provigil PER TUBE Not Given DAILY [facility] Multivitamins 1 tab 05/14/19 09:00 05/17/19 07:16 Theragran PER TUBE Not Given DAILY [facility] Mupirocin 0 gm 05/13/19 21:00 05/17/19 07:38 Bactroban 2% Ointment TOP 1 applic TID [facility] Administration Pantoprazole Sodium 40 mg 05/14/19 09:00 05/17/19 07:16 Protonix PER TUBE Not Given DAILY [facility] Propylene Glycol 1 drop 05/13/19 15:00 05/17/19 07:38 Systane Opth Drop 15ml Bot EA EYE 1 drop TID [facility] Administration Scopolamine 1.5 mg 05/13/19 12:00 05/16/19 11:23 Transderm Scop TD 1.5 mg Q3D [facility] Administration Senna 1 tab 05/13/19 21:00 05/16/19 21:06 Senokot PER TUBE Not Given HS [facility] Trazodone HCl 100 mg 05/13/19 21:00 05/16/19 21:06 Desyrel PO Not Given HS MAGO - Exam General Appearance: ill appearing General - other findings: awake, appears in some distress possibly from pain Heart: RRR, no murmur, no gallops, no rubs Respiratory - other findings: coarse breath sounds bilaterally Gastrointestinal: soft, non-distended Gastrointestinal - other findings: PEG in place, binder in place Neurological - other findings: unchanged Psychiatric: not oriented Hosp A/P (1) Acute on chronic respiratory failure Code(s): J96.20 - ACUTE AND CHR RESP FAILURE, UNSP W HYPOXIA OR HYPERCAPNIA Status: Acute Qualifiers: Respiratory failure complication: hypoxia Qualified Code(s): J96.21 - Acute and chronic respiratory failure with hypoxia (2) Healthcare associated bacterial pneumonia Code(s): J15.9 - UNSPECIFIED BACTERIAL PNEUMONIA Status: Acute (3) Seizure Code(s): R56.9 - UNSPECIFIED CONVULSIONS Status: Acute (4) Dehydration Code(s): E86.0 - DEHYDRATION Status: Acute (5) Moderate protein-calorie malnutrition Code(s): E44.0 - MODERATE PROTEIN-CALORIE MALNUTRITION Status: Chronic (6) Acute on chronic respiratory failure with hypoxemia Code(s): J96.21 - ACUTE AND CHRONIC RESPIRATORY FAILURE WITH HYPOXIA Status: Acute (7) Functional quadriplegia Code(s): R53.2 - FUNCTIONAL QUADRIPLEGIA Status: Chronic - Plan Patient desating with tube feeds per nursing. GI evaluating for gastric outlet obstruction. Patient with likely seizure activity. Neuro recommended increasing Keppra as level low. On broad spectrum antibiotics for recurrent pneumonia. Still spiking fevers. Dr. Guzman consulted Will ask Dr. Bowman for his imput. Quadriplegia and non-communicative. Poor prognosis.
[2019-05-17] MEDS: LEVOMEFOLATE PER TUBE SCH (10:31)
[2019-05-17] MEDS: ALGAL OIL PER TUBE SCH (10:31)
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
[2019-05-17] MEDS: Enoxaparin Sodium 40 MG/0.4 ML SYRINGE SC SCH (20:35)
[2019-05-17] MEDS: traZODone HCl 50 MG TAB PO SCH (20:37)
[2019-05-17] MEDS: Senokot 8.6 MG TAB PER TUBE SCH (21:00)
[2019-05-18] MEDS: Linezolid 600 MG in Premix Bag 1 BAG IVPB SCH ×2 (01:53→12:52)
[2019-05-18] MEDS: Sodium Chloride 0.9% 1,000 ML IV SCH ×2 (01:54→12:36)
[2019-05-18] MEDS: Morphine 4 MG/ML VIAL SLOW IVP PRN ×3 (01:54→16:51)
[2019-05-18] MEDS: Piperacillin/Tazobactam 3.375 GM in Sodium Chloride 0.9% 100 ML IVPB SCH ×3 (02:02→15:16)
[2019-05-18] MEDS: Acetaminophen 650 MG Suppository PR PRN (03:28)
[2019-05-18 03:31] VITALS: TEMP 101
[2019-05-18] MEDS: Fosphenytoin Sodium 100 MG in Sodium Chloride 0.9% 50 ML IVPB SCH ×2 (05:41→12:52)
[2019-05-18] MEDS: Ketorolac Tromethamine 30 MG/ML VIAL IVP SCH ×3 (05:41→15:17)
[2019-05-18] MEDS: Lorazepam 2 MG/ML VIAL SLOW IVP PRN ×2 (05:42→15:08)
[2019-05-18] MEDS: Baclofen 10 MG TAB PER TUBE SCH ×2 (05:58→12:51)
[2019-05-18] MEDS: Cyanocobalamin (Vitamin B-12) 1,000 MCG TAB PER TUBE SCH (07:19)
[2019-05-18] MEDS: FLUoxetine HCl 20 MG CAP PER TUBE SCH (07:19)
[2019-05-18] MEDS: Amantadine HCl 10 mg/ml Oral Solution PER TUBE SCH (07:19)
[2019-05-18] MEDS: Ascorbic Acid 500 mg Chewable Tablet PER TUBE SCH (07:19)
[2019-05-18] MEDS: Lactinex Tablet PO SCH (07:20)
[2019-05-18] MEDS: Gabapentin 300 MG CAP PO SCH (07:20)
[2019-05-18] MEDS: Multivit, Therapeutic 1 TAB PER TUBE SCH (07:20)
[2019-05-18] MEDS: Folic Acid 1 MG TAB PER TUBE SCH (07:20)
[2019-05-18] MEDS: Modafinil 100 MG TAB PER TUBE SCH (07:20)
[2019-05-18] MEDS: Metoprolol Tartrate 25 MG TAB PER TUBE SCH (07:20)
[2019-05-18] MEDS: Pantoprazole 40 MG GRANULES PACKET PER TUBE SCH (07:21)
[2019-05-18] MEDS: Mupirocin 2% Ointment 22 GM Tube TOP SCH ×2 (07:59→15:16)
[2019-05-18] MEDS: Polyethylene Glycol OPTH DROP 15 ML BOT EA EYE SCH ×2 (07:59→15:16)
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
[2019-05-18] MEDS: levETIRAcetam In NaCl (Iso-Os) 1,000 MG in Premix Bag 1 BAG IVPB SCH (10:00)
--- NOTE | 2019-05-18 10:00 | PDOC.HOSPP ---
- Subjective Encounter Date: 05/18/19 Encounter Time: 11:00 Subjective: Patient more calm this AM, receiving Ativan and Morphine prn. Family has decided on hospice at home. - Objective Vital Signs & Weight: Vital Signs (12 hours) Temp Pulse Ox 05/18/19 08:00 100 05/18/19 03:00 101.0 F H 05/17/19 23:00 99.3 F Weight Admit Weight 135 lb 12.8 oz Weight 140 lb 4.8 oz Most Recent Monitor Data Heart Rate from ECG 97 NIBP 127/71 NIBP BP-Mean 89 Respiration from ECG 26 SpO2 97 I&O: 05/17/19 05/18/19 05/19/19 06:59 06:59 06:59 Intake Total 3445 1265 Output Total 3540 0 Balance 1695 -264 Result Diagrams: 05/16/19 08:13 05/16/19 03:13 Hospitalist ROS - Review of Systems ROS unobtainable: due to mental status - Medication Medications: Active Medications Generic Name Dose Route Start Last Admin Trade Name Freq PRN Reason Stop Dose Admin Acetaminophen 1,000 mg 05/13/19 11:10 05/15/19 19:19 Tylenol PER TUBE 1,000 mg Q6H PRN Administration Mild Pain (1-3) Acetaminophen 650 mg 05/16/19 20:54 05/18/19 03:28 Tylenol [place] 650 mg Q4H PRN Administration Headache/Fever or Pain Acidophilus 1 tab 05/13/19 21:00 05/18/19 07:20 Floranex PO Not Given BID [facility] Amantadine HCl 200 mg 05/13/19 21:00 05/18/19 07:19 Symmetrel PER TUBE Not Given BID [facility] Ascorbic Acid 500 mg 05/14/19 09:00 05/18/19 07:19 Vitamin C PER TUBE Not Given DAILY [facility] Baclofen 5 mg 05/15/19 22:00 05/18/19 05:58 Lioresal PER TUBE Not Given Q8HR [facility] Cholecalciferol 5,000 units 05/14/19 09:00 05/18/19 07:19 Vitamin D3 PER TUBE Not Given DAILY [facility] Cyanocobalamin 1,000 mcg 05/14/19 09:00 05/18/19 07:19 Vitamin B-12 PER TUBE Not Given DAILY [facility] Enoxaparin Sodium 40 mg 05/13/19 21:00 05/17/19 20:35 Lovenox SC 40 mg QPM MAGO Administration Fluoxetine HCl 40 mg 05/14/19 09:00 05/18/19 07:19 Prozac PER TUBE Not Given DAILY [facility] Folic Acid 1 mg 05/14/19 09:00 05/18/19 07:20 Folvite PER TUBE Not Given DAILY [facility] Gabapentin 300 mg 05/13/19 21:00 05/18/19 07:20 Neurontin PO Not Given BID [facility] Linezolid 600 mg/ Device 300 mls @ 150 mls/hr 05/14/19 14:00 05/18/19 01:53 IVPB 300 mls 0200,1400 MAGO Administration Sodium Chloride 1,000 mls @ 100 mls/hr 05/15/19 14:17 05/18/19 01:54 Normal Saline 0.9% IV 1,000 mls .Q10H [facility] Administration Fosphenytoin Sodium 100 mg/ 52 mls @ 100 mls/hr 05/16/19 14:00 05/18/19 05:41 Sodium Chloride IVPB 52 mls Q8HR [facility] Administration Levetiracetam 1,000 mg/ Device 100 mls @ 200 mls/hr 05/16/19 21:00 05/17/19 21:40 IVPB 100 mls BID [facility] Administration Piperacillin Sod/Tazobactam 100 mls @ 200 mls/hr 05/17/19 03:00 05/18/19 07: 56 Sod 3.375 gm/ Sodium Chloride IVPB 100 mls 0300,0900,1500,2100 [facility] Administration Ketorolac Tromethamine 30 mg 05/14/19 18:00 05/18/19 05:41 Toradol IVP 05/19/19 18:01 30 mg Q6HR [facility]O Administration Lorazepam 1 mg 05/17/19 08:31 05/18/19 05:42 Ativan SLOW IVP 1 mg Q4H PRN Administration Anxiety/Agitation Metoprolol Tartrate 25 mg 05/13/19 21:00 05/18/19 07:20 Lopressor PER TUBE Not Given BID [facility] Modafinil 200 mg 05/14/19 09:00 05/18/19 07:20 Provigil PER TUBE Not Given DAILY [facility] Morphine Sulfate 4 mg 05/17/19 20:30 05/18/19 07:56 Morphine SLOW IVP 4 mg Q4H PRN Administration Moderate Pain (4-6) Multivitamins 1 tab 05/14/19 09:00 05/18/19 07:20 Theragran PER TUBE Not Given DAILY [facility] Mupirocin 0 gm 05/13/19 21:00 05/18/19 07:59 Bactroban 2% Ointment TOP 1 applic TID [facility] Administration Pantoprazole Sodium 40 mg 05/14/19 09:00 05/18/19 07:21 Protonix PER TUBE Not Given DAILY [facility] Propylene Glycol 1 drop 05/13/19 15:00 05/18/19 07:59 Systane Opth Drop 15ml Bot EA EYE 1 drop TID [facility] Administration Scopolamine 1.5 mg 05/13/19 12:00 05/16/19 11:23 Transderm Scop TD 1.5 mg Q3D [facility] Administration Senna 1 tab 05/13/19 21:00 05/17/19 21:00 Senokot PER TUBE Not Given HS [facility] Sodium Chloride 10 ml 05/17/19 09:00 05/18/19 08:00 Flush - Normal Saline IVF Not Given Q12HR [facility] Trazodone HCl 100 mg 05/13/19 21:00 05/17/19 20:37 Desyrel PO 100 mg HS MAGO Administration - Exam General - other findings: sleeping, opens eyes occasionally, no violent movements today Heart: RRR, no murmur, no gallops, no rubs Respiratory - other findings: coarse breath sounds bilaterally, on O2 via trach Gastrointestinal: soft Gastrointestinal - other findings: PEG in place Psychiatric - other findings: non-responsive Hosp A/P (1) Acute on chronic respiratory failure Code(s): J96.20 - ACUTE AND CHR RESP FAILURE, UNSP W HYPOXIA OR HYPERCAPNIA Status: Acute Qualifiers: Respiratory failure complication: hypoxia Qualified Code(s): J96.21 - Acute and chronic respiratory failure with hypoxia (2) Healthcare associated bacterial pneumonia Code(s): J15.9 - UNSPECIFIED BACTERIAL PNEUMONIA Status: Acute (3) Seizure Code(s): R56.9 - UNSPECIFIED CONVULSIONS Status: Acute (4) Dehydration Code(s): E86.0 - DEHYDRATION Status: Acute (5) Moderate protein-calorie malnutrition Code(s): E44.0 - MODERATE PROTEIN-CALORIE MALNUTRITION Status: Chronic (6) Acute on chronic respiratory failure with hypoxemia Code(s): J96.21 - ACUTE AND CHRONIC RESPIRATORY FAILURE WITH HYPOXIA Status: Acute (7) Functional quadriplegia Code(s): R53.2 - FUNCTIONAL QUADRIPLEGIA Status: Chronic - Plan Family met with Palliative Care and Dr. Guzman yesterday, decided to go home on hospice. Will stop tube feeds due to intolerance. Comfort care only. Quadriplegia and non-communicative. Poor prognosis.
--- NOTE | 2019-05-18 14:33 | PDOC.PALPN ---
Palliative Progress Note - Subjective Sleeping, mother at bedside and has visited with [facility], will transition from home health to hospice. - Objective Vital Signs: Vital Signs - Most Recent Temp Pulse Resp BP Pulse Ox 101.0 F H 77 20 110/69 100 05/18/19 03:00 05/16/19 01:00 05/16/19 01:00 05/16/19 01:00 05/18/19 08:00 - Physical Exam Constitutional: cachectic, emaciated, encephalitic HEENT: moist MMs, sclera anicteric, poor dentition Respiratory: unlabored breathing Deviation from normal: trach dependent Cardiovascular: RRR Gastrointestinal: soft, non-tender, incontinent Genitourinary: incontinent Musculoskeletal: no cyanosis, no clubbing, diffuse muscle atrophy Skin: cap refill <2 seconds Deviation from normal: Pallor Deviation from normal: encephalopathic - Assessment (1) Palliative care encounter Code(s): Z51.5 - ENCOUNTER FOR PALLIATIVE CARE Current Visit: Yes Status: Acute (2) Moderate protein-calorie malnutrition Code(s): E44.0 - MODERATE PROTEIN-CALORIE MALNUTRITION Current Visit: Yes Status: Chronic (3) TBI (traumatic brain injury) Code(s): S06.9X9A - UNSP INTRACRANIAL INJURY W LOC OF UNSP DURATION, INIT Current Visit: Yes Status: Chronic (4) Acute metabolic encephalopathy Code(s): G93.41 - METABOLIC ENCEPHALOPATHY Current Visit: No Status: Acute (5) Acute on chronic respiratory failure Code(s): J96.20 - ACUTE AND CHR RESP FAILURE, UNSP W HYPOXIA OR HYPERCAPNIA Current Visit: No Status: Acute Qualifiers: Respiratory failure complication: hypoxia Qualified Code(s): J96.21 - Acute and chronic respiratory failure with hypoxia (6) Chronic respiratory failure Code(s): J96.10 - CHRONIC RESPIRATORY FAILURE, UNSP W HYPOXIA OR HYPERCAPNIA Current Visit: No Status: Chronic Qualifiers: Respiratory failure complication: hypoxia Qualified Code(s): J96.11 - Chronic respiratory failure with hypoxia (7) Quadriplegia and quadriparesis Code(s): G82.50 - QUADRIPLEGIA, UNSPECIFIED Current Visit: No Status: Chronic - Plan Plan: Revisited measures Hospice will take to ensure comfort. Aileen, patient mother, expressed fear in going home. When asked she said "I'm afraid to let him ". Comforted her listened as she struggles with end of life for her son. Reassured her hospice will walk along side her and guide she and the family as they care for Charli. Offered support in this sad and difficult situation. *Sreekanth Juarez has completed the OOHDNAR *Communicated with [facility] [45] minutes spent on this encounter with >50% of the time in counseling and coordination of care. - ROS Non Response: due to mental status
--- NOTE | 2019-05-19 04:30 | PQF ---
WILLIAM HERRERA RYAN ANDREW MD [id number] [id number]- [id number] CLINICAL DOCUMENTATION CLARIFICATION FORM: POST DISCHARGE Addendum to original discharge summary date: ____ Late entry note date: __ DATE: 05/19/2019 ATTN: Fran Marinelli Please exercise your independent, professional judgment in responding to the clarification form. Clinical indicators are provided on the bottom of this form for your review Please check appropriate box(s): [ ] Aspiration Pneumonia [ X ] Empirically treating Gram Negative Pneumonia [ ] Empirically treating Anaerobic Pneumonia [ ] Pneumonia secondary to (specify organism / underlying disease) [ ] Simple Pneumonia (community acquired - nosocomial) [ ] Bronchopneumonia [ ] Pneumonia of unknown etiology [ ] Other diagnosis [ ] Unable to determine In addition, please specify: Present on Admission (POA): [ X ] Yes [ ] No [ ] Unable to determine For continuity of documentation, please document condition throughout progress notes and discharge summary. Thank You. CLINICAL INDICATORS - SIGNS / SYMPTOMS / LABS Vital sign 05/12 - Temp 100.0 F, Pulse 103, BP 123/67 H&P p1 05/12 Dr Siddiqui presents to ED from home with history of fever, agitation and vomiting in the last 24hrs H&P p1 05/12 Dr Siddiqui the pt with tracheostomy and PEG tube, receiving tube feeds at home H&P p1 05/12 Dr Siddiqui On chronic oxygen supplementation at home with a trach collar H&P p1 05/12 Dr Siddiqui Pt was treated for suspected pneumonia with associated hypoxic respiratory failure and transferred to the medical floor Pulmonary consult p1 05/16Dr Salomon admitted for sepsis 2/2 aspiration pneumonia RISK FACTORS H&P p1 05/12 History of Aspiration Pneumonia H&P p1 05/12 Seizure H&P p1 05/12 Seizure H&P p3 05/12 Acute on Chronic Respiratory failure H&P p3 05/12 Bacterial Pneumonia with suspected aspiration and gram negative krystyna TREATMENTS: JUN 24 IV Levaquin JUN 24 IV Normal Saline JUN 24 Duoneb JUN 24 IV Cefepime H&P p3 05/12 Culture obtained H&P p3 05/12 Continue general aspiration risk assessment H&P p3 05/12 Oxygen by trach collar to maintain O2 saturations greater than or equal to 90% Pulmonary consult 05/16 Dahlia Vera (This form is maintained as a part of the permanent medical record) 2014 [employer] All Rights Reserved [email or web address] [not provided] MTDD
--- NOTE | 2019-05-19 04:32 | PQF ---
WILLIAM HERRERA RYAN ANDREW MD [id number] [id number]- [id number] [id number] CLINICAL DOCUMENTATION CLARIFICATION FORM: POST DISCHARGE Addendum to original discharge summary date: ____ Late entry note date: __ DATE: 05/19/2019 ATTN: Fran Marinelli Please exercise your independent, professional judgment in responding to the clarification form. Clinical indicators are provided on the bottom of this form for your review Please check appropriate box(es): [ X ] Sepsis due to Pneumonia [ ] Severe sepsis with acute organ dysfunction of: (Examples: respiratory failure, encephalopathy, acute kidney failure, other) [ ] Septic Shock [ ] Localized infection without sepsis [ ] Other diagnosis [ ] Unable to determine In addition, please specify: Present on Admission (POA): [ X ] Yes [ ] No [ ] Unable to determine For continuity of documentation, please document condition throughout progress notes and discharge summary. Thank You. CLINICAL INDICATORS - SIGNS / SYMPTOMS / LABS Vital sign 05/12 - Temp 100.0 F, Pulse 103, BP 123/67 H&P p1 05/12 Dr Siddiqui presents to ED from home with history of fever, agitation and vomiting in the last 24hrs H&P p1 05/12 Dr Siddiqui the pt with tracheostomy and PEG tube, receiving tube feeds at home H&P p1 05/12 Dr Siddiqui On chronic oxygen supplementation at home with a trach collar H&P p1 05/12 Dr Siddiqui Pt was treated for suspected pneumonia with associated hypoxic respiratory failure and transferred to the medical floor Pulmonary consult p1 05/16Dr Salomon admitted for sepsis 2/2 aspiration pneumonia RISK FACTORS H&P p1 05/12 History of Aspiration Pneumonia H&P p1 05/12 Seizure H&P p1 05/12 Seizure H&P p3 05/12 Acute on Chronic Respiratory failure H&P p3 05/12 Bacterial Pneumonia with suspected aspiration and gram negative krystyna TREATMENTS: JUN 24 IV Levaquin JUN 24 IV Normal Saline JUN 24 Duoneb JUN 24 IV Cefepime H&P p3 05/12 Culture obtained H&P p3 05/12 Continue general aspiration risk assessment H&P p3 05/12 Oxygen by trach collar to maintain O2 saturations greater than or equal to 90% Pulmonary consult 05/16 Dahlia Vera (This form is maintained as a part of the permanent medical record) 2014 [employer]. All Rights Reserved [email or web address] [not provided] MTDD
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
== END 2019-05-18 17:47 | disposition hospice, home (50) | DRG 871 ==
LOC: ERS 15:46 → T4-B 20:55 → OBSVTOIN 21:08 → IMCU/EMU 05-15 19:00
PROVIDERS: ADMIT Internal Medicine; ATTEND Internal Medicine
DX: A41.50 Gram-negative sepsis, unspecified (principal); J96.21 Acute and chronic respiratory failure with hypoxia; R53.2 Functional quadriplegia; G93.41 Metabolic encephalopathy; J15.6 Pneumonia due to other Gram-negative bacteria; E44.0 Moderate protein-calorie malnutrition; Z68.1 Body mass index [BMI] 19.9 or less, adult; Z66 Do not resuscitate; Z51.5 Encounter for palliative care; E86.0 Dehydration; G40.909 Epilepsy, unspecified, not intractable, without status epilepticus; Y95 Nosocomial condition; Z93.0 Tracheostomy status; Z74.01 Bed confinement status; Z87.891 Personal history of nicotine dependence; Z88.1 Allergy status to other antibiotic agents; Z87.820 Personal history of traumatic brain injury; Z79.899 Other long term (current) drug therapy
CPT/HCPCS: 36415; 36416; 71045; 74018; 80048; 80053; 80177; 81003; 82330; 82803; 83605; 84145; 84146; 85007; 85025; 85027; 87040; 87070; 87077; 87149; 87186; 87205; 90471; 90732; 93005; 94640; 96361; 96365; 96372; 96375; G0009; J0692; J1650; J1885; J1953; J1956; J2020; J2060; J2270; J2543; J3490; J7620; Q2009; Q9963